=== PATIENT | male | born 1945 | race African-American/Black ===

== ENCOUNTER 2016-12-07 06:05 | Inpatient (IN) | payer MEDICARE ==
[~2016-12-07] VITALS: Ht 180.3 cm; Wt 77.1 kg
[~2016-12-07 06:05] MED LIST: ASPI81TA2 PO; ATOR20TA PO; DILT-3 PO; FURO80TA3 PO; POTA20TA83 PO; THIA100T13 PO; Valsartan PO
[2016-12-07] MEDS ORDERED: ASPIRIN 325 MG TABLET PO ONE (06:30)
[2016-12-07] MEDS ORDERED: NITROGLYCERIN PACKET 1 GM PACKET TD ONE (06:30)
[2016-12-07] MEDS ORDERED: ASPIRIN 325 MG TABLET ONE (06:43)
[2016-12-07] MEDS ORDERED: NITROGLYCERIN PACKET 1 GM PACKET ONE (06:43)
[2016-12-07 06:51] LABS: BASOPHILS % (AUTO) 0.5 % (0.0-2.0); DIFF TOTAL % 100 %; EOSINOPHILS # (AUTO) 0.1 /CMM (0.0-0.7); EOSINOPHILS % (AUTO) 1.2 % (0.0-6.0); HEMATOCRIT 40 % (39-51); HEMOGLOBIN 13.2 g/dL (13.5-17.5); LYMPHOCYTES # (AUTO) 0.9 /CMM (0.8-4.8); LYMPHOCYTES % (AUTO) 11.9 % (20.0-44.0); MEAN CORPUSCULAR HEMOGLOBIN 33 PG (26.0-33.0); MEAN CORPUSCULAR HGB CONC 33 g/dl (31.0-36.0); MEAN CORPUSCULAR VOLUME 97 fL (80-96); MONOCYTES # (AUTO) 0.4 /CMM (0.1-1.30); MONOCYTES % (AUTO) 5.1 % (2.0-12.0); NEUTROPHILS % (AUTO) 81.3 % (43.0-81.0); PLATELET COUNT (AUTO) 265 /CMM (150-450); RED BLOOD CELL COUNT(AUTO) 4.06 MIL/uL (4.5-6.0); WHITE BLOOD COUNT (AUTO) 7.3 K/uL (4.3-11.0)
[2016-12-07 07:03] LABS: ALBUMIN 3.4 g/dL (3.4-5.0); BILIRUBIN,DIRECT 0.3 mg/dL (0.0-0.2); BILIRUBIN,TOTAL 0.8 mg/dL (0.2-1.0); INDIRECT BILIRUBIN 0.5 mg/dL (0.0-1.1)
[2016-12-07 07:07] LABS: TROPONIN I 0.055 ng/mL (0.00-0.056)
[2016-12-07 07:21] LABS: INR 0.99 (0.87-1.13); PROTHROMBIN TIME 10.7 SECS (9.5-12.7)
[2016-12-07] MEDS ORDERED: POTA20TA83 PO (07:45)
[2016-12-07] MEDS ORDERED: ASPI81TA2 PO (07:45)
[2016-12-07] MEDS ORDERED: VALS40TA4 PO (07:45)
[2016-12-07] MEDS ORDERED: FURO80TA3 PO (07:45)
[2016-12-07 08:43] VITALS: BP 145/92
[2016-12-07] MEDS ORDERED: ACETAMINOPHEN 325 MG TABLET PO PRN (09:30)
[2016-12-07] MEDS: PANTOPRAZOLE 40 MG TABLET.DR PO SCH (09:33)
[2016-12-07 09:45] LABS: CALCIUM, SERUM 7.8 mg/dL (8.5-10.1); CREATININE 1.1 mg/dL (0.6-1.3); POTASSIUM 3.4 mmol/L (3.5-5.1)
[2016-12-07] MEDS: VALSARTAN 40 MG TABLET PO SCH (09:54)
[2016-12-07] MEDS: DILTIAZEM HCL CD 240 MG PO SCH (09:54)
[2016-12-07] MEDS ORDERED: ENOXAPARIN SODIUM 40 MG/0.4 ML DISP.SYRIN SQ SCH (10:00)
[2016-12-07] MEDS ORDERED: FUROSEMIDE 80 MG TABLET PO SCH (10:30)
[2016-12-07] MEDS: POTASSIUM CHLORIDE 20 MEQ TAB.PRT.SR PO SCH (11:09)
[2016-12-07] MEDS: ENOXAPARIN SODIUM 40 MG/0.4 ML DISP.SYRIN SQ SCH (11:10)
[2016-12-07] MEDS ORDERED: HYDROCODONE/APAP 5/325MG 1 EACH TABLET PO STA (11:38)
[2016-12-07] MEDS: NITROGLYCERIN 30 GM TUBE TP SCH ×2 (11:44→17:50)
[2016-12-07 12:00] VITALS: BP 135/88
[2016-12-07] MEDS ORDERED: LEVALBUTEROL HCL NEB 1.25 MG/0.5 ML VIAL.NEB IH PRN (12:00)
[2016-12-07] MEDS ORDERED: ALBUTEROL FS 2.5 MG/0.5 ML VIAL.NEB NEB PRN (13:00)
[2016-12-07] MEDS: HYDROCODONE/APAP 5/325MG 1 EACH TABLET PO PRN ×2 (15:36→21:30)
[2016-12-07 16:00] VITALS: BP 149/87
[2016-12-07 16:31] VITALS: BP 149/87
[2016-12-07 20:00] VITALS: BP 143/98
[2016-12-07] MEDS ORDERED: ONDANSETRON HCL/PF 4 MG/2 ML VIAL IV PRN (22:00)
[2016-12-07] MEDS ORDERED: ATORVASTATIN 10 MG TABLET PO SCH (22:00)
[2016-12-08] MEDS: HYDROCODONE/APAP 5/325MG 1 EACH TABLET PO PRN ×2 (03:29→10:18)
[2016-12-08 04:00] VITALS: BP 126/81
[2016-12-08 04:08] VITALS: BP 126/81
[2016-12-08] MEDS: NITROGLYCERIN 30 GM TUBE TP SCH ×3 (06:00→12:00)
[2016-12-08] MEDS: ENOXAPARIN SODIUM 40 MG/0.4 ML DISP.SYRIN SQ SCH (09:00)
[2016-12-08] MEDS ORDERED: FUROSEMIDE 40 MG TABLET PO SCH (09:00)
[2016-12-08] MEDS ORDERED: ASPIRIN 81 MG TAB.CHEW PO SCH ×2 (09:00)
[2016-12-08] MEDS ORDERED: THIAMINE HCL 100 MG TABLET PO SCH (09:00)
[2016-12-08 09:57] VITALS: BP 129/85
[2016-12-08] MEDS: VALSARTAN 40 MG TABLET PO SCH (10:19)
[2016-12-08] MEDS: DILTIAZEM HCL CD 240 MG PO SCH (10:20)
[2016-12-08] MEDS: PANTOPRAZOLE 40 MG TABLET.DR PO SCH (10:21)
[2016-12-08] MEDS: POTASSIUM CHLORIDE 20 MEQ TAB.PRT.SR PO SCH (10:21)
[2016-12-08 12:00] VITALS: BP 116/77
== END 2016-12-08 13:49 | disposition home or self-care (01) | DRG 191 ==
LOC: ER 06:08 → TELE1 07:53 → MEDSG1 11:51
PROVIDERS: ADMIT Legal Medicine; ATTEND Legal Medicine
DX: J44.0 Chronic obstructive pulmonary disease with (acute) lower respiratory infection (principal); I42.9 Cardiomyopathy, unspecified; I50.22 Chronic systolic (congestive) heart failure; J20.9 Acute bronchitis, unspecified; I48.2 Chronic atrial fibrillation; Z87.891 Personal history of nicotine dependence; Z95.810 Presence of automatic (implantable) cardiac defibrillator; R74.0 Nonspecific elevation of levels of transaminase and lactic acid dehydrogenase [LDH]; Z76.5 Malingerer [conscious simulation]; I11.0 Hypertensive heart disease with heart failure; G89.4 Chronic pain syndrome; I25.10 Atherosclerotic heart disease of native coronary artery without angina pectoris; M19.90 Unspecified osteoarthritis, unspecified site; Z96.649 Presence of unspecified artificial hip joint; K21.9 Gastro-esophageal reflux disease without esophagitis
CPT/HCPCS: 36415; 71010-TC; 80048-TC; 80076-TC; 84484-TC; 85025-TC; 85730-TC; 87081-TC; A4606; J1650; J2405; Z7610

== ENCOUNTER 2016-12-12 05:31 | Inpatient (IN) | payer MEDICARE ==
[~2016-12-12] VITALS: Ht 180.3 cm; Wt 77.1 kg
[~2016-12-12 05:31] MED LIST changes: +VALS40TA4 PO; -Valsartan PO
[2016-12-12] MEDS ORDERED: Magnesium 1GM/D5W 100ML PREMIX 200 ML IV ONE (05:34)
[2016-12-12] MEDS ORDERED: IPRATROPIUM NEB FS 0.5 MG/2.5 ML AMPUL.NEB ONE (05:40)
[2016-12-12] MEDS ORDERED: ALBUTEROL FS 2.5 MG/3 ML VIAL.NEB ONE (05:40)
[2016-12-12] MEDS ORDERED: Magnesium 1GM/D5W 100ML PREMIX 100 ML IV ONE ×2 (05:42→05:55)
[2016-12-12] MEDS ORDERED: methylPREDNISolone SOD SUCC 125 MG/2ML VIAL ONE (05:42)
[2016-12-12] MEDS ORDERED: FUROSEMIDE 40 MG/4 ML VIAL ONE (05:42)
[2016-12-12] MEDS ORDERED: ASPIRIN EC 81 MG TABLET.DR PO ONE (05:42)
[2016-12-12] MEDS ORDERED: NITROGLYCERIN PACKET 1 GM PACKET ONE (05:43)
[2016-12-12] MEDS ORDERED: IV SET PRIMARY PUMP SET 1 EA INFUS.SET MC ONE ×3 (05:43→11:31)
[2016-12-12] MEDS ORDERED: ENALAPRILAT DIHYD. (2.5MG/ML) 1.25 MG/ML VIAL IV ONE (05:43)
[2016-12-12 05:58] LABS: BASOPHILS % (AUTO) 0.5 % (0.0-2.0); DIFF TOTAL % 100 %; EOSINOPHILS # (AUTO) 0.2 /CMM (0.0-0.7); EOSINOPHILS % (AUTO) 2.9 % (0.0-6.0); HEMATOCRIT 37 % (39-51); HEMOGLOBIN 12.2 g/dL (13.5-17.5); LYMPHOCYTES # (AUTO) 1.6 /CMM (0.8-4.8); LYMPHOCYTES % (AUTO) 24.9 % (20.0-44.0); MEAN CORPUSCULAR HEMOGLOBIN 33 PG (26.0-33.0); MEAN CORPUSCULAR HGB CONC 33 g/dl (31.0-36.0); MEAN CORPUSCULAR VOLUME 98 fL (80-96); MONOCYTES # (AUTO) 0.4 /CMM (0.1-1.30); MONOCYTES % (AUTO) 6.2 % (2.0-12.0); NEUTROPHILS # (AUTO) 4.3 /CMM (1.8-8.9); NEUTROPHILS % (AUTO) 65.5 % (43.0-81.0); PLATELET COUNT (AUTO) 203 /CMM (150-450); RED BLOOD CELL COUNT(AUTO) 3.72 MIL/uL (4.5-6.0); WHITE BLOOD COUNT (AUTO) 6.5 K/uL (4.3-11.0)
[2016-12-12] MEDS ORDERED: methylPREDNISolone SOD SUCC 125 MG/2ML VIAL IV ONE (06:00)
[2016-12-12] MEDS ORDERED: FUROSEMIDE 40 MG/4 ML VIAL IV ONE (06:00)
[2016-12-12] MEDS ORDERED: ALBUTEROL FS 2.5 MG/3 ML VIAL.NEB CONTNEB ONE (06:00)
[2016-12-12] MEDS ORDERED: IPRATROPIUM NEB FS 0.5 MG/2.5 ML AMPUL.NEB NEB ONE (06:00)
[2016-12-12] MEDS ORDERED: NITROGLYCERIN PACKET 1 GM PACKET TD ONE (06:00)
[2016-12-12] MEDS ORDERED: ASPIRIN 81 MG TAB.CHEW PO ONE (06:00)
[2016-12-12] MEDS ORDERED: NITROGLYCERIN 0.4 MG/TAB BOTTLE SL ONE (06:00)
[2016-12-12] MEDS ORDERED: ENALAPRILAT INJ (1.25 MG/ML) 1.25 MG/ML VIAL IV PRN (06:00)
[2016-12-12] MEDS ORDERED: NITROGLYCERIN 0.4 MG/TAB BOTTLE ONE (06:04)
[2016-12-12 06:10] LABS: CALCIUM, SERUM 8.3 mg/dL (8.5-10.1); POTASSIUM 3.7 mmol/L (3.5-5.1)
[2016-12-12 06:14] LABS: PHOSPHORUS 3.7 mg/dL (2.5-4.9)
[2016-12-12 06:17] LABS: TROPONIN I 0.078 ng/mL (0.00-0.056)
[2016-12-12 06:22] LABS: ALBUMIN 3.3 g/dL (3.4-5.0); BILIRUBIN,DIRECT 0.3 mg/dL (0.0-0.2); BILIRUBIN,TOTAL 0.6 mg/dL (0.2-1.0); INDIRECT BILIRUBIN 0.3 mg/dL (0.0-1.1); TOTAL PROTEIN, SERUM 7.1 g/dL (6.4-8.2)
[2016-12-12 08:00] VITALS: BP 138/92
[2016-12-12] MEDS ORDERED: IPRATROPIUM NEB FS 0.5 MG/2.5 ML AMPUL.NEB NEB PRN (10:00)
[2016-12-12] MEDS ORDERED: HYDROCODONE/APAP 5/325MG 1 EACH TABLET PO PRN ×2 (10:00)
[2016-12-12] MEDS ORDERED: ALBUTEROL FS 2.5 MG/0.5 ML VIAL.NEB NEB PRN (10:00)
[2016-12-12] MEDS ORDERED: MORPHINE SULFATE INJ 2 MG/ML DISP.SYRIN IM PRN (10:00)
[2016-12-12] MEDS ORDERED: Magnesium 1GM/D5W 100ML PREMIX 100 ML IV SCH (10:43)
[2016-12-12] MEDS ORDERED: BUMETANIDE INJ 8 MG in IV NS 0.9% 48 ML IV ONE (11:00)
[2016-12-12] MEDS: POTASSIUM CHLORIDE 20 MEQ TAB.PRT.SR PO SCH ×3 (11:22→14:35)
[2016-12-12] MEDS: VALSARTAN 40 MG TABLET PO SCH (11:27)
[2016-12-12] MEDS: THIAMINE HCL 100 MG TABLET PO SCH (11:30)
[2016-12-12] MEDS: Magnesium 1GM/D5W 100ML PREMIX 100 ML IV SCH ×2 (11:30→11:47)
[2016-12-12] MEDS: DILTIAZEM HCL CD 240 MG PO SCH (11:31)
[2016-12-12] MEDS: LEVOFLOXACIN 750 MG /D5W 150ML 750 MG in PREMIX 1 EA IV SCH (11:42)
[2016-12-12] MEDS ORDERED: ONDANSETRON HCL/PF 4 MG/2 ML VIAL ONE (12:41)
[2016-12-12] MEDS: methylPREDNISolone SOD SUCC 125 MG/2ML VIAL IV SCH ×2 (12:44→21:06)
[2016-12-12] MEDS ORDERED: ONDANSETRON HCL/PF 4 MG/2 ML VIAL IV PRN (13:00)
[2016-12-12] MEDS ORDERED: ALBUTEROL FS 2.5 MG/0.5 ML VIAL.NEB NEB SCH (13:30)
[2016-12-12] MEDS: MORPHINE SULFATE INJ 2 MG/ML DISP.SYRIN IV PRN ×2 (14:39→20:01)
[2016-12-12] MEDS: IPRATROPIUM NEB FS 0.5 MG/2.5 ML AMPUL.NEB NEB SCH ×2 (14:53→20:19)
[2016-12-12] MEDS ORDERED: MORPHINE SULFATE INJ 2 MG/ML DISP.SYRIN IV ONE (15:30)
[2016-12-12 16:00] VITALS: BP 124/88
[2016-12-12] MEDS ORDERED: LEVALBUTEROL HCL NEB 1.25 MG/0.5 ML VIAL.NEB NEB PRN ×2 (16:30→19:30)
[2016-12-12] MEDS ORDERED: ALBUTEROL FS 2.5 MG/3 ML VIAL.NEB NEB PRN (17:00)
[2016-12-12] MEDS ORDERED: ALBUTEROL FS 2.5 MG/3 ML VIAL.NEB NEB SCH (19:30)
[2016-12-12 22:37] VITALS: BP 115/79
[2016-12-12] MEDS ORDERED: LEVALBUTEROL HCL NEB 1.25 MG/0.5 ML VIAL.NEB NEB SCH (23:30)
[2016-12-12] MEDS: LEVALBUTEROL HCL NEB 1.25 MG/0.5 ML VIAL.NEB NEB SCH (23:33)
[2016-12-13] VITALS: BP 112/72
[2016-12-13] MEDS: MORPHINE SULFATE INJ 2 MG/ML DISP.SYRIN IV PRN ×6 (00:02→21:06)
[2016-12-13 00:05] VITALS: BP 112/72
[2016-12-13] MEDS: IPRATROPIUM NEB FS 0.5 MG/2.5 ML AMPUL.NEB NEB SCH ×4 (01:42→19:54)
[2016-12-13 04:00] VITALS: BP 123/73
[2016-12-13] MEDS: methylPREDNISolone SOD SUCC 125 MG/2ML VIAL IV SCH ×3 (05:18→16:15)
[2016-12-13 08:00] VITALS: BP 115/75
[2016-12-13] MEDS: LEVALBUTEROL HCL NEB 1.25 MG/0.5 ML VIAL.NEB NEB SCH ×3 (08:28→23:44)
[2016-12-13] MEDS: ATORVASTATIN 10 MG TABLET PO SCH (08:29)
[2016-12-13] MEDS: ASPIRIN 81 MG TAB.CHEW PO SCH (08:30)
[2016-12-13] MEDS: THIAMINE HCL 100 MG TABLET PO SCH (08:30)
[2016-12-13] MEDS: DILTIAZEM HCL CD 240 MG PO SCH (08:33)
[2016-12-13] MEDS: VALSARTAN 40 MG TABLET PO SCH (08:33)
[2016-12-13] MEDS ORDERED: FUROSEMIDE 40 MG TABLET PO SCH (09:00)
[2016-12-13] MEDS ORDERED: POTASSIUM CHLORIDE 20 MEQ TAB.PRT.SR PO SCH (09:00)
[2016-12-13] MEDS ORDERED: FUROSEMIDE 80 MG TABLET PO SCH (09:00)
[2016-12-13 09:59] LABS: DIFF TOTAL % 100 %; HEMATOCRIT 35 % (39-51); HEMOGLOBIN 11.6 g/dL (13.5-17.5); LYMPHOCYTES # (AUTO) 0.3 /CMM (0.8-4.8); LYMPHOCYTES % (AUTO) 4.8 % (20.0-44.0); MEAN CORPUSCULAR HEMOGLOBIN 32 PG (26.0-33.0); MEAN CORPUSCULAR HGB CONC 33 g/dl (31.0-36.0); MEAN CORPUSCULAR VOLUME 98 fL (80-96); MONOCYTES # (AUTO) 0.1 /CMM (0.1-1.30); MONOCYTES % (AUTO) 2.2 % (2.0-12.0); NEUTROPHILS # (AUTO) 5.9 /CMM (1.8-8.9); PLATELET COUNT (AUTO) 199 /CMM (150-450); RED BLOOD CELL COUNT(AUTO) 3.58 MIL/uL (4.5-6.0); WHITE BLOOD COUNT (AUTO) 6.3 K/uL (4.3-11.0)
[2016-12-13] MEDS: FUROSEMIDE 80 MG TABLET PO SCH (10:00)
[2016-12-13 10:20] LABS: ALBUMIN 3.3 g/dL (3.4-5.0); BILIRUBIN,TOTAL 0.8 mg/dL (0.2-1.0); CREATININE 1.5 mg/dL (0.6-1.3); PHOSPHORUS 3.8 mg/dL (2.5-4.9); POTASSIUM 3.9 mmol/L (3.5-5.1)
[2016-12-13] MEDS ORDERED: SECONDARY IV SET 1 EA INFUS.SET MC ONE ×2 (10:37→10:46)
[2016-12-13] MEDS: Magnesium 1GM/D5W 100ML PREMIX 100 ML IV SCH ×2 (10:44→12:04)
[2016-12-13] MEDS ORDERED: IV SET PRIMARY PUMP SET 1 EA INFUS.SET MC ONE (10:46)
[2016-12-13] MEDS ORDERED: IV NS 0.9% 250 ML IV ONE (10:46)
[2016-12-13] MEDS: LEVOFLOXACIN 750 MG /D5W 150ML 750 MG in PREMIX 1 EA IV SCH (13:10)
[2016-12-13] MEDS: GABAPENTIN 100 MG CAPSULE PO SCH ×2 (13:13→16:15)
[2016-12-13] MEDS: LIDOCAINE 5% (PATCH) 1 EA PATCH TP SCH (13:30)
[2016-12-13 16:01] VITALS: BP 89/65
[2016-12-13 20:00] VITALS: BP 96/64
[2016-12-14] MEDS: IPRATROPIUM NEB FS 0.5 MG/2.5 ML AMPUL.NEB NEB SCH ×4 (01:11→19:57)
[2016-12-14] MEDS: MORPHINE SULFATE INJ 2 MG/ML DISP.SYRIN IV PRN ×5 (01:56→21:30)
[2016-12-14 04:00] VITALS: BP 117/65
[2016-12-14 04:15] VITALS: BP 124/63
[2016-12-14 05:02] VITALS: BP 117/65
[2016-12-14] MEDS: LEVALBUTEROL HCL NEB 1.25 MG/0.5 ML VIAL.NEB NEB SCH ×3 (07:17→23:11)
[2016-12-14] MEDS: ASPIRIN 81 MG TAB.CHEW PO SCH ×2 (09:00→09:55)
[2016-12-14] MEDS: FUROSEMIDE 80 MG TABLET PO SCH (09:00)
[2016-12-14] MEDS: POTASSIUM CHLORIDE 20 MEQ TAB.PRT.SR PO SCH ×2 (09:00→09:55)
[2016-12-14] MEDS: GABAPENTIN 100 MG CAPSULE PO SCH ×4 (09:00→17:00)
[2016-12-14] MEDS ORDERED: TEMAZEPAM 15 MG CAPSULE PO PRN (09:30)
[2016-12-14] MEDS: predniSONE 20 MG TABLET PO SCH (09:56)
[2016-12-14] MEDS: VALSARTAN 40 MG TABLET PO SCH (09:56)
[2016-12-14] MEDS: DILTIAZEM HCL CD 240 MG PO SCH (09:56)
[2016-12-14] MEDS: ATORVASTATIN 10 MG TABLET PO SCH (09:56)
[2016-12-14] MEDS: THIAMINE HCL 100 MG TABLET PO SCH (09:57)
[2016-12-14 10:49] LABS: ALBUMIN 3.4 g/dL (3.4-5.0); BILIRUBIN,TOTAL 0.7 mg/dL (0.2-1.0); CALCIUM, SERUM 8.1 mg/dL (8.5-10.1); CREATININE 1.4 mg/dL (0.6-1.3); PHOSPHORUS 3.4 mg/dL (2.5-4.9); POTASSIUM 3.6 mmol/L (3.5-5.1); TOTAL PROTEIN, SERUM 7.2 g/dL (6.4-8.2)
[2016-12-14 11:04] LABS: DIFF TOTAL % 100 %; HEMATOCRIT 38 % (39-51); HEMOGLOBIN 12.3 g/dL (13.5-17.5); LYMPHOCYTES # (AUTO) 0.3 /CMM (0.8-4.8); LYMPHOCYTES % (AUTO) 3.1 % (20.0-44.0); MEAN CORPUSCULAR HEMOGLOBIN 33 PG (26.0-33.0); MEAN CORPUSCULAR HGB CONC 33 g/dl (31.0-36.0); MEAN CORPUSCULAR VOLUME 99 fL (80-96); MONOCYTES # (AUTO) 0.2 /CMM (0.1-1.30); MONOCYTES % (AUTO) 2.5 % (2.0-12.0); NEUTROPHILS # (AUTO) 7.9 /CMM (1.8-8.9); NEUTROPHILS % (AUTO) 94.4 % (43.0-81.0); PLATELET COUNT (AUTO) 210 /CMM (150-450); RED BLOOD CELL COUNT(AUTO) 3.78 MIL/uL (4.5-6.0); WHITE BLOOD COUNT (AUTO) 8.4 K/uL (4.3-11.0)
[2016-12-14] MEDS: LIDOCAINE 5% (PATCH) 1 EA PATCH TP SCH (12:30)
[2016-12-14] MEDS: LEVOFLOXACIN (750 MG) 750 MG TABLET PO SCH (13:52)
[2016-12-14 17:34] VITALS: BP 110/65
[2016-12-14 20:00] VITALS: BP 107/73
[2016-12-14 20:24] VITALS: BP 107/73
[2016-12-15] MEDS: IPRATROPIUM NEB FS 0.5 MG/2.5 ML AMPUL.NEB NEB SCH ×2 (01:30→07:49)
[2016-12-15 04:00] VITALS: BP 95/46
[2016-12-15 04:42] VITALS: BP 95/46
[2016-12-15] MEDS: MORPHINE SULFATE INJ 2 MG/ML DISP.SYRIN IV PRN (06:57)
[2016-12-15] MEDS: LEVALBUTEROL HCL NEB 1.25 MG/0.5 ML VIAL.NEB NEB SCH (07:49)
[2016-12-15 08:00] VITALS: BP_SYST 100; BP_SYST 165; BP_DIAS 70; BP_DIAS 84
[2016-12-15] MEDS: THIAMINE HCL 100 MG TABLET PO SCH (09:00)
[2016-12-15] MEDS: DILTIAZEM HCL CD 240 MG PO SCH (09:00)
[2016-12-15] MEDS: predniSONE 20 MG TABLET PO SCH (09:00)
[2016-12-15] MEDS: POTASSIUM CHLORIDE 20 MEQ TAB.PRT.SR PO SCH (09:00)
[2016-12-15] MEDS: ATORVASTATIN 10 MG TABLET PO SCH (09:00)
[2016-12-15] MEDS: GABAPENTIN 100 MG CAPSULE PO SCH ×2 (09:00→12:40)
[2016-12-15] MEDS: ASPIRIN 81 MG TAB.CHEW PO SCH (09:00)
[2016-12-15] MEDS: FUROSEMIDE 80 MG TABLET PO SCH (09:00)
[2016-12-15] MEDS: VALSARTAN 40 MG TABLET PO SCH (09:00)
[2016-12-15] MEDS: LEVOFLOXACIN (750 MG) 750 MG TABLET PO SCH (11:30)
[2016-12-15] MEDS: LIDOCAINE 5% (PATCH) 1 EA PATCH TP SCH (12:30)
== END 2016-12-15 15:52 | disposition home or self-care (01) | DRG 190 ==
LOC: ER 05:32 → TELE1 07:25 → MEDSG1 10:54 → TELE-TD 15:24 → MEDSG1 12-13 10:20
PROVIDERS: ADMIT Legal Medicine; ATTEND Legal Medicine
DX: J44.1 Chronic obstructive pulmonary disease with (acute) exacerbation (principal); I50.23 Acute on chronic systolic (congestive) heart failure; I11.0 Hypertensive heart disease with heart failure; G89.4 Chronic pain syndrome; J40 Bronchitis, not specified as acute or chronic; I25.10 Atherosclerotic heart disease of native coronary artery without angina pectoris; I48.91 Unspecified atrial fibrillation; K21.9 Gastro-esophageal reflux disease without esophagitis; Z91.19 Patient's noncompliance with other medical treatment and regimen; Z71.6 Tobacco abuse counseling; F17.200 Nicotine dependence, unspecified, uncomplicated; R74.0 Nonspecific elevation of levels of transaminase and lactic acid dehydrogenase [LDH]; Z95.810 Presence of automatic (implantable) cardiac defibrillator; M19.90 Unspecified osteoarthritis, unspecified site; Z96.649 Presence of unspecified artificial hip joint
CPT/HCPCS: 36415; 71010-TC; 80048-TC; 80053-TC; 80076-TC; 83735-TC; 83880; 84100-TC; 84484-TC; 85025-TC; 85378-TC; 87081-TC; 87400; 94799-TC; 97001-TC; 97116-TC; 97530-TC; A4216; A4606; J1940; J1956; J2270; J2405; J2930; J3475; J3490; J7050; Z7610

== ENCOUNTER 2017-01-06 18:32 | Emergency (ER) | payer MEDICARE ==
[~2017-01-06] VITALS: Ht 185.4 cm; Wt 81.6 kg
[2017-01-06 22:35] LABS: BASOPHILS % (AUTO) 0.7 % (0.0-2.0); DIFF TOTAL % 100 %; EOSINOPHILS # (AUTO) 0.2 /CMM (0.0-0.7); EOSINOPHILS % (AUTO) 6.5 % (0.0-6.0); HEMATOCRIT 41 % (39-51); HEMOGLOBIN 13.4 g/dL (13.5-17.5); LYMPHOCYTES # (AUTO) 1.8 /CMM (0.8-4.8); LYMPHOCYTES % (AUTO) 53.8 % (20.0-44.0); MEAN CORPUSCULAR HEMOGLOBIN 32 PG (26.0-33.0); MEAN CORPUSCULAR HGB CONC 33 g/dl (31.0-36.0); MEAN CORPUSCULAR VOLUME 97 fL (80-96); MONOCYTES # (AUTO) 0.2 /CMM (0.1-1.30); MONOCYTES % (AUTO) 6.3 % (2.0-12.0); NEUTROPHILS # (AUTO) 1.1 /CMM (1.8-8.9); NEUTROPHILS % (AUTO) 32.7 % (43.0-81.0); PLATELET COUNT (AUTO) 96 /CMM (150-450); RED BLOOD CELL COUNT(AUTO) 4.24 MIL/uL (4.5-6.0); WHITE BLOOD COUNT (AUTO) 3.4 K/uL (4.3-11.0)
[2017-01-06 22:36] LABS: CREATININE 0.9 mg/dL (0.6-1.3); POTASSIUM 3.8 mmol/L (3.5-5.1)
[2017-01-06 22:38] LABS: SALICYLATE 4.1 mg/dL (2.8-20.0)
[2017-01-06 22:42] LABS: ALBUMIN 3.6 g/dL (3.4-5.0); BILIRUBIN,DIRECT 0.2 mg/dL (0.0-0.2); BILIRUBIN,TOTAL 0.5 mg/dL (0.2-1.0); INDIRECT BILIRUBIN 0.3 mg/dL (0.0-1.1)
[2017-01-06 22:50] LABS: INR 0.95 (0.87-1.13); PROTHROMBIN TIME 10.3 SECS (9.5-12.7)
[2017-01-07] MEDS ORDERED: IV NS 0.9% 1,000 ML BAG IV ONE (01:00)
[2017-01-07] MEDS ORDERED: Magnesium 1GM/D5W 100ML PREMIX 100 ML IV SCH (01:00)
[2017-01-07 06:41] VITALS: BP 128/72
== END 2017-01-07 05:30 | disposition home or self-care (01) ==
LOC: ER 18:35
DX: F10.129 Alcohol abuse with intoxication, unspecified (principal); I10 Essential (primary) hypertension; R41.82 Altered mental status, unspecified; J44.9 Chronic obstructive pulmonary disease, unspecified; K21.9 Gastro-esophageal reflux disease without esophagitis; F17.210 Nicotine dependence, cigarettes, uncomplicated
CPT/HCPCS: 36415; 70450; 71010; 72125; 80048; 80076; 80329; 82140; 83735; 85025; 85730; 93005; 99285; A4606; G0480 ×2; G6039-TC; Z7610

== ENCOUNTER 2017-01-25 01:57 | Inpatient (IN) | payer MEDICARE ==
[~2017-01-25] VITALS: Ht 180.3 cm; Wt 77.1 kg
[2017-01-25] MEDS ORDERED: ASPIRIN 325 MG TABLET PO ONE (02:30)
[2017-01-25 02:35] LABS: BASOPHILS % (AUTO) 0.7 % (0.0-2.0); DIFF TOTAL % 100 %; EOSINOPHILS # (AUTO) 0.1 /CMM (0.0-0.7); EOSINOPHILS % (AUTO) 2.2 % (0.0-6.0); HEMATOCRIT 35 % (39-51); HEMOGLOBIN 11.7 g/dL (13.5-17.5); LYMPHOCYTES # (AUTO) 1.2 /CMM (0.8-4.8); MEAN CORPUSCULAR HEMOGLOBIN 33 PG (26.0-33.0); MEAN CORPUSCULAR HGB CONC 33 g/dl (31.0-36.0); MEAN CORPUSCULAR VOLUME 98 fL (80-96); MONOCYTES # (AUTO) 0.6 /CMM (0.1-1.30); MONOCYTES % (AUTO) 13.5 % (2.0-12.0); NEUTROPHILS # (AUTO) 2.3 /CMM (1.8-8.9); NEUTROPHILS % (AUTO) 54.6 % (43.0-81.0); PLATELET COUNT (AUTO) 154 /CMM (150-450); RED BLOOD CELL COUNT(AUTO) 3.58 MIL/uL (4.5-6.0); WHITE BLOOD COUNT (AUTO) 4.2 K/uL (4.3-11.0)
[2017-01-25] MEDS ORDERED: ASPIRIN 81 MG TAB.CHEW ONE (02:38)
[2017-01-25 02:48] LABS: CALCIUM, SERUM 7.9 mg/dL (8.5-10.1); POTASSIUM 3.2 mmol/L (3.5-5.1)
[2017-01-25 02:51] LABS: TROPONIN I 0.13 ng/mL (0.00-0.056)
[2017-01-25] MEDS ORDERED: ASPIRIN 81 MG TAB.CHEW PO ONE (03:00)
[2017-01-25 03:40] LABS: INR 0.91 (0.87-1.13); PROTHROMBIN TIME 9.8 SECS (9.5-12.7)
[2017-01-25 04:25] VITALS: BP 138/95
[2017-01-25] MEDS ORDERED: ENOXAPARIN SODIUM 40 MG/0.4 ML DISP.SYRIN SQ ONE (04:49)
[2017-01-25] MEDS ORDERED: MORPHINE SULFATE INJ 2 MG/ML DISP.SYRIN ONE (04:49)
[2017-01-25] MEDS: MORPHINE SULFATE INJ 2 MG/ML DISP.SYRIN IV PRN ×6 (04:59→22:55)
[2017-01-25] MEDS ORDERED: ENOXAPARIN SODIUM 40 MG/0.4 ML DISP.SYRIN SQ SCH (05:00)
[2017-01-25] MEDS ORDERED: NITROGLYCERIN PACKET 1 GM PACKET TOP PRN (05:30)
[2017-01-25 07:07] VITALS: BP 131/81
[2017-01-25] MEDS: ONDANSETRON HCL/PF 4 MG/2 ML VIAL IV PRN ×2 (07:53→14:53)
[2017-01-25 07:59] LABS: PHOSPHORUS 4.3 mg/dL (2.5-4.9); TROPONIN I 0.099 ng/mL (0.00-0.056)
[2017-01-25 08:45] LABS: DIFF TOTAL % 100 %; HEMATOCRIT 36 % (39-51); HEMOGLOBIN 11.9 g/dL (13.5-17.5); LYMPHOCYTES # (AUTO) 1.2 /CMM (0.8-4.8); LYMPHOCYTES % (AUTO) 26.5 % (20.0-44.0); MEAN CORPUSCULAR HEMOGLOBIN 33 PG (26.0-33.0); MEAN CORPUSCULAR HGB CONC 34 g/dl (31.0-36.0); MEAN CORPUSCULAR VOLUME 98 fL (80-96); MONOCYTES # (AUTO) 0.4 /CMM (0.1-1.30); MONOCYTES % (AUTO) 8.2 % (2.0-12.0); NEUTROPHILS # (AUTO) 2.8 /CMM (1.8-8.9); NEUTROPHILS % (AUTO) 64.3 % (43.0-81.0); PLATELET COUNT (AUTO) 147 /CMM (150-450); RED BLOOD CELL COUNT(AUTO) 3.66 MIL/uL (4.5-6.0); WHITE BLOOD COUNT (AUTO) 4.4 K/uL (4.3-11.0)
[2017-01-25] MEDS: PANTOPRAZOLE 40 MG TABLET.DR PO SCH (08:46)
[2017-01-25] MEDS ORDERED: Magnesium 1GM/D5W 100ML PREMIX 100 ML IV SCH (10:00)
[2017-01-25] MEDS ORDERED: SECONDARY IV SET 1 EA INFUS.SET MC ONE (10:32)
[2017-01-25] MEDS ORDERED: IV NS 0.9% 250 ML IV ONE (10:32)
[2017-01-25] MEDS ORDERED: IV SET PRIMARY PUMP SET 1 EA INFUS.SET MC ONE (10:32)
[2017-01-25] MEDS: Magnesium 1GM/D5W 100ML PREMIX 100 ML IV SCH ×4 (11:00→14:58)
[2017-01-25] MEDS ORDERED: POTASSIUM CHLORIDE 20 MEQ POWDER PACKET PO ONE (11:00)
[2017-01-25] MEDS ORDERED: FUROSEMIDE 20 MG/2 ML VIAL IV ONE (11:00)
[2017-01-25] MEDS: ISOSORBIDE MONONITRATE (30MG) 30 MG TAB.SR.24H PO SCH (11:07)
[2017-01-25] MEDS: BISOPROLOL FUMARATE 5 MG TABLET PO SCH (13:05)
[2017-01-25 16:00] VITALS: BP_SYST 106; BP_SYST 122; BP_DIAS 69; BP_DIAS 80
[2017-01-25 20:00] VITALS: BP 122/77
[2017-01-25 22:00] VITALS: BP 122/77
[2017-01-25] MEDS: ATORVASTATIN 10 MG TABLET PO SCH (22:56)
[2017-01-26 01:28] VITALS: BP 116/81
[2017-01-26] MEDS: MORPHINE SULFATE INJ 2 MG/ML DISP.SYRIN IV PRN ×7 (03:01→23:07)
[2017-01-26 04:00] VITALS: BP 112/76
[2017-01-26] MEDS: PANTOPRAZOLE 40 MG TABLET.DR PO SCH (06:28)
[2017-01-26 08:00] VITALS: BP 115/79
[2017-01-26] MEDS: ASPIRIN 81 MG TAB.CHEW PO SCH (08:21)
[2017-01-26] MEDS: ISOSORBIDE MONONITRATE (30MG) 30 MG TAB.SR.24H PO SCH (08:21)
[2017-01-26] MEDS: ENOXAPARIN SODIUM 40 MG/0.4 ML DISP.SYRIN SQ SCH (08:22)
[2017-01-26] MEDS: BISOPROLOL FUMARATE 5 MG TABLET PO SCH (08:26)
[2017-01-26] MEDS ORDERED: ZOLPIDEM TARTRATE 5 MG TABLET PO PRN (09:00)
[2017-01-26 16:00] VITALS: BP 101/73
[2017-01-26 20:00] VITALS: BP 117/67
[2017-01-26] MEDS: ATORVASTATIN 10 MG TABLET PO SCH (22:16)
[2017-01-27] VITALS: BP 120/74
[2017-01-27 04:00] VITALS: BP_SYST 107; BP_SYST 118; BP_DIAS 67; BP_DIAS 74
[2017-01-27] MEDS: MORPHINE SULFATE INJ 2 MG/ML DISP.SYRIN IV PRN ×2 (05:10→08:00)
[2017-01-27 06:17] VITALS: BP 118/67
[2017-01-27 07:44] LABS: BASOPHILS % (AUTO) 0.2 % (0.0-2.0); DIFF TOTAL % 100 %; EOSINOPHILS % (AUTO) 0.1 % (0.0-6.0); HEMATOCRIT 33 % (39-51); HEMOGLOBIN 11.2 g/dL (13.5-17.5); LYMPHOCYTES # (AUTO) 0.6 /CMM (0.8-4.8); LYMPHOCYTES % (AUTO) 10.5 % (20.0-44.0); MEAN CORPUSCULAR HEMOGLOBIN 34 PG (26.0-33.0); MEAN CORPUSCULAR HGB CONC 34 g/dl (31.0-36.0); MEAN CORPUSCULAR VOLUME 99 fL (80-96); MONOCYTES # (AUTO) 0.7 /CMM (0.1-1.30); NEUTROPHILS # (AUTO) 4.7 /CMM (1.8-8.9); NEUTROPHILS % (AUTO) 78.2 % (43.0-81.0); PLATELET COUNT (AUTO) 103 /CMM (150-450); RED BLOOD CELL COUNT(AUTO) 3.33 MIL/uL (4.5-6.0); WHITE BLOOD COUNT (AUTO) 6.1 K/uL (4.3-11.0)
[2017-01-27 07:53] LABS: CALCIUM, SERUM 8.4 mg/dL (8.5-10.1); CREATININE 1.9 mg/dL (0.6-1.3); POTASSIUM 5.1 mmol/L (3.5-5.1)
[2017-01-27] MEDS: ISOSORBIDE MONONITRATE (30MG) 30 MG TAB.SR.24H PO SCH (07:56)
[2017-01-27] MEDS: ASPIRIN 81 MG TAB.CHEW PO SCH (07:56)
[2017-01-27] MEDS: PANTOPRAZOLE 40 MG TABLET.DR PO SCH (07:56)
[2017-01-27] MEDS: ENOXAPARIN SODIUM 40 MG/0.4 ML DISP.SYRIN SQ SCH (07:57)
[2017-01-27] MEDS: BISOPROLOL FUMARATE 5 MG TABLET PO SCH (07:59)
[2017-01-27 08:00] VITALS: BP 116/90
== END 2017-01-27 12:10 | disposition home or self-care (01) | DRG 280 ==
LOC: ER 01:58 → TELE 04:17 → MED 01-27 08:55
PROVIDERS: ADMIT Legal Medicine; ATTEND Legal Medicine
DX: I21.4 Non-ST elevation (NSTEMI) myocardial infarction (principal); I50.23 Acute on chronic systolic (congestive) heart failure; I42.6 Alcoholic cardiomyopathy; I25.10 Atherosclerotic heart disease of native coronary artery without angina pectoris; G89.29 Other chronic pain; J44.9 Chronic obstructive pulmonary disease, unspecified; K21.9 Gastro-esophageal reflux disease without esophagitis; M19.90 Unspecified osteoarthritis, unspecified site; I25.2 Old myocardial infarction; Z91.19 Patient's noncompliance with other medical treatment and regimen; Z95.810 Presence of automatic (implantable) cardiac defibrillator; Z96.642 Presence of left artificial hip joint; F17.210 Nicotine dependence, cigarettes, uncomplicated; I11.0 Hypertensive heart disease with heart failure; F10.10 Alcohol abuse, uncomplicated; Y90.6 Blood alcohol level of 120-199 mg/100 ml
CPT/HCPCS: 36415; 71010-TC; 80048-TC; 80061-TC; 83735-TC; 83880; 84100-TC; 84484-TC; 85025-TC; 85730-TC; 87081-TC; 94799-TC; A4606; G0480; J1650; J1940; J2270; J2405; J3475; J7050; Z7610

== ENCOUNTER 2017-02-11 08:06 | Inpatient (IN) | payer MEDICARE ==
[2017-02-11] VITALS (16 sets, daily range): BP systolic 118–161; BP diastolic 67–116
[~2017-02-11] VITALS: Ht 182.9 cm; Wt 79.4 kg
[2017-02-11] MEDS ORDERED: ALBUTEROL FS 2.5 MG/3 ML VIAL.NEB ONE ×2 (08:11→10:26)
[2017-02-11] MEDS ORDERED: IPRATROPIUM NEB FS 0.5 MG/2.5 ML AMPUL.NEB ONE (08:11)
[2017-02-11] MEDS ORDERED: ALBUTEROL FS 2.5 MG/3 ML VIAL.NEB CONTNEB ONE ×2 (08:30→10:30)
[2017-02-11] MEDS ORDERED: IPRATROPIUM NEB FS 0.5 MG/2.5 ML AMPUL.NEB NEB ONE (08:30)
[2017-02-11] MEDS ORDERED: methylPREDNISolone SOD SUCC 125 MG/2ML VIAL IV ONE (08:30)
[2017-02-11] MEDS ORDERED: methylPREDNISolone SOD SUCC 125 MG/2ML VIAL ONE (08:42)
[2017-02-11 08:54] LABS: BASOPHILS % (AUTO) 0.3 % (0.0-2.0); EOSINOPHILS % (AUTO) 0.3 % (0.0-6.0); HEMATOCRIT 40 % (39-51); HEMOGLOBIN 13.1 g/dL (13.5-17.5); LYMPHOCYTES # (AUTO) 0.9 /CMM (0.8-4.8); LYMPHOCYTES % (AUTO) 10.5 % (20.0-44.0); MEAN CORPUSCULAR HEMOGLOBIN 32 PG (26.0-33.0); MEAN CORPUSCULAR HGB CONC 33 g/dl (31.0-36.0); MEAN CORPUSCULAR VOLUME 99 fL (80-96); MONOCYTES # (AUTO) 0.2 /CMM (0.1-1.30); MONOCYTES % (AUTO) 2.8 % (2.0-12.0); NEUTROPHILS # (AUTO) 7.2 /CMM (1.8-8.9); NEUTROPHILS % (AUTO) 86.1 % (43.0-81.0); PLATELET COUNT (AUTO) 138 /CMM (150-450); RDW COEFFICIENT OF VARIATION 17.4 (11.5-15.0); RED BLOOD CELL COUNT(AUTO) 4.06 MIL/uL (4.5-6.0); WHITE BLOOD COUNT (AUTO) 8.3 K/uL (4.3-11.0)
[2017-02-11] MEDS ORDERED: FUROSEMIDE 40 MG/4 ML VIAL IV ONE (09:00)
[2017-02-11 09:16] LABS: TROPONIN I 0.082 ng/mL (0.00-0.056)
[2017-02-11 09:21] LABS: ALBUMIN 3.9 g/dL (3.4-5.0); BILIRUBIN,DIRECT 0.5 mg/dL (0.0-0.2); BILIRUBIN,TOTAL 2.8 mg/dL (0.2-1.0); CALCIUM, SERUM 8.9 mg/dL (8.5-10.1); POTASSIUM 5.9 mmol/L (3.5-5.1); TOTAL PROTEIN, SERUM 7.9 g/dL (6.4-8.2)
[2017-02-11] MEDS ORDERED: FUROSEMIDE 40 MG/4 ML VIAL ONE (09:46)
[2017-02-11] MEDS ORDERED: LORAZEPAM INJ 2 MG/ML VIAL ONE (10:24)
[2017-02-11] MEDS ORDERED: NITROGLYCERIN PACKET 1 GM PACKET TOP ONE (10:30)
[2017-02-11] MEDS ORDERED: LORAZEPAM INJ 2 MG/ML VIAL IV ONE (10:30)
[2017-02-11] MEDS ORDERED: NITROGLYCERIN PACKET 1 GM PACKET ONE (10:31)
[2017-02-11 11:04] LABS: ABG BASE EXCESS -17.8 mmol/L; ABG OXYGEN SATURATION 91.4 % (92.0-98.5); ABG PCO2 21.8 mmHg (35.0-45.0); ABG PH 7.197 (7.350-7.450); ABG PO2 82.5 mmHg (75.0-100.0); ABG TOTAL HEMOGLOBIN 14.3 G/dL (13.5-18.0); AaDO2 177.6 mmHg; COHb 1.6 % (0.5-1.5); MetHb 0.6 % (0.0-1.5); O2Hb 89.4 % (94.0-97.0); SITE, ABG Right Radial; VENT MODE, BG HHN
[2017-02-11] MEDS ORDERED: SODIUM BICARBONATE 5 MEQ/10 ML DISP.SYRIN IV ONE (11:30)
[2017-02-11] MEDS ORDERED: SODIUM BICARBONATE SYR 100 MEQ in IV D5W 1,000 ML IV PRN (11:30)
[2017-02-11 11:41] LABS: SALICYLATE 1.2 mg/dL (2.8-20.0)
[2017-02-11] MEDS ORDERED: SODIUM BICARBONATE SYR 50 MEQ/50 ML DISP.SYRIN ONE (11:41)
[2017-02-11] MEDS ORDERED: IV SET PRIMARY PUMP SET 1 EA INFUS.SET MC ONE ×2 (11:41→13:35)
[2017-02-11 11:49] LABS: CANNABINOID, URINE NEGATIVE (NEGATIVE); PHENCYCLIDINE SCREEN,URINE NEGATIVE (NEGATIVE)
[2017-02-11] MEDS ORDERED: Sodium Bicarbonate 100 MEQ in IV D5W 1,000 ML IV PRN (12:00)
[2017-02-11] MEDS ORDERED: BUMETANIDE INJ 8 MG in IV NS 0.9% 48 ML IV ONE (12:00)
[2017-02-11] MEDS ORDERED: ALBUTEROL HALF STRENGTH 1.25 MG/3 ML VIAL.NEB NEB SCH (13:00)
[2017-02-11] MEDS: IPRATROPIUM NEB FS 0.5 MG/2.5 ML AMPUL.NEB NEB SCH ×4 (13:00→23:46)
[2017-02-11] MEDS ORDERED: SODIUM POLYSTYRENE SULFONATE 15 G/60 ML BOTTLE PO ONE (13:00)
[2017-02-11] MEDS ORDERED: MEROPENEM 500 MG in IV NS 0.9% 50 ML IV SCH (13:00)
[2017-02-11 13:23] LABS: LACTIC ACID 11.1 mmol/L (0.4-2.0)
[2017-02-11] MEDS ORDERED: MEROPENEM 1 G in IV NS 0.9% 100 ML IV SCH ×4 (13:30)
[2017-02-11] MEDS ORDERED: ACETAMINOPHEN 325 MG TABLET PO PRN (13:30)
[2017-02-11] MEDS ORDERED: Z GUARD REMEDY 2 OZ OINT TP PRN (13:30)
[2017-02-11 13:52] LABS: ABG BASE EXCESS -12.9 mmol/L; ABG OXYGEN SATURATION 97.9 % (92.0-98.5); ABG PCO2 20.3 mmHg (35.0-45.0); ABG PH 7.336 (7.350-7.450); ABG PO2 133.6 mmHg (75.0-100.0); ABG TOTAL HEMOGLOBIN 13.8 G/dL (13.5-18.0); AaDO2 228.8 mmHg; COHb 1.3 % (0.5-1.5); MetHb 0.8 % (0.0-1.5); O2Hb 95.8 % (94.0-97.0); SITE, ABG Right Radial; VENT MODE, BG SIMPLE MASK
[2017-02-11] MEDS ORDERED: FEE PK DOSING 1 MIN EA MC ONE (13:52)
[2017-02-11] MEDS ORDERED: Sodium Bicarbonate 150 MEQ in IV D5W 1,000 ML IV PRN (14:00)
[2017-02-11] MEDS ORDERED: VANCOMYCIN 1 GM in IV D5W 250 ML IV ONE (14:00)
[2017-02-11] MEDS: MEROPENEM 1 G in IV NS 0.9% 100 ML IV SCH (14:53)
[2017-02-11] MEDS: ALBUTEROL HALF STRENGTH 1.25 MG/3 ML VIAL.NEB NEB SCH ×3 (15:07→23:46)
[2017-02-11 15:24] LABS: D-DIMER 3.47 mg/L(FEU (0.17-0.50); PROTHROMBIN TIME 10.7 SECS (9.5-12.7)
[2017-02-11] MEDS ORDERED: IV NS 0.9% 250 ML IV ONE ×2 (15:32→23:15)
[2017-02-11] MEDS ORDERED: CT SWABBABLE VALVE TRANS SET 1 EA INFUS.SET MC ONE (15:33)
[2017-02-11] MEDS ORDERED: IOHEXOL-300 100 ML VIAL IV ONE (15:33)
[2017-02-11 15:39] LABS: APPEARANCE,URINE CLEAR (CLEAR); BILIRUBIN,URINE NEGATIVE (NEGATIVE); BLOOD, URINE TRACE Ery/uL (NEGATIVE); COLOR,URINE YELLOW (YELLOW); KETONES,URINE 1+ (NEGATIVE); LEUKOCYTE ESTERASE ,URINE NEGATIVE (NEGATIVE); NITRITE, URINE NEGATIVE (NEGATIVE); PH,URINE 5.5 (5.0-8.0); PROTEIN,URINE NEGATIVE (NEGATIVE); UGLUCOSE NEGATIVE (NEGATIVE); UROBILINOGEN,URINE 0.2 EU/dL (0.2)
[2017-02-11 16:01] LABS: ADD URINE CULTURE NO; BACTERIA,URINE None seen /HPF (None Seen); MUCUS,URINE Few /LPF (None Seen); RBC,URINE 0-2 /HPF (0-2); SQUAMOUS EPITHELIAL CELL,UR 0-2 /HPF (None Seen); WBC,URINE 0-2 /HPF (0-3)
[2017-02-11] MEDS ORDERED: SECONDARY IV SET 1 EA INFUS.SET MC ONE (19:47)
[2017-02-11] MEDS: MORPHINE SULFATE INJ 2 MG/ML DISP.SYRIN IV PRN (19:53)
[2017-02-11] MEDS ORDERED: METRONIDAZOLE 500MG/ NS 100ML 200 ML IV ONE (20:11)
[2017-02-11] MEDS: METRONIDAZOLE 500MG/ NS 100ML 500 MG in PREMIX 1 EA IV SCH ×2 (20:33→23:06)
[2017-02-11] MEDS: IV NS 0.9% 250 ML IV PRN (23:28)
[2017-02-11 23:37] LABS: ABG BASE EXCESS 2.3 mmol/L; ABG OXYGEN SATURATION 95.1 % (92.0-98.5); ABG PCO2 26.4 mmHg (35.0-45.0); ABG PH 7.565 (7.350-7.450); ABG PO2 77.3 mmHg (75.0-100.0); ABG TOTAL HEMOGLOBIN 12.4 G/dL (13.5-18.0); AaDO2 91.2 mmHg; COHb 0.5 % (0.5-1.5); MetHb 0.9 % (0.0-1.5); O2Hb 93.8 % (94.0-97.0); SITE, ABG Right Radial; VENT MODE, BG N/C
[2017-02-12] VITALS (24 sets, daily range): BP systolic 97–132; BP diastolic 45–93
[2017-02-12] MEDS: MORPHINE SULFATE INJ 2 MG/ML DISP.SYRIN IV PRN ×6 (00:14→20:40)
[2017-02-12] MEDS: MEROPENEM 1 G in IV NS 0.9% 100 ML IV SCH ×4 (00:14→20:41)
[2017-02-12 00:28] LABS: BASOPHILS % (AUTO) 0.2 % (0.0-2.0); HEMATOCRIT 37 % (39-51); HEMOGLOBIN 12.1 g/dL (13.5-17.5); LYMPHOCYTES # (AUTO) 0.3 /CMM (0.8-4.8); LYMPHOCYTES % (AUTO) 6.9 % (20.0-44.0); MEAN CORPUSCULAR HEMOGLOBIN 32 PG (26.0-33.0); MEAN CORPUSCULAR HGB CONC 33 g/dl (31.0-36.0); MEAN CORPUSCULAR VOLUME 98 fL (80-96); MONOCYTES # (AUTO) 0.2 /CMM (0.1-1.30); MONOCYTES % (AUTO) 4.7 % (2.0-12.0); NEUTROPHILS % (AUTO) 88.2 % (43.0-81.0); PLATELET COUNT (AUTO) 121 /CMM (150-450); RDW COEFFICIENT OF VARIATION 17.4 (11.5-15.0); RED BLOOD CELL COUNT(AUTO) 3.77 MIL/uL (4.5-6.0); WHITE BLOOD COUNT (AUTO) 4.6 K/uL (4.3-11.0)
[2017-02-12 00:31] LABS: CALCIUM, SERUM 7.9 mg/dL (8.5-10.1); CREATININE 1.3 mg/dL (0.6-1.3); POTASSIUM 3.6 mmol/L (3.5-5.1)
[2017-02-12 00:37] LABS: ALBUMIN 3.6 g/dL (3.4-5.0); PHOSPHORUS 2.5 mg/dL (2.5-4.9)
[2017-02-12 00:40] LABS: MAGNESIUM 1.1 mg/dL (1.8-2.4)
[2017-02-12 00:58] LABS: THYROID STIMULATING HORMONE 2.719 uIU/mL (0.358-3.74)
[2017-02-12] MEDS: VANCOMYCIN 1.25 GM in IV D5W 500 ML IV SCH ×2 (01:28→14:16)
[2017-02-12] MEDS ORDERED: Magnesium 1GM/D5W 100ML PREMIX 400 ML IV ONE (01:40)
[2017-02-12] MEDS ORDERED: IV SET PRIMARY PUMP SET 1 EA INFUS.SET MC ONE (01:40)
[2017-02-12] MEDS: Magnesium 1GM/D5W 100ML PREMIX 100 ML IV SCH ×4 (01:44→04:30)
[2017-02-12] MEDS: METRONIDAZOLE 500MG/ NS 100ML 500 MG in PREMIX 1 EA IV SCH ×3 (03:30→20:41)
[2017-02-12] MEDS: IPRATROPIUM NEB FS 0.5 MG/2.5 ML AMPUL.NEB NEB SCH ×6 (04:28→23:18)
[2017-02-12] MEDS: ALBUTEROL HALF STRENGTH 1.25 MG/3 ML VIAL.NEB NEB SCH ×6 (04:28→23:18)
[2017-02-12 07:43] LABS: HEMATOCRIT 36 % (39-51); HEMOGLOBIN 11.7 g/dL (13.5-17.5); LYMPHOCYTES # (AUTO) 0.5 /CMM (0.8-4.8); LYMPHOCYTES % (AUTO) 4.7 % (20.0-44.0); MEAN CORPUSCULAR HEMOGLOBIN 33 PG (26.0-33.0); MEAN CORPUSCULAR HGB CONC 33 g/dl (31.0-36.0); MEAN CORPUSCULAR VOLUME 99 fL (80-96); MONOCYTES # (AUTO) 0.6 /CMM (0.1-1.30); MONOCYTES % (AUTO) 5.4 % (2.0-12.0); NEUTROPHILS # (AUTO) 9.9 /CMM (1.8-8.9); NEUTROPHILS % (AUTO) 89.9 % (43.0-81.0); PLATELET COUNT (AUTO) 114 /CMM (150-450); RDW COEFFICIENT OF VARIATION 17.1 (11.5-15.0); RED BLOOD CELL COUNT(AUTO) 3.59 MIL/uL (4.5-6.0)
[2017-02-12 07:48] LABS: ALBUMIN 3.4 g/dL (3.4-5.0); BILIRUBIN,TOTAL 1.7 mg/dL (0.2-1.0); CALCIUM, SERUM 7.9 mg/dL (8.5-10.1); CREATININE 1.2 mg/dL (0.6-1.3); MAGNESIUM 2.2 mg/dL (1.8-2.4); PHOSPHORUS 2.4 mg/dL (2.5-4.9); POTASSIUM 3.3 mmol/L (3.5-5.1); TOTAL PROTEIN, SERUM 6.8 g/dL (6.4-8.2)
[2017-02-12] MEDS ORDERED: METRONIDAZOLE 500MG/ NS 100ML 500 MG in PREMIX 1 EA IV SCH (07:54)
[2017-02-12] MEDS: PANTOPRAZOLE 40 MG TABLET.DR PO SCH (08:00)
[2017-02-12] MEDS: ASPIRIN 81 MG TAB.CHEW PO SCH ×2 (08:28→08:57)
[2017-02-12] MEDS: THIAMINE HCL 100 MG TABLET PO SCH (08:29)
[2017-02-12] MEDS: VALSARTAN 40 MG TABLET PO SCH (08:29)
[2017-02-12] MEDS: CARVEDILOL 3.125 MG TABLET PO SCH ×2 (08:29→21:00)
[2017-02-12] MEDS: FUROSEMIDE 80 MG TABLET PO SCH ×2 (08:29→08:57)
[2017-02-12] MEDS: DILTIAZEM HCL CD 240 MG PO SCH (08:30)
[2017-02-12] MEDS ORDERED: POTASSIUM PHOSPHATE MM 15 MMOL in IV D5W 250 ML IV SCH (08:30)
[2017-02-12] MEDS: POTASSIUM PHOSPHATE MM 7.5 MMOL in IV D5W 100 ML IV SCH ×2 (09:19→12:26)
[2017-02-12] MEDS: ONDANSETRON HCL/PF 4 MG/2 ML VIAL IVP PRN ×2 (09:25→20:42)
[2017-02-12] MEDS: GENTAMICIN OPTH OINT 0.3% 3.5 G TUBE EACHEYE SCH ×4 (10:30→20:41)
[2017-02-12] MEDS ORDERED: SECONDARY IV SET 1 EA INFUS.SET MC ONE (20:45)
[2017-02-12 22:18] LABS: APPEARANCE,URINE CLOUDY (CLEAR); BILIRUBIN,URINE 1+ (NEGATIVE); BLOOD, URINE NEGATIVE Ery/uL (NEGATIVE); COLOR,URINE AMBER (YELLOW); KETONES,URINE 1+ (NEGATIVE); LEUKOCYTE ESTERASE ,URINE NEGATIVE (NEGATIVE); NITRITE, URINE POSITIVE (NEGATIVE); PROTEIN,URINE 2+ mg/dl (NEGATIVE); UGLUCOSE NEGATIVE (NEGATIVE)
[2017-02-12 22:34] LABS: RBC,URINE 0-2 /HPF (0-2); WBC,URINE 0-2 /HPF (0-3)
[2017-02-12 22:35] LABS: ADD URINE CULTURE YES; BACTERIA,URINE Few /HPF (None Seen); SQUAMOUS EPITHELIAL CELL,UR None Seen /HPF (None Seen); URINE AMORPHOUS URATE Many /HPF (None Seen)
[2017-02-12] MEDS: ATORVASTATIN 10 MG TABLET PO SCH (23:10)
[2017-02-13] VITALS (10 sets, daily range): BP systolic 85–109; BP diastolic 63–79
[2017-02-13 01:35] LABS: HAPTOGLOBIN 44 mg/dL (34-200)
[2017-02-13] MEDS: VANCOMYCIN 1.25 GM in IV D5W 500 ML IV SCH (01:54)
[2017-02-13] MEDS: MORPHINE SULFATE INJ 2 MG/ML DISP.SYRIN IV PRN ×3 (02:39→21:18)
[2017-02-13] MEDS: IPRATROPIUM NEB FS 0.5 MG/2.5 ML AMPUL.NEB NEB SCH ×6 (03:30→23:30)
[2017-02-13] MEDS: ALBUTEROL HALF STRENGTH 1.25 MG/3 ML VIAL.NEB NEB SCH ×6 (03:30→23:30)
[2017-02-13] MEDS ORDERED: IV NS 0.9% 250 ML IV ONE ×2 (04:30→04:31)
[2017-02-13] MEDS ORDERED: IV SET PRIMARY PUMP SET 1 EA INFUS.SET MC ONE (04:30)
[2017-02-13] MEDS: MEROPENEM 1 G in IV NS 0.9% 100 ML IV SCH ×3 (04:37→20:37)
[2017-02-13] MEDS ORDERED: SECONDARY IV SET 1 EA INFUS.SET MC ONE ×2 (04:40→15:54)
[2017-02-13] MEDS: ONDANSETRON HCL/PF 4 MG/2 ML VIAL IVP PRN (04:54)
[2017-02-13] MEDS: METRONIDAZOLE 500MG/ NS 100ML 500 MG in PREMIX 1 EA IV SCH (05:45)
[2017-02-13] MEDS: VALSARTAN 40 MG TABLET PO SCH (08:41)
[2017-02-13] MEDS: CARVEDILOL 3.125 MG TABLET PO SCH ×2 (08:43→20:37)
[2017-02-13] MEDS: DILTIAZEM HCL CD 240 MG PO SCH (08:44)
[2017-02-13] MEDS: FUROSEMIDE 80 MG TABLET PO SCH (08:44)
[2017-02-13] MEDS: GENTAMICIN OPTH OINT 0.3% 3.5 G TUBE EACHEYE SCH ×3 (08:47→17:19)
[2017-02-13] MEDS: PANTOPRAZOLE 40 MG TABLET.DR PO SCH (08:47)
[2017-02-13] MEDS: ASPIRIN 81 MG TAB.CHEW PO SCH (08:47)
[2017-02-13] MEDS: THIAMINE HCL 100 MG TABLET PO SCH (08:47)
[2017-02-13] MEDS ORDERED: LACTULOSE 10 G/15 ML UDC (PYXIS) PO PRN (10:00)
[2017-02-13 10:48] LABS: BASOPHILS % (AUTO) 0.1 % (0.0-2.0); EOSINOPHILS % (AUTO) 0.3 % (0.0-6.0); HEMATOCRIT 36 % (39-51); HEMOGLOBIN 12.1 g/dL (13.5-17.5); LYMPHOCYTES # (AUTO) 0.7 /CMM (0.8-4.8); LYMPHOCYTES % (AUTO) 7.8 % (20.0-44.0); MEAN CORPUSCULAR HEMOGLOBIN 33 PG (26.0-33.0); MEAN CORPUSCULAR HGB CONC 33 g/dl (31.0-36.0); MEAN CORPUSCULAR VOLUME 99 fL (80-96); MONOCYTES # (AUTO) 0.3 /CMM (0.1-1.30); MONOCYTES % (AUTO) 3.3 % (2.0-12.0); NEUTROPHILS # (AUTO) 7.6 /CMM (1.8-8.9); NEUTROPHILS % (AUTO) 88.5 % (43.0-81.0); PLATELET COUNT (AUTO) 110 /CMM (150-450); RDW COEFFICIENT OF VARIATION 17.5 (11.5-15.0); RED BLOOD CELL COUNT(AUTO) 3.68 MIL/uL (4.5-6.0); WHITE BLOOD COUNT (AUTO) 8.6 K/uL (4.3-11.0)
[2017-02-13] MEDS ORDERED: HYDROCODONE/APAP 5/325MG 1 EACH TABLET PO PRN (11:00)
[2017-02-13 11:06] LABS: BILIRUBIN,DIRECT 0.6 mg/dL (0.0-0.2); BILIRUBIN,TOTAL 1.7 mg/dL (0.2-1.0); CALCIUM, SERUM 8.1 mg/dL (8.5-10.1); CREATININE 1.6 mg/dL (0.6-1.3); POTASSIUM 4.6 mmol/L (3.5-5.1)
[2017-02-13] MEDS: VANCOMYCIN 1 GM in IV D5W 250 ML IV SCH (15:58)
[2017-02-13] MEDS: ATORVASTATIN 10 MG TABLET PO SCH (21:17)
[2017-02-13] MEDS: ZOLPIDEM TARTRATE 5 MG TABLET PO PRN (22:13)
[2017-02-14] MEDS: VANCOMYCIN 1 GM in IV D5W 250 ML IV SCH ×2 (03:00→15:21)
[2017-02-14] MEDS: ALBUTEROL HALF STRENGTH 1.25 MG/3 ML VIAL.NEB NEB SCH ×6 (03:30→23:22)
[2017-02-14] MEDS: IPRATROPIUM NEB FS 0.5 MG/2.5 ML AMPUL.NEB NEB SCH ×6 (03:30→23:22)
[2017-02-14] MEDS: MEROPENEM 1 G in IV NS 0.9% 100 ML IV SCH ×3 (05:01→20:01)
[2017-02-14] MEDS: IV NS 0.9% 250 ML IV PRN (05:02)
[2017-02-14 08:00] VITALS: BP 140/113
[2017-02-14] MEDS: FUROSEMIDE 80 MG TABLET PO SCH (09:00)
[2017-02-14] MEDS: CARVEDILOL 3.125 MG TABLET PO SCH ×2 (09:00→20:21)
[2017-02-14] MEDS: DILTIAZEM HCL CD 240 MG PO SCH (09:00)
[2017-02-14] MEDS: MORPHINE SULFATE INJ 2 MG/ML DISP.SYRIN IV PRN ×3 (09:23→20:57)
[2017-02-14] MEDS: GENTAMICIN OPTH OINT 0.3% 3.5 G TUBE EACHEYE SCH ×3 (09:24→16:48)
[2017-02-14] MEDS: PANTOPRAZOLE 40 MG TABLET.DR PO SCH (09:24)
[2017-02-14] MEDS: ASPIRIN 81 MG TAB.CHEW PO SCH (09:24)
[2017-02-14] MEDS: THIAMINE HCL 100 MG TABLET PO SCH (09:24)
[2017-02-14 10:05] VITALS: BP 103/79
[2017-02-14 11:34] LABS: HEMOGLOBIN 11.7 g/dL (13.5-17.5); RED BLOOD CELL COUNT(AUTO) 3.56 MIL/uL (4.5-6.0); WHITE BLOOD COUNT (AUTO) 6.2 K/uL (4.3-11.0)
[2017-02-14 11:35] LABS: EOSINOPHILS # (AUTO) 0.1 /CMM (0.0-0.7); EOSINOPHILS % (AUTO) 0.9 % (0.0-6.0); HEMATOCRIT 35 % (39-51); LYMPHOCYTES # (AUTO) 0.9 /CMM (0.8-4.8); LYMPHOCYTES % (AUTO) 14.2 % (20.0-44.0); MEAN CORPUSCULAR HEMOGLOBIN 33 PG (26.0-33.0); MEAN CORPUSCULAR HGB CONC 33 g/dl (31.0-36.0); MEAN CORPUSCULAR VOLUME 99 fL (80-96); MONOCYTES # (AUTO) 0.3 /CMM (0.1-1.30); MONOCYTES % (AUTO) 5.6 % (2.0-12.0); NEUTROPHILS # (AUTO) 4.9 /CMM (1.8-8.9); NEUTROPHILS % (AUTO) 79.3 % (43.0-81.0); PLATELET COUNT (AUTO) 96 /CMM (150-450); RDW COEFFICIENT OF VARIATION 17.7 (11.5-15.0)
[2017-02-14 11:49] LABS: ALBUMIN 3.2 g/dL (3.4-5.0); BILIRUBIN,TOTAL 1.2 mg/dL (0.2-1.0); CALCIUM, SERUM 7.9 mg/dL (8.5-10.1); CREATININE 1.6 mg/dL (0.6-1.3); MAGNESIUM 1.9 mg/dL (1.8-2.4); PHOSPHORUS 3.4 mg/dL (2.5-4.9); POTASSIUM 4.2 mmol/L (3.5-5.1); TOTAL PROTEIN, SERUM 6.2 g/dL (6.4-8.2)
[2017-02-14 12:40] LABS: EOSINOPHILS % (MANUAL) 1 % (0-4); LYMPHOCYTES % (MANUAL) 16 % (16-48); MONOCYTES % (MANUAL) 5 % (0-11.0); NEUTROPHILS % (MANUAL) 78 (42-76)
[2017-02-14 12:41] LABS: ANISOCYTOSIS 1+; PLATELET ESTIMATE DECREASED
[2017-02-14] MEDS ORDERED: SECONDARY IV SET 1 EA INFUS.SET MC ONE (15:06)
[2017-02-14 15:13] LABS: HEPATITIS B SURFACE AB Reactive (.); HEPATITIS C VIRUS AB >11.0 s/co ratio (0.0-0.9)
[2017-02-14 16:00] VITALS: BP 113/72
[2017-02-14 19:48] VITALS: BP 91/61
[2017-02-14 19:49] VITALS: BP 91/61
[2017-02-14 20:01] VITALS: BP 91/61
[2017-02-14] MEDS: ATORVASTATIN 10 MG TABLET PO SCH (21:34)
[2017-02-14] MEDS: ZOLPIDEM TARTRATE 5 MG TABLET PO PRN (21:34)
[2017-02-15] MEDS: MORPHINE SULFATE INJ 2 MG/ML DISP.SYRIN IV PRN ×5 (02:09→20:23)
[2017-02-15] MEDS: VANCOMYCIN 1 GM in IV D5W 250 ML IV SCH ×2 (02:14→14:57)
[2017-02-15] MEDS: IPRATROPIUM NEB FS 0.5 MG/2.5 ML AMPUL.NEB NEB SCH ×7 (02:51→23:05)
[2017-02-15] MEDS: ALBUTEROL HALF STRENGTH 1.25 MG/3 ML VIAL.NEB NEB SCH ×7 (02:52→23:05)
[2017-02-15] MEDS: MEROPENEM 1 G in IV NS 0.9% 100 ML IV SCH ×3 (04:00→20:54)
[2017-02-15 06:14] LABS: *SPE A/G RATIO 1.4 (0.7-1.7); *SPE ALBUMIN 3.4 g/dL (2.9-4.4); *SPE ALPHA-1-GLOBULIN 0.2 g/dL (0.0-0.4); *SPE ALPHA-2-GLOBULIN 0.4 g/dL (0.4-1.0); *SPE BETA GLOBULIN 0.9 g/dL (0.7-1.3); *SPE GLOBULIN, TOTAL 2.5 g/dL (2.2-3.9); *SPE M-SPIKE Not Observed g/dL (Not Observed); *SPE PROTEIN TOTAL 5.9 g/dL (6.0-8.5)
[2017-02-15 08:00] VITALS: BP 103/72
[2017-02-15] MEDS: ASPIRIN 81 MG TAB.CHEW PO SCH (08:14)
[2017-02-15] MEDS: PANTOPRAZOLE 40 MG TABLET.DR PO SCH (08:14)
[2017-02-15] MEDS: THIAMINE HCL 100 MG TABLET PO SCH (08:14)
[2017-02-15] MEDS: GENTAMICIN OPTH OINT 0.3% 3.5 G TUBE EACHEYE SCH ×3 (08:19→16:08)
[2017-02-15] MEDS: DILTIAZEM HCL CD 240 MG PO SCH (08:19)
[2017-02-15] MEDS: CARVEDILOL 3.125 MG TABLET PO SCH ×2 (08:19→21:01)
[2017-02-15] MEDS: FUROSEMIDE 80 MG TABLET PO SCH (08:20)
[2017-02-15 08:30] LABS: CREATININE 0.9 mg/dL (0.6-1.3); POTASSIUM 3.5 mmol/L (3.5-5.1)
[2017-02-15] MEDS ORDERED: SECONDARY IV SET 1 EA INFUS.SET MC ONE ×2 (14:52→20:53)
[2017-02-15 16:00] VITALS: BP 117/89
[2017-02-15 20:00] VITALS: BP 134/97
[2017-02-15] MEDS: ATORVASTATIN 10 MG TABLET PO SCH (21:01)
[2017-02-16] MEDS: MORPHINE SULFATE INJ 2 MG/ML DISP.SYRIN IV PRN ×3 (00:21→11:08)
[2017-02-16] MEDS: ZOLPIDEM TARTRATE 5 MG TABLET PO PRN (01:46)
[2017-02-16] MEDS: VANCOMYCIN 1 GM in IV D5W 250 ML IV SCH (03:17)
[2017-02-16] MEDS: IPRATROPIUM NEB FS 0.5 MG/2.5 ML AMPUL.NEB NEB SCH ×3 (03:30→11:30)
[2017-02-16] MEDS: ALBUTEROL HALF STRENGTH 1.25 MG/3 ML VIAL.NEB NEB SCH ×3 (03:30→11:30)
[2017-02-16] MEDS: MEROPENEM 1 G in IV NS 0.9% 100 ML IV SCH (04:47)
[2017-02-16 08:00] VITALS: BP 113/78
[2017-02-16 08:00] LABS: CALCIUM, SERUM 8.1 mg/dL (8.5-10.1); CREATININE 1.3 mg/dL (0.6-1.3); POTASSIUM 4.5 mmol/L (3.5-5.1)
[2017-02-16] MEDS: THIAMINE HCL 100 MG TABLET PO SCH (08:35)
[2017-02-16] MEDS: GENTAMICIN OPTH OINT 0.3% 3.5 G TUBE EACHEYE SCH (08:35)
[2017-02-16] MEDS: PANTOPRAZOLE 40 MG TABLET.DR PO SCH (08:35)
[2017-02-16 08:36] VITALS: BP 113/75
[2017-02-16] MEDS: FUROSEMIDE 80 MG TABLET PO SCH (08:36)
[2017-02-16] MEDS: CARVEDILOL 3.125 MG TABLET PO SCH (08:36)
[2017-02-16] MEDS: ASPIRIN 81 MG TAB.CHEW PO SCH (08:36)
[2017-02-16] MEDS: DILTIAZEM HCL CD 240 MG PO SCH (08:36)
== END 2017-02-16 13:30 | disposition home or self-care (01) | DRG 871 ==
LOC: ER 08:07 → ICU 11:27 → MED 02-13 02:12
PROVIDERS: ADMIT Legal Medicine; ATTEND Legal Medicine
PROC: 05H533Z Insertion of Infusion Device into Right Subclavian Vein, Percutaneous Approach (ICD-10-PCS; principal; 2017-02-11)
DX: A41.9 Sepsis, unspecified organism (principal); J96.00 Acute respiratory failure, unspecified whether with hypoxia or hypercapnia; I50.23 Acute on chronic systolic (congestive) heart failure; I21.4 Non-ST elevation (NSTEMI) myocardial infarction; R65.21 Severe sepsis with septic shock; I42.9 Cardiomyopathy, unspecified; N17.9 Acute kidney failure, unspecified; E87.2 Acidosis; D61.818 Other pancytopenia; E87.0 Hyperosmolality and hypernatremia; J44.1 Chronic obstructive pulmonary disease with (acute) exacerbation; D59.9 Acquired hemolytic anemia, unspecified; I11.0 Hypertensive heart disease with heart failure; E78.5 Hyperlipidemia, unspecified; D69.6 Thrombocytopenia, unspecified; F41.9 Anxiety disorder, unspecified; F32.9 Major depressive disorder, single episode, unspecified; E87.5 Hyperkalemia; F17.200 Nicotine dependence, unspecified, uncomplicated; Z95.810 Presence of automatic (implantable) cardiac defibrillator; Z96.642 Presence of left artificial hip joint; E80.6 Other disorders of bilirubin metabolism; K76.0 Fatty (change of) liver, not elsewhere classified; I25.10 Atherosclerotic heart disease of native coronary artery without angina pectoris; M54.9 Dorsalgia, unspecified; G72.9 Myopathy, unspecified; K21.9 Gastro-esophageal reflux disease without esophagitis; F10.10 Alcohol abuse, uncomplicated; G89.29 Other chronic pain; I25.2 Old myocardial infarction; K70.9 Alcoholic liver disease, unspecified; B19.20 Unspecified viral hepatitis C without hepatic coma; J45.909 Unspecified asthma, uncomplicated; Z91.19 Patient's noncompliance with other medical treatment and regimen
CPT/HCPCS: 36415; 36600; 71010-TC; 74178; 76700-TC; 80048-TC; 80053-TC; 80076-TC; 80202-TC; 80305; 81000-TC; 82247-TC; 82248-TC; 82550-TC; 82728-TC; 82746; 83010; 83540-TC; 83605-TC; 83615-TC; 83690-TC; 83735-TC; 83880; 83935-TC; 84100-TC; 84155; 84165; 84439-TC; 84443-TC; 84484-TC; 85025-TC; 85045-TC; 85396; 86706; 86803; 86880-TC; 87040-TC; 87081-TC; 87086-TC; 87340; 93307-TC; 94799-TC; A4216; A4606; G0480; J1940; J2060; J2185; J2270; J2405; J2930; J3370; J3475; J3490; J7030; J7050; J7060; J7070; Q9967; Z7610

== ENCOUNTER 2017-02-21 05:13 | Inpatient (IN) | payer MEDICARE ==
[~2017-02-21] VITALS: Ht 180.3 cm; Wt 70.8 kg
--- NOTE | 2017-02-21 05:22 | NUR ---
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 NITRO SRAY X1 GIVEN PER RA WITH RELIEF. PT AOX3 RR EVEN AND UNLABORED. NO SOB NOTED. NAD NOTED. NO NVD AT THIS TIME. PT NOT DIAPHORETIC. PT GOWNED AND PLACED ON MONITOR WAITING FOR MD CHEN.
[2017-02-21] MEDS ORDERED: ASPIRIN 325 MG TABLET ONE (05:25)
[2017-02-21] MEDS ORDERED: ASPIRIN 325 MG TABLET PO ONE (05:30)
--- NOTE | 2017-02-21 05:41 | NUR ---
XRAY AT BEDSIDE
[2017-02-21 05:56] LABS: BASOPHILS % (AUTO) 0.6 % (0.0-2.0); EOSINOPHILS # (AUTO) 0.1 /CMM (0.0-0.7); EOSINOPHILS % (AUTO) 1.2 % (0.0-6.0); HEMATOCRIT 40 % (39-51); HEMOGLOBIN 13.3 g/dL (13.5-17.5); LYMPHOCYTES # (AUTO) 0.8 /CMM (0.8-4.8); LYMPHOCYTES % (AUTO) 12.5 % (20.0-44.0); MEAN CORPUSCULAR HEMOGLOBIN 32 PG (26.0-33.0); MEAN CORPUSCULAR HGB CONC 33 g/dl (31.0-36.0); MEAN CORPUSCULAR VOLUME 98 fL (80-96); MONOCYTES # (AUTO) 0.8 /CMM (0.1-1.30); MONOCYTES % (AUTO) 13.2 % (2.0-12.0); NEUTROPHILS # (AUTO) 4.4 /CMM (1.8-8.9); NEUTROPHILS % (AUTO) 72.5 % (43.0-81.0); PLATELET COUNT (AUTO) 212 /CMM (150-450); RDW COEFFICIENT OF VARIATION 17.3 (11.5-15.0); RED BLOOD CELL COUNT(AUTO) 4.09 MIL/uL (4.5-6.0); WHITE BLOOD COUNT (AUTO) 6.1 K/uL (4.3-11.0)
[2017-02-21 06:06] LABS: CALCIUM, SERUM 8.2 mg/dL (8.5-10.1); CREATININE 0.9 mg/dL (0.6-1.3); POTASSIUM 3.5 mmol/L (3.5-5.1)
[2017-02-21 06:14] LABS: TROPONIN I 0.049 ng/mL (0.00-0.056)
[2017-02-21] MEDS ORDERED: FUROSEMIDE 40 MG/4 ML VIAL ONE (06:23)
[2017-02-21] MEDS ORDERED: NITROGLYCERIN PACKET 1 GM PACKET ONE (06:23)
[2017-02-21] MEDS ORDERED: NITROGLYCERIN PACKET 1 GM PACKET TD ONE (06:30)
[2017-02-21] MEDS ORDERED: FUROSEMIDE 40 MG/4 ML VIAL IV ONE (06:30)
[2017-02-21 06:42] LABS: INR 0.94 (0.87-1.13)
--- NOTE | 2017-02-21 07:33 | NUR ---
REPORT GIVEN TO YANIRA BERMEO FOR RADHA.
--- NOTE | 2017-02-21 07:53 | NUR ---
[facility] [phone]
--- NOTE | 2017-02-21 08:24 | NUR ---
REPORT GIVEN TO RAY BURGESS RN FOR CONTINUITY OF CARE IN TELEMETRY
--- NOTE | 2017-02-21 08:40 | NUR ---
DR. RAMO ADDISON IN AND ORDERS GIVEN.ORIENTED TO RM.VS STABLE.INSTRUCTED ON SAFETY.STATES DIZZINESS.HOOKED UP TO TELESTACH RATE OF 104 WITH PVC,S.
[2017-02-21 09:00] VITALS: BP 121/94
[2017-02-21] MEDS: MORPHINE SULFATE INJ 2 MG/ML DISP.SYRIN IV PRN ×4 (09:51→21:23)
[2017-02-21] MEDS: FUROSEMIDE 100 MG/10 ML VIAL IV SCH ×3 (10:04→19:00)
[2017-02-21] MEDS: POTASSIUM CHLORIDE 20 MEQ TAB.PRT.SR PO SCH ×3 (10:04→12:42)
--- NOTE | 2017-02-21 10:30 | NUR ---
PER Vandana ROTHMAN DC
[2017-02-21] MEDS: ATORVASTATIN 10 MG TABLET PO SCH (11:31)
[2017-02-21] MEDS: THIAMINE HCL 100 MG TABLET PO SCH (11:31)
[2017-02-21] MEDS: DILTIAZEM HCL CD 240 MG PO SCH (11:32)
[2017-02-21] MEDS: VALSARTAN 40 MG TABLET PO SCH (12:40)
[2017-02-21] MEDS: NITROGLYCERIN 30 GM TUBE TP SCH ×2 (12:43→19:00)
[2017-02-21 16:00] VITALS: BP 106/75
--- NOTE | 2017-02-21 16:30 | NUR ---
DR. RALPH CALLED WITH ELEVATION IN TROPONIN.
--- NOTE | 2017-02-21 19:00 | NUR ---
GIVEN POTASSIUM AND LASIX X 3.TOLERATED WELL.
--- NOTE | 2017-02-21 19:15 | NUR ---
MED. X 3 FOR CHEST PAIN WITH MORPHINE.
--- NOTE | 2017-02-21 19:20 | NUR ---
MS RN OPENING NOTES: PATIENT SITTING ON BED, AOX4, ON O2 AT 2 LPM VIA NC, BREATHING EVEN AND UNLABORED. CURRENTLY DENIES PAIN/ CHEST PAIN AT THIS TIME. PIV OVER R WRIST INTACT AND PATENT TO FLUSH. PROVIDED FOR COMFORT AND SAFETY. INSTRUCTED ON BEDREST, AND TO KEEP O2 NC ON. WILL CONT TO MONITOR.
[2017-02-21 20:00] VITALS: BP 121/55
--- NOTE | 2017-02-21 20:15 | NUR ---
RN NOTES: PATIENT ASKING FOR AMBIEN TO BE GIVEN LATER. PAGED DR ADDISON.
--- NOTE | 2017-02-21 20:29 | NUR ---
RN NOTES: DR ADDISON CALLED BACK, PER MD SARGENT TO GIVE AMBIEN 5 MG PO Q HS PRN. ALSO MADE AWARE REGARDING TROPONIN INCREASED TO 0.079 FROM 0.049. NO NEW ORDERS GIVEN.
[2017-02-21 21:00] VITALS: BP 111/71
--- NOTE | 2017-02-21 21:10 | NUR ---
RN NOTES: PATIENT COMPLAINED OF 8/10 RIGHT SIDED CHEST PAIN DESCRIBED BY PATIENT INTERMITTENT AND "THUMPING". PATIENT NOTED TO BE STANDING AND WALKING IN ROOM, THEN SITTING AROUND THIS TIME. ADVISED PATIENT TO KEEP HIS O2 ON, AND BE ON BEDREST. ADMINISTERED MORPHINE 2 MG IV PRN. WILL CONT TO MONITOR.
[2017-02-21] MEDS: ZOLPIDEM TARTRATE 5 MG TABLET PO PRN (21:46)
[2017-02-21 23:12] VITALS: BP 98/72
[2017-02-22] MEDS: MORPHINE SULFATE INJ 2 MG/ML DISP.SYRIN IV PRN ×3 (02:06→18:53)
[2017-02-22] MEDS: ONDANSETRON HCL/PF 4 MG/2 ML VIAL IV PRN (02:07)
--- NOTE | 2017-02-22 02:30 | NUR ---
RN NOTES: DR ADDISON MADE AWARE OF PATIENT'S PULSE RANGING AT 120S TO 130S, AND PATIENT IS STILL COMPLAINING OF RIGHT SIDED CHEST PAIN. NO NEW ORDERS GIVEN, CONT TO MONITOR.
--- NOTE | 2017-02-22 03:10 | NUR ---
RN NOTES: PT'S CURRENT IV ACCESS OVER R WRIST APPEARS OCCLUDED, PT COMPLAINS OF PAIN DURING NS FLUSHING. THREE UNSUCCESSFUL ATTEMPTS OVER BOTH UPPER EXTREMITIES MADE FOR IV REINSERTION. CN MADE AWARE. CHAPIS DOYLE FROM ICU CAME AND REINSERTED NEW IV LINE OVER R EJ VEIN G 22. LINE INTACT AND PATENT. WILL CONT TO MONITOR. Addendum: 02/22/17 at 0342 by SHAN MILLER RN ADDENDUM: ADMINISTERED IV MORPHINE AND ZOFRAN AFTER ESTABLISHING NEW LINE.
[2017-02-22] MEDS: NITROGLYCERIN 30 GM TUBE TP SCH ×2 (06:00)
--- NOTE | 2017-02-22 06:55 | NUR ---
MS RN CLOSING NOTES: PATIENT IN BED, AOX4, ON O2 AT 2 LPM VIA NC, WHICH PATIENT WOULD INTERMITTENTLY TAKE OFF THROUGH NIGHT. BREATHING EVEN AND UNLABORED, HOWEVER, COARSE RALES STILL HEARD OVER LUNG BASES. PATIENT'S BP RECENTLY CHECKED AT 98/70, SCHEDULED NITROL OINTMENT 1 GM TP WAS NOT GIVEN DUE TO DECREASED BP. HR STILL AT 120S TO 130S, MD AWARE. PIV ACCESS OVER R EJ VEIN INTACT AND PATENT TO FLUSH. PROVIDED FOR COMFORT AND SAFETY. WILL ENDORSE TO AM RN FOR RADHA.
[2017-02-22 07:30] LABS: ALBUMIN 3.1 g/dL (3.4-5.0); BILIRUBIN,TOTAL 1.6 mg/dL (0.2-1.0); CALCIUM, SERUM 8.5 mg/dL (8.5-10.1); CREATININE 1.1 mg/dL (0.6-1.3); MAGNESIUM 1.4 mg/dL (1.8-2.4); PHOSPHORUS 4.3 mg/dL (2.5-4.9); POTASSIUM 4.2 mmol/L (3.5-5.1); TOTAL PROTEIN, SERUM 6.7 g/dL (6.4-8.2)
--- NOTE | 2017-02-22 07:42 | NUR ---
RN AM NOTES PATIENT SAFELY LYING IN BED AWAKE. NO SOB, CHEST PAIN, GENERALIZED PAIN OR DISTRESS NOTED. NO C/O PAIN FROM PATIENT. ABLE TO AMBULATE TO THE RESTROOM, IV IN LEFT JUGULAR VEIN INTACT AND PATENT. MD AWARE OF LAB RESULTS. WILL CONTINUE TO MONITOR.
[2017-02-22 07:51] LABS: BASOPHILS % (AUTO) 0.6 % (0.0-2.0); EOSINOPHILS # (AUTO) 0.1 /CMM (0.0-0.7); EOSINOPHILS % (AUTO) 1.7 % (0.0-6.0); HEMATOCRIT 37 % (39-51); HEMOGLOBIN 12.5 g/dL (13.5-17.5); LYMPHOCYTES # (AUTO) 1.6 /CMM (0.8-4.8); LYMPHOCYTES % (AUTO) 24.1 % (20.0-44.0); MEAN CORPUSCULAR HEMOGLOBIN 33 PG (26.0-33.0); MEAN CORPUSCULAR HGB CONC 34 g/dl (31.0-36.0); MEAN CORPUSCULAR VOLUME 97 fL (80-96); NEUTROPHILS # (AUTO) 3.8 /CMM (1.8-8.9); NEUTROPHILS % (AUTO) 58.6 % (43.0-81.0); PLATELET COUNT (AUTO) 220 /CMM (150-450); RDW COEFFICIENT OF VARIATION 16.6 (11.5-15.0); RED BLOOD CELL COUNT(AUTO) 3.82 MIL/uL (4.5-6.0); WHITE BLOOD COUNT (AUTO) 6.5 K/uL (4.3-11.0)
[2017-02-22 08:00] VITALS: BP 96/69
[2017-02-22] MEDS: THIAMINE HCL 100 MG TABLET PO SCH (08:38)
[2017-02-22] MEDS: ASPIRIN 81 MG TAB.CHEW PO SCH (08:38)
[2017-02-22] MEDS: POTASSIUM CHLORIDE 20 MEQ TAB.PRT.SR PO SCH (08:39)
[2017-02-22] MEDS: ATORVASTATIN 10 MG TABLET PO SCH (08:39)
[2017-02-22] MEDS: DILTIAZEM HCL CD 240 MG PO SCH (08:39)
[2017-02-22] MEDS: FUROSEMIDE 40 MG TABLET PO SCH (08:40)
--- NOTE | 2017-02-22 08:44 | NUR ---
BLOOD PRESSURE TOO LOW TO ADMINISTER BP MEDICATION OR PAIN MEDICATION. PATIENT REFUSED LASIX. WILL RECHECK BP IN 30 MINUTES. WILL CONTINUE TO MONITOR.
[2017-02-22] MEDS: VALSARTAN 40 MG TABLET PO SCH (09:00)
[2017-02-22] MEDS: FUROSEMIDE 40 MG/4 ML VIAL IV SCH ×3 (09:30→17:30)
[2017-02-22] MEDS ORDERED: SECONDARY IV SET 1 EA INFUS.SET MC ONE (09:32)
[2017-02-22] MEDS ORDERED: IV SET PRIMARY PUMP SET 1 EA INFUS.SET MC ONE (09:41)
[2017-02-22] MEDS ORDERED: IV NS 0.9% 250 ML IV ONE (09:41)
[2017-02-22] MEDS: Magnesium 1GM/D5W 100ML PREMIX 100 ML IV SCH ×2 (09:52→12:47)
[2017-02-22] MEDS: ALBUTEROL HALF STRENGTH 1.25 MG/3 ML VIAL.NEB NEB SCH ×3 (11:00→19:30)
[2017-02-22] MEDS: IPRATROPIUM NEB FS 0.5 MG/2.5 ML AMPUL.NEB NEB SCH ×3 (11:00→19:30)
[2017-02-22] MEDS ORDERED: oxyCODONE/APAP (5/325 MG) 1 UDTAB TABLET PO PRN (12:00)
--- NOTE | 2017-02-22 12:56 | NUR ---
PATIENT REFUSING LASIX BECAUSE HE DOES NOT LIKE FREQUENT TRIPS TO THE RESTROOM. EXPLAINED TO PATIENT RISKS AND BENEFITS OF BOTH TAKING AND NOT TAKING MEDICATION. PATIENT STILL REFUSING LASIX, WILL CONTINUE TO MONITOR AND OFFER FUTURE ADMINISTRATIONS.
[2017-02-22 16:00] VITALS: BP 96/74
--- NOTE | 2017-02-22 18:19 | NUR ---
RN PM NOTES INFORMED MD THAT PATIENT REFUSED ALL OF HIS SCHEDULED LASIX DOSES TODAY. TOLERATED IV FLUIDS WELL, BUT TOOK OUT HIS JUGULAR PIV BECAUSE HE FELT ITCHY FROM THE TAPE. EDUCATED PATIENT ABOUT RISKS AND BENEFITS OF DISCONTINUING HIS OWN IV LINE AND INFORMED HIM I WOULD NEED TO RESTART IT. PATIENT VERBALIZED UNDERSTANDING. OFFERED HIM TOILETRIES AND TOWELS TO PERFORM ADL'S, PATIENT ACCEPTED. WILL ENDORSE TO NEXT SHIFT.
--- NOTE | 2017-02-22 19:30 | NUR ---
MS RN NOTES RECEIVED PT IN BED, WATCHING TV AT THIS TIME. A/O X4. NO ACUTE DISTRESS, NO SOB NOTED. RESPIRATION IS EVEN AND UNLABORED. IV SITE ON LFA G 22 INTACT AND PATENT. NO S/S OF INFILTRATION NOTED. NO C/O PAIN OR DISCOMFORT AT THIS TIME. PT REFUSED BREATHING TX AT THIS TIME X 3, RISK AND BENEFITS EXPLAINED. PER PT HE'LL TAKE IT EARLY IN THE MORNING. ALL NEEDS AT THIS TIME ATTENDED AND MET. KEPT COMFORTABLE. AFEBRILE. CALL LIGHT WITHIN REACH. WILL CONTINUE TO MONITOR.
--- NOTE | 2017-02-22 19:59 | NUR ---
RT PT REFUSED HHN TX AT THIS TIME. NO SOB OR RESP DISTRESS NOTED.
[2017-02-22 20:00] VITALS: BP 103/76
[2017-02-22 20:02] VITALS: BP 103/76
[2017-02-22] MEDS: ZOLPIDEM TARTRATE 5 MG TABLET PO PRN (23:25)
[2017-02-23] MEDS: IPRATROPIUM NEB FS 0.5 MG/2.5 ML AMPUL.NEB NEB SCH ×4 (01:30→19:30)
[2017-02-23] MEDS: ALBUTEROL HALF STRENGTH 1.25 MG/3 ML VIAL.NEB NEB SCH ×4 (01:30→19:30)
[2017-02-23] MEDS: MORPHINE SULFATE INJ 2 MG/ML DISP.SYRIN IV PRN ×4 (04:04→15:41)
--- NOTE | 2017-02-23 06:56 | NUR ---
MS RN NOTES RECEIVED PT IN BED, RESTING COMFORTABLY AT THIS TIME. A/O X4. NO ACUTE DISTRESS, NO SOB NOTED. RESPIRATION IS EVEN AND UNLABORED. IV SITE ON LFA G 22 INTACT AND PATENT. NO S/S OF INFILTRATION NOTED. NO C/O PAIN OR DISCOMFORT AT THIS TIME. VOIDING FREELY WITH YELLOW URINE , NO HEMATURIA NOTED. NO C/O PAIN AT THIS TIME. ALL NEEDS ATTENDED AND MET. KEPT COMFORTABLE. AFEBRILE. CALL LIGHT WITHIN REACH. WILL ENDORSE TO NEXT SHIFT FOR RADHA.
--- NOTE | 2017-02-23 07:30 | NUR ---
RN AM NOTES PATIENT RECEIVED IN BED, AWAKE, ALERT AND ORIENTED X 3. REVIEWED PAIN MEDICATIONS WITH HIM. PIV INTACT AND PATENT. WILL CONTINUE TO MONITOR.
[2017-02-23 08:00] VITALS: BP 106/78
[2017-02-23] MEDS: THIAMINE HCL 100 MG TABLET PO SCH (08:08)
[2017-02-23] MEDS: VALSARTAN 40 MG TABLET PO SCH (08:08)
[2017-02-23] MEDS: FUROSEMIDE 40 MG TABLET PO SCH ×2 (08:08→14:00)
[2017-02-23] MEDS: ASPIRIN 81 MG TAB.CHEW PO SCH (08:08)
[2017-02-23] MEDS: ATORVASTATIN 10 MG TABLET PO SCH (08:09)
[2017-02-23] MEDS: DILTIAZEM HCL CD 240 MG PO SCH (08:11)
[2017-02-23] MEDS: POTASSIUM CHLORIDE 20 MEQ TAB.PRT.SR PO SCH (08:11)
[2017-02-23] MEDS: ONDANSETRON HCL/PF 4 MG/2 ML VIAL IV PRN (08:48)
[2017-02-23 09:15] LABS: BASOPHILS # (AUTO) 0.1 /CMM (0.0-0.2); BASOPHILS % (AUTO) 0.7 % (0.0-2.0); EOSINOPHILS # (AUTO) 0.1 /CMM (0.0-0.7); HEMATOCRIT 37 % (39-51); HEMOGLOBIN 12.1 g/dL (13.5-17.5); LYMPHOCYTES # (AUTO) 1.3 /CMM (0.8-4.8); LYMPHOCYTES % (AUTO) 17.6 % (20.0-44.0); MEAN CORPUSCULAR HEMOGLOBIN 32 PG (26.0-33.0); MEAN CORPUSCULAR HGB CONC 33 g/dl (31.0-36.0); MEAN CORPUSCULAR VOLUME 98 fL (80-96); MONOCYTES # (AUTO) 0.6 /CMM (0.1-1.30); MONOCYTES % (AUTO) 7.6 % (2.0-12.0); NEUTROPHILS # (AUTO) 5.5 /CMM (1.8-8.9); NEUTROPHILS % (AUTO) 73.1 % (43.0-81.0); PLATELET COUNT (AUTO) 220 /CMM (150-450); RDW COEFFICIENT OF VARIATION 16.5 (11.5-15.0); RED BLOOD CELL COUNT(AUTO) 3.78 MIL/uL (4.5-6.0); WHITE BLOOD COUNT (AUTO) 7.5 K/uL (4.3-11.0)
[2017-02-23 09:39] LABS: ALBUMIN 3.4 g/dL (3.4-5.0); BILIRUBIN,TOTAL 1.6 mg/dL (0.2-1.0); CALCIUM, SERUM 8.5 mg/dL (8.5-10.1); CREATININE 1.4 mg/dL (0.6-1.3); MAGNESIUM 1.5 mg/dL (1.8-2.4); PHOSPHORUS 3.7 mg/dL (2.5-4.9); POTASSIUM 4.6 mmol/L (3.5-5.1); TOTAL PROTEIN, SERUM 6.9 g/dL (6.4-8.2)
[2017-02-23 09:42] LABS: TROPONIN I 0.046 ng/mL (0.00-0.056)
--- NOTE | 2017-02-23 14:03 | NUR ---
PATIENT AGREED TO TAKE 0900 DOSE AT 1400. DOSE ADMINISTERED. PATIENT AWARE OF RISKS AND BENEFITS OF TAKING MEDICATION, INCLUDING POSSIBILITY OF URINATING OFTEN AND THROUGH THE NIGHT. PATIENT VERBALIZED UNDERSTANDING. WILL CONTINUE TO MONITOR. PATIENT IN STABLE CONDITION, BP 100/74, HR 74.
--- NOTE | 2017-02-23 18:25 | NUR ---
RN PM NOTES PATIENT RESTING COMFORTABLY IN BED WATCHING T.V. NO COMPLAINTS OF PAIN, CHEST PAIN, SOB OR DISCOMFORT. TOLERATING MEDS WELL. VOIDING CLEAR YELLOW URINE EXPECTED. WILL ENDORSE TO NEXT SHIFT.
--- NOTE | 2017-02-23 18:40 | NUR ---
PATIENT NONCOMPLIANT WITH LASIX AND DVT PUMPS. EXPLAINED TO PATIENT IMPORTANCE OF TAKING LASIX AND WEARING DVT PUMPS. PATIENT AGREED TO TAKE MORNING LASIX DOSE, BUT WILL NOT USE DVT PUMPS. WILL ENDORSE TO NEXT SHIFT.
--- NOTE | 2017-02-23 19:18 | NUR ---
MS RN NOTES RECEIVED PT IN BED , A/O X4. WATCHING TV AT THIS TIME. ABLE TO VERBALIZE NEEDS. NOT IN DISTRESS AT T5HIS TIME. NO C/O PAIN OR DISCOMFORT. IV SITE ON LFA G# 22 INTACT AND PATENT. NO S/S OF INFILTRATION NOTED. ABLE TO VOID FREELY WITH YELLOW URINE. NO HEMATURIA NOTED. ALL NEEDS ATTENDED AND MET. KEPT CLEAN, DRY AND COMFORTABLE. CALL LIGHT WITHIN REACH. SAFETY PRECAUTIONS OBSERVED. WILL CONT TO MONITOR.
[2017-02-23 20:00] VITALS: BP 93/52
--- NOTE | 2017-02-23 20:15 | NUR ---
RT PT REFUSED HHN TX AT THIS TIME. NO SOB OR RESP DISTRESS NOTED.
[2017-02-24] MEDS: ALBUTEROL HALF STRENGTH 1.25 MG/3 ML VIAL.NEB NEB SCH ×4 (00:46→19:30)
[2017-02-24] MEDS: IPRATROPIUM NEB FS 0.5 MG/2.5 ML AMPUL.NEB NEB SCH ×4 (00:46→19:30)
[2017-02-24] MEDS: ZOLPIDEM TARTRATE 5 MG TABLET PO PRN (01:15)
--- NOTE | 2017-02-24 04:49 | NUR ---
PLACED A CALL TO [facility] AND SPOKE WITH DR. GOLDBERG INFORMED THAT PT IS ASKING FOR PAIN MEDICINE , PT'S SBP RANGES 90'S AND DIASTOLIC BP RANGES FROM 60-70. HR IS FLUCTUATING FROM 56- 120'S , PT HAS AN ORDER FOR MORPHINE SULFATE AND PERCOCET, BUT UNABLE TO GIVE IT D/T LOW BP. RECEIVED AN ORDER FROM NOTED AND CARRIED OUT.
--- NOTE | 2017-02-24 04:49 | NUR ---
PLACED A CALL TO DR. ADDISON, PER ANSWERING SERVICE DR. ADDISON IS NOT RN ALLERGY AT THIS TIME AND TO CALL [facility] INSTEAD.
[2017-02-24] MEDS ORDERED: TRAMADOL HCL 50 MG TABLET PO PRN (05:00)
--- NOTE | 2017-02-24 05:15 | NUR ---
MS RN NOTES PT CHANGED HIS MIND AND DOESN'T WANT TO TAKE TRAMADOL TAB FOR PAIN, PER PT HE WANTS THE MORPHINE SULFATE SHOT AND VERBALIZED THAT HE IS GETTING ANXIOUS AND HAVING SOB WHEN HE'S NOT RECEIVING THE MORPHINE IV PUSH, EXPLAINED TO THE PT THAT HE CAN'T HAVE THE MORPHINE SULFATE BECAUSE OF HIS BP , PT WAS AWARE OF IT OFFERED TRAMADOL X 3, PT REFUSED, RISK AND BENEFITS EXPLAINED. WILL CONT TO MONITOR.
[2017-02-24] MEDS: ONDANSETRON HCL/PF 4 MG/2 ML VIAL IV PRN ×2 (05:27→09:48)
--- NOTE | 2017-02-24 06:52 | NUR ---
MS RN NOTES PT IN BED ,RESTING COMFORTABLY. A/O X4. ABLE TO VERBALIZE NEEDS. NOT IN DISTRESS AT THIS TIME. NO C/O PAIN OR DISCOMFORT. IV SITE ON LFA G# 22 INTACT AND PATENT. NO S/S OF INFILTRATION NOTED. ABLE TO VOID FREELY WITH YELLOW URINE. NO HEMATURIA NOTED. ALL NEEDS ATTENDED AND MET. KEPT CLEAN, DRY AND COMFORTABLE. CALL LIGHT WITHIN REACH. SAFETY PRECAUTIONS OBSERVED. WILL ENDORSE TO NEXT SHIFT FOR RADHA.
[2017-02-24 07:06] LABS: CALCIUM, SERUM 8.7 mg/dL (8.5-10.1); CREATININE 1.6 mg/dL (0.6-1.3); MAGNESIUM 1.7 mg/dL (1.8-2.4); PHOSPHORUS 4.1 mg/dL (2.5-4.9); POTASSIUM 6.1 mmol/L (3.5-5.1)
--- NOTE | 2017-02-24 07:27 | NUR ---
AM RN NOTE Received patient awake, A/O X3 verbally responsive. No SOB noted resp even and non-labored. IV site intact and patent. Patient ambulated to bathroom. Provided safe environment. Bed in low locked position. Will continue to monitor. Call light with in reach.
[2017-02-24 08:00] VITALS: BP_SYST 100; BP_SYST 120; BP_DIAS 62; BP_DIAS 87
[2017-02-24] MEDS: ATORVASTATIN 10 MG TABLET PO SCH (08:08)
[2017-02-24] MEDS: POTASSIUM CHLORIDE 20 MEQ TAB.PRT.SR PO SCH (08:08)
[2017-02-24] MEDS: ASPIRIN 81 MG TAB.CHEW PO SCH (08:09)
[2017-02-24] MEDS: THIAMINE HCL 100 MG TABLET PO SCH (08:09)
[2017-02-24] MEDS: FUROSEMIDE 40 MG TABLET PO SCH (08:10)
[2017-02-24] MEDS: DILTIAZEM HCL CD 240 MG PO SCH (08:15)
[2017-02-24] MEDS: VALSARTAN 40 MG TABLET PO SCH (08:16)
[2017-02-24] MEDS ORDERED: IV SET PRIMARY PUMP SET 1 EA INFUS.SET MC ONE (09:40)
[2017-02-24 09:49] LABS: BASOPHILS % (AUTO) 0.4 % (0.0-2.0); EOSINOPHILS % (AUTO) 0.6 % (0.0-6.0); HEMATOCRIT 38 % (39-51); HEMOGLOBIN 12.5 g/dL (13.5-17.5); LYMPHOCYTES # (AUTO) 1.3 /CMM (0.8-4.8); LYMPHOCYTES % (AUTO) 15.8 % (20.0-44.0); MEAN CORPUSCULAR HEMOGLOBIN 32 PG (26.0-33.0); MEAN CORPUSCULAR HGB CONC 33 g/dl (31.0-36.0); MEAN CORPUSCULAR VOLUME 98 fL (80-96); MONOCYTES # (AUTO) 0.6 /CMM (0.1-1.30); NEUTROPHILS % (AUTO) 75.2 % (43.0-81.0); PLATELET COUNT (AUTO) 206 /CMM (150-450); RDW COEFFICIENT OF VARIATION 16.8 (11.5-15.0); RED BLOOD CELL COUNT(AUTO) 3.88 MIL/uL (4.5-6.0); WHITE BLOOD COUNT (AUTO) 7.9 K/uL (4.3-11.0)
[2017-02-24] MEDS: IV NS 0.9% 1,000 ML IV SCH (10:00)
[2017-02-24] MEDS ORDERED: SODIUM POLYSTYRENE SULFONATE 15 G/60 ML BOTTLE PO ONE (10:00)
[2017-02-24 10:09] LABS: CALCIUM, SERUM 8.9 mg/dL (8.5-10.1); CREATININE 1.8 mg/dL (0.6-1.3)
[2017-02-24 10:11] LABS: POTASSIUM 6.5 mmol/L (3.5-5.1)
--- NOTE | 2017-02-24 10:20 | NUR ---
TANYA RN NOTE K lab results 6.[address] Mckeon.
[2017-02-24] MEDS ORDERED: BUMETANIDE INJ 4 MG in IV D5W 24 ML IV ONE (11:30)
[2017-02-24] MEDS ORDERED: BUMETANIDE INJ 4 MG in IV NS 0.9% 24 ML IV ONE (11:30)
[2017-02-24 12:00] VITALS: BP 106/70
[2017-02-24] MEDS ORDERED: SECONDARY IV SET 1 EA INFUS.SET MC ONE (12:26)
[2017-02-24] MEDS: Magnesium 1GM/D5W 100ML PREMIX 100 ML IV SCH ×2 (12:37→13:43)
[2017-02-24] MEDS: METOLAZONE 2.5 MG TABLET PO SCH (12:37)
[2017-02-24 13:12] LABS: APPEARANCE,URINE CLEAR (CLEAR); BILIRUBIN,URINE NEGATIVE (NEGATIVE); BLOOD, URINE NEGATIVE Ery/uL (NEGATIVE); COLOR,URINE DARK YELLO (YELLOW); KETONES,URINE NEGATIVE (NEGATIVE); LEUKOCYTE ESTERASE ,URINE NEGATIVE (NEGATIVE); NITRITE, URINE NEGATIVE (NEGATIVE); PH,URINE 5.5 (5.0-8.0); PROTEIN,URINE NEGATIVE (NEGATIVE); UGLUCOSE NEGATIVE (NEGATIVE)
[2017-02-24 13:19] LABS: CREATININE, URINE 164.2 MG/DL (30.0-125.0); URINE TOTAL PROTEIN 20.7 mg/dL (0-11.9)
[2017-02-24 13:21] LABS: CALCIUM, SERUM 9.1 mg/dL (8.5-10.1); CREATININE 1.8 mg/dL (0.6-1.3); POTASSIUM 5.5 mmol/L (3.5-5.1)
[2017-02-24 13:30] LABS: ADD URINE CULTURE NO; BACTERIA,URINE Rare /HPF (None Seen); RBC,URINE 0-2 /HPF (0-2); SQUAMOUS EPITHELIAL CELL,UR Rare /HPF (None Seen); WBC,URINE 0-2 /HPF (0-3)
[2017-02-24] MEDS ORDERED: SODIUM BICARBONATE 5 ML VIAL IV ONE (13:30)
[2017-02-24] MEDS ORDERED: INSULIN REGULAR, HUMAN 100 UNIT/ML 3 ML VIAL SQ ONE (13:30)
[2017-02-24] MEDS ORDERED: DEXTROSE 50%-WATER 50 ML DISP.SYRIN IVP ONE (13:30)
[2017-02-24] MEDS ORDERED: Calcium Gluconate 1GM/10ML 9.3 MEQ in IV D5W 250 ML IV ONE (13:45)
[2017-02-24 13:50] LABS: EOSINOPHIL,URINE None Seen
[2017-02-24] MEDS: MORPHINE SULFATE INJ 2 MG/ML DISP.SYRIN IV PRN ×3 (14:09→23:04)
--- NOTE | 2017-02-24 14:45 | NUR ---
AM RN NOTE Blood sugar checked with 93mg/dl results and pt had x2 large BM notified Dr. Mckeon. Per MD hold Ca, Neut 4%, Dextrose, Insulin. Meds held. Patient continue on tele monitor. Will continue to monitor
[2017-02-24 16:00] VITALS: BP 101/72
--- NOTE | 2017-02-24 18:02 | NUR ---
AM RN NOTE Patient lying in his bed, watching tv. No acute distress noted at this time. IV site intact and patent. Will continue to monitor. Will endorse to next shift for RADHA.
[2017-02-24 20:00] VITALS: BP 106/74
[2017-02-25] VITALS: BP 102/63
[2017-02-25] MEDS: ALBUTEROL HALF STRENGTH 1.25 MG/3 ML VIAL.NEB NEB SCH ×4 (01:30→19:30)
[2017-02-25] MEDS: IPRATROPIUM NEB FS 0.5 MG/2.5 ML AMPUL.NEB NEB SCH ×4 (01:30→19:30)
[2017-02-25] MEDS: MORPHINE SULFATE INJ 2 MG/ML DISP.SYRIN IV PRN ×5 (03:40→20:46)
[2017-02-25 04:00] VITALS: BP 102/71
[2017-02-25] MEDS: IV NS 0.9% 1,000 ML IV SCH (05:44)
--- NOTE | 2017-02-25 06:18 | NUR ---
OCEAN FREIGHT MANAGER NOTES AWAKE & RESPONSIVE. NOT IN ANY DISTRESS. NO SOB NOTED. DENIES ANY PAIN OR DISCOMFORT AT THIS TIME. ON TELE ST @ 117 WITH IVF INFUSING WELL. AM CARE DONE. MONITORED ACCORDINGLY. CALL LIGHT WITHIN REACH. BED IN LOWEST POSITION. SR UP X 2 FOR SAFETY. WILL ENDORSE TO NEXT SHIFT.
--- NOTE | 2017-02-25 07:21 | NUR ---
AM RN NOTE Received patient awake, A/O X3 verbally responsive able to make needs known. No SOB noted. IV site intact and patent. Bed in low locked position. Will continue to monitor.
[2017-02-25] MEDS: ATORVASTATIN 10 MG TABLET PO SCH (08:25)
[2017-02-25] MEDS: THIAMINE HCL 100 MG TABLET PO SCH (08:25)
[2017-02-25] MEDS: ASPIRIN 81 MG TAB.CHEW PO SCH ×2 (08:25→08:29)
[2017-02-25] MEDS: METOLAZONE 2.5 MG TABLET PO SCH (08:25)
[2017-02-25] MEDS: FUROSEMIDE 40 MG TABLET PO SCH (08:25)
[2017-02-25] MEDS: DILTIAZEM HCL CD 240 MG PO SCH (08:26)
--- NOTE | 2017-02-25 08:30 | NUR ---
RN NOTE Patient agreed for blood draw at this time, labor representative notified.
[2017-02-25] MEDS ORDERED: BUMETANIDE INJ 8 MG in IV NS 0.9% 48 ML IV ONE (10:30)
[2017-02-25 10:39] LABS: BASOPHILS # (AUTO) 0.1 /CMM (0.0-0.2); BASOPHILS % (AUTO) 0.8 % (0.0-2.0); EOSINOPHILS # (AUTO) 0.1 /CMM (0.0-0.7); EOSINOPHILS % (AUTO) 2.1 % (0.0-6.0); HEMATOCRIT 38 % (39-51); HEMOGLOBIN 12.5 g/dL (13.5-17.5); LYMPHOCYTES # (AUTO) 1.3 /CMM (0.8-4.8); LYMPHOCYTES % (AUTO) 19.9 % (20.0-44.0); MEAN CORPUSCULAR HEMOGLOBIN 33 PG (26.0-33.0); MEAN CORPUSCULAR HGB CONC 33 g/dl (31.0-36.0); MEAN CORPUSCULAR VOLUME 98 fL (80-96); MONOCYTES # (AUTO) 0.6 /CMM (0.1-1.30); MONOCYTES % (AUTO) 9.5 % (2.0-12.0); NEUTROPHILS # (AUTO) 4.4 /CMM (1.8-8.9); NEUTROPHILS % (AUTO) 67.7 % (43.0-81.0); PLATELET COUNT (AUTO) 227 /CMM (150-450); RDW COEFFICIENT OF VARIATION 16.7 (11.5-15.0); RED BLOOD CELL COUNT(AUTO) 3.84 MIL/uL (4.5-6.0); WHITE BLOOD COUNT (AUTO) 6.5 K/uL (4.3-11.0)
[2017-02-25 11:32] LABS: ALBUMIN 3.3 g/dL (3.4-5.0); BILIRUBIN,TOTAL 1.3 mg/dL (0.2-1.0); CALCIUM, SERUM 8.8 mg/dL (8.5-10.1); CREATININE 1.8 mg/dL (0.6-1.3); MAGNESIUM 1.7 mg/dL (1.8-2.4); PHOSPHORUS 4.5 mg/dL (2.5-4.9); POTASSIUM 4.4 mmol/L (3.5-5.1)
[2017-02-25] MEDS: ONDANSETRON HCL/PF 4 MG/2 ML VIAL IV PRN (15:05)
[2017-02-25 16:54] VITALS: BP 116/63
--- NOTE | 2017-02-25 18:16 | NUR ---
RN NOTE Patient awake, A/O X3 verbally responsive. No acute distress noted.x HL intact and patent. Will endorse to next shift for RADHA.
[2017-02-25 20:00] VITALS: BP 112/50
[2017-02-25] MEDS: ZOLPIDEM TARTRATE 5 MG TABLET PO PRN (21:54)
[2017-02-26] MEDS: ALBUTEROL HALF STRENGTH 1.25 MG/3 ML VIAL.NEB NEB SCH ×4 (00:56→13:35)
[2017-02-26] MEDS: IPRATROPIUM NEB FS 0.5 MG/2.5 ML AMPUL.NEB NEB SCH ×4 (00:56→13:35)
--- NOTE | 2017-02-26 00:57 | NUR ---
PT REFUSED MED AT THIS TIME. RN NOTIFIED.
[2017-02-26] MEDS: MORPHINE SULFATE INJ 2 MG/ML DISP.SYRIN IV PRN ×3 (02:39→11:32)
--- NOTE | 2017-02-26 06:30 | NUR ---
MS RN NOTES AWAKE & RESPONSIVE. NOT IN ANY DISTRESS. NO SOB NOTED. DENIES ANY PAIN OR DISCOMFORT AT THIS TIME. WITH IV-HL PATENT & INTACT. AM CARE DONE. MONITORED ACCORDINGLY. CALL LIGHT WITHIN REACH. BED IN LOWEST POSITION. SR UP X 2 FOR SAFETY. WILL ENDORSE TO NEXT SHIFT.
--- NOTE | 2017-02-26 07:23 | NUR ---
AM RN NOTE Received patient awake, A/O X3 verbally responsive able to make needs known. No SOB noted resp even and non-labored. No acute distress noted. IV site intact and patent. Will continue to monitor.
[2017-02-26] MEDS: ASPIRIN 81 MG TAB.CHEW PO SCH (08:19)
[2017-02-26] MEDS: ATORVASTATIN 10 MG TABLET PO SCH (08:19)
[2017-02-26] MEDS: FUROSEMIDE 40 MG TABLET PO SCH (08:19)
[2017-02-26] MEDS: METOLAZONE 2.5 MG TABLET PO SCH (08:19)
[2017-02-26] MEDS: THIAMINE HCL 100 MG TABLET PO SCH (08:19)
[2017-02-26] MEDS: DILTIAZEM HCL CD 240 MG PO SCH (08:20)
[2017-02-26 08:30] VITALS: BP 90/62
--- NOTE | 2017-02-26 16:08 | NUR ---
KILO received a call from pt's RN Genaro stating that pt. is medically cleared for discharge however, pt. is refusing to leave. KILO met with pt. bedside. Pt. is A&O x 4. Pt. informed SW that he is in pain. Pt. states " his mother had rheumatoid arthritis and now he has it. SW provided emotional support and active listening and informed pt. that he has been medically cleared by the sap solutions architect and physician Dr. Tinajero and needs to follow up with his primary care physician. KILO offered pt. taxi voucher to his home. Pt. accepted and will follow up with his primary care physician. Pt. to be discharged via taxi to [id number], [id number], [place]. SHAH[place]. LIZ Oliveros informed about discharge plan.
--- NOTE | 2017-02-26 16:35 | NUR ---
RN NOTE Patient awake, A/O X3 verbally responsive able to make needs known. No SOB noted resp even and non-labored. Discharge order given by Dr. Santoro, pt spoke with leather production worker and Charge nurse (Arlin). Discharge instructions on medications and teachings given to pt. Belongings endorsed and signed. Called Taxi per pt request. Will continue to monitor.
[2017-02-26 16:42] VITALS: BP 109/75
--- NOTE | 2017-02-26 17:00 | NUR ---
RN NOTE Patient awake, A/O X3 verbally responsive. No acute distress noted. HL and ID band removed. MD aware about all abnormal labs. Pt discharged/ left unit at this time as accompanied by 1 CHIEF YEOMAN to downstairs with all his belongings.
[2017-02-27 12:21] LABS: *SPE A/G RATIO 1.2 (0.7-1.7); *SPE ALBUMIN 3.8 g/dL (2.9-4.4); *SPE ALPHA-1-GLOBULIN 0.3 g/dL (0.0-0.4); *SPE ALPHA-2-GLOBULIN 0.7 g/dL (0.4-1.0); *SPE BETA GLOBULIN 1.1 g/dL (0.7-1.3); *SPE GLOBULIN, TOTAL 3.1 g/dL (2.2-3.9); *SPE M-SPIKE Not Observed g/dL (Not Observed); *SPE PROTEIN TOTAL 6.9 g/dL (6.0-8.5)
[2017-02-27 13:17] LABS: PTH, INTACT 52 pg/mL (15-65)
== END 2017-02-26 17:15 | disposition home or self-care (01) | DRG 291 ==
LOC: ER 05:16 → TELE 08:19 → MED 11:13 → TELE 02-24 10:31 → MED 02-25 09:15
PROVIDERS: ADMIT Legal Medicine; ATTEND Legal Medicine
DX: I11.0 Hypertensive heart disease with heart failure (principal); J96.00 Acute respiratory failure, unspecified whether with hypoxia or hypercapnia; N17.0 Acute kidney failure with tubular necrosis; J44.1 Chronic obstructive pulmonary disease with (acute) exacerbation; I50.23 Acute on chronic systolic (congestive) heart failure; E78.5 Hyperlipidemia, unspecified; F41.9 Anxiety disorder, unspecified; E87.5 Hyperkalemia; G89.29 Other chronic pain; I25.10 Atherosclerotic heart disease of native coronary artery without angina pectoris; J45.909 Unspecified asthma, uncomplicated; K21.9 Gastro-esophageal reflux disease without esophagitis; M19.90 Unspecified osteoarthritis, unspecified site; Z87.891 Personal history of nicotine dependence; Z96.642 Presence of left artificial hip joint; Z91.19 Patient's noncompliance with other medical treatment and regimen; F32.9 Major depressive disorder, single episode, unspecified; Z86.19 Personal history of other infectious and parasitic diseases; E83.42 Hypomagnesemia; N13.9 Obstructive and reflux uropathy, unspecified
CPT/HCPCS: 36415; 71010-TC; 76770-TC; 80048-TC; 80053-TC; 80061-TC; 81000-TC; 82550-TC; 82570-TC; 82962-TC; 83735-TC; 83970; 84100-TC; 84155; 84155-TC; 84165; 84300-TC; 84484-TC; 85025-TC; 85730-TC; 87081-TC; 94799-TC; A4216; A4606; J0610; J1815; J1940; J2270; J2405; J3475; J3490; J7030; J7050; J7060; Z7610

== ENCOUNTER 2017-04-25 00:27 | Inpatient (IN) | payer MEDICARE ==
[~2017-04-25] VITALS: Ht 180.3 cm; Wt 69.4 kg
[~2017-04-25 00:27] MED LIST changes: -ASPI81TA2 PO; -FURO80TA3 PO
--- NOTE | 2017-04-25 00:27 | NUR ---
pt bibra fr home for c/o SOB w/ back pain, bilateral eye irritation w/ yellow drainage. AOx4, afebrile w/ resp even & unlabored, SR, defibrillator lt CW, on continuous pulse-ox w/ cardiac monitoring. Dr. Calzada at bedside for further eval.
--- NOTE | 2017-04-25 00:59 | NUR ---
IVHL started, labs drawn w/ blood cultures & sent.
--- NOTE | 2017-04-25 01:01 | NUR ---
CXR at bedside. Sent to CT.
[2017-04-25 01:17] LABS: EOSINOPHILS # (AUTO) 0.1 /CMM (0.0-0.7); EOSINOPHILS % (AUTO) 1.7 % (0.0-6.0); HEMATOCRIT 34 % (39-51); HEMOGLOBIN 11.2 g/dL (13.5-17.5); LYMPHOCYTES # (AUTO) 1.7 /CMM (0.8-4.8); LYMPHOCYTES % (AUTO) 35.1 % (20.0-44.0); MEAN CORPUSCULAR HEMOGLOBIN 33 PG (26.0-33.0); MEAN CORPUSCULAR HGB CONC 33 g/dl (31.0-36.0); MEAN CORPUSCULAR VOLUME 98 fL (80-96); MONOCYTES # (AUTO) 0.3 /CMM (0.1-1.30); MONOCYTES % (AUTO) 6.3 % (2.0-12.0); NEUTROPHILS # (AUTO) 2.7 /CMM (1.8-8.9); NEUTROPHILS % (AUTO) 56.9 % (43.0-81.0); PLATELET COUNT (AUTO) 85 /CMM (150-450); RDW COEFFICIENT OF VARIATION 17.5 (11.5-15.0); RED BLOOD CELL COUNT(AUTO) 3.43 MIL/uL (4.5-6.0); WHITE BLOOD COUNT (AUTO) 4.8 K/uL (4.3-11.0)
[2017-04-25 01:28] LABS: INR 1.12 (0.87-1.13); PROTHROMBIN TIME 12.1 SECS (9.5-12.7)
[2017-04-25 01:31] LABS: CALCIUM, SERUM 8.1 mg/dL (8.5-10.1); CARBON DIOXIDE 25 mmol/L (21-32); CHLORIDE 107 mmol/L (98-107); CREATININE 1.2 mg/dL (0.6-1.3); GLUCOSE 109 mg/dL (74-106); POTASSIUM 3.6 mmol/L (3.5-5.1); SODIUM SERUM 143 mmol/L (136-145); UREA NITROGEN, BLOOD 10 mg/dL (7-18)
--- NOTE | 2017-04-25 01:43 | NUR ---
No aspirin given d/t allergy.
[2017-04-25 01:45] LABS: ALANINE AMINOTRANSFERASE 48 U/L (12-78); ALBUMIN 3.8 g/dL (3.4-5.0); ALKALINE PHOSPHATASE 61 U/L (46-116); ASPARTATE AMINOTRANSFERASE 111 U/L (15-37); BILIRUBIN,DIRECT 0.9 mg/dL (0.0-0.2); BILIRUBIN,TOTAL 2.5 mg/dL (0.2-1.0)
[2017-04-25 01:49] LABS: LYMPHOCYTES % (MANUAL) 19 % (16-48); MONOCYTES % (MANUAL) 6 % (0-11.0); NEUTROPHILS % (MANUAL) 75 (42-76)
[2017-04-25 01:50] LABS: B-TYPE NATRIURETIC PEPTIDE 12593 PG/ML (0-125)
--- NOTE | 2017-04-25 01:55 | NUR ---
Report given to YANIRA Allen for RADHA, pt admission to tele rm [phone].
--- NOTE | 2017-04-25 02:15 | NUR ---
GEOPHYSICS PROFESSOR NOTE: RECEIVED PATIENT FROM ER, NO ACUTE DISTRESS NOTED. BREATHING EVEN AN UNLABORED, NO SOB NOTED. IV TO LFA IN PLACE. TELE READING SINUS TACH 110. ORIENTED PATIENT TO ROOM AND USE OF CALL LIGHT. BED LOCKED AND IN LOWEST POSITION, CALL LIGHT IN REACH. WILL CONTINUE TO MONITOR.
[2017-04-25] MEDS ORDERED: MORPHINE SULFATE INJ 4 MG/ML DISP.SYRIN ONE ×2 (02:23→06:30)
--- NOTE | 2017-04-25 02:45 | NUR ---
APPLIED COMPUTER SCIENCE PROFESSOR NOTE: PATIENT COMPLAINS OF PAIN 9/10 TO BOTH HIPS, MORPHINE 4MG IV GIVEN PER MD ORDER, SIGNED ON PAPER JAN. WILL CONTINUE TO MONITOR,
[2017-04-25 04:00] VITALS: BP 130/81
[2017-04-25 05:50] VITALS: BP 130/81
--- NOTE | 2017-04-25 06:25 | NUR ---
NETWORK OPERATIONS ANALYST NOTE: PATIENT RESTING IN BED, NO ACUTE DISTRESS NOTED. BREATHING EVEN AN UNLABORED, NO SOB NOTED. IV TO LFA IN PLACE. TELE READING SINUS TACH 100-115. BED LOCKED AND IN LOWEST POSITION, CALL LIGHT IN REACH. WILL ENDORSE TO DAY NURSE TO CONTINUE WITH PLAN OF CARE.
[2017-04-25] MEDS: MORPHINE SULFATE INJ 4 MG/ML DISP.SYRIN IV PRN ×4 (06:42→20:03)
--- NOTE | 2017-04-25 06:45 | NUR ---
SPORTS MANAGEMENT PROFESSOR NOTE: PATIENT COMPLAINS OF PAIN 9/10 TO BOTH HIPS, MORPHINE 4MG IV GIVEN PER MD ORDER. WILL CONTINUE TO MONITOR.
[2017-04-25] MEDS ORDERED: LORAZEPAM INJ 2 MG/ML VIAL IV PRN (07:00)
[2017-04-25] MEDS ORDERED: ACETAMINOPHEN 325 MG TABLET PO PRN (07:00)
[2017-04-25] MEDS ORDERED: ZOLPIDEM TARTRATE 5 MG TABLET PO PRN (07:00)
[2017-04-25] MEDS ORDERED: ONDANSETRON HCL/PF 4 MG/2 ML VIAL IV PRN (07:00)
[2017-04-25] MEDS ORDERED: MORPHINE SULFATE INJ 4 MG/ML DISP.SYRIN IV PRN (07:00)
--- NOTE | 2017-04-25 07:05 | NUR ---
RN INITIAL NOTE RECEIVED PT FROM PM NURSE. PT A/O X3. TELE ST. LFA #20 G. PT ON RA NO C/O SOB. FLUSHED PATENT AND INTACT. WILL CONTINUE TO MONITOR. ALL SAFETY MEASURES IN PLACE.
[2017-04-25 07:46] LABS: EOSINOPHILS # (AUTO) 0.2 /CMM (0.0-0.7); EOSINOPHILS % (AUTO) 3.6 % (0.0-6.0); HEMATOCRIT 37 % (39-51); HEMOGLOBIN 12.5 g/dL (13.5-17.5); LYMPHOCYTES # (AUTO) 1.3 /CMM (0.8-4.8); MEAN CORPUSCULAR HEMOGLOBIN 33 PG (26.0-33.0); MEAN CORPUSCULAR HGB CONC 34 g/dl (31.0-36.0); MEAN CORPUSCULAR VOLUME 98 fL (80-96); MONOCYTES # (AUTO) 0.5 /CMM (0.1-1.30); MONOCYTES % (AUTO) 11.5 % (2.0-12.0); NEUTROPHILS # (AUTO) 2.4 /CMM (1.8-8.9); NEUTROPHILS % (AUTO) 54.9 % (43.0-81.0); PLATELET COUNT (AUTO) 83 /CMM (150-450); RDW COEFFICIENT OF VARIATION 17.7 (11.5-15.0); RED BLOOD CELL COUNT(AUTO) 3.74 MIL/uL (4.5-6.0); WHITE BLOOD COUNT (AUTO) 4.4 K/uL (4.3-11.0)
[2017-04-25 07:55] LABS: CALCIUM, SERUM 8.3 mg/dL (8.5-10.1); POTASSIUM 3.2 mmol/L (3.5-5.1)
[2017-04-25 08:00] VITALS: BP 109/88
[2017-04-25 08:04] LABS: TROPONIN I 0.068 ng/mL (0.00-0.056)
[2017-04-25 08:42] LABS: EOSINOPHILS % (MANUAL) 4 % (0-4); LYMPHOCYTES % (MANUAL) 27 % (16-48); MONOCYTES % (MANUAL) 12 % (0-11.0); NEUTROPHILS % (MANUAL) 57 (42-76)
[2017-04-25 08:58] LABS: CHOLESTEROL 161 mg/dL (<200); HDL CHOLESTEROL 98 mg/dL (40-60); LDL 51 mg/dL (0-99); TRIGLYCERIDES 62 mg/dL (30-150)
[2017-04-25] MEDS: PANTOPRAZOLE 40 MG TABLET.DR PO SCH (08:59)
[2017-04-25] MEDS ORDERED: POLYVINYL ALCOHOL 15 ML BOTTLE EACHEYE PRN (10:00)
[2017-04-25] MEDS: POTASSIUM CHLORIDE 20 MEQ TAB.PRT.SR PO SCH ×6 (11:34→14:26)
[2017-04-25] MEDS: NITROGLYCERIN 30 GM TUBE TP SCH ×2 (11:35→17:16)
[2017-04-25 12:58] VITALS: BP 120/85
[2017-04-25] MEDS: VALSARTAN 40 MG TABLET PO SCH (13:01)
[2017-04-25] MEDS: DILTIAZEM HCL CD 240 MG PO SCH (13:01)
--- NOTE | 2017-04-25 13:03 | NUR ---
RN NOTE SPOKE TO PHARMACY PYXIS DID NOT OPEN TO REMOVE DIOVAN. HAD TO OVER RIDE MEDICATION TO BE ABLE TO GIVE. ONLY ONE TABLET WAS GIVEN.
--- NOTE | 2017-04-25 13:38 | NUR ---
RN NOTE POTASSIUM REPLACEMENT GIVEN FOR THE DAY. ONLY 3 DOSES WILL BE GIVEN.
[2017-04-25] MEDS: FUROSEMIDE 100 MG/10 ML VIAL IV SCH ×3 (14:24→20:03)
[2017-04-25 16:00] VITALS: BP 109/65
--- NOTE | 2017-04-25 19:05 | NUR ---
RN CLOSING NOTE REPORT GIVEN TO ARLINE OZUNA NURSE FOR DONNELL. PT A/O X3. TELE ST THROUGH OUT SHIFT. LFA #20 G INTACT AND PATENT. PT ON RA NO C/O SOB. ALL SAFETY MEASURES IN PLACE. ALL MEDICATIONS GIVEN ALL ORDERS CARRIED OUT.
[2017-04-25 20:00] VITALS: BP 126/85
--- NOTE | 2017-04-25 20:00 | NUR ---
RECEIVED PATIENT SITTING AT THE CHAIR. PATIENT IS ALERT AND ORIENTEDX3, VSS, AFEBRILE. PATIENT HAS CONSTANT GENERALIZED PAIN WITH PAIN GOAL LEVEL 2/10 - MORPHINE GIVEN ORDER. CONTINUE TO MONITOR
--- NOTE | 2017-04-25 20:35 | NUR ---
PATIENT HAS A PAIN 2/10 NOW. SAFETY MEASURES IMPLEMENTED. CONTINUE TO MONITOR
--- NOTE | 2017-04-26 | NUR ---
PATIENT STILL C/O GENERALIZED PAIN 07/05- MORPHINE 4 MG IVP GIVEN ORDERED. CONTINUE TO MONITOR
[2017-04-26] MEDS: NITROGLYCERIN 30 GM TUBE TP SCH ×4 (00:02→18:24)
[2017-04-26] MEDS: MORPHINE SULFATE INJ 4 MG/ML DISP.SYRIN IV PRN ×6 (00:09→21:22)
--- NOTE | 2017-04-26 00:35 | NUR ---
patient appears sleeping, calm, no distress noted
[2017-04-26 04:00] VITALS: BP_SYST 111; BP_DIAS 71; BP_DIAS 77
--- NOTE | 2017-04-26 07:00 | NUR ---
RN INITIAL NOTE RECEIVED PT FROM ARLINE OZUNA NURSE. PT A/O X3. PT MS . LFA #20 G. PT ON RA NO C/O SOB. IV LFA #20G FLUSHED PATENT AND INTACT. WILL CONTINUE TO MONITOR. ALL SAFETY MEASURES IN PLACE. PT SITTING @ BEDSIDE.
[2017-04-26 08:00] VITALS: BP 107/76
[2017-04-26] MEDS: POTASSIUM CHLORIDE 20 MEQ TAB.PRT.SR PO SCH (08:02)
[2017-04-26] MEDS: PANTOPRAZOLE 40 MG TABLET.DR PO SCH (08:02)
[2017-04-26] MEDS: THIAMINE HCL 100 MG TABLET PO SCH (08:02)
[2017-04-26] MEDS: DILTIAZEM HCL CD 240 MG PO SCH (08:03)
[2017-04-26] MEDS: VALSARTAN 40 MG TABLET PO SCH (08:05)
[2017-04-26] MEDS ORDERED: POTASSIUM CHLORIDE 20 MEQ TAB.PRT.SR PO SCH (11:30)
[2017-04-26] MEDS: FUROSEMIDE 80 MG TABLET PO SCH (11:30)
[2017-04-26 12:17] LABS: EOSINOPHILS # (AUTO) 0.1 /CMM (0.0-0.7); EOSINOPHILS % (AUTO) 1.5 % (0.0-6.0); HEMATOCRIT 31 % (39-51); HEMOGLOBIN 10.5 g/dL (13.5-17.5); LYMPHOCYTES % (AUTO) 18.8 % (20.0-44.0); MEAN CORPUSCULAR HEMOGLOBIN 33 PG (26.0-33.0); MEAN CORPUSCULAR HGB CONC 34 g/dl (31.0-36.0); MEAN CORPUSCULAR VOLUME 97 fL (80-96); MONOCYTES # (AUTO) 0.6 /CMM (0.1-1.30); MONOCYTES % (AUTO) 10.9 % (2.0-12.0); NEUTROPHILS # (AUTO) 3.5 /CMM (1.8-8.9); NEUTROPHILS % (AUTO) 68.8 % (43.0-81.0); PLATELET COUNT (AUTO) 91 /CMM (150-450); RDW COEFFICIENT OF VARIATION 18.1 (11.5-15.0); RED BLOOD CELL COUNT(AUTO) 3.16 MIL/uL (4.5-6.0); WHITE BLOOD COUNT (AUTO) 5.1 K/uL (4.3-11.0)
[2017-04-26 12:30] LABS: BAND % (MANUAL) 1 % (0.0-5.0); EOSINOPHILS % (MANUAL) 2 % (0-4); LYMPHOCYTES % (MANUAL) 20 % (16-48); MONOCYTES % (MANUAL) 9 % (0-11.0); NEUTROPHILS % (MANUAL) 68 (42-76)
--- NOTE | 2017-04-26 12:34 | NUR ---
RN NOTE PT REFUSED LASIX. PT STATES "LASIX GOT ME GOING TO THE BATHROOM TOO MUCH! I DON'T WANT IT."
[2017-04-26 16:00] VITALS: BP 106/57
[2017-04-26 16:22] LABS: ALBUMIN 4.2 g/dL (3.4-5.0); BILIRUBIN,TOTAL 1.8 mg/dL (0.2-1.0); CALCIUM, SERUM 8.5 mg/dL (8.5-10.1); CREATININE 1.9 mg/dL (0.6-1.3); PHOSPHORUS 4.2 mg/dL (2.5-4.9); POTASSIUM 3.9 mmol/L (3.5-5.1); TOTAL PROTEIN, SERUM 7.5 g/dL (6.4-8.2)
[2017-04-26 16:27] LABS: TROPONIN I 0.065 ng/mL (0.00-0.056)
[2017-04-26 17:33] LABS: MAGNESIUM 0.8 mg/dL (1.8-2.4)
[2017-04-26] MEDS ORDERED: IV SET PRIMARY PUMP SET 1 EA INFUS.SET MC ONE (17:49)
[2017-04-26] MEDS ORDERED: SECONDARY IV SET 1 EA INFUS.SET MC ONE (17:49)
[2017-04-26] MEDS ORDERED: IV NS 0.9% 250 ML IV ONE (17:49)
[2017-04-26] MEDS: Magnesium 1GM/D5W 100ML PREMIX 100 ML IV SCH ×4 (18:30→22:44)
--- NOTE | 2017-04-26 19:10 | NUR ---
RN INITIAL NOTES RECEIVED PATIENT IN BED, AWAKE AND ALERT. PATIENT OBSERVED TO BE DROWSY, PER PATIENT HE EXPERIENCES INSOMNIA AND TENDS TO "FALL ASLEEP IN AND OUT DURING THE DAY." PATIENT ON ROOM AIR, RESPIRATION IS EVEN AND UNLABORED. DENIES ANY CHEST PAIN AND/OR DISCOMFORT AT THIS TIME. L FOREARM G20, INTACT AND PATENT, NO SIGNS OF INFILTRATION. RUNNING WITH MAGNESIUM ORDERED, BAG 1 OF 4, WILL ADMINISTER THE REST OF MEDICATION ENDORSED. PATIENT'S NEEDS ANTICIPATED AND MET. SAFETY AND COMFORT ENSURED. BED IN LOW AND LOCKED POSITION. CALL LIGHT IN REACH. WILL MONITOR. BED ALARM IN PLACE, FOR SAFETY AND FALL PRECAUTION.
--- NOTE | 2017-04-26 19:20 | NUR ---
RN CLOSING NOTE REPORT GIVEN TO JORGE L OZUNA NURSE FOR RADHA. PT A/O X3. LFA #20 G MAG RUNNING 11/29 BAGS. INTACT AND PATENT. PT ON RA NO C/O SOB. ALL SAFETY MEASURES IN PLACE. ALL MEDICATIONS GIVEN ALL ORDERS CARRIED OUT.
[2017-04-26 20:00] VITALS: BP 105/64
[2017-04-27] MEDS: NITROGLYCERIN 30 GM TUBE TP SCH ×3 (00:26→12:26)
[2017-04-27 04:00] VITALS: BP 106/73
--- NOTE | 2017-04-27 06:39 | NUR ---
RN CLOSING NOTES PATIENT IN BED, SLEEPING COMFORTABLY. PATIENT NOT IN ANY FORM OF DISTRESS OR DISCOMFORT. NO C/O CHEST PAIN AND SOB. NO ACUTE CHANGE IN CONDITION OBSERVED OVERNIGHT. NEEDS ANTICIPATED AND MET. SAFETY AND COMFORT ENSURED. BED IN LOW AND LOCKED POSITION. CALL LIGHT IN REACH. WILL ENDORSE ACCORDINGLY FOR CONTINUITY OF CARE.
--- NOTE | 2017-04-27 07:05 | NUR ---
RN INITIAL NOTES RECEIVED PT IN BED, ASLEEP, EASY TO AROUSE, ABLE TO MAKE NEEDS KNOWN, PT IS ON RA,SATING WELL, NO S/S OF RESP.DISTRESS OR SOB NOTED AT THIS TIME, PT HAS LCW PACEMAKER, PT IS AMBULATORY, PT HAS LFA #20G,SL, C/D/I/PATENT, FLUSHING WELL, NO S/S OF INFECTION/ INFILTRATION NOTED AT THIS TIME, NO C/O OF DISTRESS OR DISCOMFORT AT THIS TIME, ALL SAFETY MEASURES IN PLACE AT ALL TIMES,CALL LIGHT WITHIN EASY REACH, ALL NEEDS MET AT THIS TIME, WILL MONITOR PT CLOSELY FOR CHANGES
[2017-04-27 08:00] VITALS: BP 115/59
[2017-04-27] MEDS: POTASSIUM CHLORIDE 20 MEQ TAB.PRT.SR PO SCH (08:14)
[2017-04-27] MEDS: PANTOPRAZOLE 40 MG TABLET.DR PO SCH (08:14)
[2017-04-27] MEDS: FUROSEMIDE 80 MG TABLET PO SCH (08:14)
[2017-04-27] MEDS: THIAMINE HCL 100 MG TABLET PO SCH (08:14)
[2017-04-27] MEDS: DILTIAZEM HCL CD 240 MG PO SCH (08:15)
[2017-04-27] MEDS: VALSARTAN 40 MG TABLET PO SCH (08:15)
[2017-04-27] MEDS: MORPHINE SULFATE INJ 4 MG/ML DISP.SYRIN IV PRN ×2 (08:16→13:22)
--- NOTE | 2017-04-27 08:30 | NUR ---
RN NOTES DR. BAKER MADE ROUNDS, PT WANTS TO GO HOME, PT WILL BE DISCHARGE LATER THIS AFTERNOON, ALL DISCHARGE INSTRUCTIONS PROVIDED, ALL QUESTIONS AND CONCERNS ANSWERED, RX WITH PT, ALL BELONGINGS WITH PT, ALL PAPERWORK SIGNED, TEACHING PROVIDED, EXPLAINED RISK OF CONSUMING ETOH, VERBALIZED UNDERSTANDING, WILL FOLLOW UP WITH MD IN 1 WEEK. WILL CONT TO MONITOR PT CLOSELY
[2017-04-27 12:26] VITALS: BP 115/59
--- NOTE | 2017-04-27 15:26 | NUR ---
RN NOTES IV REMOVED, PAPERWORK WITH PT, TAXI CALLED, ALL BELONGINGS AND PAPERWORK WITH PT. PT WAS TAKING TO AWAITING TAXI VIA WHEELCHAIR.
== END 2017-04-27 16:10 | disposition home or self-care (01) | DRG 291 ==
LOC: ER 00:29 → TELE1 01:47 → MEDSG1 12:06
PROVIDERS: ADMIT Legal Medicine; ATTEND Legal Medicine
DX: I13.0 Hypertensive heart and chronic kidney disease with heart failure and stage 1 through stage 4 chronic kidney disease, or unspecified chronic kidney disease (principal); I50.23 Acute on chronic systolic (congestive) heart failure; J44.9 Chronic obstructive pulmonary disease, unspecified; K21.9 Gastro-esophageal reflux disease without esophagitis; G89.4 Chronic pain syndrome; E87.6 Hypokalemia; I25.10 Atherosclerotic heart disease of native coronary artery without angina pectoris; F41.1 Generalized anxiety disorder; I25.5 Ischemic cardiomyopathy; Z87.891 Personal history of nicotine dependence; R26.89 Other abnormalities of gait and mobility; Z95.810 Presence of automatic (implantable) cardiac defibrillator; E80.6 Other disorders of bilirubin metabolism; F10.20 Alcohol dependence, uncomplicated; M19.90 Unspecified osteoarthritis, unspecified site; Z91.19 Patient's noncompliance with other medical treatment and regimen; Z96.642 Presence of left artificial hip joint; N18.3 Chronic kidney disease, stage 3 (moderate)
CPT/HCPCS: 36415; 71010-TC; 72125-TC; 80048-TC; 80053-TC; 80061-TC; 80076-TC; 83605-TC; 83735-TC; 83880; 84100-TC; 84484-TC; 85025-TC; 85730-TC; 87040-TC; 87081-TC; 97001-TC; 97116-TC; A4606; J1940; J2270; J3475; J7050; Z7610

== ENCOUNTER 2017-10-09 15:10 | Emergency (ER) | payer MEDICARE, OTHER ==
[~2017-10-09] VITALS: Ht 185.4 cm; Wt 74.8 kg
[2017-10-09 15:10] VITALS: BP 148/78
--- NOTE | 2017-10-09 16:33 | NUR ---
wound care provided. pt is ambulatory w/ steady gait. wants to go home. discharge in stable condition.
== END 2017-10-09 16:36 | disposition home or self-care (01) ==
LOC: ER 15:12
DX: S80.812A Abrasion, left lower leg, initial encounter (principal); F10.20 Alcohol dependence, uncomplicated; G89.29 Other chronic pain; I10 Essential (primary) hypertension; I25.10 Atherosclerotic heart disease of native coronary artery without angina pectoris; J44.9 Chronic obstructive pulmonary disease, unspecified; F17.200 Nicotine dependence, unspecified, uncomplicated; I25.2 Old myocardial infarction; K21.9 Gastro-esophageal reflux disease without esophagitis; Z59.0 Homelessness; Z95.810 Presence of automatic (implantable) cardiac defibrillator; Z96.642 Presence of left artificial hip joint; Z88.6 Allergy status to analgesic agent; X58.XXXA Exposure to other specified factors, initial encounter; Y93.89 Activity, other specified; Y92.89 Other specified places as the place of occurrence of the external cause; Y99.8 Other external cause status
CPT/HCPCS: 99283; A4606; Z7610

== ENCOUNTER 2017-10-20 07:07 | Inpatient (IN) | payer MEDICARE, OTHER ==
[~2017-10-20] VITALS: Ht 180.3 cm; Wt 73.1 kg
--- NOTE | 2017-10-20 07:22 | NUR ---
PT BIB RA TO ER BED 6, PT C/O SOB X 2 DAYS. PT PLACED ON AUXILIARY ENGINEER AND 4 LPM VIA N/C. VSS/NAD NOTED/PT IS [place]ACHY[place]NEIC.
--- NOTE | 2017-10-20 07:30 | NUR ---
NEW IV STARTED ON LEFT WRIST, 20 G. BLOOD DRAWN AND SENT TO LAB.
--- NOTE | 2017-10-20 07:35 | NUR ---
PLUMBING HARDWARE ASSEMBLER AT BEDSIDE.
[2017-10-20 07:49] LABS: BASOPHILS % (AUTO) 0.1 % (0.0-2.0); EOSINOPHILS # (AUTO) 0.1 /CMM (0.0-0.7); EOSINOPHILS % (AUTO) 1.5 % (0.0-6.0); HEMATOCRIT 38 % (39-51); HEMOGLOBIN 12.3 g/dL (13.5-17.5); LYMPHOCYTES # (AUTO) 1.2 /CMM (0.8-4.8); LYMPHOCYTES % (AUTO) 16.4 % (20.0-44.0); MEAN CORPUSCULAR HEMOGLOBIN 30 PG (26.0-33.0); MEAN CORPUSCULAR HGB CONC 33 g/dl (31.0-36.0); MEAN CORPUSCULAR VOLUME 92 fL (80-96); MONOCYTES # (AUTO) 0.7 /CMM (0.1-1.30); MONOCYTES % (AUTO) 9.9 % (2.0-12.0); NEUTROPHILS # (AUTO) 5.2 /CMM (1.8-8.9); NEUTROPHILS % (AUTO) 72.1 % (43.0-81.0); PLATELET COUNT (AUTO) 105 /CMM (150-450); RDW COEFFICIENT OF VARIATION 18.6 (11.5-15.0); WHITE BLOOD COUNT (AUTO) 7.3 K/uL (4.3-11.0)
[2017-10-20 07:59] LABS: CALCIUM, SERUM 8.2 mg/dL (8.5-10.1); CREATININE 1.1 mg/dL (0.6-1.3); POTASSIUM 4.6 mmol/L (3.5-5.1)
[2017-10-20 08:05] LABS: TROPONIN I 0.052 ng/mL (0.00-0.056)
--- NOTE | 2017-10-20 08:07 | NUR ---
URINE OBTAINED AND SENT TO LAB.
[2017-10-20 08:10] LABS: ALBUMIN 3.2 g/dL (3.4-5.0); BILIRUBIN,DIRECT 0.5 mg/dL (0.0-0.2); BILIRUBIN,TOTAL 1.6 mg/dL (0.2-1.0)
--- NOTE | 2017-10-20 08:24 | NUR ---
500 ML NS ORDERED PER . 500 ML BAG NOT AVAILABLE AT THIS TIME. 1L BAG PULLED, ONLY 500ML ADMINISTERED.
[2017-10-20 08:26] LABS: INR 1.15 (0.87-1.13)
[2017-10-20] MEDS ORDERED: IV NS 0.9% 500 ML BAG IV ONE (08:30)
[2017-10-20] MEDS ORDERED: FUROSEMIDE 40 MG/4 ML VIAL IV ONE (08:30)
[2017-10-20] MEDS ORDERED: FUROSEMIDE 40 MG/4 ML VIAL ONE (08:55)
[2017-10-20 08:56] LABS: ABG BASE EXCESS -3.5 mmol/L; ABG OXYGEN SATURATION 89.1 % (92.0-98.5); ABG PCO2 27.2 mmHg (35.0-45.0); ABG PO2 57.4 mmHg (75.0-100.0); AaDO2 59.8 mmHg; COHb 1.3 % (0.5-1.5); MetHb 0.3 % (0.0-1.5); O2Hb 87.7 % (94.0-97.0); SITE, ABG Right Radial; VENT MODE, BG RA
[2017-10-20] MEDS ORDERED: ONDANSETRON HCL/PF 4 MG/2 ML VIAL ONE (08:56)
[2017-10-20] MEDS ORDERED: LISI2.5T2 PO (08:57)
[2017-10-20] MEDS ORDERED: HYDR-552 PO ×2 (08:57)
[2017-10-20] MEDS ORDERED: LORA1TAB PO (08:57)
[2017-10-20] MEDS ORDERED: ONDA4TAB5 PO (08:57)
[2017-10-20] MEDS ORDERED: ZOLP5TAB7 PO (08:57)
[2017-10-20] MEDS ORDERED: POTA10TA15 PO (08:57)
[2017-10-20] MEDS ORDERED: FURO40TA5 PO (08:57)
[2017-10-20] MEDS ORDERED: CARV6.252 PO (08:57)
[2017-10-20] MEDS ORDERED: ONDANSETRON HCL/PF - ER 4 MG/2 ML VIAL IV ONE (09:00)
--- NOTE | 2017-10-20 09:15 | NUR ---
PATIENT TAKEN TO CT.
--- NOTE | 2017-10-20 09:25 | NUR ---
PATIENT RETURNED FROM CT
[2017-10-20] MEDS ORDERED: ENOXAPARIN SODIUM 40 MG/0.4 ML DISP.SYRIN SQ SCH (10:00)
[2017-10-20] MEDS ORDERED: Z GUARD REMEDY 2 OZ OINT TP PRN (10:00)
[2017-10-20] MEDS ORDERED: MAGNESIUM HYDROXIDE 30 ML UDC PO PRN (10:00)
[2017-10-20] MEDS ORDERED: ZOLPIDEM TARTRATE 5 MG TABLET PO SCH (10:00)
[2017-10-20] MEDS ORDERED: MAG HYDROX/AL HYDROX/SIMETH 30 ML UDC PO PRN (10:00)
--- NOTE | 2017-10-20 10:11 | NUR ---
REPORT GIVEN TO RN, AFSATU FOR ADMISSION.
--- NOTE | 2017-10-20 10:45 | NUR ---
PATIENT TRANSPORTED TO [facility] VIA ACLS PROTOCOL FOR ADMISSION. RN, AFSATU TO PROVIDE RADHA.
[2017-10-20] MEDS: HYDROCODONE/APAP 5/325MG 1 EACH TABLET PO PRN (11:19)
--- NOTE | 2017-10-20 11:50 | NUR ---
RAMP SERVICE EMPLOYEE NOTES RECEIVED PT FROM ER NURSE IN STABLE CONDITION. PT IS A/O X3. NO SOB OR SIGNS OF DISTRESS NOTED. BREATHING IS EVEN AND UNLABORED. PT STATES THAT HE IS IN PAIN RATED 6/10. WILL ADMINISTER PRN PAIN MEDICATION. PT IS ON ROOM AIR AND SATING WELL AT 97%. IV NOTED ON LEFT WRIST 20G. IV IS PATENT AND INTACT. NO REDNESS OR SIGNS OF INFILTRATION NOTED. PT WAS ORIENTED TO ROOM AND VERBALIZED UNDERSTANDING. ADMISSION ORDERS NOTED BY MD. PT IS SINUS TACH ON THE TELE MONITOR WITH A HR OF 119. BED IN LOW LOCKED POSITION, SIDE RAILS UP X2, CALL LIGHT WITHIN REACH. WILL CONTINUE TO MONITOR
[2017-10-20 12:00] VITALS: BP 121/78
[2017-10-20] MEDS: ONDANSETRON 4 MG TAB.RAPDIS PO PRN ×2 (14:16→21:03)
[2017-10-20 16:00] VITALS: BP 120/79
[2017-10-20] MEDS: LISINOPRIL (5MG) 5 MG TABLET PO SCH (17:26)
[2017-10-20] MEDS: CARVEDILOL 6.25 MG TABLET PO SCH (17:27)
--- NOTE | 2017-10-20 18:28 | NUR ---
DUMPSTER OPERATOR NOTES PT REMAINS IN STABLE CONDITION SINCE ADMISSION. HE DENIES ANY PAIN AT THIS TIME. PT HAS REMAINED STABLE ON ROOM AIR SATING BETWEEN 97-100%. SAFETY MEASURES REMAIN IN PLACE. WILL ENDORSE TO NIGHTSHIFT NURSE FOR RADHA
--- NOTE | 2017-10-20 19:00 | NUR ---
RN NOTES RECEIVED PT IN BED RESTING COMFORTABLY. A/O X 3, PT IN STABLE CONDITION, NO S/S OF DISTRESS. NO COMPLAINS OF PAIN AT THIS TIME. SAFETY MEASURES ARE IN PLACE, CALL LIGHT IS IN REACH. WILL CONTINUE TO MONITOR.
[2017-10-20 20:00] VITALS: BP 95/70
[2017-10-20] MEDS ORDERED: FUROSEMIDE 40 MG/4 ML VIAL IV SCH (21:00)
[2017-10-20] MEDS: LORAZEPAM 1 MG TABLET PO SCH (21:02)
[2017-10-20] MEDS: ZOLPIDEM TARTRATE 5 MG TABLET PO PRN (21:03)
[2017-10-20 21:04] VITALS: BP 112/68
[2017-10-21] VITALS: BP 110/70
[2017-10-21] MEDS: HYDROCODONE/APAP 5/325MG 1 EACH TABLET PO PRN ×3 (02:06→21:08)
[2017-10-21 04:00] VITALS: BP 99/66
--- NOTE | 2017-10-21 06:52 | NUR ---
IMPROVEMENT SPECIALIST CLOSING NOTES IN BED ASLEEP AND EASILY AWAKEN A/O X3, HEAD OF BED ELEVATED FOR BETTER LUNG EXPANSION. O2 SAT AT 99% R.A RESPIRATIONS EVEN AND UNLABORED. NO S/S OF ACUTE DISTRESS. IN STABLE CONDITION. AFEBRILE, ALL NURSING CARE RENDERED. NEEDS ATTENDED AND ANTICIPATED, KEPT CLEAN AND DRY AND COMFORTABLE, NO COMPLAINS OF PAIN AT THIS TIME. ATTACH TO TELE MONITOR. GOOD SKIN CARE PROVIDED. FREQUENT Q2H VISUAL CHECK DONE FOR SAFETY EVERY 2 HOURS. SAFE HAZARD FREE ENVIRONMENT PROVIDED. CALL LIGHT WITHIN EASY TO REACH, ON LOW BED AT ALL TIMES TO ENSURE SAFETY. WILL ENDORSE TO THE NEXT SHIFT.
[2017-10-21 06:54] LABS: CALCIUM, SERUM 7.8 mg/dL (8.5-10.1); CREATININE 1.3 mg/dL (0.6-1.3); MAGNESIUM 1.3 mg/dL (1.8-2.4); PHOSPHORUS 3.9 mg/dL (2.5-4.9); POTASSIUM 3.6 mmol/L (3.5-5.1)
[2017-10-21 07:42] LABS: BASOPHILS % (AUTO) 0.5 % (0.0-2.0); EOSINOPHILS # (AUTO) 0.2 /CMM (0.0-0.7); EOSINOPHILS % (AUTO) 3.4 % (0.0-6.0); HEMATOCRIT 37 % (39-51); LYMPHOCYTES # (AUTO) 1.1 /CMM (0.8-4.8); LYMPHOCYTES % (AUTO) 23.1 % (20.0-44.0); MEAN CORPUSCULAR HEMOGLOBIN 30 PG (26.0-33.0); MEAN CORPUSCULAR HGB CONC 32 g/dl (31.0-36.0); MEAN CORPUSCULAR VOLUME 92 fL (80-96); MONOCYTES # (AUTO) 0.5 /CMM (0.1-1.30); MONOCYTES % (AUTO) 11.1 % (2.0-12.0); NEUTROPHILS # (AUTO) 2.9 /CMM (1.8-8.9); NEUTROPHILS % (AUTO) 61.9 % (43.0-81.0); PLATELET COUNT (AUTO) 88 /CMM (150-450); RED BLOOD CELL COUNT(AUTO) 4.05 MIL/uL (4.5-6.0); WHITE BLOOD COUNT (AUTO) 4.7 K/uL (4.3-11.0)
[2017-10-21 08:00] VITALS: BP 101/68
--- NOTE | 2017-10-21 08:03 | NUR ---
FEEDER LOADER OPENING NOTES. PT A&0X3 SITTING HIGH FOWLERS FOR BREAKFAST. PT WITH 2LPM VIA NC WITH NO OBVIOUS DISTRESS OR COMPLAINTS OF SOB, SAO2 99%. PT IVC AT L WRIST IS FLUSHED PATENT AND SALINE LOCKED. PT REPORTS 8/10 PAIN AT SITE OF CARDIAC DEVICE. BED IN LOWEST LOCKED POSITION WITH HADRAILSX1, CALL ATWOOD WITHIN REACH AND BE ALARM ON. PT BRIEFED ON TODAY'S POC, PT WITH NO QUESTIONS OR COMPLAINTS AT THIS TIME.
[2017-10-21] MEDS: ONDANSETRON HCL/PF 4 MG/2 ML VIAL IVP PRN (08:52)
[2017-10-21] MEDS: LORAZEPAM 1 MG TABLET PO SCH ×2 (08:58→21:07)
[2017-10-21] MEDS: POTASSIUM CHLORIDE 10 MEQ TABLET.SA PO SCH (08:58)
[2017-10-21] MEDS ORDERED: FUROSEMIDE 100 MG/10 ML VIAL IV SCH (09:00)
[2017-10-21] MEDS ORDERED: POTASSIUM CHLORIDE 20 MEQ TAB.PRT.SR PO SCH (09:00)
[2017-10-21] MEDS: CARVEDILOL 6.25 MG TABLET PO SCH ×2 (09:00→17:47)
[2017-10-21] MEDS: LISINOPRIL (5MG) 5 MG TABLET PO SCH ×2 (09:00→17:47)
--- NOTE | 2017-10-21 11:00 | NUR ---
MS RN NOTES. R/T:NAUSEA AND PAIN. PT GIVEN ZOFRAN 4MG IV AT 0852 WITH GOOD EFFECT. PT AGAIN REQUESTING ZOFRAN FOR NAUSEA WITHOUT EMESIS AT 1100. DR LOPES CONTACTED, AWAITING REPLY. PT ALSO REQUESTING ANALGESIA FOR TRANSIENT PAIN (07/05) AT SITE OF CARDIAC DEVICE. REFUSES AVAILABLE NORCO HE REPORTS IT CAUSES NAUSEA. PT CURRENTLY EATING LUNCH IN NO OBVIOUS DISTRESS. DR LOPES CONTACTED, AWAITING REPLY.
[2017-10-21] MEDS: Magnesium 1GM/D5W 100ML PREMIX 100 ML IV SCH ×4 (11:02→15:34)
[2017-10-21 11:28] LABS: EOSINOPHILS % (MANUAL) 3 % (0-4); LYMPHOCYTES % (MANUAL) 24 % (16-48); MONOCYTES % (MANUAL) 12 % (0-11.0); NEUTROPHILS % (MANUAL) 61 (42-76)
--- NOTE | 2017-10-21 12:49 | NUR ---
MS RN NOTES. CONTACTED PHARMACY REGARDING AM K DOSE APPEARING IN RED UN 'NEXT SCHEDULED MEDS'. EXPLAINED COMMUNICATION WITH MD. PHARMACY ADVISED THAT DOCUMENTATION IS OK, NO ACTION IS REQUIRED.
[2017-10-21] MEDS: ACETAMINOPHEN 325 MG TABLET PO PRN (15:34)
--- NOTE | 2017-10-21 15:48 | NUR ---
MS RN NOTES. PT REQUESTING ANALGESIA FOR HEADACHE AND GENERAL BODY PAIN. TYLENOL ADMINISTERED. WILL REASSESS AND CONTINUE TO MONITOR.
[2017-10-21 16:00] VITALS: BP 106/69
--- NOTE | 2017-10-21 18:26 | NUR ---
MS RN CLOSING NOTES. PT A&0X3 WATCHING T.V IN BED. PT WITH 2L/PM VIA NC SAO2 98%, PT REPORTING NO SOB AT THIS TIME. PT REPORTING GENERAL BODY PAIN /10 BUT REFUSES ANALGESIA AT THIS TIME. PT DENIES N&V. PT WITH IVC AT L WRIST G#20 PATENT AND SL. BED IN LOWEST LOCKED POSITION WITH HANDRAILSX2 AND CALL AWTOOD WITHIN REACH. ALL DAY NURSE DUTIES ATTENDED TO. PT WITHOUT CONCERN OR COMPLAINT AT THIS TIME. WILL ENDORSE TO NIGHT NURSE.
--- NOTE | 2017-10-21 19:00 | NUR ---
RN NOTES RECEIVED PT IN BED RESTING COMFORTABLY. A/O X 4, PT IN STABLE CONDITION, NO S/S OF DISTRESS. NO COMPLAINS OF PAIN AT THIS TIME. SAFETY MEASURES ARE IN PLACE, CALL LIGHT IS IN REACH. WILL CONTINUE TO MONITOR.
[2017-10-21 20:00] VITALS: BP 99/72
[2017-10-21] MEDS: ZOLPIDEM TARTRATE 5 MG TABLET PO PRN (23:04)
[2017-10-22] MEDS: HYDROCODONE/APAP 5/325MG 1 EACH TABLET PO PRN ×3 (05:58→19:38)
--- NOTE | 2017-10-22 06:10 | NUR ---
MS RN CLOSING NOTES IN BED ASLEEP AND EASILY AWAKEN, HOB ELEVATED, ON 2LPM VIA NC 02 SAT 97% RESPIRATIONS EVEN AND UNLABORED. AFEBRILE, IN STABLE CONDITION. NOT IN S/S DISTRESS. ALL NURSING CARE RENDERED. NEEDS ATTENDED AND ANTICIPATED, KEPT CLEAN AND DRY AND COMFORTABLE, NO COMPLAINS OF PAIN AT THIS TIME. GOOD SKIN CARE PROVIDED. FREQUENT VISUAL CHECK DONE FOR SAFETY EVERY 2 HOURS. ON LOW BED AT ALL TIMES TO ENSURE SAFETY. SAFE HAZARD FREE ENVIRONMENT PROVIDED. CALL LIGHT WITHIN EASY TO REACH. WILL ENDORSE NEXT SHIFT CONTINUITY OF CARE.
--- NOTE | 2017-10-22 07:20 | NUR ---
ms rn initial notes Received patient in bed, awake, head of bed elevated, no SOB or distress noted, on 02 @ 2lpm via NC. Alert and oriented x 4, verbally responsive and able to make needs known. IV intact and patent. No complaint of pain or discomfort at this time. Kept patient clean and comfortable in bed, call light with in patient reach, will continue to monitor accordingly.
[2017-10-22 07:52] LABS: ALBUMIN 3.3 g/dL (3.4-5.0); BILIRUBIN,TOTAL 1.7 mg/dL (0.2-1.0); CALCIUM, SERUM 8.4 mg/dL (8.5-10.1); CREATININE 1.5 mg/dL (0.6-1.3); MAGNESIUM 2.1 mg/dL (1.8-2.4); PHOSPHORUS 4.1 mg/dL (2.5-4.9); POTASSIUM 4.4 mmol/L (3.5-5.1); TOTAL PROTEIN, SERUM 6.7 g/dL (6.4-8.2)
[2017-10-22 08:00] VITALS: BP 108/79
[2017-10-22] MEDS: LORAZEPAM 1 MG TABLET PO SCH ×2 (08:29→21:01)
[2017-10-22] MEDS: LISINOPRIL (5MG) 5 MG TABLET PO SCH ×2 (08:29→16:11)
[2017-10-22] MEDS: POTASSIUM CHLORIDE 10 MEQ TABLET.SA PO SCH (08:29)
[2017-10-22] MEDS: CARVEDILOL 6.25 MG TABLET PO SCH ×2 (08:30→16:10)
[2017-10-22 09:28] LABS: BASOPHILS % (AUTO) 0.6 % (0.0-2.0); EOSINOPHILS # (AUTO) 0.2 /CMM (0.0-0.7); EOSINOPHILS % (AUTO) 5.5 % (0.0-6.0); HEMATOCRIT 38 % (39-51); HEMOGLOBIN 12.5 g/dL (13.5-17.5); LYMPHOCYTES # (AUTO) 1.1 /CMM (0.8-4.8); LYMPHOCYTES % (AUTO) 23.5 % (20.0-44.0); MEAN CORPUSCULAR HEMOGLOBIN 30 PG (26.0-33.0); MEAN CORPUSCULAR HGB CONC 33 g/dl (31.0-36.0); MEAN CORPUSCULAR VOLUME 91 fL (80-96); MONOCYTES # (AUTO) 0.5 /CMM (0.1-1.30); MONOCYTES % (AUTO) 11.6 % (2.0-12.0); NEUTROPHILS # (AUTO) 2.7 /CMM (1.8-8.9); NEUTROPHILS % (AUTO) 58.8 % (43.0-81.0); PLATELET COUNT (AUTO) 98 /CMM (150-450); RDW COEFFICIENT OF VARIATION 17.7 (11.5-15.0); RED BLOOD CELL COUNT(AUTO) 4.23 MIL/uL (4.5-6.0); WHITE BLOOD COUNT (AUTO) 4.5 K/uL (4.3-11.0)
[2017-10-22] MEDS: ONDANSETRON HCL/PF 4 MG/2 ML VIAL IVP PRN (12:36)
[2017-10-22 16:00] VITALS: BP 94/68
--- NOTE | 2017-10-22 18:56 | NUR ---
ms rn notes Spoke to Treva regarding order for stool for OB and ordered. All orders carried out and noted. Will continue to monitor accordingly.
--- NOTE | 2017-10-22 19:04 | NUR ---
ms rn closing notes All needs provided, attended, and anticipated. Kept patient clean and comfortable in bed, call light with in patient reach, endorsed to next shift RN to continue care.
--- NOTE | 2017-10-22 19:39 | NUR ---
RN NOTES PATIENT IN BED, ALERT AND ORIENTED X3, ABLE TO VERBALIZE NEEDS, CALM, NO SOB, TOLERATING 2LPM VIA NC, SPO2 95%, COMPLAINING OF PAIN TO LCW S/P AICD PLACEMENT, LCW SKIN IS INTACT, NO VISIBLE INCISION, PER PATIENT, PAIN FEEL LIKE BEING STABBED, THEN QUICKLY GOES AWAY. LEFT WRIST SALINE LOCK IS PATENT AND SECURED WITH DRESSING. NEEDS ATTENDED, CALL LIGHT WITHIN REACH.
[2017-10-22 20:00] VITALS: BP 104/71
[2017-10-22 20:28] VITALS: BP_SYST 103; BP_SYST 93; BP_DIAS 63; BP_DIAS 71
[2017-10-23] MEDS: HYDROCODONE/APAP 5/325MG 1 EACH TABLET PO PRN ×4 (00:27→23:02)
--- NOTE | 2017-10-23 05:22 | NUR ---
RN NOTES PATIENT REFUSED LINEN CHANGE, OFFERED X3
--- NOTE | 2017-10-23 06:32 | NUR ---
RN NOTES PATIENT IN BED, ALERT AND AWAKE, NO SOB, TOLERATING 2LPM VIA NC, SPO2 95%, PROVIDED PAIN MEDICATION DURING SHIFT, COMPLAINING OF 8/10 PAIN TO LCW. ALL NEEDS ATTENDED, CALL LIGHT WITHIN REACH.
[2017-10-23 08:00] VITALS: BP 112/77
--- NOTE | 2017-10-23 08:20 | NUR ---
GIVEN NORCO FOR CHEST PAIN.
[2017-10-23] MEDS: LISINOPRIL (5MG) 5 MG TABLET PO SCH ×2 (10:28→17:00)
[2017-10-23] MEDS: POTASSIUM CHLORIDE 10 MEQ TABLET.SA PO SCH (10:34)
[2017-10-23] MEDS: CARVEDILOL 6.25 MG TABLET PO SCH ×2 (10:35→17:27)
[2017-10-23] MEDS: LORAZEPAM 1 MG TABLET PO SCH ×2 (12:20→21:05)
[2017-10-23] MEDS: ONDANSETRON HCL/PF 4 MG/2 ML VIAL IVP PRN ×2 (12:56→18:03)
--- NOTE | 2017-10-23 12:56 | NUR ---
GIVEN ZOFRAN FOR SEVERE NAUSEA.HYPERVENTILATING FREQ.POX CHECKED AND FLUCTUATES OFTEN AND PT. TAKES O2 OFF.REASSURED AND REMINDED TO KEEP O2 ON.RN STANDING BY OCC. ATTEMPTING TO GET OOB.
--- NOTE | 2017-10-23 14:00 | NUR ---
REQUESTING TO GET OOB,BUT SOB,PLACED ON BEDPAN.
[2017-10-23 16:00] VITALS: BP 106/74
--- NOTE | 2017-10-23 18:11 | NUR ---
MEDICATED AGAIN FOR NAUSEA.
--- NOTE | 2017-10-23 19:40 | NUR ---
MS RN NOTES RECEIVED ON BED A/O X 3,ABLE TO VERBALIZED NEEDS.BREATHING REGULAR,O2 IN USE AT 4L/NC TO KEEP O2 SAT ABOVE 92%.SALINE LOCK LEFT WRIST INTACT AND PATENT.RISK FOR FALL,CALL LIGHT IN REACH,NEEDS ANTICIPATED.
[2017-10-23 20:00] VITALS: BP 99/55
[2017-10-23 20:11] VITALS: BP 99/55
--- NOTE | 2017-10-23 21:05 | NUR ---
MS RN NOTES APPEARS ANXIOUS,DUE ATIVAN 1MG PO GIVEN
[2017-10-23] MEDS: ZOLPIDEM TARTRATE 5 MG TABLET PO PRN (21:11)
--- NOTE | 2017-10-23 21:11 | NUR ---
MS RN NOTES HE WANTS TO SLEEP,MEDICATED WITH AMBIEN 5MG PO ORDERED.
--- NOTE | 2017-10-23 23:02 | NUR ---
MS RN NOTES PAIN MANAGEMENT C/O GENERALIZED PAIN 5/10 ON PAIN SCALE,MEDICATED WITH NORCO 5/325MG,1TAB PO PER PATIENT REQUEST.
--- NOTE | 2017-10-24 02:00 | NUR ---
MS RN NOTES SLEEPING,KEPT WARM AND COMFORTABLE.
--- NOTE | 2017-10-24 06:26 | NUR ---
MS RN NOTES NO SIGNIFICANT CHANGE IN STATUS,NOTED ONLY SLIGHT SOB ON EXERTION.IN NO ACUTE DISTRESS.CALL LIGHT IN REACH,NEEDS ATTENDED.WILL ENDORSE TO DAY NURSE FOR RADHA.
[2017-10-24 07:08] LABS: BASOPHILS % (AUTO) 0.5 % (0.0-2.0); EOSINOPHILS % (AUTO) 2.1 % (0.0-6.0); HEMATOCRIT 37 % (39-51); HEMOGLOBIN 12.7 g/dL (13.5-17.5); LYMPHOCYTES % (AUTO) 24.7 % (20.0-44.0); MEAN CORPUSCULAR HEMOGLOBIN 31 PG (26.0-33.0); MEAN CORPUSCULAR HGB CONC 34 g/dl (31.0-36.0); MEAN CORPUSCULAR VOLUME 91 fL (80-96); MONOCYTES % (AUTO) 15.1 % (2.0-12.0); NEUTROPHILS % (AUTO) 57.6 % (43.0-81.0); PLATELET COUNT (AUTO) 99 /CMM (150-450); WHITE BLOOD COUNT (AUTO) 4.5 K/uL (4.3-11.0)
[2017-10-24 07:09] LABS: EOSINOPHILS # (AUTO) 0.1 /CMM (0.0-0.7); LYMPHOCYTES # (AUTO) 1.1 /CMM (0.8-4.8); MONOCYTES # (AUTO) 0.7 /CMM (0.1-1.30); NEUTROPHILS # (AUTO) 2.6 /CMM (1.8-8.9)
[2017-10-24 07:29] LABS: CALCIUM, SERUM 8.8 mg/dL (8.5-10.1); CREATININE 1.5 mg/dL (0.6-1.3); MAGNESIUM 2.1 mg/dL (1.8-2.4); POTASSIUM 5.1 mmol/L (3.5-5.1)
--- NOTE | 2017-10-24 07:30 | NUR ---
RN MS NOTES PATIENT ALERT AND ORIENTED X3, VERBALLY RESPONSIVE, PATIENT C/O GENERALIZED PAIN 8/10, OFFERED NORCO BUT PATIENT STATED HE FEELS NAUSEOUS AFTER TAKING NORCO, PATIENT PREFERS TYLENOL. PATIENT BREATHING EVEN AND UNLABORED, NO SOB NOTED, NEEDS ATTENDED AND MET, CALL LIGHT WITHIN REACH, SAFETY MEASURES IN PLACED, WILL CONTINUE TO MONITOR.
[2017-10-24 08:00] VITALS: BP 114/84
[2017-10-24] MEDS: CARVEDILOL 6.25 MG TABLET PO SCH ×2 (08:14→16:37)
[2017-10-24] MEDS: ACETAMINOPHEN 325 MG TABLET PO PRN (08:14)
[2017-10-24] MEDS: LISINOPRIL (5MG) 5 MG TABLET PO SCH ×2 (08:15→16:37)
[2017-10-24] MEDS: LORAZEPAM 1 MG TABLET PO SCH ×2 (08:15→21:18)
[2017-10-24] MEDS: FUROSEMIDE 40 MG TABLET PO SCH (09:00)
--- NOTE | 2017-10-24 09:00 | NUR ---
YANIRA HUERTAS, BLOOD PRESSURE 95/65 PULSE 77. Addendum: 10/24/17 at 1104 by FRANCHESKA MCFARLANE RN ADDENDUM: PATIENT IS SLEEPY BUT EASILY AROUSABLE. NO S/SX OF ANY DISTRESS, WILL CONTINUE TO MONITOR.
--- NOTE | 2017-10-24 12:00 | NUR ---
RN MS NOTES PATIENT SEEN AND EXAMINED BY DR. ADDISON, RECEIVED ORDER TO D/C NORCO AND CHANGED TO PERCOCET. INFORMED DR. ADDISON, PATIENT'S LOW BLOOD PRESSURE THIS AM, AND LASIX WAS HELD.
[2017-10-24] MEDS ORDERED: oxyCODONE/APAP (5/325 MG) 1 UDTAB TABLET PO PRN (12:30)
--- NOTE | 2017-10-24 14:00 | NUR ---
RN MS NOTES PATIENT C/O GENERALIZED PAIN, REFUSING PERCOCET AND IS REQUESTING FOR MORPHINE. PAGED DR. ADDISON, STILL WAITING FOR A CALL BACK. PATIENT'S BLOOD PRESSURE IS 103/68 HR 73. EXPLAINED RISKS AND BENEFITS OF MORPHINE. PATIENT VERBALIZED UNDERSTANDING.
--- NOTE | 2017-10-24 14:50 | NUR ---
RN MS NOTES PATIENT IN BED SLEEPING, EASILY AROUSABLE. NO DISTRESS NOTED. NO S/SX OF PAIN OR DISCOMFORT NOTED. WILL CONTINUE TO MONITOR.
[2017-10-24 16:00] VITALS: BP 118/74
--- NOTE | 2017-10-24 18:33 | NUR ---
RN MS NOTES PATIENT ALERT AND ORIENTED X3, NO DISTRESS NOTED, NO SHORTNESS OF BREATH NOTED, DENIES PAIN OR DISCOMFORT AT THIS TIME. RECEIVED ORDER FROM DR. ADDISON TO CHANGE PERCOCET TO MORPHINE 1MG IV Q4H PRN. BUT PER PHARMACY, WE DO NOT HAVE MORPHINE IN STOCK. PAGED DR. ADDISON, AWAITING FOR A CALL BACK AND ORDERS. ALL DUE MEDS GIVEN ORDERED. ALL NEEDS ATTENDED AND MET. CALL LIGHT WITHIN REACH, SAFETY MEASURES IN PLACED, WILL ENDORSE TO OPTO MECHANICAL TECHNICIAN FOR RADHA.
--- NOTE | 2017-10-24 19:25 | NUR ---
MS RN NOTES RECEIVED PATIENT IN BED. ALERT AND ORIENTED X3, NO DISTRESS NOTED, NO SHORTNESS OF BREATH NOTED, DENIES PAIN OR DISCOMFORT AT THIS TIME. IV SITE ON LEFT WRIST INTACT AND PATENT, NO S/S OF INFILTRATION NOTED. ALL NEEDS ATTENDED AND MET. CALL LIGHT WITHIN REACH, SAFETY MEASURES OBSERVED, WILL CONT TO MONITOR.
[2017-10-24 20:00] VITALS: BP 106/70
--- NOTE | 2017-10-24 20:02 | NUR ---
SPOKE WITH JILL FROM PHARMACY , PER JILL SHE SPOKED WITH DR. ADDISON AND RECEIVED AN ORDER TO CHANGE MORPHINE TO DILAUDID.
[2017-10-24] MEDS: HYDROMORPHONE INJ 2 MG/ML DISP.SYRIN IV PRN (20:21)
[2017-10-24] MEDS: ZOLPIDEM TARTRATE 5 MG TABLET PO PRN (22:00)
[2017-10-25] MEDS: HYDROMORPHONE INJ 2 MG/ML DISP.SYRIN IV PRN ×2 (06:27→14:04)
--- NOTE | 2017-10-25 06:53 | NUR ---
MS RN NOTES PATIENT IN BED. ALERT AND ORIENTED X3, NO DISTRESS NOTED, NO SHORTNESS OF BREATH NOTED, DENIES PAIN OR DISCOMFORT AT THIS TIME. IV SITE ON LEFT WRIST INTACT AND PATENT, NO S/S OF INFILTRATION NOTED. DENIES ANY PAIN OR DISCOMFORT AT THIS TIME. ALL NEEDS ATTENDED AND MET. CALL LIGHT WITHIN REACH, SAFETY MEASURES OBSERVED, WILL ENDORSE TO NEXT SHIFT FOR RADHA. .
--- NOTE | 2017-10-25 07:38 | NUR ---
MS RN: INITIAL NOTE RECEIVED PT 2A/OX2-3. NO DISTRESS NOTED. NO SOB NOTED. ON 3L NC SATING AT 96%. PAIN CONTROLLED WITH PAIN MEDICATIONS. AMBULATES WITH WALKER. ON CARDIAC DIET. L WRIST #20 SL. SITE CLEAR AND PATENT. NO IV FLUIDS RUNNING. RESTING COMFORTABLY IN BED. CALL LIGHT WITHIN REACH.
[2017-10-25 08:00] VITALS: BP 127/83
[2017-10-25] MEDS: FUROSEMIDE 40 MG TABLET PO SCH (08:20)
[2017-10-25] MEDS: LISINOPRIL (5MG) 5 MG TABLET PO SCH ×2 (08:20→16:44)
[2017-10-25] MEDS: LORAZEPAM 1 MG TABLET PO SCH ×2 (08:20→21:15)
[2017-10-25] MEDS: CARVEDILOL 6.25 MG TABLET PO SCH ×2 (08:20→16:44)
[2017-10-25] MEDS: CLOTRIMAZOLE 1% 15 GM TUBE TP SCH ×2 (09:46→16:45)
[2017-10-25] MEDS: CEFAZOLIN 1 GM in IV D5W 50 ML IV SCH ×2 (13:51→21:15)
[2017-10-25] MEDS: methylPREDNISolone SOD SUCC 40 MG/ML VIAL IV SCH ×2 (13:51→16:44)
[2017-10-25] MEDS: ALBUTEROL HALF STRENGTH 1.25 MG/3 ML VIAL.NEB NEB SCH ×3 (15:24→23:45)
[2017-10-25 16:00] VITALS: BP 120/72
[2017-10-25] MEDS: ONDANSETRON 4 MG TAB.RAPDIS PO PRN (18:26)
--- NOTE | 2017-10-25 18:38 | NUR ---
MS RN: CLOSING NOTE PT A/O2-3. SLIGHTLY CONFUSED. NEEDS RE-ORIENTING AT TIMES. USES URINAL AND BSC. AMBULATES WITH WALKER. ON CARDIAC DIET. TOOK ALL MEDICATIONS ON TIME. NO ADVERSE REACTIONS NOTED. PAIN CONTROLLED WITH PAIN MEDICATIONS. L WRIST #20 SL. SITE CLEAR AND PATENT. NO REDNESS OR BLEEDING NOTED. BED ALARM ON. RESTING COMFORTABLY IN BED. CALL LIGHT WITHIN REACH.
--- NOTE | 2017-10-25 19:20 | NUR ---
MS RN NOTES RECEIVED PATIENT IN BED. RESTING AT THIS TIME, AROUSES EASILY. ALERT AND ORIENTED X2, VERBALLY RESPONSIVE NO DISTRESS NOTED, NO SHORTNESS OF BREATH NOTED , ON O2 @ 3LPM SHANNON WELL. DENIES PAIN OR DISCOMFORT AT THIS TIME. IV SITE ON LEFT WRIST INTACT AND PATENT, NO S/S OF INFILTRATION NOTED. ALL NEEDS ATTENDED AND MET. CALL LIGHT WITHIN REACH, SAFETY MEASURES OBSERVED, WILL CONT TO MONITOR.
[2017-10-25 20:00] VITALS: BP_SYST 100; BP_SYST 106; BP_DIAS 68
[2017-10-25] MEDS: ZOLPIDEM TARTRATE 5 MG TABLET PO PRN (21:55)
--- NOTE | 2017-10-26 00:55 | NUR ---
PT IN BED, RESTING AT THIS TIME, AROUSES EASILY. NO DISTRESS, NO SOB NOTED. NO C/O PAIN OR DISCOMFORT AT THIS TIME. ALL NEEDS ATTENDED AND MET. SAFETY PRECAUTIONS OBSERVED. CALL LIGHT WITHIN REACH. WILL CONT TO MONITOR.
[2017-10-26] MEDS: ALBUTEROL HALF STRENGTH 1.25 MG/3 ML VIAL.NEB NEB SCH ×6 (03:30→23:22)
[2017-10-26] MEDS: CEFAZOLIN 1 GM in IV D5W 50 ML IV SCH ×3 (05:08→21:58)
--- NOTE | 2017-10-26 06:33 | NUR ---
MS RN NOTES PATIENT IN BED. RESTING AT THIS TIME, AROUSES EASILY. ALERT AND ORIENTED X2, VERBALLY RESPONSIVE NO DISTRESS NOTED, NO SHORTNESS OF BREATH NOTED , ON O2 @ 3LPM SHANNON WELL. NO C/O PAIN OR DISCOMFORT AT THIS TIME. IV SITE ON LEFT WRIST INTACT AND PATENT, NO S/S OF INFILTRATION NOTED. PT IS URINATING WITH YELLOW URINE, NO HEMATURIA NOTED. ALL NEEDS ATTENDED AND MET. CALL LIGHT WITHIN REACH, SAFETY MEASURES OBSERVED, WILL ENDORSE TO NEXT SHIFT FOR RADHA.
[2017-10-26 07:28] LABS: BASOPHILS % (AUTO) 0.1 % (0.0-2.0); HEMATOCRIT 36 % (39-51); LYMPHOCYTES # (AUTO) 0.4 /CMM (0.8-4.8); LYMPHOCYTES % (AUTO) 13.2 % (20.0-44.0); MEAN CORPUSCULAR HEMOGLOBIN 31 PG (26.0-33.0); MEAN CORPUSCULAR HGB CONC 33 g/dl (31.0-36.0); MEAN CORPUSCULAR VOLUME 93 fL (80-96); MONOCYTES # (AUTO) 0.1 /CMM (0.1-1.30); NEUTROPHILS # (AUTO) 2.8 /CMM (1.8-8.9); NEUTROPHILS % (AUTO) 83.7 % (43.0-81.0); PLATELET COUNT (AUTO) 138 /CMM (150-450); RDW COEFFICIENT OF VARIATION 19.5 (11.5-15.0); RED BLOOD CELL COUNT(AUTO) 3.91 MIL/uL (4.5-6.0); WHITE BLOOD COUNT (AUTO) 3.3 K/uL (4.3-11.0)
--- NOTE | 2017-10-26 07:33 | NUR ---
MS RN: INITIAL NOTE RECEIVED PT A/OX2. ON 3L NC SATING AT 96%. NO SOB NOTED. NO PAIN NOTED. NO DISTRESS NOTED. MS. USES URINAL. AMBULATORY WITH WALKER. ON CARDIAC DIET. L WRIST #20 SL. SITE CLEAR AND PATENT. NO REDNESS OR BLEEDING NOTED. RESTING COMFORTABLY IN BED. CALL LIGHT WITHIN REACH. BED ALARM ON.
[2017-10-26 07:45] LABS: CALCIUM, SERUM 8.5 mg/dL (8.5-10.1); CREATININE 1.4 mg/dL (0.6-1.3); MAGNESIUM 1.8 mg/dL (1.8-2.4); POTASSIUM 4.2 mmol/L (3.5-5.1)
[2017-10-26 08:00] VITALS: BP 94/53
[2017-10-26] MEDS: LORAZEPAM 1 MG TABLET PO SCH ×2 (08:31→21:58)
[2017-10-26] MEDS: FUROSEMIDE 40 MG TABLET PO SCH (08:31)
[2017-10-26] MEDS: methylPREDNISolone SOD SUCC 40 MG/ML VIAL IV SCH ×3 (08:31→16:22)
[2017-10-26] MEDS: LISINOPRIL (5MG) 5 MG TABLET PO SCH ×2 (08:32→16:24)
[2017-10-26] MEDS: CARVEDILOL 6.25 MG TABLET PO SCH ×2 (08:32→16:23)
[2017-10-26] MEDS: CLOTRIMAZOLE 1% 15 GM TUBE TP SCH ×2 (08:33→16:23)
[2017-10-26] MEDS: ACETAMINOPHEN 325 MG TABLET PO PRN ×2 (12:13→21:58)
[2017-10-26 16:00] VITALS: BP 99/62
--- NOTE | 2017-10-26 18:47 | NUR ---
MS RN: CLOSING NOTE PT A/OX2. TOOK ALL MEDICATIONS ON TIME. NO ADVERSE REACTIONS NOTED. NO PAIN NOTED. NO SOB NOTED. ON 3L NC SATING AT 96%. USES BSC AND URINAL. ON CARDIAC DIET. L WRIST #20 SL. SITE CLEAR AND PATENT. NO REDNESS. NO BLEEDING NOTED. AMBULATES WITH ASSISTANCE. RESTING COMFORTABLY IN BED. CALL LIGHT WITHIN REACH.
--- NOTE | 2017-10-26 19:40 | NUR ---
RN OPENING NOTES RECEIVED REPORT FROM DAYSHIFT RNSTAR. FOUND Pt AWAKE, RESTING IN BED, EATING DINNER AND WATCHING TV. NO S/S OF ACUTE DISTRESS OR SOB NOTED. RESPIRATIONS EVEN AND UNLABORED. Pt IS A/OX2, VERBAL, ABLE TO MAKE NEEDS KNOWN. IV ACCESS ON L WRIST #20G, SL. SAFETY MEASURES IN PLACE. BED LOW, LOCKED, HOB ELEVATED, SIDE RAILS UP, CALL LIGHT AND BEDSIDE TABLE WITHIN REACH. WILL CONTINUE TO MONITOR Pt THROUGHOUT THE NIGHT FOR SAFETY.
[2017-10-26 20:00] VITALS: BP 91/57
[2017-10-26 22:00] VITALS: BP 91/57
[2017-10-27] MEDS: ALBUTEROL HALF STRENGTH 1.25 MG/3 ML VIAL.NEB NEB SCH ×5 (03:30→20:04)
[2017-10-27] MEDS: CEFAZOLIN 1 GM in IV D5W 50 ML IV SCH ×3 (05:37→20:31)
--- NOTE | 2017-10-27 06:39 | NUR ---
RN CLOSING NOTES NO SIGNIFICANT CHANGES IN Pt's CONDITION. Pt REMAINS STABLE AT THIS TIME. NO S/S OF ACUTE DISTRESS OR SOB NOTED DURING SHIFT. ALL NEEDS MET AND ATTENDED TO. SAFETY MEASURES IN PLACE. WILL ENDORSE DAYSHIFT RN FOR Pt's RADHA.
--- NOTE | 2017-10-27 07:15 | NUR ---
RN NOTES PT IS RESTING IN BED COMFORTABLY, NO SIGNS OF DISTRESS NOTED. PT ON 3L NASAL CANNULA, RESPIRATIONS ARE EVEN AND UNLABORED. IV ON L WRIST INTACT AND SL. SAFETY MEASURES ARE IN PLACE, CALL LIGHT IS IN REACH. WILL CONTINUE TO MONITOR.
[2017-10-27 08:00] VITALS: BP_SYST 104; BP_SYST 109; BP_DIAS 74
[2017-10-27] MEDS: ACETAMINOPHEN 325 MG TABLET PO PRN ×3 (08:30→23:51)
[2017-10-27] MEDS: LORAZEPAM 1 MG TABLET PO SCH ×2 (08:30→20:31)
[2017-10-27] MEDS: CARVEDILOL 6.25 MG TABLET PO SCH ×2 (08:30→17:26)
[2017-10-27] MEDS: ONDANSETRON 4 MG TAB.RAPDIS PO PRN ×2 (08:30→18:40)
[2017-10-27] MEDS: methylPREDNISolone SOD SUCC 40 MG/ML VIAL IV SCH ×3 (08:30→17:26)
[2017-10-27] MEDS: LISINOPRIL (5MG) 5 MG TABLET PO SCH ×2 (08:31→17:00)
[2017-10-27] MEDS: FUROSEMIDE 40 MG TABLET PO SCH (08:31)
[2017-10-27] MEDS: CLOTRIMAZOLE 1% 15 GM TUBE TP SCH ×2 (08:37→17:26)
[2017-10-27] MEDS: FENTANYL PF 100MCG/2ML AMPUL IV PRN ×2 (12:00→17:26)
[2017-10-27 16:00] VITALS: BP 119/65
--- NOTE | 2017-10-27 18:49 | NUR ---
RN NOTES PT IS RESTING IN BED. PT COMPLAINS OF STOMACH UPSET, ZOFRAN WAS GIVEN ORDERED. PT TOLERATING RA, BUT HAS NASAL CANNULA FOR COMFORT. PT GIVEN PAIN MEDICATIONS FOR COMFORT. IV ON L WRIST INTACT AND SL. SAFETY MEASURES ARE IN PLACE, CALL LIGHT IS IN REACH. WILL ENDORSE TO SULFATE DRIER MACHINE OPERATOR RN FOR CONTINUITY OF CARE.
--- NOTE | 2017-10-27 19:33 | NUR ---
MS/RN OPENING NOTES PATIENT IN BED, AND ABLE TO USE WALKER TO BATHROOM W/ ASSISTANCE, REQUIRING REMIDERS FOR SAFETY, OXYGEN 2-3 L VIA NC ON, NOTED HAVING SOME WEAKNESS AND REQUIRING ASSISTANCE AT ALL TIMES FOR SAFETY. INFORM MED TO BE GIVEN. WILL CONTINUE TO MONITOR.
[2017-10-27 20:00] VITALS: BP 110/80
[2017-10-27 20:58] VITALS: BP 110/80
[2017-10-27] MEDS: ZOLPIDEM TARTRATE 5 MG TABLET PO PRN (21:45)
[2017-10-28] MEDS: ALBUTEROL HALF STRENGTH 1.25 MG/3 ML VIAL.NEB NEB SCH ×4 (00:02→12:47)
[2017-10-28] MEDS ORDERED: FENTANYL PF 100MCG/2ML AMPUL ONE (01:46)
--- NOTE | 2017-10-28 01:46 | NUR ---
ms/rn notes patient observed moaning &guarding , verbalized pain in lower legs, pain of 9/10. gave /administred xylocaine 30mcg/0.6ml monitor for effectiveness
[2017-10-28] MEDS: FENTANYL PF 100MCG/2ML AMPUL IV PRN ×2 (01:50→08:54)
[2017-10-28] MEDS: CEFAZOLIN 1 GM in IV D5W 50 ML IV SCH ×2 (04:04→12:35)
[2017-10-28] MEDS: ACETAMINOPHEN 325 MG TABLET PO PRN (05:15)
--- NOTE | 2017-10-28 07:20 | NUR ---
RN NOTES PT IS SLEEPING IN BED, NO SIGNS OF DISTRESS NOTED. PT ON 3L O2, RESPIRATIONS ARE EVEN AND UNLABORED. IV ON R EXTERNAL JUGULAR, INTACT, SL. SAFETY MEASURES ARE IN PLACE, CALL LIGHT IS IN REACH. WILL CONTINUE TO MONITOR.
--- NOTE | 2017-10-28 07:30 | NUR ---
MS/RN NOTES PATIENT IN BES, RESTING COMFORTABLY IN BED, DENIES PAIN AT THIS TIME, PROVIDED CARE AND RESPIRATIONS EVEN AND UNLABORED REQUIREG OXYGEN VIA NC AT 3l/L , BED ALARM ON. WILL ENDORSE TO AM RN. BED IN LOCK POSITION. CALL LIGHTS WITHIN REACH.
[2017-10-28 08:00] VITALS: BP 110/78
[2017-10-28] MEDS: FUROSEMIDE 40 MG TABLET PO SCH (08:29)
[2017-10-28] MEDS: methylPREDNISolone SOD SUCC 40 MG/ML VIAL IV SCH ×2 (08:29→12:35)
[2017-10-28] MEDS: LORAZEPAM 1 MG TABLET PO SCH (08:29)
[2017-10-28] MEDS: CARVEDILOL 6.25 MG TABLET PO SCH (08:30)
[2017-10-28] MEDS: CLOTRIMAZOLE 1% 15 GM TUBE TP SCH (08:34)
[2017-10-28 08:55] VITALS: BP 109/71
[2017-10-28] MEDS: LISINOPRIL (5MG) 5 MG TABLET PO SCH (08:55)
--- NOTE | 2017-10-28 14:00 | NUR ---
RN NOTES PT WAS DISCHARGED HOME IN STABLE CONDITION. PTS IV AND ID BAND WERE REMOVED. BELONGINGS LIST WAS SIGNED AND PT LEFT WITH BELONGINGS AND MEDICATIONS. PT WAS TOLD TO FOLLOW UP WITH PCP WITHIN 1 WEEK AND A ACCESS COORDINATOR. PT STATED HE WOULD MAKE HIS OWN APPOINTMENT WHEN HE GOT HOME. TAXI VOUCHER WAS GIVEN TO PT FOR TRANSPORTATION.
== END 2017-10-28 14:00 | disposition home health service (06) | DRG 291 ==
LOC: ER 07:08 → TELE 09:59 → MED 10-21 09:21
PROVIDERS: ADMIT Internal Medicine; ATTEND Internal Medicine
DX: I11.0 Hypertensive heart disease with heart failure (principal); J96.01 Acute respiratory failure with hypoxia; E43 Unspecified severe protein-calorie malnutrition; G92 Toxic encephalopathy; F03.90 Unspecified dementia, unspecified severity, without behavioral disturbance, psychotic disturbance, mood disturbance, and anxiety; K70.9 Alcoholic liver disease, unspecified; E83.42 Hypomagnesemia; J44.9 Chronic obstructive pulmonary disease, unspecified; F17.200 Nicotine dependence, unspecified, uncomplicated; B35.3 Tinea pedis; I50.23 Acute on chronic systolic (congestive) heart failure; E78.5 Hyperlipidemia, unspecified; I25.10 Atherosclerotic heart disease of native coronary artery without angina pectoris; K21.9 Gastro-esophageal reflux disease without esophagitis; Z79.899 Other long term (current) drug therapy; Z96.642 Presence of left artificial hip joint; Z95.810 Presence of automatic (implantable) cardiac defibrillator; Z91.19 Patient's noncompliance with other medical treatment and regimen; I25.2 Old myocardial infarction; M19.90 Unspecified osteoarthritis, unspecified site; Z88.8 Allergy status to other drugs, medicaments and biological substances; B19.20 Unspecified viral hepatitis C without hepatic coma; Z59.0 Homelessness; Z76.5 Malingerer [conscious simulation]; L60.3 Nail dystrophy; R60.9 Edema, unspecified
CPT/HCPCS: 36415; 36600; 70450-TC; 71010-TC; 80048-TC; 80053-TC; 80061-TC; 80076-TC; 80305; 82272-TC; 83735-TC; 83880; 84100-TC; 84443-TC; 84484-TC; 85025-TC; 85730-TC; 87081-TC; 94799-TC; 97110-TC; 97116-TC; 97530-TC; A4606; G0480; J0690; J1170; J1940; J2405; J2920; J3010; J3475; J7030; J7050; J7060; Q0162; Z7610

== ENCOUNTER 2017-11-07 19:39 | Emergency (ER) | payer MEDICARE, OTHER ==
[~2017-11-07] VITALS: Ht 182.9 cm; Wt 74.8 kg
[~2017-11-07 19:39] MED LIST changes: -ATOR20TA PO; +CARV6.252 PO; -DILT-3 PO; +FURO40TA5 PO; +HYDR-552 PO; +LISI2.5T2 PO; +LORA1TAB PO; +ONDA4TAB5 PO; +POTA10TA15 PO; -POTA20TA83 PO; -THIA100T13 PO; -VALS40TA4 PO; +ZOLP5TAB7 PO
--- NOTE | 2017-11-07 19:40 | NUR ---
PT BIBRA 41 FOUND SLEEPING AT [employer]. ADMITS TO ETOH. NO TRAUMA NOTED. PLACED ON MONITOR. AWITING MD ORDER
--- NOTE | 2017-11-07 19:43 | NUR ---
EKG IN PROGRESS
[2017-11-07 20:08] LABS: BASOPHILS # (AUTO) 0.1 /CMM (0.0-0.2); BASOPHILS % (AUTO) 1.9 % (0.0-2.0); EOSINOPHILS % (AUTO) 0.5 % (0.0-6.0); HEMATOCRIT 37 % (39-51); HEMOGLOBIN 12.2 g/dL (13.5-17.5); LYMPHOCYTES # (AUTO) 1.4 /CMM (0.8-4.8); LYMPHOCYTES % (AUTO) 22.3 % (20.0-44.0); MEAN CORPUSCULAR HEMOGLOBIN 30 PG (26.0-33.0); MEAN CORPUSCULAR HGB CONC 33 g/dl (31.0-36.0); MEAN CORPUSCULAR VOLUME 90 fL (80-96); MONOCYTES # (AUTO) 0.5 /CMM (0.1-1.30); MONOCYTES % (AUTO) 8.6 % (2.0-12.0); NEUTROPHILS # (AUTO) 4.3 /CMM (1.8-8.9); NEUTROPHILS % (AUTO) 66.7 % (43.0-81.0); PLATELET COUNT (AUTO) 160 /CMM (150-450); RDW COEFFICIENT OF VARIATION 18.8 (11.5-15.0); RED BLOOD CELL COUNT(AUTO) 4.13 MIL/uL (4.5-6.0); WHITE BLOOD COUNT (AUTO) 6.3 K/uL (4.3-11.0)
--- NOTE | 2017-11-07 20:15 | NUR ---
LEAN PROCESS DEPLOYMENT CONSULTANT AT BEDSIDE
[2017-11-07 20:19] LABS: CALCIUM, SERUM 8.6 mg/dL (8.5-10.1); CREATININE 1.1 mg/dL (0.6-1.3); POTASSIUM 4.4 mmol/L (3.5-5.1)
[2017-11-07 20:22] LABS: INR 0.96 (0.87-1.13)
[2017-11-07 20:24] LABS: ALBUMIN 3.7 g/dL (3.4-5.0); BILIRUBIN,DIRECT 0.3 mg/dL (0.0-0.2); BILIRUBIN,TOTAL 0.6 mg/dL (0.2-1.0); TOTAL PROTEIN, SERUM 7.5 g/dL (6.4-8.2)
[2017-11-07 20:30] LABS: TROPONIN I 0.068 ng/mL (0.00-0.056)
--- NOTE | 2017-11-07 20:30 | NUR ---
PT TAKEN TO CT
--- NOTE | 2017-11-07 23:47 | NUR ---
GAVE REPORT TO CAROL DOYLE FOR RADHA
--- NOTE | 2017-11-08 04:45 | NUR ---
PT OK TO DISCHARGE PER DR ROONEY. IV removed. Catheter intact and site benign. Pressure and 4x4 applied to site. No bleeding noted.Patient discharged to home in stable condition. Written and verbal after care instructions given. Patient verbalizes understanding of instruction.Patient is awake and alert to self, day, and place. PT ambulatory with a steady gait
[2017-11-08 04:46] VITALS: BP 112/71
== END 2017-11-08 04:46 | disposition home or self-care (01) ==
LOC: ER 19:40
DX: F10.10 Alcohol abuse, uncomplicated (principal); I11.0 Hypertensive heart disease with heart failure; I50.9 Heart failure, unspecified; J45.909 Unspecified asthma, uncomplicated; K21.9 Gastro-esophageal reflux disease without esophagitis; I25.2 Old myocardial infarction; F17.200 Nicotine dependence, unspecified, uncomplicated; I25.10 Atherosclerotic heart disease of native coronary artery without angina pectoris; J44.9 Chronic obstructive pulmonary disease, unspecified; Z96.642 Presence of left artificial hip joint; Z88.6 Allergy status to analgesic agent; Z59.0 Homelessness
CPT/HCPCS: 36415; 70450; 71010; 80048; 80076; 84484; 85025; 85730; 93005; 99285; 99406; G0480

== ENCOUNTER 2017-12-16 19:48 | Emergency (ER) | payer MEDICARE, OTHER ==
[~2017-12-16] VITALS: Ht 180.3 cm; Wt 77.1 kg
[~2017-12-16 19:48] MED LIST changes: -ZOLP5TAB7 PO; +ZOLP5TAB8 PO
[2017-12-16 19:52] VITALS: BP 103/85
--- NOTE | 2017-12-16 21:25 | NUR ---
CALLED PT IN WR, NO RESPONSE
--- NOTE | 2017-12-16 21:55 | NUR ---
CALLED PT IN WR, NO RESPONSE
--- NOTE | 2017-12-16 22:21 | NUR ---
CALLED PT IN WR, NO RESPONSE
--- NOTE | 2017-12-16 22:55 | NUR ---
CALLED PT IN WR, NO RESPONSE
== END 2017-12-16 22:56 | disposition left against medical advice (07) ==
LOC: ER 19:50
DX: Z53.21 Procedure and treatment not carried out due to patient leaving prior to being seen by health care provider (principal)
CPT/HCPCS: A4606; Z7610

== ENCOUNTER 2018-02-20 17:55 | Inpatient (IN) | payer MEDICARE, OTHER ==
[~2018-02-20] VITALS: Ht 182.9 cm; Wt 73.0 kg
--- NOTE | 2018-02-20 18:06 | NUR ---
72 yo male bb ra from home. patient is alert and oriented, c/o sob. patient ambulated to er bed, skin warm and dry, resp even and unlabored. no distress noted at this time. will continue to monitor
[2018-02-20 18:58] LABS: BASOPHILS % (AUTO) 0.4 % (0.0-2.0); EOSINOPHILS % (AUTO) 1.7 % (0.0-6.0); HEMATOCRIT 27 % (39-51); LYMPHOCYTES # (AUTO) 0.8 /CMM (0.8-4.8); LYMPHOCYTES % (AUTO) 10.4 % (20.0-44.0); MEAN CORPUSCULAR HGB CONC 33 g/dl (31.0-36.0); MEAN CORPUSCULAR VOLUME 89 fL (80-96); MONOCYTES # (AUTO) 0.6 /CMM (0.1-1.30); MONOCYTES % (AUTO) 7.5 % (2.0-12.0); NEUTROPHILS # (AUTO) 6.6 /CMM (1.8-8.9); PLATELET COUNT (AUTO) 211 /CMM (150-450); RDW COEFFICIENT OF VARIATION 21.4 (11.5-15.0); RED BLOOD CELL COUNT(AUTO) 3.07 MIL/uL (4.5-6.0); WHITE BLOOD COUNT (AUTO) 8.1 K/uL (4.3-11.0)
[2018-02-20 19:10] LABS: ALCOHOL, BLOOD < 3 mg/dL (0-0); MAGNESIUM 1.3 mg/dL (1.8-2.4)
[2018-02-20 19:12] LABS: INR 1.3 (0.85-1.15)
--- NOTE | 2018-02-20 19:14 | NUR ---
labs drawn by slab miller operator
[2018-02-20 19:17] LABS: TROPONIN I 0.071 ng/mL (0.00-0.056)
--- NOTE | 2018-02-20 19:20 | NUR ---
patient to ct.
[2018-02-20 19:22] LABS: ALBUMIN 2.6 g/dL (3.4-5.0); BILIRUBIN,DIRECT 1.8 mg/dL (0.0-0.2); BILIRUBIN,TOTAL 3.1 mg/dL (0.2-1.0); CALCIUM, SERUM 8.3 mg/dL (8.5-10.1); CREATININE 1.3 mg/dL (0.6-1.3); POTASSIUM 3.6 mmol/L (3.5-5.1); TOTAL PROTEIN, SERUM 6.8 g/dL (6.4-8.2)
--- NOTE | 2018-02-20 19:35 | NUR ---
patient back from ct.
--- NOTE | 2018-02-20 20:12 | NUR ---
PAGED EPIC FOR PANEL PER [facility]'S OFFICE MESSAGE
[2018-02-20] MEDS ORDERED: CLOPIDOGREL BISULFATE 75 MG TABLET PO ONE (20:30)
[2018-02-20] MEDS ORDERED: FUROSEMIDE 40 MG/4 ML VIAL IV ONE (20:30)
[2018-02-20] MEDS ORDERED: MAGNESIUM OXIDE 400 MG TABLET PO ONE (20:30)
--- NOTE | 2018-02-20 20:30 | NUR ---
CALLED [facility] FOR CT READ
[2018-02-20] MEDS ORDERED: CLOPIDOGREL BISULFATE 75 MG TABLET ONE (20:31)
[2018-02-20] MEDS ORDERED: FUROSEMIDE 40 MG/4 ML VIAL ONE (20:31)
[2018-02-20] MEDS ORDERED: MAGNESIUM OXIDE 400 MG TABLET ONE (20:38)
[2018-02-20 20:47] LABS: APPEARANCE,URINE Clear (CLEAR); BILIRUBIN,URINE SMALL (NEGATIVE); BLOOD, URINE Negative Ery/uL (NEGATIVE); COLOR,URINE Yellow (YELLOW); KETONES,URINE 15 (NEGATIVE); LEUKOCYTE ESTERASE ,URINE Negative (NEGATIVE); NITRITE, URINE Negative (NEGATIVE); PH,URINE 5.5 (5.0-8.0); PROTEIN,URINE 100 mg/dl (NEGATIVE); UGLUCOSE Negative (NEGATIVE)
--- NOTE | 2018-02-20 20:47 | NUR ---
medicated patient as ordered by Dr Chawla. However, patient refused lasix IV. Explained patient risk and benefits of medicine x3, patient still refuse and said, "I dont want to pee every 10 mins."
--- NOTE | 2018-02-20 20:53 | NUR ---
report given to Donna DOYLE for admission and zack.
--- NOTE | 2018-02-20 20:54 | NUR ---
ADOBE BLOCK MAKER NOTE REPORT RECEIVED FROM FIELD CROP HARVEST CONTRACTOR SHALONDA REGARDING THE PATIENT FOR ADMISSION TO TELE
--- NOTE | 2018-02-20 20:55 | NUR ---
CALLED [facility] AGAIN FOR READ
[2018-02-20 21:02] LABS: BACTERIA,URINE Rare /HPF (None Seen); MUCUS,URINE Moderate /LPF (None Seen); RBC,URINE 0-2 /HPF (0-2); SQUAMOUS EPITHELIAL CELL,UR Rare /HPF (None Seen); URINE AMORPHOUS URATE Few /HPF (None Seen); WBC,URINE 0-2 /HPF (0-3)
--- NOTE | 2018-02-20 21:25 | NUR ---
TRANSFERRED PATIENT TO TELE BED VIA ALS PROTOCOL, NO INCIDENT NOTED, RN AT BEDSIDE.
--- NOTE | 2018-02-20 21:30 | NUR ---
CAMOUFLAGE ASSEMBLER OPENING NOTE RECEIVED PATIENT FROM ER VIA GURNEY. IN STABLE CONDITION, ON 2L OXYGEN VIA NC. RESPIRATIONS EVEN AND UNLABORED. ABLE TO VERBALIZE NEEDS. PATIENT REPORTS PAIN IN CHEST AND ABDOMEN, 9/10 DOES NOT RADIATE ANYWHERE ELSE. DOES NOT APPEAR TO BE IN SEVERE DISTRESS OR DISCOMFORT. PATIENT CAME IN WITH BELONGS, WENT THOUGHT THE LIST PUT EVERYTHING IN THE BELONGINGS BAG. PATIENT TO BE PLACED ON TELE MONITORING. INITIAL VITAL SIGNS ARE: BP: 113/70, HR: 107, RR: 18, O2 SAT: 98%, TEMP: 98.4. SKIN WAS ASSESSED IS INTACT. PATIENT CAME WITH LEFT EXTERNAL JUGULAR VEIN IV 20G. PATENT AND INTACT. PATIENT WAS MADE COMFORTABLE IN BED, REPORTED TO THE MD REGARDING PATIENT'S ARRIVAL TO THE UNIT. WILL CARRY OUT ADMISSION ORDERS AND CONTINUE TO MONITOR.
[2018-02-20 22:00] VITALS: BP 133/70
[2018-02-20] MEDS ORDERED: ZOLPIDEM TARTRATE 5 MG TABLET PO SCH (22:00)
[2018-02-20] MEDS ORDERED: Z GUARD REMEDY 2 OZ OINT TP PRN (22:30)
[2018-02-20] MEDS ORDERED: ENOXAPARIN SODIUM 40 MG/0.4 ML DISP.SYRIN SQ ONE (23:00)
[2018-02-20] MEDS: FUROSEMIDE 40 MG/4 ML VIAL IV SCH (23:12)
[2018-02-20] MEDS: MORPHINE SULFATE INJ 2 MG/ML DISP.SYRIN IV PRN (23:13)
--- NOTE | 2018-02-20 23:15 | NUR ---
PROGRAMMER NUMERICAL CONTROL NOTE RECEIVED ORDERS FOR IV MEDICATIONS, MORPHINE SULFATE 2MG AND LASIX 40MG. SCANNED THE PATIENT AND THE MEDICATION AND SAVED IN THE eMAR. UPON FLASHING THE IV SITE TO ADMINISTER THE MEDICATION IV SITE INFILTRATED. HELD THE MEDICATIONS UNTIL NEW IV SITE IS ESTABLISHED.
--- NOTE | 2018-02-20 23:20 | NUR ---
RN NOTES CALLED THE ICU TO GET HELP WITH IV PLACEMENT DUE TO PATIENT BEING VERY HARD STICK.
--- NOTE | 2018-02-20 23:30 | NUR ---
DEPARTMENT COORDINATOR NOTE CHAPIS RN FROM ICU AT BEDSIDE TRYING TO INSERT AN IV AT THIS TIME.
[2018-02-21] MEDS ORDERED: ZOLPIDEM TARTRATE 5 MG TABLET PO ONE
--- NOTE | 2018-02-21 00:10 | NUR ---
COKE INSPECTOR NOTE AFTER TWO UNSUCCESSFUL ATTEMPTS TO INSERT A PERIPHERAL IV, CHAPIS WAS ABLE TO ESTABLISH A LINE ON RIGHT EXTERNAL JUGULAR VEIN. DR KLEIN WAS NOTIFIED. MEDICATIONS LASIX AND MORPHINE WERE ADMINISTERED SOON THE IV LINE WAS ESTABLISHED AT 0010. NEXT DOSE OF LASIX IN 4 HOURS WILL ADMINISTER AT 0410.
--- NOTE | 2018-02-21 00:50 | NUR ---
MEDICAL STAFF ASSISTANT NOTE PATIENT'S HEART RATE KEEPS FLUCTUATING TO HIGH 140'S. AT THE TIME OF INCREASE PATIENT WAS MOVING TRYING SIT ON THE BEDSIDE TO URINATE. HIGH UP TO 150 HR IS NOTED WITH ACTIVITY AND SOB. PATIENT WAS GIVEN AMBIEN PER REQUEST AND PER MD ORDER. WILL CONTINUE TO MONITOR THE PATIENT RELAXES.
--- NOTE | 2018-02-21 02:14 | NUR ---
DOUGHNUT FRYER NOTE SPOKE TO DR. KLEIN. REPORTED ABOUT PATIENT'S HEART RATE ELEVATING TO 145-150, NO FURTHER ORDERS GIVEN AT THIS TIME. CONTINUE TO MONITOR. PATIENT ALSO REPORTED HAVING ITCHING THROUGHOUT THE BODY. NEW ORDER RECEIVED FROM DR. KLEIN FOR 50MG BENADRYL IV INJ, ONCE.
[2018-02-21] MEDS ORDERED: diphenhydrAMINE HCL 50 MG/ML VIAL IV ONE (02:30)
--- NOTE | 2018-02-21 02:37 | NUR ---
PAPER CONTROL CLERK NOTE PATIENT TELE MONITOR READING IS A-FIB WITH RVRS, WITH HEART RATE ELEVATING TO 180S. REPORTED TO DR. KLEIN. ORDER RECEIVED FOR AMIODARONE DRIP TO START WITH BOLUS FOLLOWED BY DRIP PER PHARMACY AND PROTOCOL. PATIENT IS TO BE TRANSFERRED TO [facility] IMMEDIATELY PER PROTOCOL. REPORTED TO AUTOMOBILE MECHANIC ASSISTANT TO ASSIGN THE ROOM.
--- NOTE | 2018-02-21 02:42 | NUR ---
LEASE OUT MAN NOTE TRANSFER REPORT GIVEN TO [facility] YANIRA WEIR. PATIENT IS BEING TRANSFERRED TO BED 116-1. PATIENT CONTINUES TO BE IN DISTRESS WITH INCREASED HEART RATE AND SOB. VITAL SIGNS ARE BP: 119/72, HR: 175, O2 SAT: 97% ON 2L NC, TEMP: 97.5. ORDERS RECEIVED FOR TRANSSFER, Addendum: 02/21/18 at 0336 by ARLINE PALACIOS RN ALL BELONGINGS IS WITH THE PATIENT.
[2018-02-21] MEDS: FUROSEMIDE 40 MG/4 ML VIAL IV SCH ×3 (02:45→11:02)
[2018-02-21] MEDS ORDERED: AMIODARONE 150 MG/3 ML VIAL IV ONE ×2 (02:58→03:02)
[2018-02-21] MEDS ORDERED: AMIODARONE 900 MG in IV D5W 482 ML IV PRN (03:00)
[2018-02-21] MEDS ORDERED: AMIODARONE 150 MG in IV D5W 100 ML IV ONE (03:00)
[2018-02-21] MEDS: MORPHINE SULFATE INJ 2 MG/ML DISP.SYRIN IV PRN ×4 (03:25→15:16)
--- NOTE | 2018-02-21 05:00 | NUR ---
RESIDENTIAL SALES REPRESENTATIVE - REC'D PT. FROM ER AT 3AM. PT'S HR IN THE 160-170'S/AFIB/RVR. ICD TO LEFT UPPER C/W. PT.IS YELLING ALOUD, VERY FORGETFUL. REC'D MORPHINE SULFATE 2 MG-IVP AT 03:25 AM & STARTED YELLING AT RN FOR PAIN MEDICATION AT .3:30AM. PT. ATTEMPTED TO GET OOB SEVERAL TIMES & HAD TO RESTRAINED W/BILAT.SOFT WRIST RESTRAINTS. PT.IS DIAPERED. PT.HAS RT.EJ-22G W/AMIODARONE GTT. INFUSING AT 1 MG/HR. (33.33 CC/HR) TILL 09:30. WILL ENDORSE TO DAYSHIFT RN TO DECREASE GTT. TO 0.5MG/HR(16.66CC/HR) AT 09:30AM. CONT.POC.
--- NOTE | 2018-02-21 07:00 | NUR ---
RN NOTES RECEIVED PT ON BED, A/Ox2-3, ON 2L O2 N/C , C/O SOB AT TIMES , O2 SAT 96%, ENCOURAGED DEEP, SLOW BREATHING , R NECK EJ IV SITE G 22 CDI, AMIODARONE GTT RUNNING AT 1 MG/MIN VIA R NECK IV SITE , ON TELE A. FIB, HR IN 120'S , SR UP x3, CALL LIGHT WITHIN EASY REACH, BED LOCKED AND IN LOWEST POSITION , CONTINUE TO MONITOR PT CLOSLY.
[2018-02-21 07:43] LABS: BASOPHILS % (AUTO) 0.1 % (0.0-2.0); EOSINOPHILS % (AUTO) 1.3 % (0.0-6.0); HEMATOCRIT 27 % (39-51); HEMOGLOBIN 9.1 g/dL (13.5-17.5); LYMPHOCYTES # (AUTO) 1.2 /CMM (0.8-4.8); LYMPHOCYTES % (AUTO) 17.3 % (20.0-44.0); MEAN CORPUSCULAR HGB CONC 34 g/dl (31.0-36.0); MEAN CORPUSCULAR VOLUME 92 fL (80-96); MONOCYTES # (AUTO) 0.7 /CMM (0.1-1.30); MONOCYTES % (AUTO) 10.4 % (2.0-12.0); NEUTROPHILS # (AUTO) 5.1 /CMM (1.8-8.9); NEUTROPHILS % (AUTO) 70.9 % (43.0-81.0); PLATELET COUNT (AUTO) 197 /CMM (150-450); RDW COEFFICIENT OF VARIATION 22.4 (11.5-15.0); RED BLOOD CELL COUNT(AUTO) 2.93 MIL/uL (4.5-6.0); WHITE BLOOD COUNT (AUTO) 7.1 K/uL (4.3-11.0)
[2018-02-21 07:58] LABS: ALBUMIN 2.9 g/dL (3.4-5.0); CREATININE 1.8 mg/dL (0.6-1.3); MAGNESIUM 1.9 mg/dL (1.8-2.4); PHOSPHORUS 4.7 mg/dL (2.5-4.9); POTASSIUM 3.9 mmol/L (3.5-5.1); TOTAL PROTEIN, SERUM 7.4 g/dL (6.4-8.2)
[2018-02-21 08:00] VITALS: BP 109/74
[2018-02-21] MEDS: LORAZEPAM 1 MG TABLET PO SCH ×2 (08:25→21:48)
[2018-02-21] MEDS: POTASSIUM CHLORIDE 10 MEQ TABLET.SA PO SCH (08:25)
[2018-02-21] MEDS: CARVEDILOL 6.25 MG TABLET PO SCH ×2 (08:25→17:45)
[2018-02-21] MEDS: LISINOPRIL (5MG) 5 MG TABLET PO SCH (08:25)
[2018-02-21] MEDS: FUROSEMIDE 40 MG TABLET PO SCH (08:25)
--- NOTE | 2018-02-21 10:18 | NUR ---
RN NOTES PT IS MOUTH BREATHER , O2 SAT ON 2L O2 N/C IS IN LOW 80'S , PT PLACED ON FACE MASK AT 6 L , O2 SAT UP TO 95% , CONTINUE TO MONITOR .
[2018-02-21] MEDS ORDERED: BUMETANIDE INJ 8 MG in IV NS 0.9% 48 ML IV ONE (10:30)
[2018-02-21 10:57] LABS: ABG BASE EXCESS -12.2 mmol/L; ABG OXYGEN SATURATION 97.3 % (92.0-98.5); ABG PCO2 22.2 mmHg (35.0-45.0); ABG PH 7.345 (7.350-7.450); ABG PO2 119.2 mmHg (75.0-100.0); AaDO2 176.4 mmHg; COHb 0.4 % (0.5-1.5); MetHb 0.6 % (0.0-1.5); O2Hb 96.3 % (94.0-97.0); SITE, ABG Right Radial; VENT MODE, BG SM
[2018-02-21 12:00] VITALS: BP 109/71
--- NOTE | 2018-02-21 12:00 | NUR ---
RN NOTES PT COUGHS WHEN HE EATS , SWALLOWING EVAL ORDERED PER MD ORDER
--- NOTE | 2018-02-21 14:00 | NUR ---
RN NOTES PT STABLE , AMIODARONE GTT AT .5MG/MIN RUNNING VIA R EJ LINE , SR UP x3, NO SOB NOTED , CONTINUE TO MONITOR.
[2018-02-21 16:00] VITALS: BP 100/66
--- NOTE | 2018-02-21 18:31 | NUR ---
RN NOTES PT REMAINS STABLE ,STILL TRIES TO GET OUT OF BED, NGOZI. SOFT WRIST RESTRAIN ON FOR PT SAFETY , AMIDODRON GTT AT .5MG/MIN RUNNING VIA R EJ LINE , BUMEX AT 10CC/HR RUNNING VIA R HAND IV SITE , RESPIRATION EVEN AND UNLABORED, SR UPx3, CALL LIGHT WITHIN EASY REACH , WILL ENDORSE TO BRIDGE CRANE OPERATOR NURSE FOR RADHA.
[2018-02-21 20:00] VITALS: BP_SYST 101; BP_SYST 85; BP_DIAS 58
--- NOTE | 2018-02-21 20:13 | NUR ---
RN [facility] INITIAL NOTES RECEIVED PT ON BED, A/Ox2-3, ON 2L O2 N/C , C/O SOB AT TIMES , O2 SAT 98%, ENCOURAGED DEEP, SLOW BREATHING , R NECK EJ IV SITE G 22 CDI, AMIODARONE GTT RUNNING AT 0.5 MG/MIN VIA R NECK IV SITE , AND BUMEX @ 10CC FINISHED. ON TELE A. ST 90'S, HR IN 100 , SR UP x3, WITH BILAT WRIST RESTRAIN, ASSESSED BOTH SITES. CALL LIGHT WITHIN EASY REACH, BED LOCKED AND IN LOWEST POSITION , CONTINUE TO MONITOR PT CLOSLY.
[2018-02-21] MEDS ORDERED: ENOXAPARIN SODIUM 40 MG/0.4 ML DISP.SYRIN SQ SCH (21:00)
[2018-02-21] MEDS: ZOLPIDEM TARTRATE 5 MG TABLET PO SCH (21:48)
[2018-02-22] VITALS (57 sets, daily range): BP systolic 40–110; BP diastolic 15–81
--- NOTE | 2018-02-22 06:48 | NUR ---
RN [facility] CLOSING NOTE RECEIVED PT ON MASK 6L, TITRATED DOWN O2 TO 4L NC, WELL SHANNON, WILL ENDORSE TO AM SHIFT NURSE TO MONITOR O2 SAT.
[2018-02-22 07:00] LABS: BASOPHILS % (AUTO) 0.1 % (0.0-2.0); EOSINOPHILS % (AUTO) 0.8 % (0.0-6.0); HEMATOCRIT 23 % (39-51); HEMOGLOBIN 7.8 g/dL (13.5-17.5); LYMPHOCYTES # (AUTO) 0.7 /CMM (0.8-4.8); LYMPHOCYTES % (AUTO) 12.2 % (20.0-44.0); MEAN CORPUSCULAR HGB CONC 33 g/dl (31.0-36.0); MEAN CORPUSCULAR VOLUME 92 fL (80-96); MONOCYTES # (AUTO) 0.7 /CMM (0.1-1.30); MONOCYTES % (AUTO) 12.1 % (2.0-12.0); NEUTROPHILS % (AUTO) 74.8 % (43.0-81.0); PLATELET COUNT (AUTO) 162 /CMM (150-450); RDW COEFFICIENT OF VARIATION 22.3 (11.5-15.0); RED BLOOD CELL COUNT(AUTO) 2.56 MIL/uL (4.5-6.0); WHITE BLOOD COUNT (AUTO) 5.4 K/uL (4.3-11.0)
[2018-02-22 07:27] LABS: TROPONIN I 0.236 ng/mL (0.00-0.056)
--- NOTE | 2018-02-22 07:38 | NUR ---
RN [facility]AN[facility]O CLOSING NOTE PT RECEIVED ON MASK @ 6L, TITRATED PT TO 4L NC, WELL SHANNON O2 SAT 95%, S/P AMIODARONE 0.5 AND BUMEX DRIP 10ML. INFUSION COMPLETED, ENDORSED TO AM SHIFT NURSE TO F/U.
[2018-02-22 07:54] LABS: ALBUMIN 2.4 g/dL (3.4-5.0); CALCIUM, SERUM 7.8 mg/dL (8.5-10.1); CREATININE 2.6 mg/dL (0.6-1.3); PHOSPHORUS 5.2 mg/dL (2.5-4.9); POTASSIUM 4.3 mmol/L (3.5-5.1); TOTAL PROTEIN, SERUM 5.7 g/dL (6.4-8.2)
--- NOTE | 2018-02-22 08:00 | NUR ---
TD/RN AM SHIFT INITIAL NOTES RECEIVED PT AWAKE IN BED, NO ACUTE DISTRESS NOTED. PT ALERT BUT CONFUSED. ON 2L O2 HUMIDIFIED, SATURATING @ 93%, LUNG SOUNDS DIMINISHED. ON TELE WITH SINUS TACHY, HR 110, ATRIAL PACING. IV SITE FLUSHED PATENT WITH NO S/S OF INFECTION. PT NOTED WITH LOW BP TAKEN MANUALLY 72/43, HR 110, BP VERIFIED WITH CHARGE NURSE. DR. RALPH NOTIFIED, WITH VERBAL ORDER RECEIVED TO GIVE 500ML SALINE BOLUS. SCHEDULED AM MEDS HELD D/T PT UNABLE TO SWALLOW. BP WILL BE RECHECKED AFTER BOLUS. CL WITHIN REACHED AND SAFETY MANITAINED. CLOSELY MONITORING.
[2018-02-22] MEDS: LORAZEPAM 1 MG TABLET PO SCH ×3 (08:22→21:00)
[2018-02-22] MEDS: POTASSIUM CHLORIDE 10 MEQ TABLET.SA PO SCH ×2 (08:22→08:39)
[2018-02-22] MEDS: CARVEDILOL 6.25 MG TABLET PO SCH ×2 (08:24→16:53)
[2018-02-22] MEDS: AMIODARONE HCL 200 MG TABLET PO SCH ×3 (08:24→16:52)
[2018-02-22] MEDS: FUROSEMIDE 40 MG TABLET PO SCH (08:25)
[2018-02-22] MEDS: LISINOPRIL (5MG) 5 MG TABLET PO SCH (08:25)
[2018-02-22] MEDS: IV NS 0.9% 1,000 ML BAG IV PRN (08:27)
--- NOTE | 2018-02-22 09:25 | NUR ---
TD/RN BP RECHECKED & ECHOCARDIOGRAM BP 72/[address] RALPH ROUNDING PT, MADE AWARE. ECHOCARDIOGRAM RESULT: EJECTION FRACTION OF 25%, PERICARDIAL & PLEURAL EFFUSION AND SEVERE TRICUSPID REGURGITATION. DR. RALPH AWARE, ORDER TO TRANSFER PT IN ICU. CLOSELY MONITORING.
[2018-02-22] MEDS ORDERED: DoBUTamine 500 MG/250 ML PIGGYBACK IV ONE ×2 (09:30→11:30)
--- NOTE | 2018-02-22 09:45 | NUR ---
TD/FILL PLANT OPERATOR TO ICU - ROOM 264 BEDSIDE REPORT GIVEN TO CHARGE NURSE AND ICU NURSE. PT ENDORSED TO CONTINUE CARE.
--- NOTE | 2018-02-22 09:45 | NUR ---
SCALLOP CUTTER RECEIVED PATIENT FROM [facility] ON 3 LITERS/NASAL CANNULA SATURATING 96% ALERT ORIENTED X 2 WITH CONFUSED EPISODE ON SOFT WRIST RESTRAINED, RESTLESS AT TIMES PLACED ON NPO FOR THE MEANTIME REPORTED BY [facility]AN[facility]O NURSE DUE TO CHOKING EPISODE AWAITING SWALLOW FOUNTAIN MANAGER PLACED ON COMFORTABLE POSITION
[2018-02-22] MEDS: HEPARIN SODIUM, PORCINE 5000 UNITS/1 ML VIAL SQ SCH ×2 (10:21→21:00)
[2018-02-22 10:55] LABS: ABG BASE EXCESS -1.8 mmol/L; ABG PCO2 28.6 mmHg (35.0-45.0); ABG PH 7.484 (7.350-7.450); ABG PO2 57.7 mmHg (75.0-100.0); AaDO2 57.8 mmHg; COHb 0.1 % (0.5-1.5); MetHb 0.9 % (0.0-1.5); O2Hb 87.1 % (94.0-97.0); SITE, ABG Right Radial; VENT MODE, BG room air
[2018-02-22] MEDS ORDERED: DoBUTamine 500 MG/250 ML PIGGYBACK IV PRN (11:00)
--- NOTE | 2018-02-22 11:00 | NUR ---
COST ACCOUNTING MANAGER MESSAGED RAMO ROSARIO FOR DOBUTAMINE DRIP CLARIFICATION
--- NOTE | 2018-02-22 11:20 | NUR ---
DEMAND GENERATOR MANAGER SEEN AND EXAMINED BY SWALLOW ORTHOTICS TECHNICIAN CHANGED OF MEAL PREPARATION WILL BE ORDERED
[2018-02-22] MEDS: DOBUTamine 500 MG in IV NS 0.9% 210 ML IV PRN (12:11)
--- NOTE | 2018-02-22 14:45 | NUR ---
GEM STONE CUTTER SYSTOLIC BLOOD PRESSURE STILL AROUND 70'S TO 80'S INFORMED DR. RALPH REGARDING BLOOD PRESSURE ORDERED TO INCREASE DRIP TO 7 MCGS
[2018-02-22] MEDS ORDERED: PHENYLEPHRINE 80 MG in IV D5W 250 ML IV PRN (17:00)
--- NOTE | 2018-02-22 18:26 | NUR ---
TRACTOR MECHANIC HELPER SYSTOLIC BLOOD PRESSURE IS 70'S TO 80'S PATIENT IS ALERT ORIENTED X 2 WITH CONFUSION EPISODE ABLE TO CONSUME HIS SHARE OF MEAL WITH SMALL APPETITE SUCTIONED FOAMY SECRETION TO THE MOUTH SMALL IN AMOUNT ENDORSED TO NOD
--- NOTE | 2018-02-22 19:30 | NUR ---
ICU NOTES RECEIVED PATIENT AWAKE ALERT AND ORIENTED X 3.MOVES ALL EXTREMITIES.WITH O2 4L NC IN PROGRESS NO RESPIRATORY DISTRESS NOTED.TELE SR.PATIENT HEMODYNAMICALLY UNSTABLE SBP 60'S-70'S WITH DOBUTAMINE GTT INFUSING AT 7MCG FIXED RATE AND NEOSYNEPHRINE GTT INFUSING AT 200 MCG/MIN BOTH INFUSING TO REJ.SITE INTACT.VOIDED PER URINAL PATIENT REFUSED FC AT THIS TIME.TURNED AND REPOSITIONED.
[2018-02-22] MEDS: NOREPINEPHRINE 16 MG in IV D5W 500 ML IV PRN (21:29)
--- NOTE | 2018-02-22 21:30 | NUR ---
PATIENT REMAINS BP UNSTABLE MAX ON EULALIA AT 300 MCG/MIN.DR RALPH PAGED AND MADE AWARE OF PATIENT STATUS BY CUSTOMER OPERATIONS REPRESENTATIVE,ED.ORDERS RECEIVED AND CARRIED OUT.LEVOPHED GTT STARTED AND WILL TITRATE ACCORDINGLY.WILL TITRATE DOWN NEOSYNEPHRINE GTT AND D/C.
--- NOTE | 2018-02-22 22:00 | NUR ---
PATIENT AGREED TO HAVE JOYA CATHETER.CHINESE #[id number] JOYA CATH INSERTED BY YANIRA SALAZAR UNDER ASEPTIC TECHNIQUE DRAINING MODERATE MATHEUS URINE.
[2018-02-22] MEDS: ZOLPIDEM TARTRATE 5 MG TABLET PO SCH (22:05)
[2018-02-23] VITALS (86 sets, daily range): BP systolic 61–154; BP diastolic 21–112
[2018-02-23] MEDS: DOBUTamine 500 MG in IV NS 0.9% 210 ML IV PRN ×2 (01:38→15:26)
[2018-02-23 04:57] LABS: BASOPHILS % (AUTO) 0.1 % (0.0-2.0); EOSINOPHILS % (AUTO) 2.2 % (0.0-6.0); HEMATOCRIT 25 % (39-51); HEMOGLOBIN 8.2 g/dL (13.5-17.5); LYMPHOCYTES # (AUTO) 0.8 /CMM (0.8-4.8); MEAN CORPUSCULAR HGB CONC 34 g/dl (31.0-36.0); MEAN CORPUSCULAR VOLUME 91 fL (80-96); MONOCYTES # (AUTO) 0.6 /CMM (0.1-1.30); MONOCYTES % (AUTO) 11.9 % (2.0-12.0); NEUTROPHILS # (AUTO) 3.3 /CMM (1.8-8.9); NEUTROPHILS % (AUTO) 68.8 % (43.0-81.0); PLATELET COUNT (AUTO) 179 /CMM (150-450); RDW COEFFICIENT OF VARIATION 22.5 (11.5-15.0); RED BLOOD CELL COUNT(AUTO) 2.71 MIL/uL (4.5-6.0); WHITE BLOOD COUNT (AUTO) 4.8 K/uL (4.3-11.0)
[2018-02-23 05:27] LABS: TROPONIN I 0.321 ng/mL (0.00-0.056)
[2018-02-23 05:28] LABS: ALBUMIN 2.6 g/dL (3.4-5.0); BILIRUBIN,TOTAL 1.9 mg/dL (0.2-1.0); CALCIUM, SERUM 7.6 mg/dL (8.5-10.1); CREATININE 2.4 mg/dL (0.6-1.3); MAGNESIUM 1.5 mg/dL (1.8-2.4); PHOSPHORUS 3.1 mg/dL (2.5-4.9); POTASSIUM 4.2 mmol/L (3.5-5.1); TOTAL PROTEIN, SERUM 6.5 g/dL (6.4-8.2)
--- NOTE | 2018-02-23 06:35 | NUR ---
PICC LINE TO YARON INSERTED BY ARMEN LORENZANA.CXR FOR PICC LINE PLACEMENT DONE.PER DOCTOR ERNIE OK TO USE. DOBUTAMINE GTT INFUSING AT 7 MCG AND LEVOPHED GTT INFUSING AT 32 MCG/MIN VIA YARON PICC LINE.SITE INTACT.
--- NOTE | 2018-02-23 07:15 | NUR ---
PATIENT AWAKE ALERT AND ORIENTED X 3 BUT FORGETFUL.VERBALIZED WANTS TO URINATE. PATIENT MADE AWARE THAT HE HAS JOYA CATHETER.SHOWED HIM HIS FC AND ITS DRAINING. PER MONITOR PATIENT WENT TO [facility].DENIES CHEST PAIN OR SOB.REPORT GIVEN TO YANIRA JOHANSEN FOR RADHA. Addendum: 02/23/18 at 0740 by ELENO MILLER RN INCOMPLETE ENTRY
--- NOTE | 2018-02-23 07:41 | NUR ---
RN NOTES RECEIVED PT IN BED, ON SITTING POSITION, AWAKE ALERT ORIENTED TO NAME AND PLACE. ON O2@4LPM VIA NC SATING 95%. SR ON MONITOR HR 70'S. ON LEVO DRIP @ 32MCG/MIN AND DOBUTAMINE AT FIXED RATE OF 7 MCG/KG/MIN INFUSING ON YARON PICC. PT IS RESTLESS, SHOWING GESTURES OF GETTING OOB UNASSISTED. PT IS HIGH RISK FOR FALL. REDIRECTED PT, EXPLAINED PT THE RISK OF HIM FALLING OUT OF THE BED. MONITORED CLOSELY. FC PATENT DRAINING TO GRAVITY. CALL LIGHT WITHIN REACH, WILL CONT TO MONITOR
[2018-02-23] MEDS: NOREPINEPHRINE 16 MG in IV D5W 500 ML IV PRN ×2 (08:11→18:06)
[2018-02-23] MEDS: LORAZEPAM 1 MG TABLET PO SCH ×2 (08:45→20:29)
[2018-02-23] MEDS: HEPARIN SODIUM, PORCINE 5000 UNITS/1 ML VIAL SQ SCH ×2 (08:47→20:29)
[2018-02-23] MEDS: AMIODARONE HCL 200 MG TABLET PO SCH ×3 (09:31→18:06)
[2018-02-23] MEDS ORDERED: Magnesium 1GM/D5W 100ML PREMIX 100 ML IV SCH (10:25)
--- NOTE | 2018-02-23 19:50 | NUR ---
ANATOMY PROFESSOR. RECEIVED THE PT FROM SHORTNESS OF BREATH , WHEEZING ,. LOT OF FOOD FROM PT MOUTH CAME OUT. STAT ABG ORDERED. OXYGEN 4L VIA NASAL CANNULA. SAT 91%. LT CHEST AICD.NEWSPAPER CARRIERS SUPERVISOR SHOWING NSR. IV ,RT UPPER ARM PICC LINE DOBUTAMINE 7MCG. LEVOPHED 25MCG/MIN, FC PATENT. HOB ELEVATED. WILL CONTINUE TO MONITOR VITALS.
--- NOTE | 2018-02-23 19:59 | NUR ---
RN NOTES PT NOTED POCKETING HIS FOOD, NOTED WHEEZING. ON O2 @4LPM VIA NC, SATING 89-92%. DR KLEIN WAS CALLED, SPOKE WITH DR ARMEN KLEIN, REPORTED PT CONDITION, WITH NEW ORDERS GIVEN LASIX 40 MG PO X1, SOLU-MEDROL 125MG IV X1, AND BREATHING TX ALBUTEROL+ATROVENT Q4H LEAN FACILITATOR. ALL ORDERS NOTED AND CARRIED OUT
[2018-02-23] MEDS ORDERED: FUROSEMIDE 40 MG TABLET PO ONE (20:00)
[2018-02-23] MEDS: ALBUTEROL FS 2.5 MG/0.5 ML VIAL.NEB NEB SCH ×2 (20:00→23:55)
[2018-02-23] MEDS ORDERED: methylPREDNISolone SOD SUCC 125 MG/2ML VIAL IV ONE (20:00)
[2018-02-23] MEDS: IPRATROPIUM NEB FS 0.5 MG/2.5 ML AMPUL.NEB NEB SCH ×2 (20:00→23:55)
[2018-02-23 20:06] LABS: ABG BASE EXCESS -4.2 mmol/L; ABG PCO2 22.5 mmHg (35.0-45.0); ABG PH 7.511 (7.350-7.450); AaDO2 242.2 mmHg; COHb 0.4 % (0.5-1.5); MetHb 0.6 % (0.0-1.5); SITE, ABG Right Radial; VENT MODE, BG N/C
[2018-02-23] MEDS ORDERED: ALBUTEROL FS 2.5 MG/3 ML VIAL.NEB ONE (21:00)
[2018-02-23] MEDS: ZOLPIDEM TARTRATE 5 MG TABLET PO SCH (21:49)
[2018-02-24] VITALS (94 sets, daily range): BP systolic 74–138; BP diastolic 25–95
[2018-02-24] MEDS: MORPHINE SULFATE INJ 2 MG/ML DISP.SYRIN IV PRN (00:34)
--- NOTE | 2018-02-24 00:42 | NUR ---
LAMP SHADE MAKER.PT C/O BACK PAIN MORPHINE GIVEN PER ORDERED.
[2018-02-24] MEDS ORDERED: DOBUTamine 12.5 MG/ML VIAL IV ONE ×2 (02:33→02:35)
[2018-02-24] MEDS: DOBUTamine 500 MG in IV NS 0.9% 210 ML IV PRN ×2 (02:45→18:58)
--- NOTE | 2018-02-24 03:28 | NUR ---
COUNCILOR. AM CARE, ORAL CARE, BED BATH GIVEN. LINEN CHANGED. REMAINING SAME OXYGEN 4L VIA NASAL CANNULA. SAT 97%. BATCH DUMPER SHOWING NSR. IV RT UPPER ARM PICC LINE IV DOBUTAMINE 7MCG/KG/MIN,LEVOPHED 10MCG/MIN. HOB ELEVATED. FC PATENT. URINE DRAINING. NGOZI SOFT WRIST RESTRAINT CHECKED NO INJURY OR REDNESS NOTED. WILL CONTINUE TO MONITOR VITALS.
[2018-02-24] MEDS: ALBUTEROL FS 2.5 MG/0.5 ML VIAL.NEB NEB SCH ×6 (03:30→23:16)
[2018-02-24] MEDS: IPRATROPIUM NEB FS 0.5 MG/2.5 ML AMPUL.NEB NEB SCH ×6 (03:30→23:16)
[2018-02-24 05:03] LABS: HEMATOCRIT 27 % (39-51); HEMOGLOBIN 9.1 g/dL (13.5-17.5); LYMPHOCYTES # (AUTO) 0.2 /CMM (0.8-4.8); LYMPHOCYTES % (AUTO) 7.5 % (20.0-44.0); MEAN CORPUSCULAR HGB CONC 34 g/dl (31.0-36.0); MEAN CORPUSCULAR VOLUME 91 fL (80-96); MONOCYTES % (AUTO) 1.1 % (2.0-12.0); NEUTROPHILS % (AUTO) 91.4 % (43.0-81.0); PLATELET COUNT (AUTO) 197 /CMM (150-450); RDW COEFFICIENT OF VARIATION 22.3 (11.5-15.0); RED BLOOD CELL COUNT(AUTO) 2.98 MIL/uL (4.5-6.0); WHITE BLOOD COUNT (AUTO) 3.3 K/uL (4.3-11.0)
[2018-02-24 05:20] LABS: TROPONIN I 0.15 ng/mL (0.00-0.056)
[2018-02-24 05:24] LABS: ALBUMIN 2.5 g/dL (3.4-5.0); BILIRUBIN,TOTAL 2.2 mg/dL (0.2-1.0); CALCIUM, SERUM 7.6 mg/dL (8.5-10.1); MAGNESIUM 1.4 mg/dL (1.8-2.4); PHOSPHORUS 3.3 mg/dL (2.5-4.9); POTASSIUM 4.4 mmol/L (3.5-5.1); TOTAL PROTEIN, SERUM 6.5 g/dL (6.4-8.2)
--- NOTE | 2018-02-24 07:39 | NUR ---
INITIAL WRAPPING MACHINE HELPER NOTE RCVD PT SLEEPING AROUSED TO TOUCH, PT ALERT TO SELF. PT WAS RE-ORIENTED TO PLACE, TIME AND SITUATION. BILATERAL SOFT WRIST RESTRAINTS IN PLACE. CIRCULATION CHECKS DONE. SR ON TELE. TOLERATING O2 VIA NC. JOYA TO GRAVITY DRAINING CLEAR, PALE YELLOW URINE. IV SITES C/D/I/PATENT. NO S/O INFILTRATION/PHLEBITIS OBSERVED. DOBUTAMINE AND LEVO INFUSING ORDERED. WILL CONTINUE TO MONITOR PT FOR SAFETY AND COMFORT. CALL LIGHT WITHIN REACH BED IN LOW AND LOCKED POSITION.
--- NOTE | 2018-02-24 08:22 | NUR ---
HAND LAUNDERER NOTE DR. RALPH IN UNIT INFORMED OF PT'S LOW MAGNESIUM/SODIUM. HE RECOMMENDED TO DECREASE DOSE OF CONTINUOUS INFUSION OF DOBUTAMINE TO 5MCG. WILL CONTINUE TO MONITOR PT.
[2018-02-24] MEDS: HEPARIN SODIUM, PORCINE 5000 UNITS/1 ML VIAL SQ SCH ×2 (08:27→20:45)
[2018-02-24] MEDS: Magnesium 1GM/D5W 100ML PREMIX 100 ML IV SCH ×4 (08:27→11:45)
[2018-02-24] MEDS: LORAZEPAM 1 MG TABLET PO SCH ×2 (08:28→20:43)
[2018-02-24] MEDS: AMIODARONE HCL 200 MG TABLET PO SCH ×3 (08:28→17:23)
[2018-02-24] MEDS ORDERED: Magnesium 1GM/D5W 100ML PREMIX 100 ML IV SCH (10:13)
--- NOTE | 2018-02-24 14:14 | NUR ---
MAINSPRING WINDER NOTE SPOKE WITH DR. KELLEY REGARDING PT'S LUE BEING MORE SWOLLEN THAN THE RIGHT. HE RECOMMENDED DOPPLER ON THE LEFT SIDE. ORDER ENTERED AND ACKNOWLEDGED.
[2018-02-24] MEDS ORDERED: Z GUARD REMEDY 2 OZ OINT TP PRN (15:30)
[2018-02-24] MEDS: NOREPINEPHRINE 16 MG in IV D5W 500 ML IV PRN ×2 (17:24→19:00)
--- NOTE | 2018-02-24 19:12 | NUR ---
GETTERING OPERATOR NOTE PT APPEARS MORE AWAKE AT THIS TIME, SHOWING NO S/O DISTRESS, BILATERAL SOFT WRIST RESTRAINTS IN PLACE. CIRCULATION CHECKS DONE. SR ON TELE. TOLERATING O2 VIA NC. JOYA TO GRAVITY DRAINING WELL. IV SITES C/D/I/PATENT. DOBUTAMINE AND LEVO INFUSING WELL. PT'S CARE ENDORSED TO PL SQL PROGRAMMER RN FOR CONTINUITY OF CARE. BED IN LOW AND LOCKED POSITION. CALL LIGHT WITHIN REACH.
--- NOTE | 2018-02-24 19:49 | NUR ---
INITIAL ROTARY DRIER FEEDER NOTE RCVD PT AWAKE IN BED, PT ALERT TALKING TO STAFF. PT WAS RE-ORIENTED TO PLACE, TIME AND SITUATION. BILATERAL SOFT WRIST RESTRAINTS IN PLACE. CIRCULATION CHECKS DONE. SR ON TELE. TOLERATING O2 VIA NC. JOYA TO GRAVITY DRAINING CLEAR, PALE YELLOW URINE. IV SITES C/D/I/PATENT. NO S/O INFILTRATION/PHLEBITIS OBSERVED. DOBUTAMINE AND LEVO INFUSING ORDERED, BP MAINTAINED AT 90/63. WILL CONTINUE TO MONITOR PT FOR SAFETY AND COMFORT. CALL LIGHT WITHIN REACH BED IN LOW AND LOCKED POSITION.
[2018-02-24] MEDS: ZOLPIDEM TARTRATE 5 MG TABLET PO SCH (21:06)
[2018-02-25] VITALS (92 sets, daily range): BP systolic 71–136; BP diastolic 31–113
[2018-02-25] MEDS: IPRATROPIUM NEB FS 0.5 MG/2.5 ML AMPUL.NEB NEB SCH ×6 (03:15→23:30)
[2018-02-25] MEDS: ALBUTEROL FS 2.5 MG/0.5 ML VIAL.NEB NEB SCH ×6 (03:15→23:30)
--- NOTE | 2018-02-25 06:34 | NUR ---
PRODUCTION STATISTICAL CLERK CLOSING NOTE ENDORSED PT AWAKE IN BED, ABLE TO MAKE NEEDS KNOWN. BILATERAL SOFT WRIST RESTRAINTS IN PLACE. CIRCULATION CHECKS DONE. SR ON TELE. TOLERATING O2 VIA NC. JOYA TO GRAVITY DRAINING CLEAR, PALE YELLOW URINE. IV SITES C/D/I/PATENT. NO S/O INFILTRATION/PHLEBITIS OBSERVED. DOBUTAMINE AND LEVO INFUSING ORDERED, BP MAINTAINED AT 111/78. WILL CONTINUE TO MONITOR PT FOR SAFETY AND COMFORT. CALL LIGHT WITHIN REACH BED IN LOW AND LOCKED POSITION.
--- NOTE | 2018-02-25 07:46 | NUR ---
INITIAL IT QUALITY ANALYST NOTE RCVD PT SLEEPING IN BED, OPENS EYES TO TOUCH AND ACKNOWLEDGES DIRECTIONS BY NODDING HEAD, OFF RESTRAINTS AT THIS TIME. SR ON TELE. TOLERATING O2 VIA NC. JOYA TO GRAVITY DRAINING CLEAR, YELLOW URINE. IV SITES REMAIN C/D/I/PATENT. NO S/O INFILTRATION/PHLEBITIS OBSERVED. DOBUTAMINE AND LEVO INFUSING ORDERED. WILL CONTINUE TO MONITOR PT FOR SAFETY AND COMFORT. CALL LIGHT WITHIN REACH.BED IN LOW AND LOCKED POSITION.
[2018-02-25 08:46] LABS: BASOPHILS % (AUTO) 0.1 % (0.0-2.0); HEMATOCRIT 25 % (39-51); HEMOGLOBIN 8.2 g/dL (13.5-17.5); LYMPHOCYTES # (AUTO) 0.3 /CMM (0.8-4.8); LYMPHOCYTES % (AUTO) 4.2 % (20.0-44.0); MEAN CORPUSCULAR HGB CONC 33 g/dl (31.0-36.0); MEAN CORPUSCULAR VOLUME 90 fL (80-96); MONOCYTES # (AUTO) 0.3 /CMM (0.1-1.30); MONOCYTES % (AUTO) 4.2 % (2.0-12.0); NEUTROPHILS # (AUTO) 6.6 /CMM (1.8-8.9); NEUTROPHILS % (AUTO) 91.5 % (43.0-81.0); PLATELET COUNT (AUTO) 190 /CMM (150-450); RDW COEFFICIENT OF VARIATION 22.4 (11.5-15.0); RED BLOOD CELL COUNT(AUTO) 2.75 MIL/uL (4.5-6.0); WHITE BLOOD COUNT (AUTO) 7.3 K/uL (4.3-11.0)
[2018-02-25 09:03] LABS: CALCIUM, SERUM 7.5 mg/dL (8.5-10.1); CREATININE 1.4 mg/dL (0.6-1.3); MAGNESIUM 1.9 mg/dL (1.8-2.4); POTASSIUM 3.8 mmol/L (3.5-5.1)
[2018-02-25] MEDS: LORAZEPAM 1 MG TABLET PO SCH (09:17)
[2018-02-25] MEDS: AMIODARONE HCL 200 MG TABLET PO SCH ×3 (09:17→16:53)
[2018-02-25] MEDS: HEPARIN SODIUM, PORCINE 5000 UNITS/1 ML VIAL SQ SCH ×2 (09:19→20:20)
--- NOTE | 2018-02-25 11:58 | NUR ---
FOOD AND DRUG INSPECTOR NOTE PT C/O PAIN STATING "I CAN'T PEE" DESPITE JOYA CATH IN PLACE. BLADDER SCAN DONE NO RETENTION FOUND, NO PAIN OVER BLADDER AREA UPON PALPATION. PT STATES THAT HE HAS PAIN IN HIS PENIS. DR. ADDISON CONTACTED HE RECOMMENDED UA, C&S, AND GIVE PT PYRIDIUM TID. ORDERS ENTERED AND WILL BE CARRIED OUT ORDERED.
[2018-02-25] MEDS: MORPHINE SULFATE INJ 2 MG/ML DISP.SYRIN IV PRN ×3 (12:06→22:48)
[2018-02-25] MEDS ORDERED: PHENAZOPYRIDINE HCL 200 MG TABLET PO PRN (12:30)
[2018-02-25] MEDS: PHENAZOPYRIDINE HCL 200 MG TABLET PO SCH ×2 (15:14→18:13)
[2018-02-25] MEDS: ONDANSETRON HCL/PF 4 MG/2 ML VIAL IVP PRN (15:34)
[2018-02-25 16:50] LABS: APPEARANCE,URINE CLEAR (CLEAR); BILIRUBIN,URINE NEGATIVE (NEGATIVE); BLOOD, URINE 3+ Ery/uL (NEGATIVE); COLOR,URINE YELLOW (YELLOW); KETONES,URINE NEGATIVE (NEGATIVE); LEUKOCYTE ESTERASE ,URINE TRACE (NEGATIVE); NITRITE, URINE NEGATIVE (NEGATIVE); PROTEIN,URINE 2+ mg/dl (NEGATIVE); UGLUCOSE NEGATIVE (NEGATIVE)
[2018-02-25] MEDS: DOBUTamine 500 MG in IV NS 0.9% 210 ML IV PRN (16:50)
[2018-02-25 17:13] LABS: BACTERIA,URINE Few /HPF (None Seen); SQUAMOUS EPITHELIAL CELL,UR Few /HPF (None Seen)
--- NOTE | 2018-02-25 19:25 | NUR ---
EDUCATION COURSES SALES REPRESENTATIVE NOTE PT REMAINS STABLE C/O PAIN OVER PENIS AREA, JOYA DISCONTINUED AT 1900 PT'S CARE ENDORSED TO LUNCHROOM WORKER RN FOR CONTINUITY OF CARE. BED IN LOW AND LOCKED POSITION. CALL LIGHT WITHIN REACH.
[2018-02-25] MEDS ORDERED: DOBUTamine 500 MG in IV NS 0.9% 210 ML IV PRN (19:30)
--- NOTE | 2018-02-25 20:00 | NUR ---
FEED MILL SUPERVISOR - NOTES - RECEIVED PT IN BED, AOX 1-2. SR ON TELE. TOLERATING 4L O2 VIA NC. IV SITES REMAIN C/D/I/PATENT. NO S/O INFILTRATION/PHLEBITIS OBSERVED. DOBUTAMINE INFUSING ORDERED. WILL CONTINUE TO MONITOR PT FOR SAFETY AND COMFORT. CALL LIGHT WITHIN REACH.BED IN LOW AND LOCKED POSITION.
[2018-02-25] MEDS: LORAZEPAM 0.5 MG TABLET PO SCH (20:21)
[2018-02-25] MEDS: ZOLPIDEM TARTRATE 5 MG TABLET PO SCH (21:05)
--- NOTE | 2018-02-25 23:51 | NUR ---
PT REFUSED RESP TX AT THIS TIME.YANIRA SUAREZ NOTIFIED. NO S/S OF SOB NOTED. Addendum: 02/25/18 at 2351 by HERRERA TERAN RT Amended: Links added.
[2018-02-26] VITALS (42 sets, daily range): BP systolic 45–162; BP diastolic 21–100
--- NOTE | 2018-02-26 03:00 | NUR ---
DOBUTAMINE DRIP TITRATED OFF PER PROTOCOL, BP WNL
[2018-02-26] MEDS: IPRATROPIUM NEB FS 0.5 MG/2.5 ML AMPUL.NEB NEB SCH ×5 (03:30→20:15)
[2018-02-26] MEDS: ALBUTEROL FS 2.5 MG/0.5 ML VIAL.NEB NEB SCH ×5 (03:30→20:15)
[2018-02-26 05:14] LABS: HEMATOCRIT 27 % (39-51); HEMOGLOBIN 8.8 g/dL (13.5-17.5); MEAN CORPUSCULAR HGB CONC 33 g/dl (31.0-36.0); MEAN CORPUSCULAR VOLUME 91 fL (80-96); PLATELET COUNT (AUTO) 194 /CMM (150-450); RDW COEFFICIENT OF VARIATION 23.4 (11.5-15.0); RED BLOOD CELL COUNT(AUTO) 2.97 MIL/uL (4.5-6.0)
[2018-02-26 05:30] LABS: CALCIUM, SERUM 7.9 mg/dL (8.5-10.1); CREATININE 1.5 mg/dL (0.6-1.3); PHOSPHORUS 3.4 mg/dL (2.5-4.9); POTASSIUM 4.7 mmol/L (3.5-5.1)
[2018-02-26 05:31] LABS: IRON, SERUM 13 ug/dl (50-175); TOTAL IRON BINDING CAPACITY 340 ug/dl (250-450)
[2018-02-26 05:55] LABS: LYMPHOCYTES % (MANUAL) 8 % (16-48); MONOCYTES % (MANUAL) 6 % (0-11.0); NEUTROPHILS % (MANUAL) 86 (42-76)
--- NOTE | 2018-02-26 07:30 | NUR ---
Opening PT AWAKE IN BED, OPENS EYES TO VOICE AND ACKNOWLEDGES DIRECTIONS BY ACTION, OFF RESTRAINTS AT THIS TIME. SR ON TELE. TOLERATING O2 VIA NC. JOYA DISCONTINUED. IV SITES REMAIN CLEAN, DRY, AND INTACT. NO S/O INFILTRATION/PHLEBITIS OBSERVED.PATIENT WEANED OFF DOBUTAMINE AT 0300 AND LEVO ON STANDBY ORDERED. PT TEMPERATURE 94.2 WARMING MEASURES STARTEDWILL CONTINUE TO MONITOR PT FOR SAFETY AND COMFORT. CALL LIGHT WITHIN REACH.BED IN LOW AND LOCKED POSITION.
[2018-02-26] MEDS: AMIODARONE HCL 200 MG TABLET PO SCH ×3 (08:36→16:45)
[2018-02-26] MEDS: LORAZEPAM 0.5 MG TABLET PO SCH ×2 (08:36→20:34)
[2018-02-26] MEDS: HEPARIN SODIUM, PORCINE 5000 UNITS/1 ML VIAL SQ SCH ×2 (08:39→20:38)
[2018-02-26] MEDS: MORPHINE SULFATE INJ 2 MG/ML DISP.SYRIN IV PRN (08:52)
--- NOTE | 2018-02-26 10:00 | NUR ---
PT HAS NOT URINATED YET THIS SHIFT BLADDER SCANNER DONE 500 ML NOTED. PLACED JOYA CATH WITH CAUDAD TIP MD HARRISON CALLED
[2018-02-26] MEDS: CARVEDILOL 6.25 MG TABLET PO SCH ×2 (10:07→21:00)
[2018-02-26] MEDS: ONDANSETRON HCL/PF 4 MG/2 ML VIAL IVP PRN (10:57)
[2018-02-26] MEDS ORDERED: BISACODYL SUPP (10 MG) 10 MG/SUPP.RECT SUPP.RECT RC PRN (14:00)
--- NOTE | 2018-02-26 14:30 | NUR ---
PT HEART RATE WENT TO LORENA THEN JUNCTIONAL THEN BACK TO SR EKG DONE SR RESULTED.
--- NOTE | 2018-02-26 19:08 | NUR ---
CLOSING NOTE PT ALERT X 2 TO 3 TEMPERATURE CONTINUES WITH WARMING MEASURE MICHELL LINDSEY. GIVEN SUPPOSITORY FOR C/O CONSTIPATION. JOYA REMAINS IN PLACE DRAINING MATHEUS URINE CLEAR. PT REMAINS OFF DRIPS TRANSFERRED TO 310-2 RN REPORT GIVEN FAWN SUPERVISOR DAIRY SANITATION RN.
--- NOTE | 2018-02-26 19:30 | NUR ---
MS RN INITIAL NOTE PT WAS TRANSFERRED FROM ICU VIA GURNEY. A/O X3 ABLE TO MAKE NEEDS KNOWN. SITTER IS AT BEDSIDE. NO SIGNS OF SOB OR DISTRESS, BREATHING EVENLY AND UNLABORED ON NC. IV ACCESS IS INTACT AND PATENT. JOYA IS INTACT. SUPPOSITORY WAS ADMINISTERED IN ICU PRIOR TO TRANSFER. BED IS IN LOW AND LOCKED POSITION, CALL LIGHT WITHIN REACH. WILL CONTINUE TO MONITOR PT
[2018-02-26] MEDS: ZOLPIDEM TARTRATE 5 MG TABLET PO SCH (22:00)
--- NOTE | 2018-02-26 23:05 | NUR ---
MS RN NOTE NOTED PT JOYA DRAINAGE IS LOW. BLADDER SCAN WAS PERFORMED ONLY 212CC SHOWED. FLUSHED JOYA WITH 20 CC AND ADVANCED JOYA AND GOT SOME BACK FLOW. WILL CONTINUE TO MONITOR PT
[2018-02-27] MEDS: IPRATROPIUM NEB FS 0.5 MG/2.5 ML AMPUL.NEB NEB SCH ×7 (00:11→22:57)
[2018-02-27] MEDS: ALBUTEROL FS 2.5 MG/0.5 ML VIAL.NEB NEB SCH ×7 (00:11→22:57)
[2018-02-27] MEDS: ONDANSETRON HCL/PF 4 MG/2 ML VIAL IVP PRN ×3 (00:54→22:17)
--- NOTE | 2018-02-27 06:40 | NUR ---
MS RN CLOSING NOTE PT IS IN BED RESTING, PT IS CONFUSED. SITTER AT BEDSIDE. BEARHUGGER IN PLACE. ON 4L NC, BREATHING EVENLY AND UNLABORED. NO SIGNS OF SOB OR DISTRESS. IV ACCESS IS INTACT AND PATENT. JOYA CATHETER IS INTACT AND PATENT. BED IS IN LOW AND LOCKED POSITION, CALL LIGHT WITHIN REACH. WILL ENDORSE TO DAYSHIFT
[2018-02-27 08:00] VITALS: BP 100/70
[2018-02-27 08:43] LABS: CALCIUM, SERUM 8.4 mg/dL (8.5-10.1); CREATININE 2.1 mg/dL (0.6-1.3); MAGNESIUM 2.1 mg/dL (1.8-2.4); PHOSPHORUS 4.6 mg/dL (2.5-4.9)
[2018-02-27 09:00] LABS: POTASSIUM 6.2 mmol/L (3.5-5.1)
[2018-02-27] MEDS: CARVEDILOL 6.25 MG TABLET PO SCH ×2 (09:00→21:39)
[2018-02-27] MEDS ORDERED: FUROSEMIDE 40 MG TABLET PO SCH (09:00)
[2018-02-27] MEDS: AMIODARONE HCL 200 MG TABLET PO SCH ×3 (09:00→17:00)
[2018-02-27] MEDS: MORPHINE SULFATE INJ 4 MG/ML DISP.SYRIN IV PRN ×3 (09:18→22:17)
[2018-02-27 10:11] LABS: BASOPHILS % (AUTO) 0.1 % (0.0-2.0); EOSINOPHILS % (AUTO) 0.6 % (0.0-6.0); HEMATOCRIT 28 % (39-51); HEMOGLOBIN 9.1 g/dL (13.5-17.5); LYMPHOCYTES # (AUTO) 0.9 /CMM (0.8-4.8); LYMPHOCYTES % (AUTO) 20.2 % (20.0-44.0); MEAN CORPUSCULAR HGB CONC 33 g/dl (31.0-36.0); MEAN CORPUSCULAR VOLUME 91 fL (80-96); MONOCYTES # (AUTO) 0.5 /CMM (0.1-1.30); MONOCYTES % (AUTO) 11.6 % (2.0-12.0); NEUTROPHILS # (AUTO) 3.2 /CMM (1.8-8.9); NEUTROPHILS % (AUTO) 67.5 % (43.0-81.0); PLATELET COUNT (AUTO) 198 /CMM (150-450); RDW COEFFICIENT OF VARIATION 22.4 (11.5-15.0); RED BLOOD CELL COUNT(AUTO) 3.07 MIL/uL (4.5-6.0); WHITE BLOOD COUNT (AUTO) 4.7 K/uL (4.3-11.0)
[2018-02-27] MEDS ORDERED: IV NS 0.9% 500 ML IV ONE (10:30)
[2018-02-27] MEDS ORDERED: SODIUM POLYSTYRENE SULFONATE 15 G/60 ML BOTTLE PO ONE (10:30)
[2018-02-27] MEDS: LORAZEPAM 0.5 MG TABLET PO SCH ×2 (10:49→21:38)
[2018-02-27] MEDS: IV NS 0.9% 1,000 ML BAG IV PRN (10:49)
[2018-02-27] MEDS: HEPARIN SODIUM, PORCINE 5000 UNITS/1 ML VIAL SQ SCH ×2 (11:03→21:40)
[2018-02-27] MEDS ORDERED: SOD FERRIC GLUC 125 MG in IV NS 0.9% 100 ML IV SCH (14:00)
[2018-02-27] MEDS: SOD FERRIC GLUC 125 MG in IV NS 0.9% 100 ML IV SCH (15:16)
[2018-02-27 16:00] VITALS: BP 110/72
--- NOTE | 2018-02-27 18:00 | NUR ---
GIVEN KAYEXALATE FOR HIGH POTASSIUM,SERGEANT OF OFFICERS LIGHT FREQ. ON BEAR HUG DUE TO LOW TEMPS.MED X 2 WITH MORPHINE AND X 1 WITH ZOFRAN.
[2018-02-27 20:00] VITALS: BP 113/76
--- NOTE | 2018-02-27 20:00 | NUR ---
MS RN NOTES RECEIVED ON BED A/O X2,RESTLESS,WITH PERIODS OF CONFUSION.WITH RIGHT UPPER ARM PICC LINE FOR MEDS,JOYA CATH IN PLACE DRAINING ORANGE OUTPUT.FALL RISK PRECAUTION,DVT PUMP IN USED FOR DVT PROHYLAXIS,BED ON LOWEST POSITION AND LOCKED.BED ALARM TRIGGERED.CALL LIGHT IN REACH,NEEDS ANTICIPATED.
[2018-02-27] MEDS: ZOLPIDEM TARTRATE 5 MG TABLET PO SCH (21:39)
--- NOTE | 2018-02-27 22:17 | NUR ---
MS RN NOTES PAIN MANAGEMENT C/O ABDOMINAL PAIN RADIATED TO THE CHEST 8/10 ON PAIN SCALE,CHRONIC IN NATURE,MEDICATED WITH MORPHINE 2MG IV ORDERED,ALONG WITH ZOFRAN 4MG IV FOR NAUSEA.
[2018-02-28 00:47] VITALS: BP 113/76
[2018-02-28] MEDS: IPRATROPIUM NEB FS 0.5 MG/2.5 ML AMPUL.NEB NEB SCH ×6 (03:39→23:59)
[2018-02-28] MEDS: ALBUTEROL FS 2.5 MG/0.5 ML VIAL.NEB NEB SCH ×6 (03:39→23:59)
[2018-02-28] MEDS: ONDANSETRON HCL/PF 4 MG/2 ML VIAL IVP PRN ×2 (04:16→21:43)
--- NOTE | 2018-02-28 04:16 | NUR ---
MS RN NOTES FEELING NAUSEATED,ZOFRAN 4MG IV GIVEN PER PATIENT REQUEST
--- NOTE | 2018-02-28 06:43 | NUR ---
MS RN NOTES AWAKE,ON BED TRYING TO CALL HIS SON ON THE PHONE.JOYA CATH IN PLACE DRAINS 200ML OUTPUT,ORANGE IN COLOR.PAIN MANAGEMENT EFFECTIVE.NAUSEA SUBSIDED.IN NO ACUTE DISTRESS.WILL ENDORSE TO DAY NURSE FOR RADHA.
--- NOTE | 2018-02-28 07:25 | NUR ---
RN OPENING NOTES RECEIVED PATIENT ON BED A/O X2, PERIODS OF CONFUSION. NO ACUTE DISTRESS, NO SOB NOTED. DENIED PAIN OR DISCOMFORT AT THIS TIME. RIGHT UPPER ARM PICC LINE INTACT AND PATENT. JOYA CATH IN PLACE DRAINING DARK YELLOW URINE. FALL PRECAUTION INITIATED, BED ALARM ON. BED ON LOWEST POSITION AND LOCKED, SIDERAILS UPX2, CALL LIGHT IN REACH. WILL CONTINUE TO MONITOR ACCORDINGLY.
[2018-02-28 08:57] VITALS: BP 129/90
[2018-02-28] MEDS: CARVEDILOL 6.25 MG TABLET PO SCH ×2 (10:14→22:53)
[2018-02-28] MEDS: LORAZEPAM 0.5 MG TABLET PO SCH ×2 (10:15→22:52)
[2018-02-28] MEDS: AMIODARONE HCL 200 MG TABLET PO SCH ×3 (10:15→17:16)
[2018-02-28] MEDS: MORPHINE SULFATE INJ 4 MG/ML DISP.SYRIN IV PRN ×3 (10:19→20:27)
[2018-02-28] MEDS: HEPARIN SODIUM, PORCINE 5000 UNITS/1 ML VIAL SQ SCH ×2 (10:21→21:14)
[2018-02-28] MEDS ORDERED: SODIUM POLYSTYRENE SULFONATE 15 G/60 ML BOTTLE PO ONE ×2 (11:00→13:30)
[2018-02-28] MEDS: SOD FERRIC GLUC 125 MG in IV NS 0.9% 100 ML IV SCH (13:58)
[2018-02-28 16:05] VITALS: BP 115/68
[2018-02-28 16:06] LABS: HEMATOCRIT 28 % (39-51); HEMOGLOBIN 9.1 g/dL (13.5-17.5); MEAN CORPUSCULAR HGB CONC 33 g/dl (31.0-36.0); MEAN CORPUSCULAR VOLUME 90 fL (80-96); PLATELET COUNT (AUTO) 188 /CMM (150-450); RDW COEFFICIENT OF VARIATION 22.4 (11.5-15.0); WHITE BLOOD COUNT (AUTO) 4.8 K/uL (4.3-11.0)
[2018-02-28 17:25] LABS: CALCIUM, SERUM 8.1 mg/dL (8.5-10.1); CREATININE 2.1 mg/dL (0.6-1.3); PHOSPHORUS 3.5 mg/dL (2.5-4.9); POTASSIUM 4.5 mmol/L (3.5-5.1)
[2018-02-28 17:44] LABS: BAND % (MANUAL) 11 % (0.0-5.0); LYMPHOCYTES % (MANUAL) 13 % (16-48); MONOCYTES % (MANUAL) 5 % (0-11.0); NEUTROPHILS % (MANUAL) 71 (42-76)
--- NOTE | 2018-02-28 19:25 | NUR ---
MS/TAIL DOGGER; RECEIVED PT'S REPORTS FROM THE DAY SHIFT FOR CONTINUITY OF CARE. AT THIS TIME OF ROUNDS WITH THE DAY SHIFT RN PT SITTING ON THE CHAIR AWAKE WITH THE FC BAG ON THE FLOOR PT APPEARED CONFUSED. PT ASSISTED BACK TO BED THE HELP OF THE DAY SHIFT RN . NOTED THE EJ CATH FROM THE RT SIDE ON THE NECK IS NOT THERE ANY MORE. NO BLEEDING ON THE SITE. PICC LINE ON YARON INTACT. O2 4L PUT BACK. PT INSTRUCTED NOT TO GET OUT OF BED MUST CALL FOR HELP. CALL LIGHT WITHIN REACH. BED ON LOWER POSITION AND LOCKED FOR SAFETY. SIDE RAILS X 3 ARE UP FOR SAFETY. WILL CONTINUE TO MONITOR. NOTED BOTH LOWER LEGS WITH MEPILEX ON.
--- NOTE | 2018-02-28 19:30 | NUR ---
RN CLOSING NOTES PATIENT IN BED RESTING. NO ACUTE DISTRESS, NO SOB NOTED. ALL NEEDS ATTENDED AND PROVIDED. PAIN MANAGEMENT DONE, PAIN MEDS GIVEN ORDERED. KEPT PATIENT SAFE AND COMFORTABLE. BED IN LOW/LOCKED POSITION, SIDERAILS UPX2, CALL LIGHT IN REACH. ENDORSED TO NIGHT RN FOR RADHA.
[2018-02-28 20:00] VITALS: BP 117/72
--- NOTE | 2018-02-28 20:25 | NUR ---
MS/PHOTOGRAPHIC SUPERVISOR; PT C/O CHEST PAIN. STOMACH PAIN AND PAIN BOTH LEGS AND WANTS MORPHINE. BP 117/72, [place] 68. I INFORMED THE RN WHO IS COVERING MY IV MED , THAT PT WANTS PAIN SHOT.
--- NOTE | 2018-02-28 21:40 | NUR ---
MS/ANGLE SHEAR OPERATOR; PT C/O NAUSEA BUT NO ACTUAL EMESIS. I INFORMED MY RN AGAIN PT WANTS MED. FOR NAUSEA.
--- NOTE | 2018-02-28 22:40 | NUR ---
MS/ACCOUNT STRATEGIST; BP 119 / 83 , WI 69 ; DUE PO MEDS. ATIVAN 0.5 MG AND COREG 6.25 MG PO GIVEN .
--- NOTE | 2018-03-01 00:50 | NUR ---
MS/MERCHANDISER; PT'S REPORTS GIVEN TO RN FOR CONTINUITY OF CARE.
--- NOTE | 2018-03-01 01:00 | NUR ---
MS/RN NOTES RECEIVED REPORT AND PT. FROM GALE GARCIA. RECEIVED PT. SITTING UP IN BED. PT. IS AWAKE, ALERT AND ORIENTED X2, WITH PERIODS OF CONFUSION NOTED. PT. WITH RIGHT UPPER ARM PICC PRESENT, PATENT AND INTACT. PT. WITH JOYA CATHETER PRESENT, PATENT AND INTACT. BED LOCKED AND IN LOWEST POSITION, SIDE RAILS UP X3, BED ALARM ON, CALL LIGHT WITHIN REACH, WILL CONTINUE TO MONITOR.
[2018-03-01] MEDS: ZOLPIDEM TARTRATE 5 MG TABLET PO SCH ×2 (01:12→22:50)
[2018-03-01] MEDS: ALBUTEROL FS 2.5 MG/0.5 ML VIAL.NEB NEB SCH ×6 (03:35→23:32)
[2018-03-01] MEDS: IPRATROPIUM NEB FS 0.5 MG/2.5 ML AMPUL.NEB NEB SCH ×6 (03:35→23:32)
--- NOTE | 2018-03-01 06:34 | NUR ---
MS/RN NOTES PT. IS LYING IN BED RESTING. BREATHING EVEN AND UNLABORED ON 4LPM O2 VIA NC. NO SOB, RESPIRATORY DISTRESS OR COMPLAINTS OF PAIN NOTED AT THIS TIME. PT. WITH RIGHT UPPER ARM PICC PRESENT, PATENT AND INTACT. PT. WITH JOYA CATHETER PRESENT, PATENT AND INTACT. ALL PT. NEEDS MET. BED LOCKED AND IN LOWEST POSITION, SIDE RAILS UP X3, BED ALARM ON, CALL LIGHT WITHIN REACH, WILL ENDORSE TO DAYSHIFT NURSE FOR CONTINUITY OF CARE.
--- NOTE | 2018-03-01 07:37 | NUR ---
MS RN NOTES PATIENT RECEIVED RESTING INSIDE ROOM. SLEEPING, AROUSABLE THROUGH VERBAL AND TACTILE STIMULI. BREATHING EVEN AND UNLABORED. O2 AT 4L/MIN VIA NC. NO NASAL IRRITATION NOTED. PATIENT ALERT AND ORIENTED TO SELF WITH PERIODS OF FORGETFULNESS AND CONFUSION, REORIENTED NEEDED. FC IN PLACE WITH MATHEUS COLORED URINE OUTPUT. FALL PRECAUTION INIATED. BED LOCKED AND IN LOW POSITION, BED ALARM ON, BILATERAL UPPER SIDE RAILS UP AND LOCKED. CALL LIGHT WITHIN EASY REACH
[2018-03-01 08:00] VITALS: BP 100/66
[2018-03-01] MEDS: MORPHINE SULFATE INJ 4 MG/ML DISP.SYRIN IV PRN ×3 (08:40→20:05)
[2018-03-01] MEDS: CARVEDILOL 6.25 MG TABLET PO SCH ×2 (08:41→21:20)
[2018-03-01] MEDS: AMIODARONE HCL 200 MG TABLET PO SCH ×3 (08:41→16:48)
[2018-03-01] MEDS: LORAZEPAM 0.5 MG TABLET PO SCH ×2 (08:41→21:20)
[2018-03-01] MEDS: HEPARIN SODIUM, PORCINE 5000 UNITS/1 ML VIAL SQ SCH (08:42)
[2018-03-01] MEDS: Z GUARD REMEDY 4 OZ OINT TP SCH (09:36)
[2018-03-01 09:43] LABS: CALCIUM, SERUM 8.3 mg/dL (8.5-10.1); CREATININE 1.7 mg/dL (0.6-1.3); POTASSIUM 3.5 mmol/L (3.5-5.1)
[2018-03-01 09:44] LABS: ALBUMIN 2.7 g/dL (3.4-5.0); BILIRUBIN,TOTAL 1.6 mg/dL (0.2-1.0); MAGNESIUM 1.8 mg/dL (1.8-2.4); PHOSPHORUS 3.1 mg/dL (2.5-4.9); TOTAL PROTEIN, SERUM 6.7 g/dL (6.4-8.2)
[2018-03-01] MEDS: SOD FERRIC GLUC 125 MG in IV NS 0.9% 100 ML IV SCH (15:36)
[2018-03-01 16:00] VITALS: BP 107/76
--- NOTE | 2018-03-01 18:36 | NUR ---
MS RN NOTES PATIENT RESTING INSIDE ROOM, AWAKE, ALERT AND ORIENTED TO SELF WITH EPISODES OF CONFUSION. PATIENT BREATHING EVEN AND UNLABORED. NO SOB OR ACUTE DISTRESS NOTED, PATIENT AFEBRILE, SKIN DRY AND WARM TO TOUCH. FC IN PLACE WITH 500 CC OUTPUT DURING SHIFT, MATHEUS COLORED URINE NOTED. PICC LINE IN PLACE ON YARON INTACT AND PATENT, NO BLEEDING OR SWELLING NOTED. WILL ENDORSE TO INCOMING SHIFT FOR RADHA. BED LOCKED AND IN LOW POSITION, BED ALARM ON. BILATERAL UPPER SIDE RAILS UP AND LOCKED. CALL LIGHT WITHIN EASY REACH.
--- NOTE | 2018-03-01 19:35 | NUR ---
MS/RN OPENING NOTES PT RECEIVED AWAKE, SITTING UP IN BED. A/OX2. ON 4L O2 VIA NC, BREATHING EVEN AND UNLABORED AT THIS TIME. PT DENIES SOB BUT NOTES GENERALIZED 8/[address] AND DRAINING TO GRAVITY. YARON PICC LINE PATENT AND INTACT. ON A 500ML/DAY FLUID RESTRICTION. BED IN LOW/LOCKED POSITION WITH CALL LIGHT IN REACH. SIDE RAILS UPX2. BED ALARM ON FOR SAFETY. WILL CONTINUE TO MONITOR
[2018-03-01 20:00] VITALS: BP 114/74
[2018-03-01] MEDS: ONDANSETRON HCL/PF 4 MG/2 ML VIAL IVP PRN (20:07)
--- NOTE | 2018-03-01 20:11 | NUR ---
MS/RN NOTES PT COMPLAINING OF PAIN GENERALIZED PAIN 07/05. REQUESTING MORPHINE. ADMINISTERED PRN MORPHINE ORDERED. ALSO ASKING FOR MEDICATION FOR NAUSEA. ADMINISTERED PRN ZOFRAN ORDERED. FT=499/74, HR 95, SPO2=96%. WILL MONITOR FOR EFFECTIVENESS.
--- NOTE | 2018-03-01 21:20 | NUR ---
MS/RN NOTES PT ANXIOUS, RESTLESS IN BED. PT NOTED WITH SOB. HOB ELEVATED FOR MAXIMAL LUNG EXPANSION AND PLACED BACK ON NC, PT KEEPS REMOVING IT DESPITE EDUCATION. SCHEDULED ATIVAN AND COREG ADMINISTERED. BP AND HR STABLE. PT WANTING TO SPEAK TO HIS EX ABDIFATAH. EMOTIONAL SUPPORT PROVIDED. PT SITTING UP AT THE SIDE OF THE BED. AFTER CALLING ABDIFATAH, PT CALMED DOWN. ASSISTED BACK INTO BED. WARM BLANKET PROVIDED.
[2018-03-02] MEDS: ALBUTEROL FS 2.5 MG/0.5 ML VIAL.NEB NEB SCH ×6 (03:38→22:55)
[2018-03-02] MEDS: IPRATROPIUM NEB FS 0.5 MG/2.5 ML AMPUL.NEB NEB SCH ×6 (03:38→22:55)
--- NOTE | 2018-03-02 06:10 | NUR ---
MS/RN NOTES DAILY WEIGHT TAKEN, 165LBS WITH DVT PUMP AND ISOFLEX PUMP REMOVED FROM BED
--- NOTE | 2018-03-02 06:54 | NUR ---
MS/RN CLOSING NOTES PT ASLEEP, EASILY AROUSABLE TO NAME. PLACED BACK ON 4L O2 VIA NC, BREATHING EVEN AND UNLABORED. NO S/S OF SOB OR PAIN AT THIS TIME. DOES NOT APPEAR TO BE IN ACUTE DISTRESS. PT REMINDED MULTIPLE TIMES TO KEEP NC ON. PT IS FORGETFUL AND CONFUSED. A/OX2. MAINTAINED 500ML/DAY FLUID RESTRICTION. JOYA IN PLACE AND DRAINING TO GRAVITY. YARON PICC LINE PATENT AND INTACT. PT SLEPT WELL THROUGHOUT THE NIGHT. BREATHING TX PROVIDED ORDERED. BED REMAINS IN LOW/LOCKED POSITION WITH CALL LIGHT IN REACH AND SIDE RAILS UPX2. BED ALARM ON FOR SAFETY. NO SIGNIFICANT CHANGES OVERNIGHT. KEPT PT COMFORTABLE. WILL ENDORSE TO DAY SHIFT RN RADHA.
--- NOTE | 2018-03-02 07:10 | NUR ---
MS/RN OPENING NOTE PATIENT IN BED AWAKE. ALERT AND ORIENTED X2. NOTED THE PATIENT TO BE VERY FORGETFUL. REMINDERS PROVIDED. DENIES PAIN AT THIS TIME. RESPIRATION REGULAR AND UNLABORED. SOB AT THIS TIME. PATIENT ON FLUID RESTRICTION 500 ML/DAY. PATIENT IS REMINDED ABOUT FLUID RESTRICTION.YARON PICC LINE PATENT. JOYA CATH DRAINING CLEAR AND YELLOW COLOR URINE. BED LOW AND LOCKED. SIDE RAILS UP X2. CALL LIGHT WITHIN REACH. WILL CONTINUE TO MONITOR.
[2018-03-02] MEDS: MORPHINE SULFATE INJ 4 MG/ML DISP.SYRIN IV PRN (08:59)
[2018-03-02] MEDS: Z GUARD REMEDY 4 OZ OINT TP SCH (09:00)
[2018-03-02] MEDS: AMIODARONE HCL 200 MG TABLET PO SCH ×3 (09:00→16:38)
[2018-03-02] MEDS: CARVEDILOL 6.25 MG TABLET PO SCH ×2 (09:00→20:47)
[2018-03-02] MEDS: ONDANSETRON HCL/PF 4 MG/2 ML VIAL IVP PRN ×2 (09:10→16:37)
[2018-03-02] MEDS: MAGNESIUM HYDROXIDE 30 ML UDC PO PRN (09:58)
[2018-03-02] MEDS: LORAZEPAM 0.5 MG TABLET PO SCH (10:01)
[2018-03-02] MEDS ORDERED: ZOLPIDEM TARTRATE 5 MG TABLET PO PRN (11:00)
[2018-03-02] MEDS: SOD FERRIC GLUC 125 MG in IV NS 0.9% 100 ML IV SCH (14:46)
[2018-03-02] MEDS: FENTANYL PF 100MCG/2ML AMPUL IV PRN (15:46)
[2018-03-02 16:00] VITALS: BP 112/75
--- NOTE | 2018-03-02 18:23 | NUR ---
MS/RN CLOSING NOTE PATIENT ALERT AND ORIENTED X2, CONFUSED, FORGETFUL. REMINDERS AND REDIRECTIONS PROVIDED NEEDED. DENIES SOB AT THIS TIME. RESPIRATION REGULAR AND UNLABORED. DENIES PAIN AT THIS TIME. PATIENT IN NO APPARENT DISTRESS AT THIS TIME. YARON PICC LINE PATENT AND SALINE LOCKED. JOYA CATH DRAINING CLEAR AND DARK YELLOW COLOR URINE WITH NO FOUL ODOR. PATIENT AMBULATES WITH FWW AND STAND BY ASSIST. VERBAL CUES ARE PROVIDED TO KEEP SAFETY AWARENESS HIGH. BED LOW AND LOCKED. SIDE RAILS UP X3. BED ALARM ON. PATIENT REFUSED SCD SLEEVES AT THIS TIME. WILL ENDORSE THE PATIENT TO THE UPCOMING SHIFT.
[2018-03-02 19:21] VITALS: BP 112/76
--- NOTE | 2018-03-02 19:35 | NUR ---
MS RN OPENING NOTES RECEIVED PT IN BED ALERT, AWAKE, VERBALLY RESPONSIVE. ON O2 VIA N/C AT 4L/MIN, RESPIRATIONS EVEN, UNLABORED, NO APPARENT DISTRESS NOTED. NO S/SX OF PAIN OR DISCOMFORT NOTED. IV SITE YARON PICC LINE INTACT, PATENT. CALL LIGHT WITH REACH. BED LOCKED IN LOWEST POSITION. ATTENDED ALL NEEDS. WILL CONTINUE TO MONITOR ACCORDINGLY.
[2018-03-02 20:00] VITALS: BP 105/67
[2018-03-02 22:00] VITALS: BP 106/66
[2018-03-02] MEDS: LORAZEPAM 0.5 MG TABLET PO PRN (22:01)
[2018-03-03] MEDS: FENTANYL PF 100MCG/2ML AMPUL IV PRN ×2 (00:07→08:47)
[2018-03-03] MEDS: IPRATROPIUM NEB FS 0.5 MG/2.5 ML AMPUL.NEB NEB SCH ×7 (03:02→23:30)
[2018-03-03] MEDS: ALBUTEROL FS 2.5 MG/0.5 ML VIAL.NEB NEB SCH ×7 (03:02→23:30)
[2018-03-03] MEDS: ONDANSETRON HCL/PF 4 MG/2 ML VIAL IVP PRN ×3 (05:13→20:46)
--- NOTE | 2018-03-03 06:14 | NUR ---
MS RN CLOSING NOTES PT IN BED, RESTING COMFORTABLY. ON O2 VIA N/C AT 4 L/MIN, NO RESPIRATORY DISTRESS NOTED. NO S/SX OF PAIN OR DISCOMFORT NOTED AT THIS TI.E IV SITE YARON PICC LINE INTACT, PATENT. KEPT CLEAN AND COMFORTABLE, ATTENDED ALL NEEDS. WILL CONTINUE TO MONITOR ACCORDINGLY.
--- NOTE | 2018-03-03 07:25 | NUR ---
RN OPENING NOTES RECEIVED PT. IN BED A&X2-3, CONFUSED. BREATHING UNLABORED ON OXYGEN AT 4L/MIN VIA NASAL CANNULA. NO S/S OF ACUTE DISTRESS. JOYA CATHETER HAS CLEAR, AND MATHEUS URINE OUTPUT 50 CC OUTPUT. WALKER AT BEDSIDE, BED IS IN LOWEST, AND LOCKED POSITION. 2 SIDE RAILS UP, AND INSTRUCTED PT. TO USE CALL LIGHT FOR ASSISTANCE. ALL NEEDS MET. WILL CONTINUE TO ASSESS AND MONITOR.
[2018-03-03 08:00] VITALS: BP 106/74
[2018-03-03 08:05] LABS: BASOPHILS % (AUTO) 0.1 % (0.0-2.0); EOSINOPHILS % (AUTO) 2.1 % (0.0-6.0); HEMATOCRIT 26 % (39-51); HEMOGLOBIN 8.5 g/dL (13.5-17.5); LYMPHOCYTES # (AUTO) 0.7 /CMM (0.8-4.8); LYMPHOCYTES % (AUTO) 15.4 % (20.0-44.0); MEAN CORPUSCULAR HGB CONC 32 g/dl (31.0-36.0); MEAN CORPUSCULAR VOLUME 92 fL (80-96); MONOCYTES # (AUTO) 0.8 /CMM (0.1-1.30); MONOCYTES % (AUTO) 18.4 % (2.0-12.0); NEUTROPHILS # (AUTO) 2.8 /CMM (1.8-8.9); PLATELET COUNT (AUTO) 151 /CMM (150-450); RDW COEFFICIENT OF VARIATION 22.2 (11.5-15.0); RED BLOOD CELL COUNT(AUTO) 2.88 MIL/uL (4.5-6.0); WHITE BLOOD COUNT (AUTO) 4.3 K/uL (4.3-11.0)
[2018-03-03 08:37] LABS: BAND % (MANUAL) 2 % (0.0-5.0); EOSINOPHILS % (MANUAL) 2 % (0-4); LYMPHOCYTES % (MANUAL) 17 % (16-48); MONOCYTES % (MANUAL) 13 % (0-11.0); NEUTROPHILS % (MANUAL) 66 (42-76)
[2018-03-03] MEDS: FUROSEMIDE 40 MG TABLET PO SCH (08:38)
[2018-03-03 08:42] LABS: ALBUMIN 2.2 g/dL (3.4-5.0); BILIRUBIN,TOTAL 1.4 mg/dL (0.2-1.0); CALCIUM, SERUM 7.8 mg/dL (8.5-10.1); CREATININE 1.1 mg/dL (0.6-1.3); MAGNESIUM 1.7 mg/dL (1.8-2.4); PHOSPHORUS 2.3 mg/dL (2.5-4.9); POTASSIUM 3.9 mmol/L (3.5-5.1); TOTAL PROTEIN, SERUM 6.2 g/dL (6.4-8.2)
[2018-03-03] MEDS: AMIODARONE HCL 200 MG TABLET PO SCH ×3 (08:44→16:47)
[2018-03-03] MEDS: CARVEDILOL 6.25 MG TABLET PO SCH ×2 (08:44→20:56)
[2018-03-03] MEDS: Magnesium 1GM/D5W 100ML PREMIX 100 ML IV SCH ×2 (09:41→10:41)
[2018-03-03 09:52] LABS: ABG BASE EXCESS 2.6 mmol/L; ABG OXYGEN SATURATION 97.9 % (92.0-98.5); ABG PCO2 37.5 mmHg (35.0-45.0); ABG PH 7.465 (7.350-7.450); ABG PO2 127.2 mmHg (75.0-100.0); AaDO2 187.1 mmHg; COHb 0.2 % (0.5-1.5); MetHb 0.3 % (0.0-1.5); O2Hb 97.4 % (94.0-97.0); SITE, ABG Right Radial; VENT MODE, BG SIMPLE MASK
--- NOTE | 2018-03-03 10:10 | NUR ---
ADMINISTERED DESYREL 50MG INSTEAD OF ORDERED DOSE OF 25MG. AND ATIVAN 0.5MG INSTEAD OF THE ORDERED DOSE OF 0.25MG. MEDICATIONS NEEDED TO BE CUT IN HALF BUT WAS GIVEN WHOLE BY MISTAKE. TOOK PATIENTS VITAL SIGNS IMMEDIATELY. BP AT 91/53, HR OF 61, O2 SATURATION 95-100% ON 4L O2. RESPIRATIONS 22. CALLED DR. JIANG IMMEDIATELY AND REPORTED THE INCIDENT WITH CURRENT AND PERVIOUS VITAL SIGNS. PATIENT IS ALERT NO CHANGES IN LOC. SHE TOLD ME TO PUT THE PATIENT ON TELE MONITORING, CONTINUOUS O2 SAT MONITOR, AND MONITOR PATIENT'S REPARATIONS CLOSELY. Addendum: 03/04/18 at 0025 by ARLINE PALACIOS RN INCIDENT OCCURRED AT NIGHT 2210.
[2018-03-03] MEDS: Z GUARD REMEDY 4 OZ OINT TP SCH (10:50)
[2018-03-03] MEDS ORDERED: HYDROCODONE/APAP 5/325MG 1 EACH TABLET PO PRN (11:00)
[2018-03-03] MEDS: MAGNESIUM HYDROXIDE 30 ML UDC PO PRN (14:28)
[2018-03-03] MEDS: SOD FERRIC GLUC 125 MG in IV NS 0.9% 100 ML IV SCH (14:29)
[2018-03-03] MEDS ORDERED: K PHOS NEUTRAL 250 MG TABLET PO ONE (15:30)
[2018-03-03 16:00] VITALS: BP 135/66
--- NOTE | 2018-03-03 19:09 | NUR ---
RN CLOSING NOTES PT. IN BED A&X2-3, CONFUSED. BREATHING UNLABORED ON OXYGEN AT 4L/MIN VIA NASAL CANNULA, RECEIVING BREATHING TREATMENT. NO S/S OF ACUTE DISTRESS. JOYA CATHETER HAS CLEAR, AND MATHEUS URINE OUTPUT. WALKER AT BEDSIDE, BED IS IN LOWEST, AND LOCKED POSITION. 2 SIDE RAILS UP, AND INSTRUCTED PT. TO USE CALL LIGHT FOR ASSISTANCE. ALL NEEDS MET. WILL ENDORSE REPORT TO NURSE.
[2018-03-03 20:00] VITALS: BP 107/57
--- NOTE | 2018-03-03 20:13 | NUR ---
MS RN OPENING NOTE RECEIVED PATIENT SITTING ON THE BED FEET DANGLING. ALERT, ORIENTED X2, CONFUSED AT TIMES. ON 4L O2 VIA NC. CURRENTLY RECEIVING BREATHING TREATMENT. IN NO APPARENT DISTRESS AT THIS TIME. RESPIRATIONS EVEN AND UNLABORED. ABLE TO VERBALIZE NEEDS. JOYA CATH OBSERVED WITH CLEAR AND TEA COLOR URINE OUTPUT. PATIENT WITH CENTRAL LINE ON RIGHT UPPER ARM. SALINE LOCK. PATENT AND INTACT. HAS WALKER AT BEDSIDE BUT IS ENCOURAGED TO BE ON BEDREST. SAFETY MEASURES IN PLACE, BED IN LOW LOCKED POSITION, SIDE RAILS UP X2, CALL LIGHT WITHIN EASY REACH. WILL CONTINUE TO MONITOR.
--- NOTE | 2018-03-03 20:59 | NUR ---
COREG WAS HELD DUE TO SBP OF 93. WILL CONTINUE TO MONITOR.
[2018-03-03] MEDS: LORAZEPAM 0.5 MG TABLET PO PRN (21:56)
[2018-03-03] MEDS ORDERED: TRAZODONE 50 MG TABLET PO SCH (22:00)
--- NOTE | 2018-03-03 22:10 | NUR ---
ADMINISTERED DESYREL 50MG INSTEAD OF ORDERED DOSE OF 25MG. AND ATIVAN 0.5MG INSTEAD OF THE ORDERED DOSE OF 0.25MG. MEDICATIONS NEEDED TO BE CUT IN HALF BUT WAS GIVEN WHOLE BY MISTAKE. TOOK PATIENTS VITAL SIGNS IMMEDIATELY. BP AT 91/53, HR OF 61, O2 SATURATION 95-100% ON 4L O2. RESPIRATIONS 22. CALLED DR. JIANG IMMEDIATELY AND REPORTED THE INCIDENT WITH CURRENT AND PERVIOUS VITAL SIGNS. PATIENT IS ALERT NO CHANGES IN LOC. SHE TOLD ME TO PUT THE PATIENT ON TELE MONITORING, CONTINUOUS O2 SAT MONITOR, AND MONITOR PATIENT'S REPARATIONS CLOSELY
--- NOTE | 2018-03-03 22:40 | NUR ---
DR JIANG IN THE UNIT. CHECKED UP THE PATIENT. DUE TO HIS DIFFICULTY BREATHING, WHICH WAS ALSO PRESENT BEFORE ADMINISTERED DOSES OF ATIVAN AND DESYREL, AND DECREASED BP, SHE ORDERED STAT ABGS. WILL CONTINUE TO MONITOR.
--- NOTE | 2018-03-03 22:40 | NUR ---
DR. JIANG DISCONTINUED ATIVAN, DESYREL, AND NORCO, AND PLACED AN ORDER FOR IV FLUIDS. THE SHE TOLD ME THAT SHE JUST REALIZED THE PATIENT IS DR ADDISON'S PATIENT SO I SHOULD CALL HIM AND INFORM OF EVERYTHING THAT HAPPENED AND THE ORDERS SHE MADE. PAGED DR. ADDISON WAITING FOR CALL BACK. PATIENT IS AWAKE AT THIS TIME, NO CHANGES IN LOC, VITAL SIGNS: SR ON TELE MONITORING WITH HR OF 60 AND O2 SATURATION OF 98%.
[2018-03-03] MEDS ORDERED: IV NS 0.9% 1,000 ML IV SCH (23:00)
--- NOTE | 2018-03-03 23:00 | NUR ---
DR ADDISON CALLED BACK, REPORTED THE WHOLE INCIDENT AND INFORMED ABOUT DR JIANG'S ORDERS. DR. ADDISON AGREED WITH THE ORDERS EXCEPT FOR IV FLUIDS. ORDERED TO CANCEL IV FLUID ORDERS MADE BY DR. JIANG. DR ADDISON SAID TO CONTINUE TO MONITOR PATIENT'S CONDITION AND KEEP HIM ON TELEMETRY. PATIENT IS STABLE AT THIS TIME. AWAKE, NO SIGN OS CHANGES IN LOC, RESPIRATIONS EVEN AND UNLABORED. O2 SATURATION RANGES BETWEEN 94-100% ON 4L OF OXYGEN. HEART RATE IN LOW 60S.
[2018-03-03 23:39] LABS: HEMATOCRIT 26 % (39-51); HEMOGLOBIN 8.4 g/dL (13.5-17.5); LYMPHOCYTES # (AUTO) 0.7 /CMM (0.8-4.8); LYMPHOCYTES % (AUTO) 14.1 % (20.0-44.0); MEAN CORPUSCULAR HGB CONC 32 g/dl (31.0-36.0); MEAN CORPUSCULAR VOLUME 90 fL (80-96); MONOCYTES # (AUTO) 0.7 /CMM (0.1-1.30); MONOCYTES % (AUTO) 14.6 % (2.0-12.0); NEUTROPHILS # (AUTO) 3.4 /CMM (1.8-8.9); NEUTROPHILS % (AUTO) 69.3 % (43.0-81.0); PLATELET COUNT (AUTO) 188 /CMM (150-450); RDW COEFFICIENT OF VARIATION 22.7 (11.5-15.0); RED BLOOD CELL COUNT(AUTO) 2.91 MIL/uL (4.5-6.0); WHITE BLOOD COUNT (AUTO) 4.9 K/uL (4.3-11.0)
[2018-03-03 23:53] LABS: CALCIUM, SERUM 7.3 mg/dL (8.5-10.1); CREATININE 1.3 mg/dL (0.6-1.3); MAGNESIUM 1.9 mg/dL (1.8-2.4); PHOSPHORUS 2.5 mg/dL (2.5-4.9); POTASSIUM 3.8 mmol/L (3.5-5.1)
[2018-03-04] VITALS: BP 133/74
[2018-03-04 00:08] LABS: ABG BASE EXCESS 1.6 mmol/L; ABG OXYGEN SATURATION 91.1 % (92.0-98.5); ABG PCO2 36.3 mmHg (35.0-45.0); ABG PH 7.462 (7.350-7.450); ABG PO2 65.9 mmHg (75.0-100.0); AaDO2 148.7 mmHg; MetHb 0.5 % (0.0-1.5); O2Hb 90.6 % (94.0-97.0); SITE, ABG Left Radial; VENT MODE, BG nc 4L 36%
--- NOTE | 2018-03-04 00:15 | NUR ---
PATIENT AWAKE, ALERT ORIENTED X2, NO CHANGES IN LOC. PATIENT'S BEEN MOVING IN BED TRYING TO FIND HIS PHONE. VITAL SIGNS TAKEN BP INCREASED TO : 133/74, HR: 62, RESP: 20, TEMP: 98.1, O2 SAT: 98%. WILL CONTINUE TO MONITOR.
[2018-03-04] MEDS: ALBUTEROL FS 2.5 MG/0.5 ML VIAL.NEB NEB SCH ×6 (03:30→22:56)
[2018-03-04] MEDS: IPRATROPIUM NEB FS 0.5 MG/2.5 ML AMPUL.NEB NEB SCH ×6 (03:30→22:56)
--- NOTE | 2018-03-04 07:24 | NUR ---
COUNTER WEIGHER CLOSING NOTE PATIENT IN BED ALERT, ORIENTED X2, CONFUSED AT TIMES. ON 4L O2 VIA NC. WITH SCHEDULED BREATHING TREATMENTS. IN NO APPARENT DISTRESS AT THIS TIME. RESPIRATIONS EVEN AND UNLABORED. ABLE TO VERBALIZE NEEDS. JOYA CATH OBSERVED WITH CLEAR AND TEA COLOR URINE OUTPUT OF 350ML. PATIENT WITH CENTRAL LINE ON RIGHT UPPER ARM. SALINE LOCK. PATENT AND INTACT. HAS WALKER AT BEDSIDE BUT IS ENCOURAGED TO BE ON BEDREST. ALL NEEDS ATTENDED, KEPT CLEAN AND COMFORTABLE. SAFETY MEASURES IN PLACE, BED IN LOW LOCKED POSITION, SIDE RAILS UP X2, CALL LIGHT WITHIN EASY REACH. WILL ENDORSE TO AM NURSE FOR RADHA.
--- NOTE | 2018-03-04 07:30 | NUR ---
RN OPENING NOTES RECEIVED PATIENT ON BED A/O X2, PERIODS OF CONFUSION. NO ACUTE DISTRESS, NO SOB NOTED. PATIENT PLACED ON TELE MONIOTRING HR 63, FIRST DEGREE AV BLOCK WITH BBB. RIGHT UPPER ARM PICC LINE INTACT AND PATENT. JOYA CATH IN PLACE DRAINING DARK YELLOW URINE. FALL PRECAUTION INITIATED, BED ALARM ON. BED ON LOWEST POSITION AND LOCKED, SIDERAILS UPX2, CALL LIGHT IN REACH. WILL CONTINUE TO MONITOR ACCORDINGLY.
[2018-03-04 08:00] VITALS: BP_SYST 101; BP_SYST 110; BP_DIAS 67; BP_DIAS 71
[2018-03-04] MEDS: AMIODARONE HCL 200 MG TABLET PO SCH ×3 (08:58→17:29)
[2018-03-04] MEDS: FUROSEMIDE 40 MG TABLET PO SCH (08:58)
[2018-03-04] MEDS: CARVEDILOL 6.25 MG TABLET PO SCH ×2 (08:59→21:00)
[2018-03-04] MEDS: Z GUARD REMEDY 4 OZ OINT TP SCH (09:00)
--- NOTE | 2018-03-04 09:58 | NUR ---
RN NOTES VERIFIED WITH DR ADDISON REGARDING NORCO ORDER. PER MD, OK TO GIVE NORCO 5 EVERY 8HRS PRN
[2018-03-04] MEDS: HYDROCODONE/APAP 5/325MG 1 EACH TABLET PO PRN ×2 (10:07→22:12)
[2018-03-04] MEDS: MAGNESIUM HYDROXIDE 30 ML UDC PO PRN ×2 (11:01→17:28)
[2018-03-04] MEDS ORDERED: K PHOS NEUTRAL 250 MG TABLET PO ONE (12:00)
[2018-03-04 16:49] VITALS: BP 100/42
--- NOTE | 2018-03-04 19:30 | NUR ---
MS RN OPENING NOTES: PATIENT IN BED, AOX2, ON 02 AT 4 LPM, BREATHING EVEN AT RATE OF 21 PER MINUTE, APPEARS UNLABORED, NO USE OF ACCESSORY MUSCLE NOTED WHILE BREATHING. AUSCULTATED SLIGHT EXPIRATORY WHEEZING, DIMINISHED BREATH SOUNDS AT BASES. MAINTAINED HOB ELEVATED. PATIENT HAS YARON TRIPLE LUMEN, WITH GOOD BLOOD RETURN AND PATENT TO FLUSH. JOYA CATHETER IN PLACE DRAINING DARK YELLOW URINE. PROVIDED FOR COMFORT AND SAFETY. BED IN LOWEST AND LOCKED POSITION, SIDERAILS UP X 3,BED ALARMS ON, ALL LIGHT WITHIN REACH. WILL CONT TO MONITOR.
[2018-03-04 20:00] VITALS: BP 110/67
--- NOTE | 2018-03-04 21:20 | NUR ---
RN NOTES: PATIENT'S BP WAS RECHECKED AT 92/69, HR: 65. O2 SAT AT 95%. HELD CARVEDILOL SCHEDULED AT THIS TIME AND WILL RECHECK BP LATER.
--- NOTE | 2018-03-04 22:14 | NUR ---
RN NOTES: PATIENT COMPLAINING OF 10/10 PAIN OVER HIS LOWER AND UPPER ANTERIOR ABDOMEN. RECHECKED BP: 100/76, HR: 63, O2 SAT: 100%.
[2018-03-05 00:28] VITALS: BP 102/52
[2018-03-05] MEDS: LORAZEPAM 0.5 MG TABLET PO PRN ×2 (00:33→21:34)
--- NOTE | 2018-03-05 00:37 | NUR ---
RN NOTES: PATIENT IS VERY RESTLESS AND ANXIOUS, TOOK OFF HIS NASAL CANNULA AND PULSE OX SENSOR. PATIENT KEPT REQUESTING FOR SLEEPING PILL, ATIVAN PRN IS ON ORDER. RECHECKED BP AT 102/52, HR: 66, RR: 18 O2 SAT : 97%. ADMINISTERED ATIVAN 0.25 MG PO. WILL CONT TO MONITOR.
[2018-03-05] MEDS: IPRATROPIUM NEB FS 0.5 MG/2.5 ML AMPUL.NEB NEB SCH ×6 (03:18→23:59)
[2018-03-05] MEDS: ALBUTEROL FS 2.5 MG/0.5 ML VIAL.NEB NEB SCH ×6 (03:19→23:59)
--- NOTE | 2018-03-05 06:42 | NUR ---
MS RN CLOSING NOTES: PATIENT IN BED, AOX2, ON O2 AT 4 LPM VIA NC, BREATHING EVEN AT RATE OF 20 PER MINUTE, APPEARS UNLABORED. PATIENT APPEARS ANXIOUS, CONSTANTLY CALLING NURSE THIS AM WHEN HE WOKE UP, VERY FORGETFUL, KEPT ASKING WHY HE HAS A JOYA CATHETER AND AN O2 NASAL CANNULA. KEPT REORIENTING HIM AND EXPLAINING PLAN OF CARE. PUA PICC LINE INTACT AND PATENT TO FLUSH. DUE MEDS GIVEN. PROVIDED FOR COMFORT AND SAFETY. BED IN LOWEST AND LOCKED POSITION, SIDERAILS UP X3, CALL LIGHT WITHIN REACH. WILL ENDORSE TO AM RN FOR RADHA.
[2018-03-05 07:09] LABS: EOSINOPHILS % (AUTO) 1.4 % (0.0-6.0); HEMATOCRIT 26 % (39-51); HEMOGLOBIN 8.5 g/dL (13.5-17.5); LYMPHOCYTES # (AUTO) 1.3 /CMM (0.8-4.8); LYMPHOCYTES % (AUTO) 26.1 % (20.0-44.0); MEAN CORPUSCULAR HGB CONC 33 g/dl (31.0-36.0); MEAN CORPUSCULAR VOLUME 91 fL (80-96); MONOCYTES # (AUTO) 0.9 /CMM (0.1-1.30); MONOCYTES % (AUTO) 19.5 % (2.0-12.0); NEUTROPHILS # (AUTO) 2.5 /CMM (1.8-8.9); PLATELET COUNT (AUTO) 172 /CMM (150-450); RED BLOOD CELL COUNT(AUTO) 2.87 MIL/uL (4.5-6.0); WHITE BLOOD COUNT (AUTO) 4.8 K/uL (4.3-11.0)
--- NOTE | 2018-03-05 07:30 | NUR ---
YANIRA MS NOTES RECEIVED PATIENT IN BED, AWAKE ALERT AND ORIENTED X 2, NOTED ANXIOUS AND FORGETFUL, ABLE TO MAKE SIMPLE NEEDS KNOWN, FALL PRECAUTIONS IN PLACE, JOYA CATHETER INTACT, DRAINING WELL. RESPIRATIONS EVEN AND UNLABORED ON 4L O2 AT 92% ,SAFETY MEASURES IN PLACE, CALL LIGHT KEPT WITHIN REACH, NO COMPLAINTS OF PAIN OR DISCOMFORT AT THIS TIME, REMAINS COMFORTABLE. ON FLUID RESTRICTIONS, WILL CONTINUE TO MONITOR. Addendum: 03/05/18 at 0807 by FELIPE TREIVÑO RN OPENING NOTES Addendum: 03/05/18 at 1812 by FELIPE TREVIÑO RN OPENING NOTES
--- NOTE | 2018-03-05 07:30 | NUR ---
RN MS NOTES CLARIFICATION PATIENT ON 2 LITER OF OXYGEN VIA NC SPO2 AT 92%
[2018-03-05 07:39] LABS: CALCIUM, SERUM 7.9 mg/dL (8.5-10.1); CREATININE 1.2 mg/dL (0.6-1.3); MAGNESIUM 1.9 mg/dL (1.8-2.4); POTASSIUM 4.2 mmol/L (3.5-5.1)
[2018-03-05 08:00] VITALS: BP_SYST 137; BP_SYST 94; BP_DIAS 58; BP_DIAS 59
[2018-03-05] MEDS: CARVEDILOL 6.25 MG TABLET PO SCH ×2 (09:00→21:00)
[2018-03-05] MEDS: HYDROCODONE/APAP 5/325MG 1 EACH TABLET PO PRN ×2 (09:04→23:27)
[2018-03-05] MEDS: Z GUARD REMEDY 4 OZ OINT TP SCH (09:05)
[2018-03-05] MEDS: FUROSEMIDE 40 MG TABLET PO SCH (09:05)
[2018-03-05 09:27] LABS: EOSINOPHILS % (MANUAL) 1 % (0-4); LYMPHOCYTES % (MANUAL) 17 % (16-48); MONOCYTES % (MANUAL) 15 % (0-11.0); NEUTROPHILS % (MANUAL) 67 (42-76)
[2018-03-05] MEDS: AMIODARONE HCL 200 MG TABLET PO SCH ×3 (09:54→17:44)
--- NOTE | 2018-03-05 10:30 | NUR ---
RN NOTES UPON SKIN ASSESSMENT NOTED OPEN SKIN TO SACRAL AREA, PINK IN COLOR, CAMERA NOT AVAILABLE AT THIS TIME, APPLIED Z GUARD, REPOSITIONED. WOUND CONSULT IN PLACE.
--- NOTE | 2018-03-05 12:29 | NUR ---
RT NOTE: PATIENT REPORTS SOB AFTER RETURNING FROM RESTROOM. RESPIRATORY TREATMENT GIVEN AND TOLERATED WELL. PATIENT STATES HE FEELS A LITTLE BETTER AFTER TREATMENT. NURSE AWARE. WILL CONTINUE TO MONITOR.
[2018-03-05] MEDS: ONDANSETRON HCL/PF 4 MG/2 ML VIAL IVP PRN ×2 (12:59→20:47)
--- NOTE | 2018-03-05 13:00 | NUR ---
RN MS NOTES NOTED SPO2 FLUCTUATING BETWEEN 84-96% ON 02 2LITERS, AWAKE ALERT VERBALLY RESPONSIVE, AZAEL ROSARIO MADE AWARE OF FLUCTUATION WITH NO NEW ORDERS AT THIS TIME.
[2018-03-05] MEDS ORDERED: FUROSEMIDE 40 MG/4 ML VIAL IV ONE (13:30)
[2018-03-05 16:00] VITALS: BP 117/77
--- NOTE | 2018-03-05 19:00 | NUR ---
RN NOTES RECEIVE PT IN BED A/O X2 , NO S/S OF DISTRESS, STABLE, SAFETY MEASURES IN PLACE, CALL LIGHT WITHIN REACH, WILL CONTINUE TO MONITOR
--- NOTE | 2018-03-05 19:31 | NUR ---
RN MS CLOSING NOTES PATIENT IN BED, AWAKE ALERT AND ORIENTED X 2, NOTED FORGETFUL, ABLE TO MAKE SIMPLE NEEDS KNOWN, FALL PRECAUTIONS IN PLACE, JOYA CATHETER INTACT, DRAINING WELL. RESPIRATIONS EVEN AND UNLABORED ON 2L O2 AT 96% ,SAFETY MEASURES IN PLACE, CALL LIGHT KEPT WITHIN REACH, NO COMPLAINTS OF PAIN OR DISCOMFORT AT THIS TIME, REMAINS COMFORTABLE. ON FLUID RESTRICTIONS, UPON SKIN ASSESSMENT NOTED OPEN SKIN TO SACRAL AREA, PINK IN COLOR, UNABLE TO TAKE PICTURE DUE UNABLE TO LOCATE CAMERA, ENDORSED TO NEXT SHIFT NURSE, APPLIED Z GUARD. WOUND CONSULT IN PLACE.
[2018-03-05 20:00] VITALS: BP 107/64
[2018-03-06] MEDS: IPRATROPIUM NEB FS 0.5 MG/2.5 ML AMPUL.NEB NEB SCH ×4 (03:30→15:30)
[2018-03-06] MEDS: ALBUTEROL FS 2.5 MG/0.5 ML VIAL.NEB NEB SCH ×4 (03:30→15:30)
--- NOTE | 2018-03-06 06:20 | NUR ---
MS RN NOTES PT ASLEEP COMFORTABLY IN BED AND EASILY AWAKEN HEAD OF BED ELEVATED FOR BETTER LUNG EXPANSION AND GOOD CIRCULATION. ON 2LPM VIA NC 02 SAT 98% NOT IN RESPIRATORY DISTRESS. NO COMPLAINS OF PAIN. STABLE CONDITION. F/C DRAINING YELLOW VIA GRAVITY WITH NO SEDIMENTS NO HEMATURIA. ASSISTED REPOSITION Q2H FOR SKIN MGT. AFEBRILE. NO ACUTE CHANGES THROUGHOUT THE SHIFT. PT KEPT CLEAN AND DRY AND COMFORT. NURSING CARE RENDERED. NEEDS ATTENDED AND ANTICIPATED. GOOD SKIN CARE PROVIDED. ON LOW BED TO ENSURE SAFETY, CALL LIGHT WITHIN REACH, WILL ENDORSE TO THE NEXT SHIFT CONTINUE PLAN OF CARE
--- NOTE | 2018-03-06 07:30 | NUR ---
RN OPENING MS NOTES RECEIVED PATIENT IN BED, AWAKE ALERT AND ORIENTED X 2, NOTED FORGETFUL, ABLE TO MAKE SIMPLE NEEDS KNOWN, FALL PRECAUTIONS IN PLACE, JOYA CATHETER INTACT, DRAINING WELL. RESPIRATIONS EVEN AND UNLABORED ON 2L O2 AT 94% ,SAFETY MEASURES IN PLACE, CALL LIGHT KEPT WITHIN REACH, NO COMPLAINTS OF PAIN OR DISCOMFORT AT THIS TIME, REMAINS COMFORTABLE. ON FLUID RESTRICTIONS, WILL CONTINUE TO MONITOR.
[2018-03-06 08:00] VITALS: BP 111/70
--- NOTE | 2018-03-06 08:41 | NUR ---
WOUND CARE CONSULT: PT PRESENTS WITH DRY ABRASIONS TO SACRAL/BUTTOCKS AREA WITH SOME PEELING SKIN. NO DRAINAGE NOTED. PT STATES THAT HE HAS BEEN SCRATCHING HIS BUTTOCKS ON THE BED BY MOVING HIS BUTTOCKS BACK AND FORTH TO SCRATCH. PT INSTRUCTED TO STOP SCRATCHING. RECOMMENDATIONS MADE TO PROTECT SKIN AND DISCUSSED WITH NURSING STAFF. PT ON ADRIANA ISOFLEX LOW AIRLOSS BED. PT IS CONTINENT OF STOOL AT THIS TIME AND HAS JOYA. ALL SKIN PROTECTION MEASURES IN PLACE. WILL SEE PRN. SIEGEL IN AGREEMENT WITH PLAN OF CARE. Addendum: 03/06/18 at 0844 by ARACELI MATTHEWSU Amended: Links added. Addendum: 03/06/18 at 0851 by ARACELI MATTHEWSU PT EXAMINED BY DR ADDISON.
[2018-03-06] MEDS: Z GUARD REMEDY 4 OZ OINT TP SCH (09:04)
[2018-03-06] MEDS: FUROSEMIDE 40 MG TABLET PO SCH (09:04)
[2018-03-06] MEDS: CARVEDILOL 6.25 MG TABLET PO SCH (09:04)
[2018-03-06] MEDS: AMIODARONE HCL 200 MG TABLET PO SCH ×3 (09:04→17:00)
--- NOTE | 2018-03-06 10:00 | NUR ---
RN NOTES PATIENT TURNED AND REPOSITIONED, KEPT CLEAN DRY AND COMFORTABLE, CALL LIGHT WITHIN EASY REACH
[2018-03-06] MEDS: ONDANSETRON HCL/PF 4 MG/2 ML VIAL IVP PRN (10:22)
[2018-03-06] MEDS: FUROSEMIDE 40 MG/4 ML VIAL IV SCH ×2 (11:00→15:00)
--- NOTE | 2018-03-06 11:47 | NUR ---
RN NOTES BED ALARM ON, RN WENT TO ROOM ALARM IS ON, FOUND PATIENT IN LEFT SIDE LYING POSITION PATIENT EASILY AROUSABLE, ASSISTED BACK TO BED BY 4 PERSON ASSIST. VS TAKEN, DENIES ANY PAIN OR DISCOMFORT, OXYGEN PLACED, NO BLEEDING NOTED,. PT CONFUSED ABLE TO VERBALIZE NEEDS,PERRLA, EQUAL STRENGTH TO BLE AND BUE, WILL CONTINUE TO MONITOR
--- NOTE | 2018-03-06 15:00 | NUR ---
RN NOTES PATIENT WITH DISCHARGE ORDERS,MONITORED FOR S/P PER DR. ADDISON, WILL CONTINUE TO MONITOR AT THIS TIME
[2018-03-06 17:00] VITALS: BP 99/56
--- NOTE | 2018-03-06 17:00 | NUR ---
cable reeler MS NOTES PATIENT IN BED, AWAKE ALERT AND ORIENTED X 2, NOTED FORGETFUL, ABLE TO MAKE SIMPLE NEEDS KNOWN, FALL PRECAUTIONS IN PLACE, JOYA CATHETER INTACT WELL 300 CC, DRAINING WELL. PICC LINE RIGHT UPPER ARM, INTACT AND PATENT, RESPIRATIONS EVEN AND UNLABORED ON 2L O2 AT 94% ,SAFETY MEASURES IN PLACE, NO COMPLAINTS OF PAIN OR DISCOMFORT AT THIS TIME ABLE TO MOVE EXTREMITIES WITH OUT DIFFICULTIES, REMAINS COMFORTABLE. ON FLUID RESTRICTIONS, DISCHARGE INSTRUCTIONS PROVIDED [facility] RN AT [facility]. ACCOMPANIED BY 2 LEGAL SERVICES PROFESSIONAL, ABDIFATAH MADE AWARE OF TRANSFER. LEFT IN STABLE CONDITION
== END 2018-03-06 17:00 | DRG 280 ==
LOC: ER 17:57 → TELE 20:32 → TELE-TD 02-21 02:51 → ICU 02-22 09:37 → MED 02-26 19:02 → TELE 03-03 23:39 → MED 03-04 09:09
PROVIDERS: ADMIT Legal Medicine; ATTEND Legal Medicine
PROC: 02HV33Z Insertion of Infusion Device into Superior Vena Cava, Percutaneous Approach (ICD-10-PCS; principal; 2018-02-22)
DX: I13.0 Hypertensive heart and chronic kidney disease with heart failure and stage 1 through stage 4 chronic kidney disease, or unspecified chronic kidney disease (principal); I21.4 Non-ST elevation (NSTEMI) myocardial infarction; J96.21 Acute and chronic respiratory failure with hypoxia; N17.0 Acute kidney failure with tubular necrosis; R57.0 Cardiogenic shock; E83.42 Hypomagnesemia; E86.0 Dehydration; I27.20 Pulmonary hypertension, unspecified; I48.91 Unspecified atrial fibrillation; E87.1 Hypo-osmolality and hyponatremia; I50.43 Acute on chronic combined systolic (congestive) and diastolic (congestive) heart failure; R18.8 Other ascites; I25.5 Ischemic cardiomyopathy; K21.9 Gastro-esophageal reflux disease without esophagitis; F10.20 Alcohol dependence, uncomplicated; F17.200 Nicotine dependence, unspecified, uncomplicated; I25.10 Atherosclerotic heart disease of native coronary artery without angina pectoris; G89.29 Other chronic pain; Z96.642 Presence of left artificial hip joint; Z91.14 Patient's other noncompliance with medication regimen; Z91.19 Patient's noncompliance with other medical treatment and regimen; Z95.810 Presence of automatic (implantable) cardiac defibrillator; Z59.0 Homelessness; N18.9 Chronic kidney disease, unspecified; K76.0 Fatty (change of) liver, not elsewhere classified; M19.90 Unspecified osteoarthritis, unspecified site; Z88.6 Allergy status to analgesic agent; Z88.8 Allergy status to other drugs, medicaments and biological substances; Z79.899 Other long term (current) drug therapy; E78.5 Hyperlipidemia, unspecified; J44.9 Chronic obstructive pulmonary disease, unspecified; B19.20 Unspecified viral hepatitis C without hepatic coma; Z98.890 Other specified postprocedural states; F03.90 Unspecified dementia, unspecified severity, without behavioral disturbance, psychotic disturbance, mood disturbance, and anxiety; D50.9 Iron deficiency anemia, unspecified; E87.5 Hyperkalemia
CPT/HCPCS: 36415; 36600; 71045-TC; 80048-TC; 80053-TC; 80061-TC; 80076-TC; 80305; 81000-TC; 82803-TC; 83540-TC; 83735-TC; 83880; 84100-TC; 84484-TC; 85025-TC; 85730-TC; 87081-TC; 87086-TC; 92521; 92526; 92611-TC; 93307-TC; 93971-TC; 94760-TC; 94799-TC; 97116-TC; 97530-TC; A4216; A4606; C1751; G0480; J0282; J1200; J1250; J1644; J1650; J1940; J2270; J2370; J2405; J2916; J2930; J3010; J3475; J3490; J7030; J7040; J7050; J7060; Z7610

== ENCOUNTER 2018-04-01 18:47 | Inpatient (IN) | payer MEDICARE, OTHER ==
[~2018-04-01] VITALS: Ht 180.3 cm; Wt 72.6 kg
[~2018-04-01 18:47] MED LIST changes: -HYDR-552 PO
[2018-04-01] MEDS ORDERED: ASPIRIN 325 MG TABLET PO ONE (19:00)
[2018-04-01] MEDS ORDERED: NITROGLYCERIN PACKET 1 GM PACKET TD ONE (19:00)
--- NOTE | 2018-04-01 19:05 | NUR ---
PT A/OX4, PT C/O CP AND SOB X A COUPLE HOURS PRIOR TO ARRIVAL, PT STATES HIS WHOLE CHEST HIS HURTING HIM, AND IT IS PAINFUL TO TAKE A BIG BREATH. PT ON MONITOR, IV PLACED, LABS DRAWN, PT ON O2 VIA MD EZE MADE AWARE WILL CONITNUE TO MONITOR.
[2018-04-01] MEDS ORDERED: NITROGLYCERIN PACKET 1 GM PACKET ONE (19:18)
[2018-04-01] MEDS ORDERED: ASPIRIN 325 MG TABLET ONE (19:18)
--- NOTE | 2018-04-01 19:27 | NUR ---
PT STATES ASPIRIN MAKES HIS STOMACH UPSET BUT DOES NOT HAVE AN ALLERGY TO MEDICATION, MD MADE AWARE AND STATES HE WANTS THE ASPIRIN GIVEN AND MD TAKED TO PT AND MD AND PATIENT AGREED.
[2018-04-01 19:37] LABS: CALCIUM, SERUM 8.4 mg/dL (8.5-10.1); CREATININE 1.1 mg/dL (0.6-1.3); POTASSIUM 3.4 mmol/L (3.5-5.1)
[2018-04-01 19:41] LABS: INR 1.13 (0.85-1.15)
[2018-04-01 19:45] LABS: TROPONIN I 0.036 ng/mL (0.00-0.056)
[2018-04-01 19:49] LABS: ALBUMIN 3.4 g/dL (3.4-5.0); BILIRUBIN,DIRECT 0.7 mg/dL (0.0-0.2); BILIRUBIN,TOTAL 1.1 mg/dL (0.2-1.0); TOTAL PROTEIN, SERUM 7.7 g/dL (6.4-8.2)
[2018-04-01] MEDS ORDERED: MORPHINE SULFATE INJ 4 MG/ML DISP.SYRIN ONE (20:00)
[2018-04-01] MEDS ORDERED: MORPHINE SULFATE INJ 2 MG/ML DISP.SYRIN IV ONE (20:00)
--- NOTE | 2018-04-01 20:01 | NUR ---
CALLED NURSING DIRECTOR INVESTMENT BANKING AND REQUESTED FOR A TELE BED
[2018-04-01 20:10] LABS: WHITE BLOOD COUNT (AUTO) 3.4 K/uL (4.3-11.0)
[2018-04-01 20:11] LABS: HEMATOCRIT 33 % (39-51); HEMOGLOBIN 11.2 g/dL (13.5-17.5); MEAN CORPUSCULAR HGB CONC 34 g/dl (31.0-36.0); MEAN CORPUSCULAR VOLUME 91 fL (80-96); PLATELET COUNT (AUTO) 147 /CMM (150-450); RDW COEFFICIENT OF VARIATION 24.1 (11.5-15.0); RED BLOOD CELL COUNT(AUTO) 3.65 MIL/uL (4.5-6.0)
[2018-04-01 20:12] LABS: BASOPHILS % (MANUAL) 0 % (0.0-2.0); EOSINOPHILS % (MANUAL) 4 % (0-4); LYMPHOCYTES % (MANUAL) 29 % (16-48); MONOCYTES % (MANUAL) 4 % (0-11.0); NEUTROPHILS % (MANUAL) 63 (42-76)
--- NOTE | 2018-04-01 20:13 | NUR ---
Ailyn cortez in EDM - 04/01/18 at 2014 by YAHIR PT IS ASSIGNED TO MED SURG RM#: [id number], PT IS DIAGNOSED WITH ANKLE FRACTURE, AND YUE SIMS IS THE ACCEPTING PRISON LIBRARIAN.
--- NOTE | 2018-04-01 20:14 | NUR ---
PT IS ASSIGNED TO [facility]#: [id number], PT IS DIAGNOSED WITH CHEST PAIN/ CHF, AND YUE SIMS IS THE ACCEPTING WEIGH AND CHARGE WORKER.
--- NOTE | 2018-04-01 20:50 | NUR ---
DENTISTRY PROFESSOR ADMITTING NOTES PATIENT BROUGHT INTO THE UNIT VIA GURNEY ACCOMPANIED BY ER STAFF, PATIENT SAFELY TRANSFERRED TO BED, UNABLE TO SAFELY AMBULATE. PT IS ALERT AND ORIENTED X 3, NOTED WITH SOME FORGETFULNESS, NOTED TO HAVE SHALLOW BREATHS WITH O2 SAT @ 97% ON O2 VIA NC @2LPM. DENIES CHEST PAIN AT THIS TIME AND IN NO ACUTE DISTRESS. ORIENTED PATIENT TO UNIT, ROOM, ADMISSION PROCESS, CALL LIGHT AND USE OF CALL LIGHT. ALL PATIENT'S NEEDS ATTENDED TO. ON TELE MONITORING WITH SINUS TACHYCARDIA @ 100S. PLACED CALL LIGHT WITHIN EASY REACH, BED IN LOW POSITION AND LOCKED IN PLACE. WILL CONTINUE TO MONITOR.
--- NOTE | 2018-04-01 21:00 | NUR ---
RN NOTE ASKED PATIENT RE: HOME MEDICATION, PER PATIENT HE HASN'T BEEN TAKING HOME MEDS FOR A YEAR NOW.
[2018-04-01 21:15] VITALS: BP 103/78
[2018-04-01] MEDS ORDERED: NITROGLYCERIN 0.4 MG/TAB BOTTLE SL PRN (22:00)
[2018-04-01] MEDS ORDERED: HYDROCODONE/APAP 5/325MG 1 EACH TABLET PO PRN (22:00)
[2018-04-01] MEDS ORDERED: ENOXAPARIN SODIUM 40 MG/0.4 ML DISP.SYRIN SQ SCH (22:00)
[2018-04-01] MEDS ORDERED: POTASSIUM CHLORIDE 20 MEQ TAB.PRT.SR PO ONE (22:00)
[2018-04-01] MEDS ORDERED: MAG HYDROX/AL HYDROX/SIMETH 30 ML UDC PO PRN (22:00)
[2018-04-01] MEDS ORDERED: MAGNESIUM HYDROXIDE 30 ML UDC PO PRN (22:00)
[2018-04-01] MEDS ORDERED: Z GUARD REMEDY 2 OZ OINT TP PRN (22:00)
[2018-04-01] MEDS: FUROSEMIDE 40 MG/4 ML VIAL IV SCH (23:05)
[2018-04-01 23:29] VITALS: BP 107/87
[2018-04-01] MEDS: MORPHINE SULFATE INJ 4 MG/ML DISP.SYRIN IV PRN (23:29)
--- NOTE | 2018-04-01 23:29 | NUR ---
RN NOTE PATIENT REQUESTED FOR PAIN MEDICATION D/T PAIN ON HIS LUNGS. PER PT HE FEELS LIKE HIS LUNGS ARE BEING CRUSHED. PAIN MEDICATION ADMINISTERED. PT IN STABLE CONDITION AND ASKING FOR A SNACK. ALL PATIENT'S NEEDS ATTENDED TO. WILL CONTINUE TO MONITOR.
[2018-04-02] VITALS: BP 109/74
[2018-04-02] MEDS: ONDANSETRON HCL/PF 4 MG/2 ML VIAL IVP PRN (00:04)
--- NOTE | 2018-04-02 00:04 | NUR ---
RN NOTE PATIENT VERBALIZED FEELING NAUSEATED, NOTED PT WAS ABLE TO CONSUME REQUESTED SNACK. NO EPISODE OF EMESIS. ZOFRAN ADMINISTERED ORDERED. WILL CONTINUE TO MONITOR PT.
[2018-04-02 04:00] VITALS: BP 105/77
[2018-04-02 04:24] LABS: BASOPHILS % (AUTO) 0.2 % (0.0-2.0); EOSINOPHILS % (AUTO) 1.9 % (0.0-6.0); HEMATOCRIT 34 % (39-51); HEMOGLOBIN 10.9 g/dL (13.5-17.5); LYMPHOCYTES # (AUTO) 1.4 /CMM (0.8-4.8); LYMPHOCYTES % (AUTO) 33.1 % (20.0-44.0); MEAN CORPUSCULAR HGB CONC 32 g/dl (31.0-36.0); MEAN CORPUSCULAR VOLUME 92 fL (80-96); MONOCYTES # (AUTO) 0.4 /CMM (0.1-1.30); MONOCYTES % (AUTO) 9.8 % (2.0-12.0); NEUTROPHILS # (AUTO) 2.4 /CMM (1.8-8.9); PLATELET COUNT (AUTO) 142 /CMM (150-450); RDW COEFFICIENT OF VARIATION 25.8 (11.5-15.0); RED BLOOD CELL COUNT(AUTO) 3.67 MIL/uL (4.5-6.0); WHITE BLOOD COUNT (AUTO) 4.3 K/uL (4.3-11.0)
[2018-04-02 04:34] LABS: CALCIUM, SERUM 8.5 mg/dL (8.5-10.1); CREATININE 1.2 mg/dL (0.6-1.3); MAGNESIUM 1.6 mg/dL (1.8-2.4); PHOSPHORUS 4.6 mg/dL (2.5-4.9)
[2018-04-02 04:46] LABS: THYROID STIMULATING HORMONE 51.8 uIU/mL (0.358-3.74)
--- NOTE | 2018-04-02 05:41 | NUR ---
RN NOTES RECEIVED RESULT OF TROP AND MAGNESIUM LEVEL FROM AM LABS, PAGED RELAY ASSEMBLER MD, AWAITING FOR CALL BACK.
--- NOTE | 2018-04-02 05:55 | NUR ---
RN NOTES RECEIVED NEW ORDERS FROM YUE SIMS NP TO GIVE MAG OX 400 MG X 1 DOSE. ALL ORDERS NOTED AND CARRIED OUT. WILL CONTINUE TO MONITOR PT.
[2018-04-02] MEDS ORDERED: MAGNESIUM OXIDE 400 MG TABLET PO SCH (06:00)
--- NOTE | 2018-04-02 06:55 | NUR ---
WELT STITCH CLEANER CLOSING NOTES PATIENT SITTING UP IN BED, ALERT AND ORIENTED X 3 WITH FORGETFULNESS, NO SOB NOTED, CONTINUES TO RECEIVE O2 VIA NC @ 2LPM, BREATHING EVEN AND UNLABORED, NO CHEST PAIN AT THIS TIME, DENIES NAUSEA, NO FEELING OF LIGHT HEADEDNESS. ALL PATIENT'S NEEDS ATTENDED TO ALL THROUGHOUT THE SHIFT, KEPT PT SAFE AND DRY, CLEAN AND COMFORTABLE. ON TELE MONITORING WITH SINUS TACHYCARDIA @ 115s BPM. PLACED CALL LIGHT WITHIN EASY REACH, BED IN LOW POSITION AND LOCKED IN PLACE. WILL ENDORSE TO AM SHIFT NURSE FOR CONTINUITY OF CARE.
--- NOTE | 2018-04-02 08:00 | NUR ---
DRILLER'S OFFSIDER NOTES PATIENT IN BED RESTING NO SOB OR ACUTE DISTRESS NOTED. PERIPHERAL IV INTACT PATENT. BED IN LOW LOCKED POSITION. CALL LIGHT WITHIN REACH. PATIENT ALERT, ORIENTED X3. WILL CONTINUE TO MONITOR.
[2018-04-02] MEDS: FUROSEMIDE 40 MG/4 ML VIAL IV SCH (08:42)
[2018-04-02 08:48] VITALS: BP 101/67
--- NOTE | 2018-04-02 10:00 | NUR ---
REFUND SPECIALIST NOTES PATIENT SEEN AND EVALUATED BY DR. CLEMENS ORDERS NOTED AND CARRIED OUT.
[2018-04-02] MEDS ORDERED: BUMETANIDE INJ 8 MG in IV NS 0.9% 48 ML IV ONE (11:00)
[2018-04-02] MEDS: CARVEDILOL 3.125 MG TABLET PO SCH ×2 (11:00→21:00)
[2018-04-02] MEDS ORDERED: Magnesium 1GM/D5W 100ML PREMIX 100 ML IV SCH (11:00)
[2018-04-02 16:29] VITALS: BP 122/85
--- NOTE | 2018-04-02 18:27 | NUR ---
MS RN NOTES PATIENT IN BED RESTING COMFORTABLE . PATIENT ALERT, ORIENTED X3, PERIPHERAL IV INTACT PATENT. DENIES ANY PAIN OR DISCOMFORT. ALL DUE MEDICATIONS ADMINISTERED. ALL NEEDS MET WILL ENDORSE TO PM SHIFT RADHA.
--- NOTE | 2018-04-02 19:28 | NUR ---
MS RN INITIAL NOTE PT IS IN BED AWAKE. NO SIGNS OF SOB OR DISTRESS, BREATHING EVENLY AND UNLABORED. IV ACCESS IS INTACT AND PATENT. BED IS IN LOW AND LOCKED POSITION, CALL LIGHT WITHIN REACH. WILL CONTINUE TO MONITOR PT
[2018-04-02 20:00] VITALS: BP 123/70
[2018-04-02] MEDS: ENOXAPARIN SODIUM 40 MG/0.4 ML DISP.SYRIN SQ SCH (21:18)
--- NOTE | 2018-04-03 06:27 | NUR ---
MS RN NOTE PT IS IN BED SLEEPING, EASILY AROUSED. WAS ABLE TO REST WELL THROUGHOUT THE NIGHT. IV ACCESS IS INTACT AND PATENT. NO ACUTE CHANGES THROUGHOUT THE SHIFT. BED IS IN LOW AND LOCKED POSITION, CALL LIGHT WITHIN REACH. WILL ENDORSE TO DAYSHIFT
[2018-04-03 06:56] LABS: HEMATOCRIT 35 % (39-51); HEMOGLOBIN 11.7 g/dL (13.5-17.5); MEAN CORPUSCULAR HGB CONC 34 g/dl (31.0-36.0); MEAN CORPUSCULAR VOLUME 91 fL (80-96); PLATELET COUNT (AUTO) 130 /CMM (150-450); RDW COEFFICIENT OF VARIATION 25.8 (11.5-15.0); RED BLOOD CELL COUNT(AUTO) 3.81 MIL/uL (4.5-6.0); WHITE BLOOD COUNT (AUTO) 4.9 K/uL (4.3-11.0)
--- NOTE | 2018-04-03 07:15 | NUR ---
RN INITIAL NOTES: PATIENT RESTING IN BED. NONLABORED BREATHING NOTED ON ROOM AIR. NO SIGN SOF DISTRESS. PATIENT DENYING PAIN AT THE MOMENT. IV SITE ON RIGHT ARM PATENT AND INTACT. WILL CONTINUE TO MONITOR BED IN LOWEST LOCKED POSITION. CALL LIGHT WITHIN REACH
[2018-04-03 07:30] LABS: TROPONIN I 0.036 ng/mL (0.00-0.056)
[2018-04-03 07:33] LABS: BILIRUBIN,TOTAL 1.9 mg/dL (0.2-1.0); CALCIUM, SERUM 8.8 mg/dL (8.5-10.1); CREATININE 1.5 mg/dL (0.6-1.3); MAGNESIUM 2.6 mg/dL (1.8-2.4); PHOSPHORUS 4.3 mg/dL (2.5-4.9); POTASSIUM 4.6 mmol/L (3.5-5.1); TOTAL PROTEIN, SERUM 6.6 g/dL (6.4-8.2)
[2018-04-03 08:00] VITALS: BP 116/73
[2018-04-03 08:05] VITALS: BP 116/73
--- NOTE | 2018-04-03 08:25 | NUR ---
RN NOTES: AT 7:40- BMP RESULTED, BLOOD SUGAR NOTED TO BE 57. ASSESSED PATIENT IMMEDIATELY. PATIENT RESPONSIVE TO NAME AND TOUCH. CLEAR SPEECH NOTED. NO ALOC NOTED. BLOOD SUGAR NOTED TO BE AT 58 AT 0747. EDUCATED PATIENT ABOUT BLOOD SUGAR LEVEL AND PROVIDED HIM WITH 120 ML ORANGE JUICE. BREAKFAST SET UP FOR PATIENT. REMAINED WITH PATIENT WHILE DRINKING JUICE. 0811 BLOOD SUGAR AT 61, PATIENT REFUSING TO EAT BREAKFAST. EDUCATED PATIENT ABOUT BENEFITS AND RISKS. PATIENT AGREED TO EAT BREAKFAST. AT 0825 BLOOD SUGAR NOTED AT 80 EDUCATED PATIENT PATIENT ON S/S OF HYPOGLYCEMIA, REINFORCEMENT NEEDED
[2018-04-03] MEDS: CARVEDILOL 3.125 MG TABLET PO SCH ×2 (08:58→20:52)
--- NOTE | 2018-04-03 08:59 | NUR ---
RN NOTES: PATIENT REFUSING CARVIDOLOL. BENEFITS AND RISKS EXPLAINED
[2018-04-03] MEDS: FUROSEMIDE 80 MG TABLET PO SCH (10:10)
[2018-04-03 10:20] LABS: EOSINOPHILS % (MANUAL) 2 % (0-4); LYMPHOCYTES % (MANUAL) 17 % (16-48); MONOCYTES % (MANUAL) 10 % (0-11.0); NEUTROPHILS % (MANUAL) 71 (42-76)
--- NOTE | 2018-04-03 13:00 | NUR ---
RN NOTES: DR KLEIN TO FOLLOW UP WITH PATIENT TODAY. DR KLEIN INFORMED
[2018-04-03] MEDS: ACETAMINOPHEN 325 MG TABLET PO PRN (15:30)
--- NOTE | 2018-04-03 15:49 | NUR ---
CDIFF COLLECTION- X2 DIARRHEA NOTED DURING SHIFT, STOOL COLLECTED FOR CDIFF. LESS THAN 3 DAYS OF ADMISSION
[2018-04-03 16:00] VITALS: BP 104/74
[2018-04-03] MEDS: MORPHINE SULFATE INJ 4 MG/ML DISP.SYRIN IV PRN ×2 (17:05→20:53)
[2018-04-03 18:00] VITALS: BP 104/72
[2018-04-03 18:20] VITALS: BP 108/66
--- NOTE | 2018-04-03 19:25 | NUR ---
RN CLOSING NOTES PATIENT RESTING IN BED. NONLABORED BREATHING NOTED ON ROOM AIR THROUGHOUT SHIFT. SPO2 GREATER THAN 93% ON ROOM AIR THROUGHOUT SHIFT. DENIED CHEST PAIN THROUGHOUT SHIFT. CHEST PAIN ASSESSED Q 1 HOUR. RFA IV PATENT AND INTACT. PATIENT KEPT CLEAN AND DRY DURING SHIFT. EDUCATED SKILLS INSTRUCTOR LIGHT USAGE. FALL RISK PRECAUTIONS NOTED DURING SHIFT. PATIENT AFEBRILE DURING SHIFT. NO VOMITING. CDIFF RESULTS PENDING. ENDORSED TO NEXT SHIFT
[2018-04-03 20:17] VITALS: BP 105/71
[2018-04-03] MEDS: ENOXAPARIN SODIUM 40 MG/0.4 ML DISP.SYRIN SQ SCH (20:57)
[2018-04-04] VITALS (9 sets, daily range): BP systolic 95–118; BP diastolic 59–77
--- NOTE | 2018-04-04 06:42 | NUR ---
MANAGER OF TRAINING AND DEVELOPMENT CLOSING NOTES PATIENT REMAIN IN STABLE CONDITION. ALERT ET ORIENTED. RESP. EVEN ET UNLABORED. ALL DUE MEDS GIVEN, NEEDS MET AND RENDERED. NO ACUTE DISTRESS NOTED. DENIES ANY CHEST PAIN, SOB, N/V AT THIS TIME. SALINE LOCK, PATENT AND INTACT. DRESSING KEPT CLEAN AND DRY. NO INFILTRATION NOTED. REMINDED PT TO USE CALL LIGHT WHEN ASSISTANCE IS NEEDED, VERBALIZE UNDERSTANDING. WILL ENDORSE TO NEXT SHIFT FOR CONTINUITY OF CARE.
[2018-04-04 06:54] LABS: HEMATOCRIT 34 % (39-51); HEMOGLOBIN 11.1 g/dL (13.5-17.5); MEAN CORPUSCULAR HGB CONC 33 g/dl (31.0-36.0); MEAN CORPUSCULAR VOLUME 92 fL (80-96); PLATELET COUNT (AUTO) 121 /CMM (150-450); RDW COEFFICIENT OF VARIATION 25.4 (11.5-15.0); RED BLOOD CELL COUNT(AUTO) 3.67 MIL/uL (4.5-6.0); WHITE BLOOD COUNT (AUTO) 4.4 K/uL (4.3-11.0)
[2018-04-04 07:19] LABS: CALCIUM, SERUM 8.4 mg/dL (8.5-10.1); CREATININE 1.6 mg/dL (0.6-1.3); MAGNESIUM 1.6 mg/dL (1.8-2.4); PHOSPHORUS 3.5 mg/dL (2.5-4.9); POTASSIUM 4.3 mmol/L (3.5-5.1)
--- NOTE | 2018-04-04 07:20 | NUR ---
RN INITIAL NOTES: PATIENT RESTING IN BED. NONLABORED BREATHING NOTED ON ROOM AIR. DENYING PAIN AT THE MOMENT. IV SITE ON RIGHT HAND GAUGE 22 PATENT AND INTACT. BED IN LOWEST LOCKED POSITION. CALL LIGHT WITHIN REACH.
[2018-04-04 07:31] LABS: BAND % (MANUAL) 2 % (0.0-5.0); EOSINOPHILS % (MANUAL) 2 % (0-4); LYMPHOCYTES % (MANUAL) 24 % (16-48); MONOCYTES % (MANUAL) 6 % (0-11.0); NEUTROPHILS % (MANUAL) 66 (42-76)
[2018-04-04] MEDS: CARVEDILOL 3.125 MG TABLET PO SCH ×2 (09:00→21:12)
[2018-04-04] MEDS: FUROSEMIDE 80 MG TABLET PO SCH (10:00)
[2018-04-04] MEDS: Magnesium 1GM/D5W 100ML PREMIX 100 ML IV SCH ×2 (10:02→14:03)
--- NOTE | 2018-04-04 10:54 | NUR ---
RN NOTES: DR KLEIN AWARE OF BLOOD PRESSURE READINGS
--- NOTE | 2018-04-04 10:55 | NUR ---
RN NOTES: DR KLEIN NOTIFIED THAT PATIENT COMPLAINING OF ABDOMINAL CRAMPING. HAD X6 EPISODES OF DIARRHEA SINCE YESTERDAY. PER DR KLEIN, START PATIENT ON 250 MG PO VANCO Q 6 HOURS. DISCONTINUE MEDICATION IF STOOL RESULTS FOR CDIFF IS NEGATIVE ALSO, ORTHOSTATIC BLOOD PRESSURE BOLUS 250ML OF NS AFTER
[2018-04-04] MEDS ORDERED: IV NS 0.9% 250 ML BAG IV ONE (11:00)
[2018-04-04] MEDS ORDERED: VANCOMYCIN HCL 125 MG/2.5 ML ORAL.SUSP PO SCH (12:00)
--- NOTE | 2018-04-04 13:46 | NUR ---
VANCOMYCIN DISCONTINUED PER DR KLEIN'S ORDERS. STOOL - FOR CDIFF
--- NOTE | 2018-04-04 14:32 | NUR ---
PATIENT RESTING IN BED. REFUSING ORTHOSTATICS AT THE MOMENT. STATES HE WANTS TO SLEEP. BENEFITS AND RISKS EXPLAINED RADIOLOGY NOTIFIED OF US ABDOMEN ORDERED BY DR ELIZABETH Reed
--- NOTE | 2018-04-04 16:56 | NUR ---
DR KLEIN AWARE OF VS. AND CDIFF STOOL RESULT. PER DR KLEIN, LOMOTIL 2 PO X1
[2018-04-04] MEDS ORDERED: DIPHENOXYLATE HCL/ATROP SULF 1 UDTAB TABLET PO ONE ×2 (17:00→19:30)
[2018-04-04 17:54] LABS: APPEARANCE,URINE CLEAR (CLEAR); BILIRUBIN,URINE NEGATIVE (NEGATIVE); BLOOD, URINE NEGATIVE Ery/uL (NEGATIVE); COLOR,URINE YELLOW (YELLOW); KETONES,URINE NEGATIVE (NEGATIVE); LEUKOCYTE ESTERASE ,URINE NEGATIVE (NEGATIVE); NITRITE, URINE NEGATIVE (NEGATIVE); PROTEIN,URINE NEGATIVE (NEGATIVE); UGLUCOSE NEGATIVE (NEGATIVE); UROBILINOGEN,URINE 0.2 EU/dL (0.2)
[2018-04-04 18:01] LABS: CREATININE, URINE < 13.0 MG/DL (30.0-125.0); URINE SODIUM, RANDOM 136 mmol/l (40-220); URINE TOTAL PROTEIN 2.6 mg/dL (0-11.9)
[2018-04-04 18:18] LABS: EOSINOPHIL,URINE None Seen
--- NOTE | 2018-04-04 19:33 | NUR ---
LOMOTIL PO 2X, ONCE GIVEN PER ORDERS
--- NOTE | 2018-04-04 19:44 | NUR ---
RN CLOSING NOTES: PATIENT RESTING IN BED. NONLABORED BREATHING NOTED ON ROOM AIR. DENYING PAIN AT THE MOMENT. IV SITE ON RIGHT HAND GAUGE 22 PATENT AND INTACT. ANOTHER IV STARTED ON LEFT HAND DURING SHIFT, GAUGE 22, INFILTRATED HOWEVER. PATIENT DENIED CHEST PAIN THROUGHOUT SHIFT,SPO2 GREATER THAN 93% ON ROOM AIR. FALL RISK PRECAUTIONS IMPLEMENTED. BED IN LOWEST LOCKED POSITION AND CALL LIGHT WITHIN REACH. ENDORSED TO NEXT NURSE
--- NOTE | 2018-04-04 19:51 | NUR ---
RN NOTES PATIENT IS ALERT AND ORIENTED X2, FORGETFUL, RESTLESS, GETTING IN AND OUT OF BED, ON ROOM AIR, SPO2 94%, COMPLAINING OF PAIN OF 07/05, WAS GIVEN MORPHINE 2 HOURS AGO. AMBULATES WITH 4-POINT CANE, KEPT SAFE, CALL LIGHT WITHIN REACH. Addendum: 04/04/18 at 2159 by ITZEL UPTON RN PATIENT IS DUE FOR MORPHINE, LAST GIVEN ALMOST 1 DAY AGO
[2018-04-04] MEDS: ENOXAPARIN SODIUM 40 MG/0.4 ML DISP.SYRIN SQ SCH (21:12)
[2018-04-04] MEDS: ONDANSETRON HCL/PF 4 MG/2 ML VIAL IVP PRN (21:49)
[2018-04-04] MEDS: MORPHINE SULFATE INJ 4 MG/ML DISP.SYRIN IV PRN (22:00)
[2018-04-05] MEDS: MORPHINE SULFATE INJ 4 MG/ML DISP.SYRIN IV PRN ×4 (03:20→21:21)
--- NOTE | 2018-04-05 06:25 | NUR ---
RN NOTES PATIENT IS ALERT AND ORIENTED X3, WITH FORGETFULNESS, WITH EPISODES OF RESTLESSNESS, REQUESTING MORPHINE FOR PAIN, GIVEN X2, AMBULATES TO THE TOILET WITH WALKER, ON FALL PRECAUTION, ALL DUE MEDICATIONS GIVEN, CALL LIGHT WITHIN REACH.
[2018-04-05 06:45] LABS: HEMATOCRIT 31 % (39-51); HEMOGLOBIN 10.3 g/dL (13.5-17.5); MEAN CORPUSCULAR HGB CONC 33 g/dl (31.0-36.0); MEAN CORPUSCULAR VOLUME 91 fL (80-96); PLATELET COUNT (AUTO) 116 /CMM (150-450); RED BLOOD CELL COUNT(AUTO) 3.39 MIL/uL (4.5-6.0); WHITE BLOOD COUNT (AUTO) 4.4 K/uL (4.3-11.0)
[2018-04-05 06:56] LABS: CALCIUM, SERUM 7.8 mg/dL (8.5-10.1); CREATININE 1.4 mg/dL (0.6-1.3); MAGNESIUM 1.5 mg/dL (1.8-2.4); PHOSPHORUS 3.4 mg/dL (2.5-4.9); POTASSIUM 4.1 mmol/L (3.5-5.1)
--- NOTE | 2018-04-05 07:38 | NUR ---
RN NOTES PATIENT A/OX3, VERBALLY RESPONSIVE, BREATHING EVEN AND UNLABORED, NO SOB NOTED, ON O2 AT 2LPM VIA NC WITH SPO2 OF 96%, PATIENT C/O ABDOMINAL PAIN 07/05, PATIENT REQUESTING FOR PAIN MEDICATION, WILL ADMINISTER. NEEDS ATTENDED AND MET, CALL LIGHT WITHIN REACH, WILL CONTINUE TO MONITOR.
[2018-04-05 08:00] VITALS: BP 109/70
[2018-04-05] MEDS: FUROSEMIDE 80 MG TABLET PO SCH (08:23)
[2018-04-05] MEDS: CARVEDILOL 3.125 MG TABLET PO SCH ×2 (08:24→21:00)
[2018-04-05] MEDS: Magnesium 1GM/D5W 100ML PREMIX 100 ML IV SCH ×2 (08:58→10:27)
[2018-04-05 09:20] LABS: EOSINOPHILS % (MANUAL) 3 % (0-4); LYMPHOCYTES % (MANUAL) 15 % (16-48); MONOCYTES % (MANUAL) 6 % (0-11.0); NEUTROPHILS % (MANUAL) 76 (42-76)
--- NOTE | 2018-04-05 10:52 | NUR ---
WOUND CARE CONSULT: PT SEEN BY REQUEST OF RN FOR DRY SKIN TO LOWER EXTREMITIES. RECOMMENDATIONS MADE FOR MOISTURIZING CREAM AND DISCUSSED WITH NURSING STAFF. WILL SEE PRN.
[2018-04-05] MEDS ORDERED: MINERAL OIL/PETROLATUM,WHITE 120 GM JAR TP PRN (11:00)
[2018-04-05] MEDS ORDERED: CARV3.122 PO (12:21)
[2018-04-05] MEDS ORDERED: FURO80TA3 PO (12:21)
[2018-04-05 16:00] VITALS: BP 98/70
[2018-04-05 17:25] VITALS: BP 103/71
--- NOTE | 2018-04-05 18:31 | NUR ---
RN NOTES PATIENT A/OX3, VERBALLY RESPONSIVE, PATIENT REFUSED TO BE DISCHARGED, MADE AN APPEAL TO HIS INSURANCE. PATIENT SEEN BY PHYSICAL THERAPY AND RECOMMENDED HOME HEALTH WITH PT AND CAREGIVER FOR SAFETY. EUCERIN CREAM APPLIED ON BLE FOR DRY SKIN. PATIENT ASSISTED TO RESTROOM, AMBULATES WITH A 4 POINT CANE. NEEDS ATTENDED AND MET, CALL LIGHT WITHIN REACH, WILL ENDORSE TO HAT BLOCK BENCH HAND FOR RADHA.
[2018-04-05 20:00] VITALS: BP 111/73
[2018-04-05] MEDS: ENOXAPARIN SODIUM 40 MG/0.4 ML DISP.SYRIN SQ SCH (21:00)
--- NOTE | 2018-04-05 21:23 | NUR ---
MORPHINE 2 MG IVP ADMINISTERED, C/O ACHY CHEST PAIN, 8/10 ON PAIN SCALE.
--- NOTE | 2018-04-05 21:26 | NUR ---
PATIENT REFUSED HIS LOVENOX 40 MG SC TONIGHT, STATED, " I DON'T WANT IT." MEDICATION OFFERED X2 TO HIM STILL REFUSED.
--- NOTE | 2018-04-05 21:30 | NUR ---
REFUSED COREG 3.125 MG TAB, OFFERED X2, PATIENT STILL REFUSED, BP , HR 69
[2018-04-05] MEDS ORDERED: ZOLPIDEM TARTRATE 5 MG TABLET PO ONE (23:00)
--- NOTE | 2018-04-05 23:07 | NUR ---
AMBIEN 5 MG TAB 1 PO GIVEN X1 ORDER ONLY
[2018-04-06 06:37] LABS: HEMATOCRIT 33 % (39-51); MEAN CORPUSCULAR HGB CONC 33 g/dl (31.0-36.0); MEAN CORPUSCULAR VOLUME 91 fL (80-96); PLATELET COUNT (AUTO) 131 /CMM (150-450); RDW COEFFICIENT OF VARIATION 24.9 (11.5-15.0); WHITE BLOOD COUNT (AUTO) 4.1 K/uL (4.3-11.0)
--- NOTE | 2018-04-06 07:15 | NUR ---
MS RN NOTES RECEIVED PATIENT IN BED ALERT ORIENTED X4. NO ACUTE DISTRESS NOTED. BREATHING UNLABORED. DENIED ANY PAIN. IV ACCESS PATENT AND INTACT. SAFETY MEASURES IN PLACE. CALL LIGHT WITHIN REACH. WILL CONTINUE TO MONITOR ACCORDINGLY.
[2018-04-06 07:38] LABS: CALCIUM, SERUM 8.3 mg/dL (8.5-10.1); CREATININE 1.3 mg/dL (0.6-1.3); MAGNESIUM 1.7 mg/dL (1.8-2.4); PHOSPHORUS 3.5 mg/dL (2.5-4.9); POTASSIUM 4.4 mmol/L (3.5-5.1)
[2018-04-06 08:00] VITALS: BP 105/72
[2018-04-06 09:19] LABS: EOSINOPHILS % (MANUAL) 2 % (0-4); LYMPHOCYTES % (MANUAL) 34 % (16-48); MONOCYTES % (MANUAL) 17 % (0-11.0); NEUTROPHILS % (MANUAL) 47 (42-76)
--- NOTE | 2018-04-06 09:20 | NUR ---
MS RN NOTES SEEN AND EVALUATED BY DR ARMEN KLEIN WITH NEW ORDERS MADE. NOTED AND CARRIED OUT.
[2018-04-06] MEDS: FUROSEMIDE 80 MG TABLET PO SCH (09:33)
[2018-04-06] MEDS: CARVEDILOL 3.125 MG TABLET PO SCH (09:33)
[2018-04-06] MEDS: Magnesium 1GM/D5W 100ML PREMIX 100 ML IV SCH ×2 (09:55→11:03)
[2018-04-06 16:00] VITALS: BP 96/65
[2018-04-06] MEDS: ACETAMINOPHEN 325 MG TABLET PO PRN (16:40)
--- NOTE | 2018-04-06 17:30 | NUR ---
MS RN NOTES PATIENT DISCHARGED IN STABLE CONDITION. NO ACUTE DISTRESS NOTED. BREATHING UNLABORED. DISCHARGE INSTRUCTIONS GIVEN TO THE PATIENT, VERBALIZED UNDERSTANDING. ALL BELONGINGS ACCOUNTED FOR. IV ACCESS REMOVED , NO BLEEDING OR SWELLING NOTED. WHEELED TO THE LOBBY , ASSISTED TO A CAR.
== END 2018-04-06 17:30 | disposition home or self-care (01) | DRG 291 ==
LOC: ER 18:48 → TELE 20:21 → MED 04-02 09:26
PROVIDERS: ADMIT Nurse Practitioner Acute Care; ATTEND Nurse Practitioner Acute Care
DX: I11.0 Hypertensive heart disease with heart failure (principal); J96.01 Acute respiratory failure with hypoxia; N17.0 Acute kidney failure with tubular necrosis; J90 Pleural effusion, not elsewhere classified; D69.6 Thrombocytopenia, unspecified; E83.42 Hypomagnesemia; E83.51 Hypocalcemia; I24.9 Acute ischemic heart disease, unspecified; I50.21 Acute systolic (congestive) heart failure; I50.33 Acute on chronic diastolic (congestive) heart failure; I13.0 Hypertensive heart and chronic kidney disease with heart failure and stage 1 through stage 4 chronic kidney disease, or unspecified chronic kidney disease; J44.9 Chronic obstructive pulmonary disease, unspecified; K21.9 Gastro-esophageal reflux disease without esophagitis; G89.29 Other chronic pain; M19.90 Unspecified osteoarthritis, unspecified site; E78.5 Hyperlipidemia, unspecified; I25.10 Atherosclerotic heart disease of native coronary artery without angina pectoris; I25.2 Old myocardial infarction; Z88.8 Allergy status to other drugs, medicaments and biological substances; Z79.899 Other long term (current) drug therapy; F41.9 Anxiety disorder, unspecified; F32.9 Major depressive disorder, single episode, unspecified; Z98.890 Other specified postprocedural states; F17.200 Nicotine dependence, unspecified, uncomplicated; Z59.0 Homelessness; Z95.0 Presence of cardiac pacemaker; I48.91 Unspecified atrial fibrillation; B19.20 Unspecified viral hepatitis C without hepatic coma; D64.9 Anemia, unspecified; E87.6 Hypokalemia; D63.8 Anemia in other chronic diseases classified elsewhere; N18.9 Chronic kidney disease, unspecified; F10.20 Alcohol dependence, uncomplicated; Y90.9 Presence of alcohol in blood, level not specified
CPT/HCPCS: 36415; 71045-TC; 76700-TC; 80048-TC; 80053-TC; 80061-TC; 80076-TC; 81000-TC; 82570-TC; 82962-TC; 83735-TC; 83880; 84100-TC; 84155-TC; 84300-TC; 84439-TC; 84443-TC; 84484-TC; 85025-TC; 85730-TC; 87081-TC; A4216; A4606; J1650; J1940; J2270; J2405; J3475; J3490; J7040; J7050; J7060; Z7610

== ENCOUNTER 2018-12-16 13:46 | Inpatient (IN) | payer MEDICARE, OTHER ==
[~2018-12-16] VITALS: Ht 182.9 cm; Wt 76.9 kg
[~2018-12-16 13:46] MED LIST changes: +CARV3.122 PO; -CARV6.252 PO; -FURO40TA5 PO; +FURO80TA3 PO; -LISI2.5T2 PO; -LORA1TAB PO; -ONDA4TAB5 PO; -POTA10TA15 PO; -ZOLP5TAB8 PO
--- NOTE | 2018-12-16 14:10 | NUR ---
BLAYNE LAI 41 FROM HOME C/O SOB , CP , COUGH , DIZZINESS , DIARRHEA. ON 02 @ 2LPM VIA NC, BREATHING EVENLY AND UNLABORED. CONNECTED TO THE MONITOR AND PULSE OX. KEPT COMFORTABLE. WILL CONTINUE TO MONITOR ACCORIDNGLY.
[2018-12-16] MEDS ORDERED: ONDANSETRON HCL/PF 4 MG/2 ML VIAL IVP ONE (14:30)
[2018-12-16] MEDS ORDERED: IV NS 0.9% 500 ML BAG IV ONE (14:30)
[2018-12-16] MEDS ORDERED: KETOROLAC TROMETHAMINE INJ 30 MG/ML VIAL IV ONE (14:30)
[2018-12-16 14:42] LABS: BASOPHILS # (AUTO) 0.1 /CMM (0.0-0.2); BASOPHILS % (AUTO) 1.2 % (0.0-2.0); EOSINOPHILS % (AUTO) 3.1 % (0.0-6.0); HEMATOCRIT 42 % (39-51); HEMOGLOBIN 13.6 g/dL (13.5-17.5); LYMPHOCYTES # (AUTO) 0.9 /CMM (0.8-4.8); LYMPHOCYTES % (AUTO) 18.5 % (20.0-44.0); MEAN CORPUSCULAR HGB CONC 33 g/dl (31.0-36.0); MEAN CORPUSCULAR VOLUME 93 fL (80-96); MONOCYTES # (AUTO) 0.5 /CMM (0.1-1.30); MONOCYTES % (AUTO) 10.4 % (2.0-12.0); NEUTROPHILS # (AUTO) 3.4 /CMM (1.8-8.9); NEUTROPHILS % (AUTO) 66.8 % (43.0-81.0); PLATELET COUNT (AUTO) 235 /CMM (150-450); RED BLOOD CELL COUNT(AUTO) 4.48 MIL/uL (4.5-6.0)
[2018-12-16] MEDS ORDERED: ONDANSETRON HCL/PF 4 MG/2 ML VIAL ONE (14:46)
[2018-12-16] MEDS ORDERED: KETOROLAC TROMETHAMINE 15 MG/ML VIAL ONE (14:46)
[2018-12-16 14:48] LABS: CALCIUM, SERUM 8.7 mg/dL (8.5-10.1); CARBON DIOXIDE 21 mmol/L (21-32); CHLORIDE 104 mmol/L (98-107); CREATININE 1.1 mg/dL (0.6-1.3); GLUCOSE 91 mg/dL (74-106); POTASSIUM 4.1 mmol/L (3.5-5.1); SODIUM SERUM 137 mmol/L (136-145); UREA NITROGEN, BLOOD 13 mg/dL (7-18)
[2018-12-16 14:55] LABS: ALANINE AMINOTRANSFERASE 37 U/L (12-78); ALKALINE PHOSPHATASE 117 U/L (46-116); ASPARTATE AMINOTRANSFERASE 43 U/L (15-37); BILIRUBIN,DIRECT 0.6 mg/dL (0.0-0.2); BILIRUBIN,TOTAL 1.9 mg/dL (0.2-1.0); LIPASE 126 U/L (73-393); TOTAL PROTEIN, SERUM 8.4 g/dL (6.4-8.2)
[2018-12-16] MEDS ORDERED: CLOPIDOGREL BISULFATE 75 MG TABLET PO ONE (15:30)
[2018-12-16] MEDS ORDERED: CLOPIDOGREL BISULFATE 75 MG TABLET ONE (15:30)
[2018-12-16] MEDS ORDERED: methylPREDNISolone SOD SUCC 125 MG/2ML VIAL IV ONE (15:30)
[2018-12-16] MEDS ORDERED: FUROSEMIDE 20 MG/2 ML VIAL ONE (15:30)
[2018-12-16] MEDS ORDERED: ALBUTEROL FS 2.5 MG/3 ML VIAL.NEB CONTNEB ONE (15:30)
[2018-12-16] MEDS ORDERED: FUROSEMIDE 40 MG/4 ML VIAL IV ONE (15:30)
[2018-12-16] MEDS ORDERED: methylPREDNISolone SOD SUCC 125 MG/2ML VIAL ONE (15:30)
[2018-12-16] MEDS ORDERED: FUROSEMIDE 40 MG/4 ML VIAL ONE (15:30)
[2018-12-16] MEDS ORDERED: ALBUTEROL FS 2.5 MG/3 ML VIAL.NEB ONE (15:51)
[2018-12-16] MEDS ORDERED: oxyCODONE/APAP (5/325 MG) 1 UDTAB TABLET ONE (16:10)
[2018-12-16] MEDS ORDERED: oxyCODONE/APAP (5/325 MG) 1 UDTAB TABLET PO ONE (16:30)
--- NOTE | 2018-12-16 16:49 | NUR ---
PT ADMIT TO TELE ROOM 315-1 DX COPD ACCEPTING [facility]
[2018-12-16] MEDS: ALBUTEROL FS 2.5 MG/3 ML VIAL.NEB NEB SCH ×3 (17:00→23:29)
[2018-12-16] MEDS ORDERED: MAGNESIUM HYDROXIDE 30 ML UDC PO PRN (17:00)
[2018-12-16] MEDS ORDERED: Z GUARD REMEDY 2 OZ OINT TP PRN (17:00)
[2018-12-16] MEDS: IPRATROPIUM NEB FS 0.5 MG/2.5 ML AMPUL.NEB NEB SCH ×3 (17:00→23:29)
[2018-12-16] MEDS ORDERED: ACETAMINOPHEN 325 MG TABLET PO PRN (17:00)
[2018-12-16] MEDS ORDERED: MAG HYDROX/AL HYDROX/SIMETH 30 ML UDC PO PRN (17:00)
--- NOTE | 2018-12-16 17:11 | NUR ---
CALLED [facility] AND SPOKE TO RUTH DOYLE AND REPORT GIVEN AND FOR RADHA.
--- NOTE | 2018-12-16 17:23 | NUR ---
TRANSFERRED PT VIA GURNEY ACCOMPANIED BY EMT AND RN VIA ACLS PROTOCOL, IN NO APPARENT DISTRESS NOTED. RUTH DOYLEWOUND NURSE AND RECEIVED THE PATIENT.
--- NOTE | 2018-12-16 17:34 | NUR ---
RT NOTES. CONT. TX GIVEN IN ER. WILL HOLD SCHEDULED TX. WILL BE GIVEN NEXT AT THE NEXT SCHEDULED TIME.
[2018-12-16] MEDS: ENOXAPARIN SODIUM 40 MG/0.4 ML DISP.SYRIN SQ SCH (18:15)
[2018-12-16] MEDS: CEFTRIAXONE 1 G in IV D5W 50 ML IV SCH (18:18)
--- NOTE | 2018-12-16 18:30 | NUR ---
HEAD OF MOBILE NOTES ADMITTED 73 YEAR OLD MADE FROM ER. REPORT RECEIVED FROM LIA RN. PATIENT ARRIVED VIA GURNEY. AWAKE, ALERT AND ORIENTED X 4, VERBALLY RESPONSIVE AND RESPONDS TO VERBAL AND TACTILE STIMULI. BREATHING EVEN AND UNLABORED. NO CHANGES IN LOC NOTED. PATIENT CALM AND RELAXED. ON TELEMETRY, MACHINE HEDDLE CLEANER PLACED, SR. PATIENT ADMITTED UNDER MEDICAL SUPERVISION OF DR. CAMPBELL. MADE AWARE OF PATIENT ARRIVAL. PATIENT ORIENTED TO UNIT, STAFF, ROOM, PLAN OF CARE AND VERBALIZED UNDERSTANDING. WILL ENDORSE TO INCOMING SHIFT FOR RADHA. BED LOCKED AND IN LOW POSITION. BILATERAL UPPER SIDE RAILS UP AND LOCKED. CALL LIGHT WITHIN EASY REACH
[2018-12-16 18:59] VITALS: BP 133/69
[2018-12-16 20:00] VITALS: BP 139/97
[2018-12-16] MEDS: HYDROCODONE/APAP 5/325MG 1 EACH TABLET PO PRN ×2 (20:13→23:50)
--- NOTE | 2018-12-16 20:15 | NUR ---
TELE/RN RECEIVE PATIENT AWAKE, ALERT ORIENTED, ANXIOUS, NO DISTRESS NOTED, C/O 8/10 CHEST PAIN, MEDICATED WITH NORCO 1 TABLET PO ORDERED. WILL MONITOR.
[2018-12-16] MEDS: CARVEDILOL 3.125 MG TABLET PO SCH (21:44)
[2018-12-16] MEDS: ZOLPIDEM TARTRATE 5 MG TABLET PO PRN (21:49)
[2018-12-17] VITALS: BP 126/74
--- NOTE | 2018-12-17 01:02 | NUR ---
TELE/RN PATIENT IS VERY FORGETFUL, ASKING FOR PAIN MEDICATION AN SLEEPING PILL ALMOST EVERY 15 MINUTES DESPITE EXPLANATION AND REENFORCEMENT.
[2018-12-17] MEDS: ALBUTEROL FS 2.5 MG/3 ML VIAL.NEB NEB SCH ×6 (03:26→23:30)
[2018-12-17] MEDS: IPRATROPIUM NEB FS 0.5 MG/2.5 ML AMPUL.NEB NEB SCH ×6 (03:26→23:30)
[2018-12-17 04:00] VITALS: BP 111/87
[2018-12-17] MEDS: HYDROCODONE/APAP 5/325MG 1 EACH TABLET PO PRN (04:41)
--- NOTE | 2018-12-17 04:58 | NUR ---
TELE/RN PATIENT IS CONSTANTLY COMPLAINING OF CP, NORCO PO X 3 HAS BEEN GIVEN BUT PER PATIENT IT IS NOT WORKING. cALLED AND SPOKE TO YUE SIMS NP, WITH ORDERS OF MORPHINE 2 MG X1 IVP, EKG STAT, TROPONIN STAT WERE RECEIVED.
[2018-12-17] MEDS ORDERED: MORPHINE SULFATE INJ 10 MG/ML DISP.SYRIN IV ONE (05:30)
--- NOTE | 2018-12-17 06:20 | NUR ---
TELE/RN CALLED [employer] [facility], RE: EKG RESULT. LEFT MESSAGE.
[2018-12-17 06:45] LABS: BASOPHILS % (AUTO) 0.2 % (0.0-2.0); HEMATOCRIT 38 % (39-51); HEMOGLOBIN 12.4 g/dL (13.5-17.5); LYMPHOCYTES # (AUTO) 0.5 /CMM (0.8-4.8); LYMPHOCYTES % (AUTO) 19.5 % (20.0-44.0); MEAN CORPUSCULAR HGB CONC 32 g/dl (31.0-36.0); MEAN CORPUSCULAR VOLUME 93 fL (80-96); MONOCYTES # (AUTO) 0.1 /CMM (0.1-1.30); MONOCYTES % (AUTO) 3.1 % (2.0-12.0); NEUTROPHILS # (AUTO) 1.8 /CMM (1.8-8.9); NEUTROPHILS % (AUTO) 77.2 % (43.0-81.0); PLATELET COUNT (AUTO) 212 /CMM (150-450); RED BLOOD CELL COUNT(AUTO) 4.11 MIL/uL (4.5-6.0); WHITE BLOOD COUNT (AUTO) 2.3 K/uL (4.3-11.0)
--- NOTE | 2018-12-17 07:00 | NUR ---
TELE/RN PATIENT IS SLEEPING AT THIS TIME, AROUSABLE, APPEAR COMFORTABLE, NO DISTRESS NOTED, CALL LIGHT IN REACH. ALL NEEDS ATTENDED AT THIS TIME, ENDORSED TO NEXT RN FOR CONTINUITY OF CARE.
--- NOTE | 2018-12-17 07:04 | NUR ---
TELE/RN YUE SIMS DID NOT CALL BACK, PLACED A F/U CALL TO [facility], SPOKE TO SAM FERGUSON, PER PHYLLIS HE IS COMING.
[2018-12-17 07:38] LABS: CALCIUM, SERUM 8.5 mg/dL (8.5-10.1); CARBON DIOXIDE 14 mmol/L (21-32); CHLORIDE 103 mmol/L (98-107); CREATININE 1.9 mg/dL (0.6-1.3); GLUCOSE 149 mg/dL (74-106); MAGNESIUM 1.5 mg/dL (1.8-2.4); PHOSPHORUS 4.5 mg/dL (2.5-4.9); POTASSIUM 5.4 mmol/L (3.5-5.1); SODIUM SERUM 139 mmol/L (136-145); UREA NITROGEN, BLOOD 24 mg/dL (7-18)
[2018-12-17 08:00] VITALS: BP 114/79
--- NOTE | 2018-12-17 08:00 | NUR ---
COACH BUILDER AM NOTES AWAKE, ALERT AND ORIENTED X 3, HARD OF HEARING.DENIES ANY PAIN OR DISTRESS.VERBALLY RESPONSIVE AND RESPONDS TO VERBAL AND TACTILE STIMULI. BREATHING EVEN AND UNLABORED. NO CHANGES IN LOC NOTED. PATIENT GOES TO THE TOILET USING CANE OFTEN BUT KEEPS FORGETTING URINE COLLECTION INSPITE OF FREQUENT REMINDERS . ON TELE SR. BED LOCKED AND IN LOW POSITION. BILATERAL UPPER SIDE RAILS UP AND LOCKED. CALL LIGHT WITHIN EASY REACH
[2018-12-17] MEDS ORDERED: FUROSEMIDE 20 MG/2 ML VIAL IV SCH (09:00)
--- NOTE | 2018-12-17 09:00 | NUR ---
PT NOTED TO BE HARD OF HEARING WITH EPISODE OF CONFUSION SAYING THAT HE HAS BEEN IN THE HOSPITAL FOR TWO WEEKS.PT HAS EPISODES OF CONFUSION.AMBULATORY WITH BRP USING HIS CANE.
[2018-12-17] MEDS: methylPREDNISolone SOD SUCC 40 MG/ML VIAL IV SCH ×4 (09:28→16:40)
[2018-12-17 09:32] LABS: BAND % (MANUAL) 1 % (0.0-5.0); LYMPHOCYTES % (MANUAL) 12 % (16-48); MONOCYTES % (MANUAL) 1 % (0-11.0); NEUTROPHILS % (MANUAL) 86 (42-76)
[2018-12-17] MEDS: CLOPIDOGREL BISULFATE 75 MG TABLET PO SCH (11:00)
[2018-12-17] MEDS: CARVEDILOL 3.125 MG TABLET PO SCH ×2 (11:01→22:09)
[2018-12-17] MEDS: FUROSEMIDE 40 MG/4 ML VIAL IV SCH ×3 (11:05→18:09)
[2018-12-17] MEDS: Magnesium 1GM/D5W 100ML PREMIX 100 ML IV SCH ×2 (11:22→14:03)
--- NOTE | 2018-12-17 11:42 | NUR ---
PT KEEPS GOING TO THE TOILET DELAYING MG IV INFUSION.
--- NOTE | 2018-12-17 12:26 | NUR ---
PT WENT DOWN TO GET SOME FRESH AIR ACCOMPANIED BY BOAT HAND, DELAYING MG IV INFUSION.
[2018-12-17] MEDS ORDERED: AZITHROMYCIN 250 MG TABLET PO ONE (15:00)
[2018-12-17] MEDS ORDERED: SODIUM POLYSTYRENE SULFONATE 15 G/60 ML BOTTLE PO ONE ×2 (15:00→16:30)
--- NOTE | 2018-12-17 15:04 | NUR ---
SOLUMEDROL 40 MG IV WAS JUST ADMINISTERED AT 1425.NEW ORDER OF SOLUMEDROL 40 MG IV AT THIS TIME.CLARIFIED WITH PHYLLIS,BAD CREDIT COLLECTOR SAYING TO HOLD THE NEW ORDER OF SOLUMEDROL 40 MG IV FOR THIS TIME SINCE IT HAS BEEN ADMINISTERED ALREADY.
[2018-12-17] MEDS: ONDANSETRON HCL/PF 4 MG/2 ML VIAL IVP PRN (15:51)
[2018-12-17 16:00] VITALS: BP 112/73
[2018-12-17] MEDS: CEFTRIAXONE 1 G in IV D5W 50 ML IV SCH (17:39)
--- NOTE | 2018-12-17 18:27 | NUR ---
PT LYING IN BED WATCHING TV WITH NO C/O PAIN OR DISTRESS.CALL LIGHT PLACED WITHIN REACH.
[2018-12-17 20:00] VITALS: BP 118/68
--- NOTE | 2018-12-17 20:43 | NUR ---
MS/RN 2D ECHO WAS JUST DONE, PER TECH, EF=20, PATIENT IS ASYMPTOMATIC, VSS, SPOKE TO SAM MENJIVAR, MADE AWARE, NO ORDERS RECEIVED. WILL CONTINUE TO MONITOR THE PATIENT.
[2018-12-17 20:58] LABS: APPEARANCE,URINE SL CLOUDY (CLEAR); BILIRUBIN,URINE NEGATIVE (NEGATIVE); BLOOD, URINE NEGATIVE Ery/uL (NEGATIVE); COLOR,URINE YELLOW (YELLOW); KETONES,URINE NEGATIVE (NEGATIVE); LEUKOCYTE ESTERASE ,URINE NEGATIVE (NEGATIVE); NITRITE, URINE NEGATIVE (NEGATIVE); PROTEIN,URINE NEGATIVE (NEGATIVE); UGLUCOSE NEGATIVE (NEGATIVE); UROBILINOGEN,URINE 0.2 EU/dL (0.2)
[2018-12-17] MEDS: ZOLPIDEM TARTRATE 5 MG TABLET PO PRN (22:08)
[2018-12-17] MEDS: ATORVASTATIN 10 MG TABLET PO SCH (22:08)
[2018-12-17] MEDS: ENOXAPARIN SODIUM 40 MG/0.4 ML DISP.SYRIN SQ SCH (22:10)
--- NOTE | 2018-12-17 23:15 | NUR ---
MS/RN PATIENT IS SLEEPING AT THIS TIME, APPEAR COMFORTABLE, BREATHING EVEN AND UNLABORED, CALL LIGHT IN REACH. WILL CONTINUE TO MONITOR.
[2018-12-18] MEDS: ALBUTEROL FS 2.5 MG/3 ML VIAL.NEB NEB SCH ×6 (03:16→23:00)
[2018-12-18] MEDS: IPRATROPIUM NEB FS 0.5 MG/2.5 ML AMPUL.NEB NEB SCH ×6 (03:16→23:00)
--- NOTE | 2018-12-18 06:28 | NUR ---
MS/RN PATIENT STILL SLEEPING AT THIS TIME, APPEAR COMFORTABLE, NO SIGNS OF DISTRESS NOTED, CALL LIGHT IN REACH. ALL NEEDS ATTENDED AT THIS TIME, WILL CONTINUE TO MONITOR.
[2018-12-18 07:55] LABS: HEMATOCRIT 34 % (39-51); HEMOGLOBIN 11.2 g/dL (13.5-17.5); LYMPHOCYTES # (AUTO) 0.4 /CMM (0.8-4.8); LYMPHOCYTES % (AUTO) 6.9 % (20.0-44.0); MEAN CORPUSCULAR HGB CONC 33 g/dl (31.0-36.0); MEAN CORPUSCULAR VOLUME 91 fL (80-96); MONOCYTES # (AUTO) 0.2 /CMM (0.1-1.30); MONOCYTES % (AUTO) 4.3 % (2.0-12.0); NEUTROPHILS # (AUTO) 4.8 /CMM (1.8-8.9); NEUTROPHILS % (AUTO) 88.8 % (43.0-81.0); PLATELET COUNT (AUTO) 197 /CMM (150-450); RED BLOOD CELL COUNT(AUTO) 3.73 MIL/uL (4.5-6.0); WHITE BLOOD COUNT (AUTO) 5.4 K/uL (4.3-11.0)
[2018-12-18 08:00] VITALS: BP 102/66
--- NOTE | 2018-12-18 08:00 | NUR ---
MS RN AM NOTES AWAKE, ALERT AND ORIENTED X 2, WITH CONFUSION.HARD OF HEARING.DENIES ANY PAIN OR DISTRESS.VERBALLY RESPONSIVE AND RESPONDS TO VERBAL AND TACTILE STIMULI. BREATHING EVEN AND UNLABORED IN ROOM AIR 100% O2 SAT. AMBULATES AD [facility] USING CANE.WITH BRP.BED LOCKED AND IN LOW POSITION. BILATERAL UPPER SIDE RAILS UP AND LOCKED. CALL LIGHT WITHIN EASY REACH
[2018-12-18 08:03] LABS: ALANINE AMINOTRANSFERASE 31 U/L (12-78); ALBUMIN 3.2 g/dL (3.4-5.0); ALKALINE PHOSPHATASE 88 U/L (46-116); ASPARTATE AMINOTRANSFERASE 58 U/L (15-37); BILIRUBIN,TOTAL 1.1 mg/dL (0.2-1.0); CALCIUM, SERUM 7.6 mg/dL (8.5-10.1); CARBON DIOXIDE 22 mmol/L (21-32); CHLORIDE 105 mmol/L (98-107); GLUCOSE 155 mg/dL (74-106); MAGNESIUM 1.8 mg/dL (1.8-2.4); PHOSPHORUS 4.4 mg/dL (2.5-4.9); POTASSIUM 4.1 mmol/L (3.5-5.1); SODIUM SERUM 141 mmol/L (136-145); TOTAL PROTEIN, SERUM 6.5 g/dL (6.4-8.2); UREA NITROGEN, BLOOD 38 mg/dL (7-18)
[2018-12-18] MEDS: CLOPIDOGREL BISULFATE 75 MG TABLET PO SCH (08:45)
[2018-12-18] MEDS: methylPREDNISolone SOD SUCC 40 MG/ML VIAL IV SCH ×2 (08:45→16:41)
[2018-12-18] MEDS: CARVEDILOL 3.125 MG TABLET PO SCH ×2 (08:52→22:12)
[2018-12-18] MEDS: HYDROCODONE/APAP 5/325MG 1 EACH TABLET PO PRN ×3 (08:58→22:18)
--- NOTE | 2018-12-18 11:19 | NUR ---
KILO along with telephonic nurse case manager Garima Thompson met with pt. bedside to give him caregiving resources. KILO discussed with pt. [employer] and [employer]. SW informed pt. she will initiate [employer] application with [employer]. Pt. agreed. Pt. was also given three caregiving resources along with contact number for Mariella at [phone]. KILO contacted [facility] and spoke to KILO Anderson and initiated the application process. Pt's SS case ID number is [id number]. KILO gave pt. his SS case ID number for future reference.
[2018-12-18] MEDS ORDERED: AZITHROMYCIN 250 MG TABLET PO SCH (15:00)
[2018-12-18] MEDS: ONDANSETRON HCL/PF 4 MG/2 ML VIAL IVP PRN (15:44)
[2018-12-18 16:00] VITALS: BP 104/71
[2018-12-18] MEDS: ALPRAZOLAM 0.25 MG TABLET PO PRN (16:42)
[2018-12-18] MEDS: CEFTRIAXONE 1 G in IV D5W 50 ML IV SCH (18:57)
--- NOTE | 2018-12-18 19:30 | NUR ---
MS/RN RECEIVE PATIENT AWAKE, ALERT, ORIENTED, COMFORTABLE, NO C/O PAIN, NO DISTRESS NOTED, CALL LIGHT IN REACH. WILL MONITOR
[2018-12-18 20:28] VITALS: BP 106/67
[2018-12-18] MEDS: ATORVASTATIN 10 MG TABLET PO SCH (22:11)
[2018-12-18] MEDS: ENOXAPARIN SODIUM 40 MG/0.4 ML DISP.SYRIN SQ SCH (22:13)
[2018-12-19] MEDS: ZOLPIDEM TARTRATE 5 MG TABLET PO PRN (01:19)
[2018-12-19] MEDS: ALBUTEROL FS 2.5 MG/3 ML VIAL.NEB NEB SCH ×3 (03:00→11:30)
[2018-12-19] MEDS: IPRATROPIUM NEB FS 0.5 MG/2.5 ML AMPUL.NEB NEB SCH ×3 (03:00→11:30)
[2018-12-19 08:00] VITALS: BP 106/74
--- NOTE | 2018-12-19 08:00 | NUR ---
MS RN AM NOTES AWAKE, ALERT AND ORIENTED X 2, WITH CONFUSION.HARD OF HEARING.DENIES ANY PAIN OR DISTRESS.VERBALLY RESPONSIVE AND RESPONDS TO VERBAL AND TACTILE STIMULI. BREATHING EVEN AND UNLABORED IN ROOM AIR 100% O2 SAT. LOVES TO SMOKE OUTSIDE INSPITE OF C/O HE'S DIZZY SPECIALLY WHEN HE DOESN'T SMOKE.KEEPS AMBULATING ALONG THE HALLWAY AD [place] USING CANE.WITH BRP.BED LOCKED AND IN LOW POSITION. BILATERAL UPPER SIDE RAILS UP AND LOCKED. CALL LIGHT WITHIN EASY REACH
[2018-12-19] MEDS: methylPREDNISolone SOD SUCC 40 MG/ML VIAL IV SCH (08:28)
[2018-12-19] MEDS: CLOPIDOGREL BISULFATE 75 MG TABLET PO SCH (08:28)
[2018-12-19] MEDS: HYDROCODONE/APAP 5/325MG 1 EACH TABLET PO PRN (08:28)
[2018-12-19] MEDS: ALPRAZOLAM 0.25 MG TABLET PO PRN (08:28)
[2018-12-19 08:33] VITALS: BP 106/74
[2018-12-19] MEDS: CARVEDILOL 3.125 MG TABLET PO SCH (08:33)
[2018-12-19] MEDS: ONDANSETRON HCL/PF 4 MG/2 ML VIAL IVP PRN (09:02)
--- NOTE | 2018-12-19 11:44 | NUR ---
DISCHARGED HOME WITH DISCHARGE INSTRUCTIONS AND MED TEACHING.REFUSED BODY PHOTOS TO BE TAKEN AND WAS VERY EAGER TO SMOKE OUTSIDE.DISCHARGE WITH STABLE V/S.AMBULATING WITH STEADY GAIT USING CANE WITH NO SOB ON ROOM AIR.PT ASKED FOR 2 TOKENS IN RIDING THE BUS.VERBALIZED ABLE TO RIDE THE BUS.NO C/O DIZZINESS OR NAUSEA.PT VERBALIZED THAT HIS DIZZINESS STOPS WHEN HE SMOKES.IV H/L TO LFA AND YARON MIDLINE REMOVED WITHOUT BLEEDING NOTED.PT TOLERATED WELL.
== END 2018-12-19 11:30 | disposition home or self-care (01) | DRG 280 ==
LOC: ER 13:50 → TELE 16:55 → MED 12-17 10:21
PROVIDERS: ADMIT Internal Medicine; ATTEND Nurse Practitioner Acute Care
PROC: 05H533Z Insertion of Infusion Device into Right Subclavian Vein, Percutaneous Approach (ICD-10-PCS; principal; 2018-12-17)
PROC: B546ZZA Ultrasonography of Right Subclavian Vein, Guidance (ICD-10-PCS; 2018-12-17)
DX: I21.4 Non-ST elevation (NSTEMI) myocardial infarction (principal); N17.0 Acute kidney failure with tubular necrosis; J15.9 Unspecified bacterial pneumonia; I50.23 Acute on chronic systolic (congestive) heart failure; E44.0 Moderate protein-calorie malnutrition; I13.0 Hypertensive heart and chronic kidney disease with heart failure and stage 1 through stage 4 chronic kidney disease, or unspecified chronic kidney disease; J98.11 Atelectasis; I25.10 Atherosclerotic heart disease of native coronary artery without angina pectoris; I11.0 Hypertensive heart disease with heart failure; I25.2 Old myocardial infarction; K21.9 Gastro-esophageal reflux disease without esophagitis; F17.200 Nicotine dependence, unspecified, uncomplicated; F10.20 Alcohol dependence, uncomplicated; Y90.9 Presence of alcohol in blood, level not specified; E78.5 Hyperlipidemia, unspecified; B19.20 Unspecified viral hepatitis C without hepatic coma; Z88.8 Allergy status to other drugs, medicaments and biological substances; E83.42 Hypomagnesemia; D64.9 Anemia, unspecified; E87.5 Hyperkalemia; F32.9 Major depressive disorder, single episode, unspecified; F41.9 Anxiety disorder, unspecified; G89.29 Other chronic pain; M19.90 Unspecified osteoarthritis, unspecified site; J45.909 Unspecified asthma, uncomplicated; Z79.899 Other long term (current) drug therapy; D63.8 Anemia in other chronic diseases classified elsewhere; N18.9 Chronic kidney disease, unspecified; Z95.0 Presence of cardiac pacemaker; Z88.6 Allergy status to analgesic agent; K74.60 Unspecified cirrhosis of liver; M54.5 Low back pain; D72.819 Decreased white blood cell count, unspecified; J44.9 Chronic obstructive pulmonary disease, unspecified
CPT/HCPCS: 36415; 70450-TC; 71045-TC; 76700-TC; 80048-TC; 80053-TC; 80076-TC; 81000-TC; 83690-TC; 83735-TC; 83880; 84100-TC; 84484-TC; 85025-TC; 87081-TC; 93307-TC; G0378; J0696; J1650; J1885; J1940; J2270; J2405; J2920; J2930; J3475; J7030; J7040; J7060

== ENCOUNTER 2019-01-30 13:56 | Emergency (ER) | payer MEDICARE, OTHER ==
[~2019-01-30] VITALS: Ht 182.9 cm; Wt 76.7 kg
--- NOTE | 2019-01-30 14:30 | NUR ---
PT BIB RA WITH A C/O SOB. PT HAS A JARON PACEMAKER AND IS SPEAKING IN FULL/COMPLETE SENTENCES. PT IS IN A GOWN AND ON THE MONITOR. PT HAS BLE EDEMA NOTED. PT STATED THAT HE WAS A HARD STICK. 20G IV STARTED IN LT HAND UNSUCCESSFULLY. NO IV TECHNICAL OPERATIONS MANAGER THEY WERE UNABLE TO OBTAIN ACCESS. DR. DIALLO IS AT THE BEDSIDE. FRANCY IS AT THE BEDSIDE FOR BLOOD DRAW.
--- NOTE | 2019-01-30 14:40 | NUR ---
XRAY IN PROGRESS AT THE BEDSIDE
[2019-01-30 14:43] LABS: BASOPHILS # (AUTO) 0.1 /CMM (0.0-0.2); BASOPHILS % (AUTO) 1.3 % (0.0-2.0); EOSINOPHILS % (AUTO) 13.9 % (0.0-6.0); HEMATOCRIT 39 % (39-51); HEMOGLOBIN 12.6 g/dL (13.5-17.5); LYMPHOCYTES # (AUTO) 1.3 /CMM (0.8-4.8); LYMPHOCYTES % (AUTO) 31.7 % (20.0-44.0); MEAN CORPUSCULAR HGB CONC 33 g/dl (31.0-36.0); MEAN CORPUSCULAR VOLUME 95 fL (80-96); MONOCYTES # (AUTO) 0.5 /CMM (0.1-1.30); MONOCYTES % (AUTO) 12.1 % (2.0-12.0); NEUTROPHILS # (AUTO) 1.7 /CMM (1.8-8.9); PLATELET COUNT (AUTO) 195 /CMM (150-450); RED BLOOD CELL COUNT(AUTO) 4.09 MIL/uL (4.5-6.0); WHITE BLOOD COUNT (AUTO) 4.2 K/uL (4.3-11.0)
[2019-01-30 14:50] LABS: CARBON DIOXIDE 21 mmol/L (21-32); CHLORIDE 104 mmol/L (98-107); CREATININE 1.1 mg/dL (0.6-1.3); GLUCOSE 96 mg/dL (74-106); POTASSIUM 3.6 mmol/L (3.5-5.1); SODIUM SERUM 138 mmol/L (136-145); UREA NITROGEN, BLOOD 7 mg/dL (7-18)
[2019-01-30 15:05] LABS: B-TYPE NATRIURETIC PEPTIDE 9212 PG/ML (0-125)
--- NOTE | 2019-01-30 15:15 | NUR ---
PANTS REMOVED FOR US.
--- NOTE | 2019-01-30 15:23 | NUR ---
US IN PROGRESS AT THE BEDSIDE.
--- NOTE | 2019-01-30 15:28 | NUR ---
US FINISHED AT THE BEDSIDE.
--- NOTE | 2019-01-30 15:32 | NUR ---
HOUSE SUP CALLED FOR BED ASSIGNMENT
--- NOTE | 2019-01-30 15:35 | NUR ---
PT IS REQUESTING PAIN MEDICATION. NOTIFIED
--- NOTE | 2019-01-30 15:36 | NUR ---
PT STATED THAT THE PAIN IS GOING FROM HIS LEFT CHEST, UNDER HIS PACEMAKER, TO HIS LT SHOULDER AND NECK, DOWN HIS SPINE AND BACK UP HIS SPINE TO THE RT SHOULDER.
--- NOTE | 2019-01-30 15:44 | NUR ---
DR. TERRAZAS IS AT THE BEDSIDE SPEAKING TO THE PT.
--- NOTE | 2019-01-30 15:47 | NUR ---
KIYA JOHNSON PT'S BP IS 94/33
[2019-01-30] MEDS ORDERED: GABA-534 PO (15:53)
[2019-01-30] MEDS ORDERED: FURO40TA5 PO (15:53)
[2019-01-30] MEDS ORDERED: ASPI-1152 PO (15:53)
[2019-01-30] MEDS ORDERED: METO-356 PO (15:53)
[2019-01-30] MEDS ORDERED: IBUP-1955 PO (15:53)
[2019-01-30] MEDS ORDERED: DOCU100T9 PO (15:53)
[2019-01-30] MEDS ORDERED: LISI-607 PO (15:53)
[2019-01-30] MEDS ORDERED: CARV3.122 PO (15:53)
[2019-01-30] MEDS ORDERED: ZOLP5TAB8 PO (15:53)
[2019-01-30] MEDS ORDERED: LORA1TAB PO (15:53)
[2019-01-30] MEDS ORDERED: QUET25TA PO (15:53)
[2019-01-30] MEDS ORDERED: IPRA3AMP23 IH (15:53)
[2019-01-30] MEDS ORDERED: ACET325T53 PO (15:53)
[2019-01-30] MEDS ORDERED: ATOR40TA PO (15:53)
[2019-01-30] MEDS ORDERED: HEPARIN SODIUM, PORCINE 5000 UNITS/1 ML VIAL ONE (15:59)
[2019-01-30] MEDS ORDERED: HEPARIN INFUSION/D5W 500 ML IV PRN (16:00)
[2019-01-30] MEDS ORDERED: NITROGLYCERIN 0.4 MG/TAB BOTTLE SL ONE (16:00)
--- NOTE | 2019-01-30 16:07 | NUR ---
PT RETURNED FROM THE BATHROOM AND WAS RECONNECTED TO THE MONITOR AND CONTINUOUS PULSE OX. PT AMBULATED WITH ASSISTANCE. PT STATED THAT HE USUALLY USES A WALKER.
--- NOTE | 2019-01-30 16:13 | NUR ---
SPOKE TO ART, CCT NURSE AND GAVE ETA OF ONE HOUR
--- NOTE | 2019-01-30 16:25 | NUR ---
HEPARIN DRIP STARTED BY YANIRA BRADY
[2019-01-30] MEDS ORDERED: NITROGLYCERIN 0.4 MG/TAB BOTTLE ONE (16:27)
[2019-01-30] MEDS ORDERED: ASPIRIN 325 MG TABLET PO ONE (16:30)
[2019-01-30] MEDS ORDERED: FUROSEMIDE 40 MG/4 ML VIAL IV ONE (16:30)
[2019-01-30] MEDS ORDERED: CARVEDILOL 3.125 MG TABLET PO ONE (16:30)
[2019-01-30] MEDS ORDERED: HEPARIN SODIUM, PORCINE 5000 UNITS/1 ML VIAL IV ONE (16:30)
--- NOTE | 2019-01-30 16:30 | NUR ---
PT REC'D NITRO SL. PT C/O L SIDED CP 7-07/05.
--- NOTE | 2019-01-30 16:36 | NUR ---
PT REC'D [address] [place] [address] SL.
--- NOTE | 2019-01-30 16:40 | NUR ---
Ailyn cortez in [facility] - 01/30/19 at 1643 by INDIO PT REC'D 2ND [address] SL
--- NOTE | 2019-01-30 16:54 | NUR ---
AWAITING CALL FROM DR RAMIREZ REGARDING TRANSFER OF THIS PATIENT.
--- NOTE | 2019-01-30 17:32 | NUR ---
REPORT GIVEN TO YANIRA [facility]. COPY OF CHART AND ALL LABS, IMAGING, ETC. GIVEN.
[2019-01-30 17:33] VITALS: BP 118/89
--- NOTE | 2019-01-30 17:55 | NUR ---
CCT LEFT WITH PT.
--- NOTE | 2019-01-30 18:01 | NUR ---
CALLING REPORT TO [facility]. AT [phone]. PT IS GOING TO ROOM 2326. ACCEPTING MD IS ASHLEY.
--- NOTE | 2019-01-30 18:03 | NUR ---
Ailyn cortez in [facility] - 01/30/19 at 1803 by AIDA CALLING REPORT TO YANIRA SESAY
--- NOTE | 2019-01-30 18:03 | NUR ---
CALLING REPORT TO YANIRA SESAY
--- NOTE | 2019-01-30 18:03 | NUR ---
ADDENDUM: Intravenous End Time Documentation: Heparin Infusion (25,000/D5W 500 ml) start time: 1625 PM end time: 1803 PM The patient was transferred to [facility] dr ongoing
[2019-01-30] MEDS ORDERED: ATORVASTATIN 10 MG TABLET PO SCH (22:00)
== END 2019-01-30 18:22 ==
LOC: ER 13:56
DX: I21.4 Non-ST elevation (NSTEMI) myocardial infarction (principal); R60.0 Localized edema; J44.9 Chronic obstructive pulmonary disease, unspecified; I44.7 Left bundle-branch block, unspecified; I10 Essential (primary) hypertension; K21.9 Gastro-esophageal reflux disease without esophagitis; F10.20 Alcohol dependence, uncomplicated; E78.5 Hyperlipidemia, unspecified; F17.200 Nicotine dependence, unspecified, uncomplicated; Y90.9 Presence of alcohol in blood, level not specified; Z60.2 Problems related to living alone; Z79.82 Long term (current) use of aspirin; Z95.0 Presence of cardiac pacemaker; Z88.6 Allergy status to analgesic agent; Z86.19 Personal history of other infectious and parasitic diseases
CPT/HCPCS: 36415; 71045; 80048; 83880; 84484; 85025; 85730; 87081; 93005 ×2; 93970; 96365; 96366; 96376; 99291; A4606; J1644 ×2

== ENCOUNTER 2019-04-29 18:47 | Inpatient (IN) | payer MEDICARE, OTHER ==
[~2019-04-29] VITALS: Ht 182.9 cm; Wt 65.8 kg
[~2019-04-29 18:47] MED LIST changes: +ACET325T53 PO; +ASPI-1152 PO; +ATOR40TA PO; +DOCU100T9 PO; +FURO40TA5 PO; -FURO80TA3 PO; +GABA-534 PO; +IBUP-1955 PO; +IPRA3AMP23 IH; +LISI-607 PO; +LORA1TAB PO; +METO-356 PO; +QUET25TA PO; +ZOLP5TAB8 PO
--- NOTE | 2019-04-29 18:53 | NUR ---
BIB RA FROM [facility] HOME, AMS AFTER THEY WERE FOUND USING HEROIN, NARCAN GIVEN MACHINE UMBRELLA TIPPER. PT UNABLE TO PROVIDE ANY INFORMATION. AOX2, VSS, RR EVEN AND UNLABORED ON RA. SKIN IS DRY AND PATCHY. MADE COMFORTABLE AND READY FOR EVAL.
[2019-04-29] MEDS ORDERED: IV NS 0.9% 1,000 ML BAG IV ONE (20:00)
[2019-04-29 20:10] LABS: BASOPHILS % (AUTO) 0.4 % (0.0-2.0); EOSINOPHILS % (AUTO) 2.7 % (0.0-6.0); HEMATOCRIT 41 % (39-51); HEMOGLOBIN 13.3 g/dL (13.5-17.5); LYMPHOCYTES # (AUTO) 2.1 /CMM (0.8-4.8); LYMPHOCYTES % (AUTO) 21.7 % (20.0-44.0); MEAN CORPUSCULAR HGB CONC 33 g/dl (31.0-36.0); MEAN CORPUSCULAR VOLUME 89 fL (80-96); MONOCYTES # (AUTO) 0.7 /CMM (0.1-1.30); MONOCYTES % (AUTO) 7.5 % (2.0-12.0); NEUTROPHILS # (AUTO) 6.6 /CMM (1.8-8.9); NEUTROPHILS % (AUTO) 67.7 % (43.0-81.0); PLATELET COUNT (AUTO) 235 /CMM (150-450); RED BLOOD CELL COUNT(AUTO) 4.58 MIL/uL (4.5-6.0); WHITE BLOOD COUNT (AUTO) 9.7 K/uL (4.3-11.0)
[2019-04-29 20:16] LABS: CALCIUM, SERUM 8.9 mg/dL (8.5-10.1); CARBON DIOXIDE 21 mmol/L (21-32); CHLORIDE 98 mmol/L (98-107); CREATININE 1.2 mg/dL (0.6-1.3); GLUCOSE 153 mg/dL (74-106); POTASSIUM 5.9 mmol/L (3.5-5.1); SODIUM SERUM 130 mmol/L (136-145); UREA NITROGEN, BLOOD 27 mg/dL (7-18)
[2019-04-29 20:22] LABS: ALANINE AMINOTRANSFERASE 53 U/L (12-78); ALBUMIN 3.9 g/dL (3.4-5.0); ALKALINE PHOSPHATASE 132 U/L (46-116); ASPARTATE AMINOTRANSFERASE 44 U/L (15-37); BILIRUBIN,DIRECT 0.2 mg/dL (0.0-0.2); BILIRUBIN,TOTAL 0.5 mg/dL (0.2-1.0); SALICYLATE < 2.8 mg/dL (2.8-20.0); TOTAL PROTEIN, SERUM 9.2 g/dL (6.4-8.2)
[2019-04-29] MEDS ORDERED: NALOXONE HCL 0.4 MG/ML AMPUL IV ONE (20:30)
[2019-04-29] MEDS ORDERED: SODIUM BICARBONATE SYR 50 MEQ/50 ML DISP.SYRIN IV ONE (20:30)
[2019-04-29] MEDS ORDERED: INSULIN REGULAR, HUMAN 100 UNIT/ML 10 ML VIAL IV ONE (20:30)
[2019-04-29] MEDS ORDERED: DEXTROSE 50%-WATER 50 ML DISP.SYRIN IV ONE (20:30)
[2019-04-29] MEDS ORDERED: CALCIUM CHLORIDE 1,000 MG/10 ML DISP.SYRIN IV ONE (20:30)
--- NOTE | 2019-04-29 20:47 | NUR ---
PT'S NURSE FROM [facility] (YANIRA TORREZ) CONTACT INFORMATION: [phone]
[2019-04-29] MEDS ORDERED: CALCIUM CHLORIDE 1,000 MG/10 ML DISP.SYRIN ONE (20:51)
[2019-04-29] MEDS ORDERED: NALOXONE HCL 0.4 MG/ML AMPUL ONE ×2 (20:51→22:46)
[2019-04-29] MEDS ORDERED: SODIUM BICARBONATE SYR 50 MEQ/50 ML DISP.SYRIN ONE (20:51)
[2019-04-29] MEDS ORDERED: INSULIN REGULAR, HUMAN 100 UNIT/ML 10 ML VIAL ONE (20:51)
[2019-04-29 21:00] LABS: THYROID STIMULATING HORMONE 20.465 uIU/mL (0.358-3.74)
--- NOTE | 2019-04-29 21:15 | NUR ---
PT VERY ALERT AND TALKATIVE AFTER GIVING NARCAN.
[2019-04-29] MEDS ORDERED: LORAZEPAM 1 MG TABLET PO PRN (21:30)
[2019-04-29] MEDS ORDERED: MAGNESIUM HYDROXIDE 30 ML UDC PO PRN (21:30)
[2019-04-29] MEDS ORDERED: ZOLPIDEM TARTRATE 5 MG TABLET PO PRN ×2 (21:30)
[2019-04-29] MEDS ORDERED: ONDANSETRON HCL/PF 4 MG/2 ML VIAL IVP PRN (21:30)
[2019-04-29] MEDS ORDERED: MAG HYDROX/AL HYDROX/SIMETH 30 ML UDC PO PRN (21:30)
[2019-04-29] MEDS ORDERED: IBUPROFEN 600 MG TABLET PO PRN (21:30)
[2019-04-29] MEDS ORDERED: Z GUARD REMEDY 2 OZ OINT TP PRN (21:30)
[2019-04-29] MEDS ORDERED: IV NS 0.9% 1,000 ML IV SCH (21:30)
[2019-04-29] MEDS ORDERED: HYDROCODONE/APAP 5/325MG 1 EACH TABLET PO PRN (21:30)
[2019-04-29] MEDS ORDERED: ACETAMINOPHEN 325 MG TABLET PO PRN ×2 (21:30)
--- NOTE | 2019-04-29 21:50 | NUR ---
MID LINE INSERTED R UPPER ARM 18G
--- NOTE | 2019-04-29 22:40 | NUR ---
REPORT GIVEN TO YANIRA SOARES FOR 326-1 T
[2019-04-29] MEDS ORDERED: NALOXONE HCL 0.4 MG/ML AMPUL IV STA (22:42)
[2019-04-29] MEDS ORDERED: FUROSEMIDE 40 MG/4 ML VIAL ONE (22:46)
[2019-04-29] MEDS ORDERED: FUROSEMIDE 20 MG/2 ML VIAL IV SCH (23:00)
[2019-04-29] MEDS ORDERED: FUROSEMIDE 40 MG/4 ML VIAL IV SCH (23:00)
--- NOTE | 2019-04-29 23:04 | NUR ---
SPOKE WITH YANIRA TORREZ AT [facility] FOR UPDATE ON PT
[2019-04-29 23:16] LABS: B-TYPE NATRIURETIC PEPTIDE 3675 PG/ML (0-125)
[2019-04-29 23:18] LABS: ACETAMINOPHEN 0 ug/ml (10-30); ALCOHOL, BLOOD < 3 mg/dL (0-0)
--- NOTE | 2019-04-29 23:44 | NUR ---
BROUGHT BY RADIOLOGY FOR CT
[2019-04-30] VITALS (59 sets, daily range): BP systolic 59–137; BP diastolic 26–72
[2019-04-30] MEDS ORDERED: DEXTROSE 10% IN WATER 250 ML IV ONE (00:04)
[2019-04-30] MEDS ORDERED: DEXTROSE 10% IN WATER 250 ML BAG IV ONE (00:30)
--- NOTE | 2019-04-30 00:56 | NUR ---
CALLED MARGE FOR REPORT
--- NOTE | 2019-04-30 01:25 | NUR ---
PT PULLED OUT MIDLINE. GAUZE AND PRESSURE APPLIED.
--- NOTE | 2019-04-30 01:55 | NUR ---
MULTIPLE ATTEMPTS TO REINSERT IV, UNSUCCESSFUL. DR DAVIS AND NURSING INSURANCE PREMIUM AUDITOR AWARE.
--- NOTE | 2019-04-30 01:57 | NUR ---
URINE COLLECTED AND SENT TO LAB
[2019-04-30 02:18] LABS: APPEARANCE,URINE CLEAR (CLEAR); BILIRUBIN,URINE NEGATIVE (NEGATIVE); BLOOD, URINE NEGATIVE Ery/uL (NEGATIVE); COLOR,URINE YELLOW (YELLOW); KETONES,URINE NEGATIVE (NEGATIVE); LEUKOCYTE ESTERASE ,URINE NEGATIVE (NEGATIVE); NITRITE, URINE NEGATIVE (NEGATIVE); PH,URINE 5.5 (5.0-8.0); PROTEIN,URINE NEGATIVE (NEGATIVE); UGLUCOSE NEGATIVE (NEGATIVE); UROBILINOGEN,URINE 0.2 EU/dL (0.2)
--- NOTE | 2019-04-30 02:54 | NUR ---
PT TRANSFERRED PER [facility]
--- NOTE | 2019-04-30 03:00 | NUR ---
YANIRA NOTES ADMITTED A 74 Y/O MALE, TRANSPORTED FROM ER VIA GURNEY, CALM RESTING COMFORTABLY, REPOSITION Addendum: 04/30/19 at 0739 by IWONA MAY RN CONTINUE DOCUMENTATION: ADMITTED A 74 Y/O MALE, TRANSPORTED FROM ER VIA GURNEY, CALM RESTING COMFORTABLY, PATIENT IS ASLEEP AT THIS TIME, EASILY AROUSABLE, NO SKIN WOUND NOTED, SKIN IS DRY AND INTACT, MD AWARE PATIENT IS IN THE UNIT AT THIS TIME. REPOSITIONED FOR COMFORT, SAFETY MEASURES IN PLACE ASPIRATION PRECAUTION EMPHASIZE, WILL CONTINUE TO MONITOR ACCORDINGLY.
--- NOTE | 2019-04-30 06:45 | NUR ---
RN NOTES CALLED AND PAGED DR. HERNANDES REGARDING CRITICAL LAB VALUE OF TROPONIN LEVEL 0.512. NO NEW ORDERS AT THIS TIME, WILL CONTINUE TO MONITOR PATIENT.
--- NOTE | 2019-04-30 07:30 | NUR ---
RN OPENING NOTES PT SLEEPING IN BED. NO APPARENT S/S OF PAIN, DISTRESS OR SOB AT THIS TIME. PT HAS RIGHT THUMB #22 RUNNING NS @100 ML/HR. TELE MONITORED AFBEN CARRILLO. SAFETY PRECAUTIONS IN PLACE, BED IN LOWEST LOCKED POSITION, X2 SIDE RAILS UP AND CALL LIGHT WITHIN REACH. WILL CONTINUE TO MONITOR.
--- NOTE | 2019-04-30 07:30 | NUR ---
RN NOTES ALL NEEDS ATTENDED AND MET, PATIENT IS STILL RESTING COMFORTABLY, NO APPARENT SIGNS OF ACUTE CARDIAC AND RESPIRATORY DISTRESS NOTED, TELE MONITOR READS RILEY 40s TO 50s, SAFETY MEASURES IN PLACE ASPIRATION PRECAUTION EMPHASIZE, ENDORSED TO AM NURSE FOR CONTINUITY OF CARE.
[2019-04-30] MEDS ORDERED: ALBUTEROL FS 2.5 MG/0.5 ML VIAL.NEB NEB PRN (07:35)
[2019-04-30] MEDS ORDERED: IPRATROPIUM NEB FS 0.5 MG/2.5 ML AMPUL.NEB NEB PRN (08:00)
[2019-04-30 08:05] LABS: BASOPHILS % (AUTO) 0.2 % (0.0-2.0); EOSINOPHILS % (AUTO) 0.4 % (0.0-6.0); HEMATOCRIT 35 % (39-51); HEMOGLOBIN 11.8 g/dL (13.5-17.5); LYMPHOCYTES # (AUTO) 1.4 /CMM (0.8-4.8); MEAN CORPUSCULAR HGB CONC 33 g/dl (31.0-36.0); MEAN CORPUSCULAR VOLUME 88 fL (80-96); MONOCYTES # (AUTO) 0.9 /CMM (0.1-1.30); MONOCYTES % (AUTO) 8.9 % (2.0-12.0); NEUTROPHILS # (AUTO) 7.6 /CMM (1.8-8.9); NEUTROPHILS % (AUTO) 76.5 % (43.0-81.0); PLATELET COUNT (AUTO) 191 /CMM (150-450); RED BLOOD CELL COUNT(AUTO) 4.02 MIL/uL (4.5-6.0)
[2019-04-30 08:18] LABS: CALCIUM, SERUM 7.9 mg/dL (8.5-10.1); CARBON DIOXIDE 24 mmol/L (21-32); CHLORIDE 101 mmol/L (98-107); CREATININE 1.3 mg/dL (0.6-1.3); GLUCOSE 93 mg/dL (74-106); MAGNESIUM 1.5 mg/dL (1.8-2.4); PHOSPHORUS 6.9 mg/dL (2.5-4.9); SODIUM SERUM 132 mmol/L (136-145); UREA NITROGEN, BLOOD 31 mg/dL (7-18)
[2019-04-30 08:22] LABS: CHOLESTEROL 110 mg/dL (<200); HDL CHOLESTEROL 52 mg/dL (40-60); LDL 58 mg/dL (0-99); TRIGLYCERIDES 19 mg/dL (30-150)
[2019-04-30 08:24] LABS: POTASSIUM 6.6 mmol/L (3.5-5.1)
--- NOTE | 2019-04-30 08:35 | NUR ---
rn notes informed md patel of troponin level of 0.509 and potassium 6.6.
[2019-04-30] MEDS ORDERED: NALOXONE HCL 0.4 MG/ML AMPUL IV STA (08:55)
[2019-04-30] MEDS ORDERED: SODIUM POLYSTYRENE SULFONATE 15 G/60 ML BOTTLE PO ONE (09:00)
[2019-04-30] MEDS ORDERED: LISINOPRIL (5MG) 5 MG TABLET PO SCH (09:00)
[2019-04-30] MEDS ORDERED: METOPROLOL SUCCINATE 25 MG TAB.SR.24H PO SCH (09:00)
[2019-04-30] MEDS ORDERED: FUROSEMIDE 40 MG TABLET PO SCH (09:00)
[2019-04-30] MEDS: FUROSEMIDE 40 MG/4 ML VIAL IV SCH ×3 (09:00→16:54)
--- NOTE | 2019-04-30 09:06 | NUR ---
rn notes pt noted to be hard to arouse. dr patel ordered narcan. carried out as ordered. will continue to monitor.
--- NOTE | 2019-04-30 09:35 | NUR ---
RN NOTES PT AWAKE, COMPLAINING OF TROUBLE BREATHING CALLED RT. WILL CONTINUE TO MONITOR.
[2019-04-30] MEDS: DOCUSATE SODIUM 100 MG CAPSULE PO SCH ×2 (11:16→16:54)
[2019-04-30] MEDS: CARVEDILOL 3.125 MG TABLET PO SCH ×2 (11:16→21:00)
[2019-04-30] MEDS: ASPIRIN EC 81 MG TABLET.DR PO SCH (11:16)
[2019-04-30] MEDS: GABAPENTIN 300 MG CAPSULE PO SCH ×2 (11:17→16:54)
[2019-04-30] MEDS: QUETIAPINE FUMARATE 25 MG TABLET PO SCH ×2 (11:17→16:54)
[2019-04-30 12:27] LABS: ABG BASE EXCESS -5.7 mmol/L; ABG PCO2 78.9 mmHg (35.0-45.0); ABG PH 7.118 (7.350-7.450); ABG PO2 97.3 mmHg (75.0-100.0); AaDO2 67.9 mmHg; COHb 0.6 % (0.5-1.5); MetHb 0.6 % (0.0-1.5); O2Hb 93.9 % (94.0-97.0); SITE, ABG Right Radial; VENT MODE, BG nasal cannula
--- NOTE | 2019-04-30 13:00 | NUR ---
rn notes patient transferred to icu via hospital per acls protocol. all belongings brought with patient.
[2019-04-30 13:35] LABS: ABG BASE EXCESS -5.6 mmol/L; ABG OXYGEN SATURATION 93.2 % (92.0-98.5); ABG PCO2 90.6 mmHg (35.0-45.0); ABG PH 7.078 (7.350-7.450); MetHb 0.5 % (0.0-1.5); O2Hb 91.8 % (94.0-97.0); SITE, ABG Right Radial; VENT MODE, BG ST 20/5 RR16 40%
--- NOTE | 2019-04-30 13:40 | NUR ---
ICU ADMITTING NOTES: Rec'd pt from 3W, transferred via bed to rm 251. Pt is not responsive to verbal & tactile stimuli. RT placed on BIPAP as ordered. SB on telemonitor w/ PPM on LCW. Has IV line on R thumb G22, SL, flushing well, no s/sx of infection/infiltration noted. Noted blanchable redness on sacral area. Pt kept comfortable at this time. Dr. Campuzano aware of the consult, ordered to do ABG. ABG reviewed by Dr. Campuzano w/ orders to intubate pt c/o ER MD. Pt tolerated well the intubation & insertion of OGT. CXR ordered post intubation to confirm placement of ET as well as OGT. Upper dentures kept w/ pt's belongings. Inserted FC w/ yellowish UOP as ordered. Pt seen & examined by Marcus VARGAS w/ orders made & carried out. Called pt's son Lonnie, secured consent for PICC line insertion. Son also updated about pt's current status & condition. Per son, he is the only decision maker.
--- NOTE | 2019-04-30 14:05 | NUR ---
RT PATIENT ORALLY INTUBATED BY ER DOCTOR WITH A 7.5 ETT SECURED AT 24CM LIP. BILAT BREATH SOUNDS HEARD. SUCTIONED WITH MOD AMT PALE SEMI-THICK SECRETIONS. AMBU BAG AT HOB Addendum: 04/30/19 at 1406 by APRIL PENA RT Amended: Links added.
[2019-04-30] MEDS: methylPREDNISolone SOD SUCC 40 MG/ML VIAL IV SCH ×2 (14:11→16:54)
[2019-04-30] MEDS: DOPamine 800 MG in IV D5W 250 ML IV PRN (14:12)
[2019-04-30] MEDS: Magnesium 1GM/D5W 100ML PREMIX 100 ML IV SCH ×2 (14:29→15:40)
[2019-04-30 15:20] LABS: CALCIUM, SERUM 7.6 mg/dL (8.5-10.1); CARBON DIOXIDE 24 mmol/L (21-32); CHLORIDE 101 mmol/L (98-107); CREATININE 1.8 mg/dL (0.6-1.3); GLUCOSE 87 mg/dL (74-106); SODIUM SERUM 134 mmol/L (136-145); UREA NITROGEN, BLOOD 37 mg/dL (7-18)
[2019-04-30 15:23] LABS: POTASSIUM 6.4 mmol/L (3.5-5.1)
[2019-04-30] MEDS: ALBUTEROL FS 2.5 MG/0.5 ML VIAL.NEB NEB SCH ×3 (15:30→23:26)
[2019-04-30] MEDS ORDERED: ETOMIDATE 2 MG/ML VIAL IV ONE (15:45)
[2019-04-30] MEDS ORDERED: CALCIUM CHLORIDE 1,000 MG/10 ML DISP.SYRIN IV ONE (16:00)
[2019-04-30] MEDS ORDERED: SODIUM POLYSTYRENE SULFONATE 15 G/60 ML BOTTLE NG ONE ×2 (16:30)
[2019-04-30 16:34] LABS: ABG BASE EXCESS -2.3 mmol/L; ABG OXYGEN SATURATION 96.8 % (92.0-98.5); ABG PCO2 40.6 mmHg (35.0-45.0); ABG PH 7.368 (7.350-7.450); ABG PO2 94.6 mmHg (75.0-100.0); AaDO2 216.2 mmHg; COHb 0.5 % (0.5-1.5); MetHb 0.4 % (0.0-1.5); O2Hb 95.9 % (94.0-97.0); SITE, ABG Left Radial; VENT MODE, BG AC 18 550 50% +0
[2019-04-30] MEDS: PROPOFOL 100 ML IV PRN (17:13)
[2019-04-30] MEDS: ATORVASTATIN 40 MG TABLET PO SCH (17:34)
[2019-04-30] MEDS ORDERED: IV NS 0.9% 250 ML BAG IV PRN (18:30)
--- NOTE | 2019-04-30 18:33 | NUR ---
PROCUREMENT SERVICES MANAGER CLOSING NOTES: Pt remains sedated, on Diprivan at 15 mcg. ABG results relayed to Dr. Campuzano w/ NNO - adjusted MV settings (FiO2 50%) tolerating well via ETT. On telemonitor SR/SB, in/out Afib. Pt tolerated well PICC line insertion on YARON (CXR confirmed placement) w/ Dopamine x 4 mcg. SL on R thumb G22 & LFA G20. FC kept patent & intact draining to BSB. B soft wrist restraints kept on for pt's safety. OGT kept patent & intact, clamped. Safety precautions observed at all times w/ bed in lowest & locked pos. Call light w/in reach. Will endorse to PM RN for RADHA.
[2019-04-30] MEDS ORDERED: IV NS 0.9% 250 ML IV PRN (19:00)
--- NOTE | 2019-04-30 19:45 | NUR ---
ICU/BATCH FREEZER OPERATOR RECEIVED REPORT FROM DAY NURSE. PT RESPONDS TO PAINFUL STIMULI, PT IS CURRENTLY ON SEDATION. PT IS CURRENTLY ORALLY INTUBATED, TOLERATING CURRENT VENT SETTINGS WITH SATURATION AT 98-100%. SEE FLOWSHEET FOR NURSE ASSESSMENT. ANY SKIN ISSUES WHICH PT MAY HAVE ARE ADDRESSED ON FLOWSHEET ALONG WITH EACH INTERVENTIONS TO THESE. PT IS CURRENTLY DOPA FOR BP AND SEDATION DUE TO INTUBATION,SEE IV SPREADSHEET FOR RATED AND TITRATION. CALL LIGHT WITHIN REACH, WILL CONTINUE TO CLOSELY MONITOR THIS PT . PT WAS TURNED AND REPOSITIONED FOR COMFORT AND CARE.
--- NOTE | 2019-04-30 20:24 | NUR ---
RT RECEIVED PT WITH ETT ON VENT. NO RESP DISTRESS. PT TOLERATING VENT SETTINGS. SX'D FOR MOD AMT OF THIN WHITE SECRETIONS. VENT ALARMS SET AND AUDIBLE. AMBU BAG AT BEDSIDE. VENT PLUGGED INTO RED OUTLET. WILL CONTINUE TO MONITOR. Addendum: 04/30/19 at 2024 by TOMER GIBSON RT Amended: Links added.
--- NOTE | 2019-04-30 20:40 | NUR ---
ICU/MARINE ERECTOR CHEMISTRY WAS DONE AT 2015 FOR A REPEAT FOR POTASSIUM, PT HAD BEEN GIVEN KAYEXALATE TO LOWER POTASSIUM LEVEL. THIS CURRENT LEVEL IS 5.2 FROM 6.4 AND 6.6 FROM EARLIER TODAY. WILL CONTINUE TO MONITOR THIS PT.
[2019-04-30 20:43] LABS: CALCIUM, SERUM 9.3 mg/dL (8.5-10.1); CARBON DIOXIDE 24 mmol/L (21-32); CHLORIDE 100 mmol/L (98-107); CREATININE 1.6 mg/dL (0.6-1.3); GLUCOSE 129 mg/dL (74-106); POTASSIUM 5.2 mmol/L (3.5-5.1); SODIUM SERUM 133 mmol/L (136-145); UREA NITROGEN, BLOOD 39 mg/dL (7-18)
--- NOTE | 2019-04-30 22:20 | NUR ---
ICU/ENGINEER SECOND ASSISTANT PT WAS TURNED AND REPOSITIONED FOR COMFORT AND CARE, PT AT THIS TIME WAS GIVEN RADHA CARE. PT WAS THEN GIVEN ORAL CARE, THERE WAS NOTICEABLE LARGE AMOUNT OF ORAL SECRETIONS. WILL CONTINUE TO MONITOR THIS PT AND HIS SKIN.
[2019-05-01] VITALS (102 sets, daily range): BP systolic 74–128; BP diastolic 44–92
--- NOTE | 2019-05-01 01:35 | NUR ---
ICU/BLOW PIT HELPER PT APPEARED TO BE AGITATED, NOTIFIED CHARGE NURSE WHO THEN INCREASED THE SEDATION TO 20MCG FROM 15MCG. WILL CONTINUE TO MONITOR THIS PT. PT WAS TURNED AND REPOSITIONED FOR COMFORT AND CARE. NO ACUTE DISTRESS SEEN AT THIS TIME.
[2019-05-01] MEDS: PROPOFOL 100 ML IV PRN ×3 (02:07→18:52)
--- NOTE | 2019-05-01 02:10 | NUR ---
ICU/LOSS PREVENTION SUPERVISOR PT APPEARED TO BE MORE AGITATED THAN BEFORE, NOTIFIED CHARGE NURSE WHO THEN INCREASED THE SEDATION TO 25MCG FROM 20MCG. WILL CONTINUE TO MONITOR THIS PT. NO ACUTE DISTRESS SEEN AT THIS TIME.
--- NOTE | 2019-05-01 02:35 | NUR ---
ICU/HEAVY EQUIPMENT SERVICE TECHNICIAN PT APPEARED TO BE RESTING COMFORTABLE, NO MORE AGITATION NOTED.NOTIFIED CHARGE NURSE WHO THEN DECREASED THE SEDATION FROM 25MCG DOWN TO 20MCG. WILL CONTINUE TO MONITOR THIS PT. NO ACUTE DISTRESS SEEN AT THIS TIME.
--- NOTE | 2019-05-01 03:05 | NUR ---
ICU/MANAGER ASSET PT WAS GIVEN AM CARE, ALONG WITH ORAL CARE. PT TOLERATED THIS WELL REMAINS ON CURRENT VENT SETTINGS WITH SATURATION AT 99-100%. PT WAS TURNED AND REPOSITIONED FOR COMFORT AND CARE. NO ACUTE DISTRESS SEEN AT THIS TIME.
[2019-05-01] MEDS: ALBUTEROL FS 2.5 MG/0.5 ML VIAL.NEB NEB SCH ×6 (03:08→22:36)
--- NOTE | 2019-05-01 04:30 | NUR ---
ICU/CREATIVE COORDINATOR AM LABS WERE DONE ALONG WITH AM CHEST XRAY. AWAIT FOR ANY ABNORMAL RESULTS.
[2019-05-01 04:51] LABS: BASOPHILS % (AUTO) 0.1 % (0.0-2.0); HEMATOCRIT 37 % (39-51); HEMOGLOBIN 12.4 g/dL (13.5-17.5); LYMPHOCYTES # (AUTO) 0.6 /CMM (0.8-4.8); LYMPHOCYTES % (AUTO) 5.5 % (20.0-44.0); MEAN CORPUSCULAR HGB CONC 34 g/dl (31.0-36.0); MEAN CORPUSCULAR VOLUME 88 fL (80-96); MONOCYTES # (AUTO) 0.1 /CMM (0.1-1.30); MONOCYTES % (AUTO) 1.3 % (2.0-12.0); NEUTROPHILS # (AUTO) 9.4 /CMM (1.8-8.9); NEUTROPHILS % (AUTO) 93.1 % (43.0-81.0); PLATELET COUNT (AUTO) 213 /CMM (150-450); RED BLOOD CELL COUNT(AUTO) 4.22 MIL/uL (4.5-6.0); WHITE BLOOD COUNT (AUTO) 10.1 K/uL (4.3-11.0)
[2019-05-01 05:17] LABS: ALANINE AMINOTRANSFERASE 36 U/L (12-78); ALBUMIN 3.4 g/dL (3.4-5.0); ALKALINE PHOSPHATASE 107 U/L (46-116); ASPARTATE AMINOTRANSFERASE 43 U/L (15-37); BILIRUBIN,TOTAL 0.9 mg/dL (0.2-1.0); CALCIUM, SERUM 9.2 mg/dL (8.5-10.1); CARBON DIOXIDE 25 mmol/L (21-32); CHLORIDE 101 mmol/L (98-107); CREATININE 1.5 mg/dL (0.6-1.3); GLUCOSE 137 mg/dL (74-106); MAGNESIUM 1.8 mg/dL (1.8-2.4); PHOSPHORUS 4.8 mg/dL (2.5-4.9); POTASSIUM 5.6 mmol/L (3.5-5.1); SODIUM SERUM 136 mmol/L (136-145); TOTAL PROTEIN, SERUM 8.3 g/dL (6.4-8.2); UREA NITROGEN, BLOOD 45 mg/dL (7-18)
--- NOTE | 2019-05-01 07:30 | NUR ---
RN NOTE: RECEIVED PATIENT IN BED, SEDATED, ON MECHANICAL VENTILATOR AND WAS SATURATING 100% WITH CURRENT VENTILATOR SETTING AC 18 TV 550 FIO2= 50% PEEP 0. OGT NOTED IN PLACED, PLACEMENT CHECKED. ETT 7.5 ATTACHED TO LIP LINE AT 24CM. PATIENT KEPT NPO EXCEPT MEDICATIONS. ALL PO MEDS WERE GIVEN THROUGH THE OGT. NO FACIAL GRIMACING NOTED. ON (B) SOFT WRIST RESTRAINTS FOR SAFETY. HOB ELEVATED. JOYA CATHETER IN PLACED DRAINING YELLOW URINE TO GRAVITY. (R) UA MIDLINE NOTED IN PLACED. POTASSIUM WILL BE REPLACED PER DR. RALPH'S ORDER. BED ALARMED AND LOCKED AT ALL TIMES. CALL LIGHT WITHIN REACH. NEEDS ANTICIPATED.
--- NOTE | 2019-05-01 07:35 | NUR ---
RN NOTE: ELEVATED POTASSIUM LEVEL WAS REPORTED BY PM SHIFT NURSE TO DR. RALPH FOR ORDER. AWAITING FOR MD TO GIVE AN ORDER.
[2019-05-01] MEDS: IV NS 0.9% 1,000 ML IV PRN ×2 (07:53→18:21)
[2019-05-01] MEDS: methylPREDNISolone SOD SUCC 40 MG/ML VIAL IV SCH ×2 (08:19→17:45)
[2019-05-01] MEDS: QUETIAPINE FUMARATE 25 MG TABLET PO SCH ×2 (08:20→17:45)
[2019-05-01] MEDS: DOCUSATE SODIUM 100 MG CAPSULE PO SCH ×2 (08:20→17:45)
[2019-05-01] MEDS: GABAPENTIN 300 MG CAPSULE PO SCH ×2 (08:20→17:45)
[2019-05-01 08:48] LABS: ABG BASE EXCESS -1.2 mmol/L; ABG OXYGEN SATURATION 97.8 % (92.0-98.5); ABG PCO2 41.2 mmHg (35.0-45.0); ABG PH 7.381 (7.350-7.450); ABG PO2 119.1 mmHg (75.0-100.0); AaDO2 191.1 mmHg; COHb 0.4 % (0.5-1.5); MetHb 0.5 % (0.0-1.5); O2Hb 96.9 % (94.0-97.0); PEEP,BG 0 cm H2O; SITE, ABG Left Brachial; VT, ABG 550 mL
[2019-05-01] MEDS: ASPIRIN EC 81 MG TABLET.DR PO SCH (09:00)
[2019-05-01] MEDS: CARVEDILOL 3.125 MG TABLET PO SCH ×2 (09:00→21:00)
--- NOTE | 2019-05-01 09:31 | NUR ---
RN NOTE: ASPIRIN WAS HELD DUE TO PATIENT'S ALLERGY TO THE MEDICATION. CARVEDILOL WAS HELD BECAUSE THE BP WAS LOW AND PATIENT CURRENTLY RECEIVING DOPAMINE 4MCG. WILL INFORM DR. Nicolle RAMESH ABOUT THIS WHEN HE MAKES ROUNDS.
--- NOTE | 2019-05-01 10:00 | NUR ---
RN NOTE: DR. Beena RAMESH WAS INFORMED ABOUT THE POTASSIUM LEVEL TODAY. AWAITING FOR MD'S ORDER.
[2019-05-01] MEDS ORDERED: SODIUM POLYSTYRENE SULFONATE 15 G/60 ML BOTTLE GT ONE (10:30)
--- NOTE | 2019-05-01 10:30 | NUR ---
RN NOTE: SON, JAZLYN BILLY CAME IN TODAY AND WAS GIVEN AN UPDATE REGARDING THE PATIENT'S CONDITION. HE HANDED A COPY OF HIS DPOA PAPER. FILED ON PATIENT'S CHART AND FUND MANAGER VERONIKA WAS MADE AWARE OF IT. PER JAZLYN, HE DOES NOT LIMIT ANY VISITOR FOR HIS FATHER, BUT ALL PHONE CALLS THAT WANTED AN UPDATE REGARDING HIS FATHER'S CONDITION SHOULD BE DIRECTED TO HIM EXCEPT HIS BROTHER POLO. WILL RELAY THIS INFORMATION TO PM SHIFT NURSE.
[2019-05-01] MEDS: ATORVASTATIN 40 MG TABLET PO SCH (17:45)
--- NOTE | 2019-05-01 18:00 | NUR ---
RN NOTE: PATIENT HAD NO BM DURING THE SHIFT.
--- NOTE | 2019-05-01 19:21 | NUR ---
PT RECEIVED ORALLY INTUBATED ON MECHANICAL VENT W/ NOTED SETTINGS PER MD. AMBUBAG AT BEDSIDE. VENT PLUGGED INTO RED OUTLET, VENT ALARMS CHECKED AND AUDIBLE. PT SX'ED AND LAVAGED PRN. ETT SECURED W/ ANCHOFAST, PATENT, CLEAN. BS EQUAL DIMINISHED. NO RESP DISTRESS NOTED. PLAN IS TO CONTINUE CARE UNDER CURRENT MD ORDERS AND MONITOR FOR CHANGES. Addendum: 05/01/19 at 1923 by AMINA RAMSAY RT Amended: Links added.
--- NOTE | 2019-05-01 19:34 | NUR ---
RN NOTE: BEDSIDE REPORT WAS GIVEN TO PM SHIFT NURSE FOR CONTINUITY OF CARE. PATIENT REMAINED ON STABLE CONDITION SATURATING 100% WITH CURRENT MECHANICAL VENTILATOR SETTING. REMAINED ON DOPAMINE 4MCG AND DIPRIVAN 20MCG. STILL SEDATED. PENDING EEG. ENDORSED TO PM SHIFT NURSE FOR FOLLOW-UP.
--- NOTE | 2019-05-01 19:45 | NUR ---
ICU/FRONT END DEVELOPER JAVASCRIPT HTML CSS RECEIVED REPORT FROM DAY NURSE. PT RESPONDS TO PAINFUL STIMULI, PT IS CURRENTLY ON SEDATION. PT IS ORALLY INTUBATED, TOLERATING CURRENT VENT SETTINGS WITH SATURATION AT 98-100%. SEE FLOWSHEET FOR NURSE ASSESSMENT. ANY SKIN ISSUES WHICH PT MAY HAVE ARE ADDRESSED ON FLOWSHEET ALONG WITH EACH INTERVENTIONS TO THESE. PT IS CURRENTLY DOPA FOR BP AND SEDATION DUE TO INTUBATION,SEE IV SPREADSHEET FOR RATED AND TITRATION. WILL CONTINUE TO CLOSELY MONITOR THIS PT . PT WAS TURNED AND REPOSITIONED FOR COMFORT AND CARE.NO ACUTE DISTRESS SEEN AT THIS TIME.
--- NOTE | 2019-05-01 20:30 | NUR ---
ICU/SENIOR COURTROOM CLERK PT IS CURRENTLY ON DOPAMINE FOR BLOOD PRESSURE AT 4MCG. BLOOD PRESSURE HAS BEEN IN THE 120'S TO 110'S. NOTIFIED CHARGE NURSE WHO THEN DECREASED DOPAMINE TO 2MCG FROM 4. WILL CONTINUE TO MONITOR THIS PT AND HIS BLOOD PRESSURE.
[2019-05-02] VITALS (48 sets, daily range): BP systolic 72–131; BP diastolic 46–68
--- NOTE | 2019-05-02 00:35 | NUR ---
ICU/WINDOW GLAZIER PT WAS TURNED AND REPOSITIONED FOR COMFORT AND CARE, AT THIS TIME PT APPEARED TO SIT UP ON THE BED AND MOVE AROUND. PT IS CURRENTLY STILL ORALLY INTUBATED. NOTIFIED CHARGE NURSE WHO THEN INCREASED THE SEDATION OF DIPRIVAN TO 25MCG FROM 20. WILL CONTINUE TO MONITOR THIS PT.
--- NOTE | 2019-05-02 02:05 | NUR ---
ICU/DENTAL AIDE PT WAS GIVEN AM CARE, ALONG WITH ORAL CARE. PT TOLERATED THIS WELL REMAINS ON CURRENT VENT SETTINGS WITH SATURATION AT 99-100%. PT WAS TURNED AND REPOSITIONED FOR COMFORT AND CARE. NO ACUTE DISTRESS SEEN AT THIS TIME. WILL CONTINUE TO MONITOR THIS PT.
[2019-05-02] MEDS: ALBUTEROL FS 2.5 MG/0.5 ML VIAL.NEB NEB SCH ×6 (02:56→23:10)
[2019-05-02] MEDS: DOPamine 800 MG in IV D5W 250 ML IV PRN (03:40)
[2019-05-02] MEDS: PROPOFOL 100 ML IV PRN (03:41)
--- NOTE | 2019-05-02 04:20 | NUR ---
ICU/BASIC COMBATANT SWIMMER AM LABS WERE DONE ALONG WITH AM CHEST XRAY DONE. AWAIT FOR ANY ABNORMAL RESULTS
[2019-05-02] MEDS: IV NS 0.9% 1,000 ML IV PRN (04:48)
[2019-05-02 04:54] LABS: BASOPHILS % (AUTO) 0.1 % (0.0-2.0); HEMATOCRIT 34 % (39-51); HEMOGLOBIN 11.5 g/dL (13.5-17.5); LYMPHOCYTES # (AUTO) 0.4 /CMM (0.8-4.8); LYMPHOCYTES % (AUTO) 2.8 % (20.0-44.0); MEAN CORPUSCULAR HGB CONC 33 g/dl (31.0-36.0); MEAN CORPUSCULAR VOLUME 88 fL (80-96); NEUTROPHILS # (AUTO) 14.6 /CMM (1.8-8.9); NEUTROPHILS % (AUTO) 91.1 % (43.0-81.0); PLATELET COUNT (AUTO) 182 /CMM (150-450); RED BLOOD CELL COUNT(AUTO) 3.92 MIL/uL (4.5-6.0); WHITE BLOOD COUNT (AUTO) 16.1 K/uL (4.3-11.0)
[2019-05-02 05:06] LABS: ALANINE AMINOTRANSFERASE 28 U/L (12-78); ALKALINE PHOSPHATASE 80 U/L (46-116); ASPARTATE AMINOTRANSFERASE 29 U/L (15-37); BILIRUBIN,TOTAL 0.8 mg/dL (0.2-1.0); CALCIUM, SERUM 8.8 mg/dL (8.5-10.1); CARBON DIOXIDE 25 mmol/L (21-32); CHLORIDE 105 mmol/L (98-107); CREATININE 1.1 mg/dL (0.6-1.3); GLUCOSE 147 mg/dL (74-106); MAGNESIUM 1.5 mg/dL (1.8-2.4); PHOSPHORUS 3.6 mg/dL (2.5-4.9); POTASSIUM 4.8 mmol/L (3.5-5.1); SODIUM SERUM 139 mmol/L (136-145); TOTAL PROTEIN, SERUM 7.4 g/dL (6.4-8.2); UREA NITROGEN, BLOOD 38 mg/dL (7-18)
--- NOTE | 2019-05-02 06:15 | NUR ---
ICU/HAT DESIGNER PT'S BLOOD PRESSURE IS STABLE AT THIS TIME IN THE 100'S, NOTIFIED THE CHARGE NURSE WHO THEN DECREASED THE DOPAMINE TO 1MCG FROM 2. ALSO AT THIS TIME, PY IS TO BE WINGED DOWN TO SIMV MODE FROM A/C. SEDATION WAS LOWERED TO 20 MCG FROM 25 BY CHARGE NURSE WHO MADE AWARE OF THE TRANSITION IN VENT SETTINGS LATER TODAY. PT WAS THEN TURNED AND REPOSITIONED FOR COMFORT AND CARE. WILL CONTINUE TO MONITOR THIS PT.
--- NOTE | 2019-05-02 06:53 | NUR ---
ICU/ALUMINA REFINERY OPERATOR NOTIFIED CHARGE NURSE ABOUT PT'S INCREASED HEART RATE TO THE 120'S WITHIN MINUTES OF DECREASING SEDATION. SEDATION WAS INCREASED BACK TO 25MCG FROM 20. WILL CONTINUE TO MONITOR THIS PT.
[2019-05-02] MEDS ORDERED: DC PROPOFOL WHEN EXTUBATED XX PRN (08:00)
[2019-05-02] MEDS: Magnesium 1GM/D5W 100ML PREMIX 100 ML IV SCH ×2 (08:30→09:12)
[2019-05-02 08:56] LABS: ABG BASE EXCESS -3.1 mmol/L; ABG OXYGEN SATURATION 97.9 % (92.0-98.5); ABG PCO2 37.6 mmHg (35.0-45.0); ABG PH 7.378 (7.350-7.450); ABG PO2 127.1 mmHg (75.0-100.0); AaDO2 187.1 mmHg; COHb 0.2 % (0.5-1.5); MetHb 0.6 % (0.0-1.5); O2Hb 97.1 % (94.0-97.0); PEEP,BG 5 cm H2O; SITE, ABG Right Radial; VENT MODE, BG SIMV 4 PS 12; VT, ABG 550 mL
[2019-05-02] MEDS: CARVEDILOL 3.125 MG TABLET PO SCH ×2 (09:00→22:53)
[2019-05-02] MEDS: DOCUSATE SODIUM 100 MG CAPSULE PO SCH ×2 (09:11→17:15)
[2019-05-02] MEDS: GABAPENTIN 300 MG CAPSULE PO SCH ×2 (09:11→17:15)
[2019-05-02] MEDS: methylPREDNISolone SOD SUCC 40 MG/ML VIAL IV SCH ×2 (09:11→17:15)
[2019-05-02] MEDS: QUETIAPINE FUMARATE 25 MG TABLET PO SCH ×2 (09:11→17:15)
[2019-05-02] MEDS ORDERED: PIPERACILLIN /TAZOBACTAM 3.375 G in IV D5W 50 ML IV ONE (10:00)
--- NOTE | 2019-05-02 12:06 | NUR ---
RN NOTES 0730-RECEIVED PATIENT FROM RN. PATIENT ORALLY INTUBATED, ON DIPRIVAN DRIP FOR CONTROL, SAFETY. ON AC MODE 0830-DIRPIRVAN OFF THIS TIME, PATIENT STARTED ON imv EARLIER, APPEARS CALM THIS TIME SAFETY MAINTAINED. 0930-PATIENT WAS EXTUBATED AFTER ORDER GIVEN BY DR RODRIGUEZ, PATIENT PLACED ON CANNULA, SATURATION REACHES 100%, ORAL CARE DONE, SAFETY MAINTAINED 1130-SPEECH THERAPIST EVAULATED PATIENT SWALLOWING. SAFETY MAINTAINED. DOPAMINE ALREADY OFF. BP WITHIN RANGE.
[2019-05-02] MEDS: PIPERACILLIN /TAZOBACTAM 3.375 G in IV D5W 100 ML IV SCH ×2 (15:37→23:18)
[2019-05-02] MEDS: ATORVASTATIN 40 MG TABLET PO SCH (17:15)
--- NOTE | 2019-05-02 17:53 | NUR ---
RN NOTES 1400-PATIENT RESTING. N O SIGN OF PAIN. SATURATION UP TO 100% ON NASAL CANNULA. ORAL CARE DONE. WATER PROVIDED, SAFETY MAINTAINED WHEN GIVEM FLUIDS. 1600-AWAKE, ALERT. VISITED BY HIS BROTHER AND A REP FROM [facility] 1740AWAKE, ALERT. MORE CONVERSANT, MORE APPROPRIATE THAN THIS MORNING.DR. ANG MADE ROUNDS.PATIENT FED SAFELY, TOLERATED FOOD CONSISTENCY WELL
--- NOTE | 2019-05-02 19:07 | NUR ---
RN NOTES PATIENT RESTING, SATURATION UP TO 97% ON 2LPM/NC. REPORT GIVEN TO INCOMING RN
--- NOTE | 2019-05-02 19:25 | NUR ---
ICU/EDGER TECHNICIAN RECEIVED REPORT FROM DAY NURSE. PT RESPONDS VOICE, PT APPEARS TO BE LETHARGIC. PT WAS EXTUBATED EARLIER IN THE DAY SHIFT, CURRENTLY ON N/C 2 LITERS WITH SATURATION AT 97%. SEE FLOWSHEET FOR NURSE ASSESSMENT. ANY SKIN ISSUES WHICH PT MAY HAVE ARE ADDRESSED ON FLOWSHEET ALONG WITH EACH INTERVENTIONS TO THESE. PT WAS TURNED AND REPOSITIONED FOR COMFORT AND CARE.NO ACUTE DISTRESS SEEN AT THIS TIME. WILL CONTINUE TO CLOSELY MONITOR THIS PT.
--- NOTE | 2019-05-02 22:45 | NUR ---
ICU/SUPERVISOR PACKING ROOM PT WAS TURNED AND REPOSITIONED FOR COMFORT AND CARE. PT APPEARS TO BE MORE ALERT THAN EARLIER IN SHIFT. PT IS CURRENTLY TOLERATING N/C 2 LITERS VIA N/C. CALL LIGHT WITHIN REACH. WILL CONTINUE TO MONITOR THIS PT.
[2019-05-03] VITALS (12 sets, daily range): BP systolic 113–146; BP diastolic 50–102
--- NOTE | 2019-05-03 02:05 | NUR ---
ICU/PROFESSIONAL ADVISOR PT REFUSED AM CARE. PT DID REQUESTED SOMETHING TO EAT, PUDDING AND APPLESAUCE GIVEN. NO DISTRESS SEEN AT THIS TIME. PT REMAINS ON N/C AT 2 LITERS WITH SATURATION AT 98%. PT WAS TURNED AND REPOSITIONED FOR COMFORT AND CARE. WILL CONTINUE TO MONITOR THIS PT.
[2019-05-03] MEDS: ALBUTEROL FS 2.5 MG/0.5 ML VIAL.NEB NEB SCH ×6 (03:40→23:30)
--- NOTE | 2019-05-03 04:50 | NUR ---
ICU/LAMP CLEANER AM LABS WERE DONE ALONG WITH AM CHEST XRAY DONE. AWAIT FOR ANY ABNORMAL RESULTS
[2019-05-03 05:10] LABS: BASOPHILS % (AUTO) 0.1 % (0.0-2.0); HEMATOCRIT 30 % (39-51); HEMOGLOBIN 10.2 g/dL (13.5-17.5); LYMPHOCYTES # (AUTO) 0.4 /CMM (0.8-4.8); LYMPHOCYTES % (AUTO) 3.7 % (20.0-44.0); MEAN CORPUSCULAR HGB CONC 34 g/dl (31.0-36.0); MEAN CORPUSCULAR VOLUME 87 fL (80-96); MONOCYTES # (AUTO) 0.5 /CMM (0.1-1.30); MONOCYTES % (AUTO) 4.6 % (2.0-12.0); NEUTROPHILS # (AUTO) 9.8 /CMM (1.8-8.9); NEUTROPHILS % (AUTO) 91.6 % (43.0-81.0); PLATELET COUNT (AUTO) 159 /CMM (150-450); RED BLOOD CELL COUNT(AUTO) 3.43 MIL/uL (4.5-6.0); WHITE BLOOD COUNT (AUTO) 10.7 K/uL (4.3-11.0)
[2019-05-03 05:14] LABS: CALCIUM, SERUM 8.6 mg/dL (8.5-10.1); CARBON DIOXIDE 25 mmol/L (21-32); CHLORIDE 103 mmol/L (98-107); CREATININE 0.9 mg/dL (0.6-1.3); GLUCOSE 193 mg/dL (74-106); POTASSIUM 3.6 mmol/L (3.5-5.1); SODIUM SERUM 137 mmol/L (136-145); UREA NITROGEN, BLOOD 31 mg/dL (7-18)
--- NOTE | 2019-05-03 07:25 | NUR ---
LAST PATTERN GRADER INITIAL NOTES RECEIVED PT FROM NIGHTSHIFT RN IN STABLE CONDITION. PT A/O X3. NO SOB OR ACUTE SIGNS OF DISTRESS NOTED. BREATHING IS EVEN AND UNLABORED. PT ON 2 L VIA NC AND SATING WELL. HE DENIES NAY PAIN AT THIS TIME. F/C NOTED TO BE C/D/I AND DRAINING TO GRAVITY. RIGHT UPPER ARM PICC NOTED TO BE PATENT AND INTACT. NO REDNESS OR SIGN OF INFILTRATION NOTED. BED IN LOW LOCKED POSITION, SIDE RAILS UP X2, CALL LIGHT WITHIN REACH. VSS AT THIS TIME. PT SR ON MONITOR. WILL CONTINUE TO MONITOR
[2019-05-03] MEDS: methylPREDNISolone SOD SUCC 40 MG/ML VIAL IV SCH ×2 (08:16→17:11)
[2019-05-03] MEDS: DOCUSATE SODIUM 100 MG CAPSULE PO SCH ×2 (08:16→17:10)
[2019-05-03] MEDS: GABAPENTIN 300 MG CAPSULE PO SCH ×2 (08:17→17:10)
[2019-05-03] MEDS: QUETIAPINE FUMARATE 25 MG TABLET PO SCH ×2 (08:17→17:10)
[2019-05-03] MEDS: CARVEDILOL 3.125 MG TABLET PO SCH ×2 (08:17→21:14)
[2019-05-03] MEDS: PIPERACILLIN /TAZOBACTAM 3.375 G in IV D5W 100 ML IV SCH ×3 (08:17→23:50)
[2019-05-03 08:44] LABS: ABG OXYGEN SATURATION 97.9 % (92.0-98.5); ABG PCO2 32.5 mmHg (35.0-45.0); ABG PH 7.469 (7.350-7.450); ABG PO2 121.1 mmHg (75.0-100.0); AaDO2 40.2 mmHg; COHb 0.5 % (0.5-1.5); MetHb 0.4 % (0.0-1.5); SITE, ABG Right Radial; VENT MODE, BG NC 2L
--- NOTE | 2019-05-03 08:54 | NUR ---
FLAGGEROUT OF SCHOOL HOURS CARE WORKER NOTES PT TRANSFERRED TO TELE ROOM 112-1 VIA [facility] WITH ALL BELONGINGS. VSS UPON TRANSFER. REPORT GIVEN TO YANIRA RUVALCABA FOR RADHA
--- NOTE | 2019-05-03 09:00 | NUR ---
CUSTOMER SUPPORT REPRESENTATIVE TRANSFER NOTES PATIENT AWAKE AND ALERT. NO COMPLAINS OF ANY SOB OR PAIN, ON 2L NC. PATIENT WAS EXTUBATED YESTERDAY 05/02. ON TELE MONITOR, SR. AMBULATORY WITH ASSIST AND ASKED GET HELP SO HE CAN GO TO THE BATHROOM. HAS JOYA WITH CLEAR AND YELLOW URINE. HAS A RIGHT UPPER ARM MIDLINE, WITH ZOSYN RUNNING FROM ICU. PER MD, CONTINUE ANBX AND RADHA. ADVANCE DIET TOLERATED. FOLLOW UP WITH NEURO, PULMO, CARDIO AND NEPHRO. BED LOCKED AND IN LOW POSITION. CALL LIGHT WITHIN REACH. WILL CONTINUE TO MONITOR
[2019-05-03] MEDS: FUROSEMIDE 40 MG TABLET PO SCH (09:15)
--- NOTE | 2019-05-03 10:30 | NUR ---
RN NOTES FAMILY AT BEDSIDE. PATIENT COUGHED UP PHLEGM WITH DARK BROWN RESIDUE. MADE MD AWARE AND IT WAS EXPLAINED THAT THIS WAS BECAUSE THE PATIENT WAS EXTUBATED YESTERDAY. MADE FAMILY AND PATIENT AWARE. PATIENT NOT COMPLAINING OF ANY SOB OR DISTRESS.
[2019-05-03] MEDS: ATORVASTATIN 40 MG TABLET PO SCH (17:10)
--- NOTE | 2019-05-03 18:51 | NUR ---
RN CLOSING NOTES PATIENT IN BED, AWAKE AND ALERT. NO COMPLAINS OF ANY PAIN OR ANY SOB, ON 2L NC. WAS GIVEN MOM TODAY 1 LARGE BM. HAS JOYA CATH, WITH CLEAR AND YELLOW URINE. HAS A RIGHT UPPER ARM MIDLINE SALINE LOCKED. ON TELE MONITOR, SR WITH BBB. CAN AMBULATE WITH ASSIST. BED LOCKED AND IN LOWEST POSITION. CALL LIGHT WITHIN REACH. WILL ENDORSE TO NOC SHIFT FOR RADHA
--- NOTE | 2019-05-03 19:39 | NUR ---
GARAGE CONSTRUCTION EQUIPMENT MECHANIC OPENING NOTES RECEIVED PATIENT ASLEEP, RESTING COMFORTABLY IN BED AT THIS TIME. NO SIGNS OF RESPIRATORY DISTRESS OR SOB, ON 2L VIA NASAL CANNULA. NO SIGNS OF FACIAL GRIMACING OR DISCOMFORT INDICATED AT THIS TIME. IV SITE: RIGHT UPPER ARM MIDLINE IS SALINE LOCKED. SAFETY PRECAUTIONS IMPLEMENTED. CALL LIGHT WITHIN REACH. WILL CONTINUE TO MONITOR PATIENT THROUGHOUT THE SHIFT.
[2019-05-04] VITALS: BP 122/56
[2019-05-04] MEDS: ALBUTEROL FS 2.5 MG/0.5 ML VIAL.NEB NEB SCH ×6 (03:30→23:30)
[2019-05-04 04:00] VITALS: BP 128/70
--- NOTE | 2019-05-04 06:32 | NUR ---
RN CLOSING NOTES PATIENT IS RESTING IN BED, AWAKE AND ALERT. NO SIGNS OF RESPIRATORY DISTRESS. DENIES SHORTNESS OF BREATH. ON 2L VIA NC. DENIES PAIN OR DISCOMFORT AT THIS TIME. PATIENT HAS A JOYA CATH, DRAINING WELL WITH CLEAR AND YELLOW URINE. TOTAL URINE OUTPUT IS 800 ML. HAS A RIGHT UPPER ARM MIDLINE SALINE LOCKED, INTACT AND PATENT. ON TELE MONITOR: SB WITH BBB. ABLE TO MAKE NEEDS KNOWN. SAFETY PRECAUTIONS IMPLEMENTED; CALL LIGHT WITHIN REACH, BED LOCKED, BED LOW, SIDE RAILS UP X2. WILL ENDORSE TO AM SHIFT FOR CONTINUITY OF CARE.
[2019-05-04 07:07] LABS: BASOPHILS % (AUTO) 0.2 % (0.0-2.0); HEMATOCRIT 31 % (39-51); HEMOGLOBIN 10.3 g/dL (13.5-17.5); LYMPHOCYTES # (AUTO) 0.6 /CMM (0.8-4.8); LYMPHOCYTES % (AUTO) 5.2 % (20.0-44.0); MEAN CORPUSCULAR HGB CONC 34 g/dl (31.0-36.0); MEAN CORPUSCULAR VOLUME 87 fL (80-96); MONOCYTES # (AUTO) 0.6 /CMM (0.1-1.30); MONOCYTES % (AUTO) 5.4 % (2.0-12.0); NEUTROPHILS # (AUTO) 10.1 /CMM (1.8-8.9); NEUTROPHILS % (AUTO) 89.2 % (43.0-81.0); PLATELET COUNT (AUTO) 170 /CMM (150-450); RED BLOOD CELL COUNT(AUTO) 3.53 MIL/uL (4.5-6.0); WHITE BLOOD COUNT (AUTO) 11.4 K/uL (4.3-11.0)
[2019-05-04 07:20] LABS: CALCIUM, SERUM 8.4 mg/dL (8.5-10.1); CARBON DIOXIDE 28 mmol/L (21-32); CHLORIDE 100 mmol/L (98-107); GLUCOSE 126 mg/dL (74-106); POTASSIUM 4.1 mmol/L (3.5-5.1); SODIUM SERUM 136 mmol/L (136-145); UREA NITROGEN, BLOOD 34 mg/dL (7-18)
--- NOTE | 2019-05-04 07:30 | NUR ---
GLASSWARE MAKER AM NOTES RECEIVED PATIENT ASLEEP, AROUSES TO NAME AND TOUCH, ALERT/ORIENTED X 3, ON 2L O2 NASAL CANULA, ON AND OFF, NOT IN ANY DISTRESS, RESPIRATION UNLABORED, SINUS RHYTHM HR 85 ON TELE MONITOR, NO SIGNS OF PAIN, RIGHT UPPER ARM PICC LINE, NS AT KVO. CARDIACT SOFT DIET. SAFETY PRECAUTIONS IMPLEMENTED. CALL LIGHT WITHIN REACH. WILL CONTINUE TO MONITOR.
[2019-05-04 08:00] VITALS: BP 133/69
[2019-05-04] MEDS: PIPERACILLIN /TAZOBACTAM 3.375 G in IV D5W 100 ML IV SCH ×2 (08:37→16:28)
[2019-05-04] MEDS: FUROSEMIDE 40 MG TABLET PO SCH (08:40)
[2019-05-04] MEDS: DOCUSATE SODIUM 100 MG CAPSULE PO SCH ×2 (08:40→16:28)
[2019-05-04] MEDS: QUETIAPINE FUMARATE 25 MG TABLET PO SCH ×2 (08:40→16:28)
[2019-05-04] MEDS: GABAPENTIN 300 MG CAPSULE PO SCH ×2 (08:40→16:28)
[2019-05-04] MEDS: CARVEDILOL 3.125 MG TABLET PO SCH ×2 (08:41→21:43)
[2019-05-04] MEDS: methylPREDNISolone SOD SUCC 40 MG/ML VIAL IV SCH (08:41)
--- NOTE | 2019-05-04 09:30 | NUR ---
COMMUNICATIONS ATTENDANT NOTES DUE MEDS GIVEN.
--- NOTE | 2019-05-04 10:39 | NUR ---
MS RN NOTES DC TELE PER DR. RALPH.
[2019-05-04 12:00] VITALS: BP 111/60
[2019-05-04 16:00] VITALS: BP 147/74
[2019-05-04] MEDS: ATORVASTATIN 40 MG TABLET PO SCH (17:15)
--- NOTE | 2019-05-04 19:34 | NUR ---
MS RN CLOSING NOTES PATIENT RESTING COMFORTABLY IN BED, NOT IN ANY DISTRESS. IV ACCESS IN PLACE. JOYA CATH IN PLACE WITH 1050 ML OUTPUT. ALL NEEDS MET. NO OTHER SIGNIFICANT CHANGE DURING THE SHIFT. CALL LIGHT WITHIN REACH. SAFETY MEASURES IN PLACE. ENDORSED TO NEXT SHIFT FOR RADHA.
[2019-05-04 20:00] VITALS: BP 130/64
--- NOTE | 2019-05-04 20:00 | NUR ---
RN INITIAL NOTES RECEIVED PATIENT ASLEEP, RESTING COMFORTABLY IN BED AT THIS TIME. NO SIGNS OF RESPIRATORY DISTRESS OR SOB, ON 2L VIA NASAL CANNULA. NO SIGNS OF FACIAL GRIMACING OR DISCOMFORT INDICATED AT THIS TIME. IV SITE: RIGHT UPPER ARM PICC IS SALINE LOCKED. SAFETY PRECAUTIONS IMPLEMENTED. CALL LIGHT WITHIN REACH. WILL CONTINUE TO MONITOR PATIENT THROUGHOUT THE SHIFT.
[2019-05-05] VITALS: BP 132/77
[2019-05-05] MEDS: PIPERACILLIN /TAZOBACTAM 3.375 G in IV D5W 100 ML IV SCH ×2 (01:12→08:00)
[2019-05-05] MEDS: ALBUTEROL FS 2.5 MG/0.5 ML VIAL.NEB NEB SCH ×3 (03:30→11:30)
[2019-05-05 04:00] VITALS: BP 109/52
[2019-05-05 07:03] LABS: BASOPHILS % (AUTO) 0.1 % (0.0-2.0); EOSINOPHILS % (AUTO) 0.1 % (0.0-6.0); HEMATOCRIT 32 % (39-51); HEMOGLOBIN 10.7 g/dL (13.5-17.5); LYMPHOCYTES # (AUTO) 1.2 /CMM (0.8-4.8); LYMPHOCYTES % (AUTO) 9.4 % (20.0-44.0); MEAN CORPUSCULAR HGB CONC 33 g/dl (31.0-36.0); MEAN CORPUSCULAR VOLUME 87 fL (80-96); MONOCYTES # (AUTO) 0.9 /CMM (0.1-1.30); MONOCYTES % (AUTO) 6.9 % (2.0-12.0); NEUTROPHILS # (AUTO) 10.4 /CMM (1.8-8.9); NEUTROPHILS % (AUTO) 83.5 % (43.0-81.0); PLATELET COUNT (AUTO) 179 /CMM (150-450); RED BLOOD CELL COUNT(AUTO) 3.68 MIL/uL (4.5-6.0); WHITE BLOOD COUNT (AUTO) 12.4 K/uL (4.3-11.0)
[2019-05-05 07:08] LABS: CALCIUM, SERUM 7.8 mg/dL (8.5-10.1); CARBON DIOXIDE 31 mmol/L (21-32); CHLORIDE 98 mmol/L (98-107); CREATININE 1.1 mg/dL (0.6-1.3); GLUCOSE 116 mg/dL (74-106); POTASSIUM 3.2 mmol/L (3.5-5.1); SODIUM SERUM 137 mmol/L (136-145); UREA NITROGEN, BLOOD 33 mg/dL (7-18)
[2019-05-05 08:00] VITALS: BP 143/82
[2019-05-05] MEDS ORDERED: PSYLLIUM SEED 1 PKT PACKET PO ONE (08:30)
[2019-05-05] MEDS: methylPREDNISolone SOD SUCC 40 MG/ML VIAL IV SCH ×2 (09:44→09:46)
[2019-05-05 09:45] VITALS: BP 129/68
[2019-05-05] MEDS: DOCUSATE SODIUM 100 MG CAPSULE PO SCH (09:45)
[2019-05-05] MEDS: CARVEDILOL 3.125 MG TABLET PO SCH (09:45)
[2019-05-05] MEDS: GABAPENTIN 300 MG CAPSULE PO SCH (09:46)
[2019-05-05] MEDS: FUROSEMIDE 40 MG TABLET PO SCH (09:46)
[2019-05-05] MEDS: QUETIAPINE FUMARATE 25 MG TABLET PO SCH (09:46)
[2019-05-05] MEDS: POTASSIUM CHLORIDE 20 MEQ TAB.PRT.SR PO SCH ×2 (12:00→13:31)
[2019-05-06] MEDS ORDERED: POTASSIUM CHLORIDE 20 MEQ TAB.PRT.SR PO SCH (09:00)
== END 2019-05-05 13:35 | DRG 208 ==
LOC: ER 18:53 → TELE 22:01 → ICU 04-30 12:40 → TELE1 05-03 08:49 → MEDSG1 05-04 20:38
PROVIDERS: ADMIT Family Medicine; ATTEND Nurse Practitioner Acute Care
PROC: 5A09357 Assistance with Respiratory Ventilation, Less than 24 Consecutive Hours, Continuous Positive Airway Pressure (ICD-10-PCS; 2019-04-29)
PROC: 02HV33Z Insertion of Infusion Device into Superior Vena Cava, Percutaneous Approach (ICD-10-PCS; 2019-04-29)
PROC: B548ZZA Ultrasonography of Superior Vena Cava, Guidance (ICD-10-PCS; 2019-04-29)
PROC: 5A1945Z Respiratory Ventilation, 24-96 Consecutive Hours (ICD-10-PCS; principal; 2019-04-30)
PROC: 0BH17EZ Insertion of Endotracheal Airway into Trachea, Via Natural or Artificial Opening (ICD-10-PCS; 2019-04-30)
DX: J69.0 Pneumonitis due to inhalation of food and vomit (principal); G92 Toxic encephalopathy; I21.A1 Myocardial infarction type 2; I50.23 Acute on chronic systolic (congestive) heart failure; N17.0 Acute kidney failure with tubular necrosis; E44.0 Moderate protein-calorie malnutrition; E87.1 Hypo-osmolality and hyponatremia; I13.0 Hypertensive heart and chronic kidney disease with heart failure and stage 1 through stage 4 chronic kidney disease, or unspecified chronic kidney disease; E87.2 Acidosis; Z99.11 Dependence on respirator [ventilator] status; J96.12 Chronic respiratory failure with hypercapnia; J98.11 Atelectasis; I42.9 Cardiomyopathy, unspecified; D63.8 Anemia in other chronic diseases classified elsewhere; E03.9 Hypothyroidism, unspecified; E78.5 Hyperlipidemia, unspecified; E83.42 Hypomagnesemia; E87.5 Hyperkalemia; F03.90 Unspecified dementia, unspecified severity, without behavioral disturbance, psychotic disturbance, mood disturbance, and anxiety; F17.200 Nicotine dependence, unspecified, uncomplicated; F41.9 Anxiety disorder, unspecified; G89.29 Other chronic pain; I25.10 Atherosclerotic heart disease of native coronary artery without angina pectoris; I25.2 Old myocardial infarction; J44.9 Chronic obstructive pulmonary disease, unspecified; Z79.899 Other long term (current) drug therapy; M19.90 Unspecified osteoarthritis, unspecified site; K21.9 Gastro-esophageal reflux disease without esophagitis; N18.9 Chronic kidney disease, unspecified; Z93.0 Tracheostomy status; Z93.1 Gastrostomy status; F32.9 Major depressive disorder, single episode, unspecified; R13.10 Dysphagia, unspecified; B19.20 Unspecified viral hepatitis C without hepatic coma; Z98.890 Other specified postprocedural states; Z91.09 Other allergy status, other than to drugs and biological substances; Z79.82 Long term (current) use of aspirin; Z95.810 Presence of automatic (implantable) cardiac defibrillator; F11.90 Opioid use, unspecified, uncomplicated; F10.20 Alcohol dependence, uncomplicated; E86.1 Hypovolemia; Y90.0 Blood alcohol level of less than 20 mg/100 ml
CPT/HCPCS: 31720; 36415; 36600; 70450-TC; 71045-TC; 80048-TC; 80053-TC; 80061-TC; 80076-TC; 80305; 81000-TC; 82803-TC; 82962-TC; 83605-TC; 83735-TC; 83880; 84100-TC; 84439-TC; 84443-TC; 84484-TC; 85025-TC; 85730-TC; 87040-TC; 87081-TC; 92526; 92611-TC; 94002-TC; 94003-TC; 94760-TC; 94799-TC; 95819-TC; 97116-TC; 97530-TC; 99082-TC; C1751; G0378; G0480; J1265; J1815; J1940; J2310; J2543; J2920; J3475; J3490; J7030; J7050; J7060; J7070

== ENCOUNTER 2020-01-13 04:25 | Inpatient (IN) | payer MEDICARE, OTHER ==
[~2020-01-13] VITALS: Ht 182.9 cm; Wt 77.1 kg
[~2020-01-13 04:25] MED LIST changes: -METO-356 PO; +METO25TA4 PO
--- NOTE | 2020-01-13 04:30 | NUR ---
PT BIBSELF C/O SOB X4 DAYS. ALSO C/O NONPRODUCTIVE COUGH AND CHEST DISCOMFORT. O2 SAT 92% ROOM AIR. PT PLACED ON 2L NC, TOLERATED WELL, O2 SAT NOW 100%. PT AAOX4. RESPIRATIONS EVEN AND UNLABORED. SKIN INTACT. VITAL SIGNS STABLE. AMBULATORY WITH STEADY GAIT. NO ACUTE DISTRESS NOTED AT THIS TIME. PLACED ON CONTINUOUS FENCE LABORER AND PULSE OX, WILL CONTNUE TO MONITOR
[2020-01-13] MEDS ORDERED: methylPREDNISolone SOD SUCC 125 MG/2ML VIAL IV ONE (05:00)
[2020-01-13] MEDS ORDERED: HYDROCODONE/APAP 5/325MG 1 EACH TABLET PO ONE (05:00)
[2020-01-13] MEDS ORDERED: ALBUTEROL FS 2.5 MG/3 ML VIAL.NEB NEB ONE (05:00)
[2020-01-13] MEDS ORDERED: IPRATROPIUM NEB FS 0.5 MG/2.5 ML AMPUL.NEB NEB ONE (05:00)
--- NOTE | 2020-01-13 05:00 | NUR ---
FLU SWAB COLLECTED AND SENT TO LAB
[2020-01-13] MEDS ORDERED: HYDROCODONE/APAP 5/325MG 1 EACH TABLET ONE (05:08)
[2020-01-13] MEDS ORDERED: methylPREDNISolone SOD SUCC 125 MG/2ML VIAL ONE (05:08)
--- NOTE | 2020-01-13 05:14 | NUR ---
RADIOLOGY AT BEDSIDE FOR CXR
[2020-01-13 05:25] LABS: BASOPHILS % (AUTO) 0.3 % (0.0-2.0); EOSINOPHILS % (AUTO) 0.5 % (0.0-6.0); HEMATOCRIT 39 % (39-51); HEMOGLOBIN 12.8 g/dL (13.5-17.5); LYMPHOCYTES # (AUTO) 0.8 /CMM (0.8-4.8); LYMPHOCYTES % (AUTO) 7.7 % (20.0-44.0); MEAN CORPUSCULAR HGB CONC 33 g/dl (31.0-36.0); MEAN CORPUSCULAR VOLUME 88 fL (80-96); MONOCYTES # (AUTO) 0.7 /CMM (0.1-1.30); MONOCYTES % (AUTO) 7.2 % (2.0-12.0); NEUTROPHILS # (AUTO) 8.7 /CMM (1.8-8.9); NEUTROPHILS % (AUTO) 84.3 % (43.0-81.0); PLATELET COUNT (AUTO) 126 /CMM (150-450); RED BLOOD CELL COUNT(AUTO) 4.42 MIL/uL (4.5-6.0); WHITE BLOOD COUNT (AUTO) 10.3 K/uL (4.3-11.0)
[2020-01-13] MEDS ORDERED: IPRATROPIUM NEB FS 0.5 MG/2.5 ML AMPUL.NEB ONE (05:29)
[2020-01-13] MEDS ORDERED: ALBUTEROL FS 2.5 MG/3 ML VIAL.NEB ONE (05:29)
--- NOTE | 2020-01-13 05:31 | NUR ---
RT AT BEDSIDE FOR BREATHING TREATMENT
[2020-01-13 05:32] LABS: CALCIUM, SERUM 8.3 mg/dL (8.5-10.1); CREATININE 0.9 mg/dL (0.6-1.3); POTASSIUM 3.8 mmol/L (3.5-5.1)
[2020-01-13 05:44] LABS: ALBUMIN 3.3 g/dL (3.4-5.0); BILIRUBIN,DIRECT 0.3 mg/dL (0.0-0.2); BILIRUBIN,TOTAL 1.2 mg/dL (0.2-1.0); TOTAL PROTEIN, SERUM 7.5 g/dL (6.4-8.2)
--- NOTE | 2020-01-13 07:54 | NUR ---
REPORT GIVEN TO YANIRA PRITCHARD FOR RADHA
--- NOTE | 2020-01-13 08:14 | NUR ---
GOT BED 109.
--- NOTE | 2020-01-13 08:43 | NUR ---
ATTEMPTED TO GIVE REPORT TO LARON RN, PER LARON SEND THE PATIENT FIRST THEN CALL BACK FOR REPORT.
[2020-01-13 09:30] VITALS: BP 103/73
--- NOTE | 2020-01-13 09:30 | NUR ---
TELE1/REAL ESTATE TRANSACTION MANAGER TO TELE1 - ROOM 109 PT ARRIVED VIA GURNEY FROM ER ACCOMPANIED BY ER NURSE FRANCHESKA. PT WALKED TO ROOM BED WITH STEADY GAIT. A/O X 4, PT DENIES CHEST PAIN OR ANY OTHER SYMPTOMS. ON ROOM AIR SATURATING WELL. TELE BOXED PLACED, NOTED WITH SINUS RHYTHM WITH AN INVERTED T-WAVE. IV SITE ON RIGHT EXTERNAL JUGULAR, FLUSHED, PATENT. PT IS COMFORTABLE, ADMITTING PROTOCOLS ON GOING. PT ORIENTED TO HIS SURROUNDINGS. CL WITHIN REACHED AND SAFETY MAINTAINED. ON GOING MONITORING.
[2020-01-13 12:00] VITALS: BP 117/68
[2020-01-13] MEDS: LISINOPRIL (10MG) 10 MG TABLET PO SCH (12:23)
[2020-01-13] MEDS: FUROSEMIDE 40 MG/4 ML VIAL IV SCH ×3 (12:23→21:07)
[2020-01-13] MEDS: ATORVASTATIN 40 MG TABLET PO SCH (12:23)
[2020-01-13] MEDS: POTASSIUM CHLORIDE 20 MEQ TAB.PRT.SR PO SCH ×3 (12:23→15:17)
[2020-01-13] MEDS: CARVEDILOL 6.25 MG TABLET PO SCH ×2 (12:25→21:05)
--- NOTE | 2020-01-13 15:00 | NUR ---
Social service consult requested by MD for homelessness. Per MD notes, Pt is a 74-year-old with complaints of cough congestion, shortness of breath and chest pain with coughing for 4 days. He has a history of recurrent bronchitis and has a cigarette smoking history as well. Pt reports he has been hospitalized for bronchitis 3 times. AGRICULTURAL SCIENTIST met with the pt bedside. Pt is alert and oriented x 4. Pt appears disheveled. Pt's mood is congruent. Pt reports, he is homeless for the past 4 to 6 months. Pt informed AGRICULTURAL SCIENTIST, he prefers to hang around [facility]. Prior to being homeless, pt was residing at [facility] in [place]. Pt receives SSI monthly but is unable to state how much he receives. Pt states he drinks alcohol. When asked, how much, pt stated, " whenever/whatever alcohol is around me." Pt denies any drug use. Pt. smokes cigarettes but states, he will not buy any. Pt denies any psychiatric diagnoses. Pt denies SI/HI at this time. AGRICULTURAL SCIENTIST provided pt with active listening and supportive counseling. Pt was offered care home placement, however pt declined stating, " Been there, done that and it doesn't work for me." No other social service needs are requested at this time. AGRICULTURAL SCIENTIST is available, if needed. AGRICULTURAL SCIENTIST to consult with director case Magaly regarding SNF placement. Pt is willing to go to a SNF if deemed appropriate.
[2020-01-13 16:00] VITALS: BP 139/79
[2020-01-13] MEDS ORDERED: MAG HYDROX/AL HYDROX/SIMETH 30 ML UDC PO PRN (17:30)
[2020-01-13] MEDS ORDERED: MAGNESIUM HYDROXIDE 30 ML UDC PO PRN (17:30)
[2020-01-13] MEDS ORDERED: ONDANSETRON HCL/PF 4 MG/2 ML VIAL IVP PRN (17:30)
[2020-01-13] MEDS ORDERED: ACETAMINOPHEN 325 MG TABLET PO PRN (17:30)
[2020-01-13] MEDS ORDERED: Z GUARD REMEDY 2 OZ OINT TP PRN (17:30)
[2020-01-13] MEDS: IV NS 0.9% 1,000 ML IV PRN (17:31)
[2020-01-13] MEDS: predniSONE 20 MG TABLET PO SCH (17:32)
[2020-01-13] MEDS: LEVOFLOXACIN 500 MG /D5W 100ML 100 ML IV SCH (18:19)
--- NOTE | 2020-01-13 19:30 | NUR ---
MS1/RN AM SHIFT END NOTES NO ACUTE CHANGE OF CONDITION NOTED SINCE PT WAS ADMITTED THIS MORNING. ALL NEEDS MET. PT ENDORSED TO PM NURSE TO CONTINUE CARE. CL WITHIN REACHED AND SAFETY MAINTAINED.
[2020-01-13] MEDS: IPRATROPIUM NEB FS 0.5 MG/2.5 ML AMPUL.NEB NEB SCH ×2 (19:36→23:06)
[2020-01-13] MEDS: ALBUTEROL HALF STRENGTH 1.25 MG/3 ML VIAL.NEB NEB SCH ×2 (19:36→23:06)
--- NOTE | 2020-01-13 19:50 | NUR ---
RN NOTES RECEIVED, AWAKE ALERT WATCHING TV PROGRAMS, DENIES ANY PAIN AND OR DISCOMFORT, ALL NEEDS PROVIDED, SAFETY MEASURES IN PLACE, CALL LIGHT WITH IN EASY REACH, WILL CONTINUE TO MONITOR ACCORDINGLY.
[2020-01-13 20:00] VITALS: BP 106/60
[2020-01-13 20:06] VITALS: BP 106/60
--- NOTE | 2020-01-14 00:08 | NUR ---
RN NOTES PATIENT REQUESTING FOR COUGH MEDICATION WITH CODEINE, ASSESS BREATHING PATTERN AND AUSCULTATE HEART AND LUNGS SOUNDS, NO CRACKLES NOTED, NO WHEEZING NOTED, PATIENT HAS BREATHING TREATMENT EVERY 4 HOURS C/O RT, HEALTH TEACHINGS GIVEN, KEPT COMFORTABLE, NO SIGNS OF SOB, SATING 95% AT THIS TIME, NO EXERTIONAL DYSPNEA NOTED, CHARGE NURSE MADE AWARE. WILL CONTINUE TO MONITOR, IF PATIENT WILL AGAIN ASK FOR COUGH MEDICINE, WILL CALL MD PHYSICIAN RELATIONS MANAGER.
[2020-01-14 00:10] VITALS: BP 106/60
[2020-01-14] MEDS: ALBUTEROL HALF STRENGTH 1.25 MG/3 ML VIAL.NEB NEB SCH ×6 (02:39→23:30)
[2020-01-14] MEDS: IPRATROPIUM NEB FS 0.5 MG/2.5 ML AMPUL.NEB NEB SCH ×6 (02:39→23:30)
[2020-01-14 04:50] VITALS: BP 108/51
[2020-01-14] MEDS: IV NS 0.9% 1,000 ML IV PRN ×2 (05:31→22:16)
[2020-01-14 06:09] VITALS: BP 108/51
[2020-01-14 06:11] LABS: BASOPHILS % (AUTO) 0.2 % (0.0-2.0); HEMATOCRIT 38 % (39-51); HEMOGLOBIN 12.6 g/dL (13.5-17.5); LYMPHOCYTES # (AUTO) 0.5 /CMM (0.8-4.8); LYMPHOCYTES % (AUTO) 4.3 % (20.0-44.0); MEAN CORPUSCULAR HGB CONC 33 g/dl (31.0-36.0); MEAN CORPUSCULAR VOLUME 88 fL (80-96); MONOCYTES # (AUTO) 0.5 /CMM (0.1-1.30); MONOCYTES % (AUTO) 3.8 % (2.0-12.0); NEUTROPHILS # (AUTO) 11.3 /CMM (1.8-8.9); NEUTROPHILS % (AUTO) 91.7 % (43.0-81.0); PLATELET COUNT (AUTO) 141 /CMM (150-450); RED BLOOD CELL COUNT(AUTO) 4.31 MIL/uL (4.5-6.0); WHITE BLOOD COUNT (AUTO) 12.3 K/uL (4.3-11.0)
[2020-01-14 06:34] LABS: ALBUMIN 3.1 g/dL (3.4-5.0); BILIRUBIN,TOTAL 1.1 mg/dL (0.2-1.0); CALCIUM, SERUM 8.2 mg/dL (8.5-10.1); CREATININE 1.3 mg/dL (0.6-1.3); MAGNESIUM 1.5 mg/dL (1.8-2.4); PHOSPHORUS 2.1 mg/dL (2.5-4.9); POTASSIUM 4.5 mmol/L (3.5-5.1); TOTAL PROTEIN, SERUM 7.5 g/dL (6.4-8.2)
--- NOTE | 2020-01-14 07:35 | NUR ---
RN NOTES ALL NEEDS ATTENDED AND MET, ABLE TO REST NAP AT TIMES, DENIES ANY PAIN OR DISCOMFORT, IV ACCESS INTACT AND PATENT SAFETY MEASURES IN PLACE, CALL LIGHT WITH IN EASY REACH, ENDORSED TO AM NURSE FOR CONTINUITY OF CARE.
[2020-01-14 08:00] VITALS: BP 108/62
--- NOTE | 2020-01-14 08:00 | NUR ---
RN NOTES RECEIVED, AWAKE ALERT WATCHING TV PROGRAMS, DENIES ANY PAIN AND OR DISCOMFORT, SAFETY MEASURES IN PLACE, CALL LIGHT WITH IN EASY REACH, WILL CONTINUE TO MONITOR ACCORDINGLY.
[2020-01-14] MEDS: CARVEDILOL 6.25 MG TABLET PO SCH ×2 (09:00→20:39)
[2020-01-14] MEDS ORDERED: FUROSEMIDE 80 MG TABLET PO SCH (09:00)
[2020-01-14] MEDS: LISINOPRIL (10MG) 10 MG TABLET PO SCH (09:00)
[2020-01-14] MEDS: Magnesium 1GM/D5W 100ML PREMIX 100 ML IV SCH ×2 (09:44→10:42)
[2020-01-14] MEDS: ATORVASTATIN 40 MG TABLET PO SCH (09:44)
[2020-01-14] MEDS: predniSONE 20 MG TABLET PO SCH (09:45)
[2020-01-14] MEDS: NEUTRA PHOS 1 POWD.PACKET PO SCH ×2 (09:48→18:30)
[2020-01-14 16:00] VITALS: BP 117/67
[2020-01-14] MEDS: LEVOFLOXACIN 500 MG /D5W 100ML 100 ML IV SCH (18:29)
--- NOTE | 2020-01-14 19:10 | NUR ---
RN OPENING NOTES: PATIENT IN BED, AWAKE, AND VERBALLY RESPONSIVE. NO SOB. ON ROOM AIR, TOLERATING WELL. NO C/O PAIN AT THIS TIME. PATIENT IS AMBULATORY. IV ACCESS (R) EXT. JUGULAR C/D/I, FLUSHING WELL. ON IV NS AT 75 MLS/HR, TOLERATING WELL. SAFETY PRECAUTIONS IMPLEMENTED. BED LOCKED AND IN LOW POSITION. CALL LIGHT PLACED WITHIN REACH. WILL CONT. TO MONITO
[2020-01-14 20:00] VITALS: BP 134/74
[2020-01-15] MEDS: ALBUTEROL HALF STRENGTH 1.25 MG/3 ML VIAL.NEB NEB SCH ×6 (02:30→23:30)
[2020-01-15] MEDS: IPRATROPIUM NEB FS 0.5 MG/2.5 ML AMPUL.NEB NEB SCH ×6 (02:30→23:30)
[2020-01-15 04:00] VITALS: BP 121/75
--- NOTE | 2020-01-15 07:10 | NUR ---
RN CLOSING NOTES: PATIENT IN BED, AWAKE, AND VERBALLY RESPONSIVE. NO SOB. ON ROOM AIR, TOLERATING WELL. NO C/O CHEST PAIN DURING SHIFT. PATIENT IS AMBULATORY. IV ACCESS (R) EXT. JUGULAR C/D/I, FLUSHING WELL. ON IV NS AT 75 MLS/HR, TOLERATING WELL. SAFETY PRECAUTIONS IMPLEMENTED. BED LOCKED AND IN LOW POSITION. F/U V/Q SCAN WITH DR. KLEIN. ENDORSED TO AM SHIFT NURSE FOR RADHA.
--- NOTE | 2020-01-15 07:50 | NUR ---
RN OPENING NOTE: RECEIVED PATIENT AWAKE IN BED THIS MORNING. PATIENT IS ALERT X4. ON RA, NO SIGNS OF RESPIRATORY DISTRESS NOTED. PATIENT HAS A PACEMAKER ON RCW. AMBULATORY. IV ON R JUGULAR, FLUSHING WELL, SITE C/D/I. SAFETY MEASURES IMPLEMENTED, BED IN LOWEST POSITION, LOCKED, SIDE RAILS UP X2, CALL LIGHT WITHIN REACH. WILL CONTINUE TO MONITOR PATIENT.
[2020-01-15 08:00] VITALS: BP 97/77
[2020-01-15] MEDS: LISINOPRIL (10MG) 10 MG TABLET PO SCH (09:00)
[2020-01-15] MEDS: predniSONE 20 MG TABLET PO SCH (09:00)
[2020-01-15] MEDS: ATORVASTATIN 40 MG TABLET PO SCH (09:00)
[2020-01-15] MEDS: CARVEDILOL 6.25 MG TABLET PO SCH ×2 (09:00→20:24)
[2020-01-15 13:05] VITALS: BP 97/77
[2020-01-15 16:00] VITALS: BP 130/76
[2020-01-15] MEDS: LEVOFLOXACIN 500 MG /D5W 100ML 100 ML IV SCH (17:24)
[2020-01-15 18:58] LABS: BASOPHILS % (AUTO) 0.1 % (0.0-2.0); HEMATOCRIT 40 % (39-51); HEMOGLOBIN 13.3 g/dL (13.5-17.5); LYMPHOCYTES # (AUTO) 0.5 /CMM (0.8-4.8); LYMPHOCYTES % (AUTO) 5.6 % (20.0-44.0); MEAN CORPUSCULAR HGB CONC 33 g/dl (31.0-36.0); MEAN CORPUSCULAR VOLUME 89 fL (80-96); MONOCYTES # (AUTO) 0.4 /CMM (0.1-1.30); MONOCYTES % (AUTO) 3.6 % (2.0-12.0); NEUTROPHILS # (AUTO) 8.8 /CMM (1.8-8.9); NEUTROPHILS % (AUTO) 90.7 % (43.0-81.0); PLATELET COUNT (AUTO) 182 /CMM (150-450); RED BLOOD CELL COUNT(AUTO) 4.49 MIL/uL (4.5-6.0); WHITE BLOOD COUNT (AUTO) 9.8 K/uL (4.3-11.0)
--- NOTE | 2020-01-15 19:05 | NUR ---
RN OPENING NOTES: PATIENT IN BED, AWAKE, AND VERBALLY RESPONSIVE. NO SOB. ON ROOM AIR, TOLERATING WELL. NO CHEST PAIN AT THIS TIME. PATIENT IS AMBULATORY. IV ACCESS (L) RING FINGER G20 C/D/I, FLUSHING WELL. ON IV NS AT 75 MLS/HR, TOLERATING WELL. SAFETY PRECAUTIONS IMPLEMENTED. BED LOCKED AND IN LOW POSITION. CALL LIGHT PLACED WITHIN REACH. WILL CONT. TO MONITOR. Addendum: 01/16/20 at 0118 by GATO DIAZ RN CORRECTION: PATIENT'S IVF DC'D.
[2020-01-15 19:12] LABS: CREATININE 1.3 mg/dL (0.6-1.3); MAGNESIUM 1.8 mg/dL (1.8-2.4); PHOSPHORUS 3.5 mg/dL (2.5-4.9); POTASSIUM 5.1 mmol/L (3.5-5.1)
--- NOTE | 2020-01-15 19:56 | NUR ---
RN CLOSING NOTE: PATIENT IS AWAKE RESTING IN BED. VSS. NO ACUTE CHANGES NOTED THROUGHOUT SHIFT. IV LINE PATENT, NO ISSUES NOTED. SAFETY PRECAUTIONS IMPLEMENTED. BED LOCKED AND IN LOWEST POSITION, SIDE RAILS UP X2. ENDORSED TO NIGHT RN FOR CONTINUITY OF CARE.
[2020-01-15 20:00] VITALS: BP 111/68
--- NOTE | 2020-01-15 21:45 | NUR ---
RN NOTE: PATIENT STATED HE COULD NOT SLEEP AT ALL LAST NIGHT AND HAS INSOMNIA. PATIENT REQUESTING FOR A SLEEPING MEDICATION. DR. ALCANTARA MADE AWARE WITH NEW ORDER FOR AMBIEN 5 MG HS PRN. WILL CONT. TO MONITOR.
[2020-01-15] MEDS ORDERED: ZOLPIDEM TARTRATE 5 MG TABLET PO PRN (22:00)
[2020-01-16] MEDS: IPRATROPIUM NEB FS 0.5 MG/2.5 ML AMPUL.NEB NEB SCH ×4 (03:23→15:30)
[2020-01-16] MEDS: ALBUTEROL HALF STRENGTH 1.25 MG/3 ML VIAL.NEB NEB SCH ×4 (03:23→15:30)
[2020-01-16 04:00] VITALS: BP 137/75
[2020-01-16 06:44] LABS: BASOPHILS % (AUTO) 0.3 % (0.0-2.0); HEMATOCRIT 41 % (39-51); HEMOGLOBIN 13.8 g/dL (13.5-17.5); LYMPHOCYTES # (AUTO) 1.4 /CMM (0.8-4.8); LYMPHOCYTES % (AUTO) 14.2 % (20.0-44.0); MEAN CORPUSCULAR HGB CONC 34 g/dl (31.0-36.0); MEAN CORPUSCULAR VOLUME 89 fL (80-96); MONOCYTES # (AUTO) 1.4 /CMM (0.1-1.30); MONOCYTES % (AUTO) 13.3 % (2.0-12.0); NEUTROPHILS # (AUTO) 7.3 /CMM (1.8-8.9); NEUTROPHILS % (AUTO) 72.2 % (43.0-81.0); PLATELET COUNT (AUTO) 204 /CMM (150-450); WHITE BLOOD COUNT (AUTO) 10.1 K/uL (4.3-11.0)
--- NOTE | 2020-01-16 07:05 | NUR ---
RN CLOSING NOTES: PATIENT IN BED, AWAKE, AND VERBALLY RESPONSIVE. NO RESPIRATORY DISTRESS. ON ROOM AIR, TOLERATING WELL. NO CHEST PAIN. IV ACCESS (L) RING FINGER G20 C/D/I, FLUSHING WELL. SAFETY PRECAUTIONS IMPLEMENTED. BED LOCKED AND IN LOW POSITION. CALL LIGHT PLACED WITHIN REACH. ENDORSED TO AM SHIFT NURSE.
[2020-01-16] MEDS: LISINOPRIL (10MG) 10 MG TABLET PO SCH (08:50)
[2020-01-16] MEDS: CARVEDILOL 6.25 MG TABLET PO SCH (08:52)
[2020-01-16] MEDS: ATORVASTATIN 40 MG TABLET PO SCH (09:00)
[2020-01-16] MEDS ORDERED: predniSONE 20 MG TABLET PO SCH (09:00)
--- NOTE | 2020-01-16 11:17 | NUR ---
up and down the hallway, want to go out for smoke, " i have no cigarettes with me, i get to buy, but no money". " dont ask me to abstain from smoking please". No other complaint
[2020-01-16] MEDS ORDERED: LISI10TA5 PO (11:32)
[2020-01-16] MEDS ORDERED: PRED20TA PO (11:32)
[2020-01-16] MEDS ORDERED: DOXY100C41 PO (11:32)
[2020-01-16] MEDS ORDERED: CEFT1VIA15 IV (11:32)
[2020-01-16] MEDS ORDERED: IPRA0.2S9 NEB (11:32)
[2020-01-16] MEDS ORDERED: ATOR40TA PO (11:32)
[2020-01-16] MEDS ORDERED: CARV6.252 PO (11:32)
[2020-01-16 12:02] LABS: ALBUMIN 3.6 g/dL (3.4-5.0); BILIRUBIN,TOTAL 0.7 mg/dL (0.2-1.0); CALCIUM, SERUM 8.5 mg/dL (8.5-10.1); CREATININE 1.2 mg/dL (0.6-1.3); PHOSPHORUS 3.8 mg/dL (2.5-4.9); TOTAL PROTEIN, SERUM 8.3 g/dL (6.4-8.2)
[2020-01-16 12:19] VITALS: BP 121/77
--- NOTE | 2020-01-16 12:56 | NUR ---
report given to Mike , at [facility], scheduled to be picked up at 1800 per case finisher Blake, patient aware, and the facility aware
--- NOTE | 2020-01-16 16:53 | NUR ---
awaiting ambulance to pickup driver at 1800 this evening, alert, oriented, and forgetful. Claimed he had money on admission, when checked the personal belongings list, nothing noted, patient aware and signed the list back to [facility], for the continuation of abx ivpb Rocephine,will be leaving the floor with L FINGER RING hep lock, intact and flushed well.
[2020-01-16] MEDS ORDERED: LEVOFLOXACIN (500MG) 500 MG TABLET PO SCH (17:00)
--- NOTE | 2020-01-16 17:38 | NUR ---
now picked up by ambulance, left the floor, alert, oriented, in no respiratory distress, denied dyspnea, denied pain,will be going to [facility], [id number] [address] [place]
== END 2020-01-16 17:58 | DRG 280 ==
LOC: ER 04:29 → TELE1 08:56 → MEDSG1 12:21
PROVIDERS: ADMIT Nurse Practitioner Acute Care; ATTEND Nurse Practitioner Acute Care
DX: I11.0 Hypertensive heart disease with heart failure (principal); I21.A1 Myocardial infarction type 2; N17.0 Acute kidney failure with tubular necrosis; E87.2 Acidosis; E44.0 Moderate protein-calorie malnutrition; J44.1 Chronic obstructive pulmonary disease with (acute) exacerbation; J20.9 Acute bronchitis, unspecified; I50.23 Acute on chronic systolic (congestive) heart failure; I42.9 Cardiomyopathy, unspecified; E78.5 Hyperlipidemia, unspecified; B19.20 Unspecified viral hepatitis C without hepatic coma; I25.10 Atherosclerotic heart disease of native coronary artery without angina pectoris; E83.51 Hypocalcemia; E83.42 Hypomagnesemia; Z59.0 Homelessness; Z95.0 Presence of cardiac pacemaker; Z79.899 Other long term (current) drug therapy; G89.4 Chronic pain syndrome; G47.00 Insomnia, unspecified; Z79.51 Long term (current) use of inhaled steroids; Z79.82 Long term (current) use of aspirin; Z72.0 Tobacco use; K21.9 Gastro-esophageal reflux disease without esophagitis; F10.20 Alcohol dependence, uncomplicated; E83.39 Other disorders of phosphorus metabolism; D63.8 Anemia in other chronic diseases classified elsewhere
CPT/HCPCS: 36415; 71045-TC; 76770-TC; 80048-TC; 80053-TC; 80061-TC; 80076-TC; 83735-TC; 83880; 84100-TC; 84484-TC; 85025-TC; 85378-TC; 87040-TC; 87081-TC; 93307-TC; 94799-TC; G0378; J1940; J1956; J2930; J3475; J7030